=== PATIENT | male | born 1995 | race Caucasian/White ===

== ENCOUNTER 2019-09-15 15:18 | Emergency (ER) | payer OTHER ==
[~2019-09-15] VITALS: Ht 172.7 cm; Wt 94.3 kg
[~2019-09-15 15:18] MED LIST: AMPH30TA2 PO; CLN.1T PO; CLON1PAT16 TD; FLUO20CA42 PO; INDO25CA PO; MELA5TAB12 PO
[2019-09-15] MEDS ORDERED: NS IV 1000 ML 1,000 ML IV SCH (15:30)
[2019-09-15] MEDS ORDERED: KETOROLAC 30 MG/ML VIAL IVP ONE (15:30)
--- NOTE | 2019-09-15 15:32 | ED GU-Female ---
General Chief Complaint: - Urinary Stated Complaint: POSS KIDNEY STONE Nursing Triage Note: PT AMB TO TRIAGE WITH COMPLAINT OF LEFT FLANK PAIN. STATES HAS HX OF KIDNEY STONES Nursing Sepsis Screen: No Definite Risk Source: patient Exam Limitations: no limitations History of Present Illness Date Seen by Provider: Sep 15, 2019 Time Seen by Provider: 15:31 Initial Comments To ER with sudden onset left flank pain that began about an hour ago after lunch. Pain is better at this time but still present. Timing/Duration: just prior to arrival Severity/Quality: moderate Location: left flank Radiation: none Activities at Onset: none Prior Genitourinary Problems: none Associated Symptoms: denies symptoms Allergies and Home Medications Allergies Coded Allergies: No Known Drug Allergies (Unverified , 05/04/10) Home Medications Clonidine Hcl 0.1 Mg Tab, 1 EACH PO BID, (Reported) Fluoxetine Hcl 20 Mg Capsule, 1 EACH PO DAILY, (Reported) Indomethacin 25 Mg Cap, 1 EACH PO TID PRN Prescribed by: KAMRYN MAY on 01/21/122122 Patient Home Medication List Home Medication List Reviewed: Yes Review of Systems Review of Systems Constitutional: see HPI EENTM: see HPI Respiratory: no symptoms reported Cardiovascular: no symptoms reported Genitourinary: see HPI Musculoskeletal: no symptoms reported Skin: no symptoms reported Psychiatric/Neurological: No Symptoms Reported Endocrine: No Symptoms Reported Past Mzniaij-Iozutf-Gonupd Hx Patient Social History Alcohol Use: Past History Recreational Drug Use: No Smoking Status: Current Everyday Smoker Type Used: Cigarettes Recent Foreign Travel: No Contact w/Someone Who Travel: No Recent Infectious Disease Expo: No Recent Hopitalizations: No Immunizations Up To Date Tetanus Booster (TDap): Unknown PED Vaccines UTD: Yes Date of Pneumonia Vaccine: Dec 07, 2010 Date of Influenza Vaccine: Dec 25, 2011 Seasonal Allergies Seasonal Allergies: No Past Medical History Surgeries: Yes (ear tubes) Respiratory: No Cardiac: No Neurological: No Genitourinary: Yes Kidney Stones Gastrointestinal: No Musculoskeletal: No Endocrine: No HEENT: No Cancer: No Psychosocial: No Integumentary: No Blood Disorders: No Physical Exam Vital Signs Vital Signs - First Documented 09/15/19 15:23 Temp 37.2 Pulse 98 Resp 20 B/P (MAP) 140/85 (103) Pulse Ox 100 O2 Delivery Room Air Capillary Refill : Less Than 3 Seconds Height, Weight, BMI Height: '" Weight: lbs. oz. kg; 31.00 BMI Method:Stated General Appearance: WD/WN, no apparent distress HEENT: PERRL/EOMI, normal ENT inspection Neck: non-tender, full range of motion Respiratory: normal breath sounds, no respiratory distress, no accessory muscle use Gastrointestinal: normal bowel sounds, non tender, soft Neurologic/Psychiatric: alert, normal mood/affect, oriented x 3 Skin: normal color, warm/dry Progress/Results/Core Measures Suspected Sepsis Recent Fever Within 48 Hours: No Infection Criteria Present: None New/Unexplained Altered Menta: No Sepsis Screen: No Definite Risk SIRS Temperature: Pulse: 98 Respiratory Rate: 20 Laboratory Tests 09/15/19 15:35: White Blood Count 14.2H Blood Pressure 140 /85 Mean: 103 Laboratory Tests 09/15/19 15:35: Creatinine 1.10, Platelet Count 286 Results/Orders Lab Results Laboratory Tests Test 09/15/19 15:35 09/15/19 16:29 Range/Units White Blood Count 14.2 H 4.3-11.0 10^3/uL Red Blood Count 5.64 4.35-5.85 10^6/uL Hemoglobin 16.1 13.3-17.7 G/DL Hematocrit 44 40-54 % Mean Corpuscular Volume 79 L 80-99 FL Mean Corpuscular Hemoglobin 29 25-34 PG Mean Corpuscular Hemoglobin Concent 36 32-36 G/DL Red Cell Distribution Width 12.6 10.0-14.5 % Platelet Count 286 130-400 10^3/uL Mean Platelet Volume 9.7 7.4-10.4 FL Neutrophils (%) (Auto) 83 H 42-75 % Lymphocytes (%) (Auto) 12 12-44 % Monocytes (%) (Auto) 5 0-12 % Eosinophils (%) (Auto) 0 0-10 % Basophils (%) (Auto) 0 0-10 % Neutrophils # (Auto) 11.8 H 1.8-7.8 X 10^3 Lymphocytes # (Auto) 1.6 1.0-4.0 X 10^3 Monocytes # (Auto) 0.7 0.0-1.0 X 10^3 Eosinophils # (Auto) 0.0 0.0-0.3 10^3/uL Basophils # (Auto) 0.0 0.0-0.1 10^3/uL Neutrophils % (Manual) 80 % Lymphocytes % (Manual) 14 % Monocytes % (Manual) 4 % Myelocytes % 1 % Band Neutrophils 1 % Blood Morphology Comment NORMAL Sodium Level 139 135-145 MMOL/L Potassium Level 3.9 3.6-5.0 MMOL/L Chloride Level 104 98-107 MMOL/L Carbon Dioxide Level 24 21-32 MMOL/L Anion Gap 11 5-14 MMOL/L Blood Urea Nitrogen 9 7-18 MG/DL Creatinine 1.10 0.60-1.30 MG/DL Estimat Glomerular Filtration Rate > 60 BUN/Creatinine Ratio 8 Glucose Level 99 70-105 MG/DL Calcium Level 9.8 8.5-10.1 MG/DL Urine Color YELLOW Urine Clarity CLEAR Urine pH 7.0 5-9 Urine Specific [place] <=1.005 1.016-1.022 Urine Protein NEGATIVE NEGATIVE Urine Glucose (UA) NEGATIVE NEGATIVE Urine Ketones NEGATIVE NEGATIVE Urine Nitrite NEGATIVE NEGATIVE Urine Bilirubin NEGATIVE NEGATIVE Urine Urobilinogen 0.2 < = 1.0 MG/DL Urine Leukocyte Esterase NEGATIVE NEGATIVE Urine RBC (Auto) 2+ H NEGATIVE Urine RBC 2-5 H /HPF Urine WBC NONE /HPF Urine Crystals NONE /LPF Urine Bacteria NEGATIVE /HPF Urine Casts NONE /LPF Urine Mucus NEGATIVE /LPF Urine Culture Indicated NO My Orders Orders - DANIEL NAGEL APRN Ua Culture If Indicated (09/15/19 15:28) Cbc With Automated Diff (09/15/19 15:28) Basic Metabolic Panel (09/15/19 15:28) Ed Iv/Invasive Line Start (09/15/19 15:28) Ketorolac Injection (Toradol Injection) (09/15/19 15:30) Ns Iv 1000 Ml (Sodium Chloride 0.9%) (09/15/19 15:30) Manual Differential (09/15/19 15:35) Ct Abd/Pelvis Wo(Kidney Stone) (09/15/19 15:54) Medications Given in ED Current Medications Medications Dose Ordered Sig/Michelle Route Start Time Stop Time Status Last Admin Dose Admin Ketorolac Tromethamine 15 mg ONCE ONCE IVP 09/15/19 15:30 09/15/19 15:31 DC 09/15/19 15:40 15 MG Vital Signs/I&O 09/15/19 15:23 Temp 37.2 Pulse 98 Resp 20 B/P (MAP) 140/85 (103) Pulse Ox 100 O2 Delivery Room Air Capillary Refill : Less Than 3 Seconds Blood Pressure Mean: 103 Diagnostic Imaging Diagonstic Imaging: Xray, CT Comments NAME: RICHARD BOLIVAR [facility] REC#: [id number] PT STATUS: REG ER : 1995 PHYSICIAN: DANIEL NAGEL CONTENT MANAGER ADMIT DATE: 09/15/19/ER Signed Date of Exam:09/15/19 CT ABD/PELVIS WO(KIDNEY STONE) PROCEDURE: CT urinary tract, rule out kidney stone. TECHNIQUE: Multiple contiguous axial images were obtained through the abdomen and pelvis without the use of intravenous contrast. Auto Exposure Controls were utilized during the CT exam to meet ALARA standards for radiation dose reduction. INDICATION: Pain with nausea and vomiting. COMPARISON: None available. FINDINGS: The visualized lung bases are clear. The unenhanced liver, spleen, adrenal glands, and pancreas are unremarkable. The gallbladder is unremarkable. The right kidney and right ureter are unremarkable. A 5.5 mm stone is identified within the left ureteropelvic junction resulting in minimal left hydronephrosis. Additional punctate calcification within the inferior pole of the left kidney. The mid and distal left ureter is unremarkable. No aneurysmal dilatation of the abdominal aorta. The appendix is unremarkable. The urinary bladder is unremarkable. No bowel obstruction or pneumatosis. No significant adenopathy, free air, or free fluid within the abdomen or pelvis. Limbus vertebra associated with L4. No acute osseous abnormality. IMPRESSION: 5.5 mm stone within the left ureteropelvic junction resulting in mild left hydronephrosis. Additional punctate left renal calculus. Dictated by: Dictated on workstation # [id number] Dict: 09/15/19 1637 Trans: 09/15/19 1647 [facility] [id number] Interpreted by: TAMIA BEDOLLA MD Electronically signed by: TAMIA BEDOLLA MD 09/15/191646 Departure Impression Primary Impression: Kidney stone Disposition: 01 HOME, SELF-CARE Condition: Stable Departure-Patient Inst. Decision time for Depature: 16:51 Referrals: NO,LOCAL PHYSICIAN (PCP/Family) Primary Care Physician Patient Instructions: Kidney Stones (DC) Add. Discharge Instructions: 1. Return to ER for any concerns such as fevers intolerable pain or other concerns. 2. Follow-up with your doctor this week. All discharge instructions reviewed with patient and/or family. Voiced understanding. Scripts Hydrocodone/Acetaminophen (Lorcet 5-325 mg Tablet) 1 Each Tablet 1 EACH PO Q4-6HR PRN for PAIN-MODERATE MDD 10 for 7 Days, #20 TAB Prov: DANIEL NAGEL APRN 09/15/19 Cefdinir (Cefdinir) 300 Mg Capsule 300 MG PO BID, #14 CAP 0 Refills Prov: DANIEL NAGEL APRN 09/15/19 Tamsulosin HCl (Flomax) 0.4 Mg Cap 0.4 MG PO DAILY, #10 CAP Prov: DANIEL NAGEL APRN 09/15/19 Work/School Note: Work Release Form Date Seen in the Emergency Department: Sep 15, 2019 Return to Work: Sep 17, 2019 DANIEL NAGEL APRN Sep 15, 2019 15:32
[2019-09-15 15:40] LABS: BASOPHILS % (AUTO) 0 % (0-10); EOSINOPHILS % (AUTO) 0 % (0-10); HEMATOCRIT 44 % (40-54); HEMOGLOBIN 16.1 G/DL (13.3-17.7); LYMPHOCYTES # (AUTO) 1.6 X 10^3 (1.0-4.0); LYMPHOCYTES % (AUTO) 12 % (12-44); MEAN CORPUSCULAR HEMOGLOBIN 29 PG (25-34); MEAN CORPUSCULAR HGB CONC 36 G/DL (32-36); MEAN CORPUSCULAR VOLUME 79 FL (80-99); MEAN PLATELET VOLUME 9.7 FL (7.4-10.4); MONOCYTES # (AUTO) 0.7 X 10^3 (0.0-1.0); MONOCYTES % (AUTO) 5 % (0-12); NEUTROPHILS # (AUTO) 11.8 X 10^3 (1.8-7.8); NEUTROPHILS % (AUTO) 83 % (42-75); PLATELET COUNT 286 10^3/uL (130-400); RED CELL DISTRIBUTION WIDTH 12.6 % (10.0-14.5); WHITE BLOOD COUNT 14.2 10^3/uL (4.3-11.0)
[2019-09-15 15:56] LABS: CHLORIDE 104 MMOL/L (98-107); POTASSIUM 3.9 MMOL/L (3.6-5.0); SODIUM 139 MMOL/L (135-145)
[2019-09-15 15:57] LABS: CALCIUM 9.8 MG/DL (8.5-10.1); GLUCOSE 99 MG/DL (70-105)
[2019-09-15 15:59] LABS: CARBON DIOXIDE 24 MMOL/L (21-32)
[2019-09-15 16:01] LABS: GFR ESTIMATED > 60
[2019-09-15 16:02] LABS: BUN/CREATININE RATIO 8
[2019-09-15 16:12] LABS: BAND NEUTROPHILS 1 %; LYMPHOCYTES % (MANUAL) 14 %; MONOCYTES % (MANUAL) 4 %; NEUTROPHILS % (MANUAL) 80 %
[2019-09-15 16:13] LABS: MYELOCYTES % 1 %; RBC MORPH NORMAL
[2019-09-15 16:35] LABS: BILIRUBIN,URINE NEGATIVE (NEGATIVE); CLARITY,URINE CLEAR; COLOR,URINE YELLOW; GLUCOSE, URINE (UA) NEGATIVE (NEGATIVE); KETONES,URINE NEGATIVE (NEGATIVE); LEUKOCYTE ESTERASE ,URINE NEGATIVE (NEGATIVE); NITRITE,URINE NEGATIVE (NEGATIVE); PROTEIN,URINE NEGATIVE (NEGATIVE)
[2019-09-15 16:48] LABS: BACTERIA,URINE NEGATIVE /HPF
--- NOTE | 2019-09-15 16:48 | Diagnostic Imaging Report ---
PROCEDURE: CT urinary tract, rule out kidney stone. TECHNIQUE: Multiple contiguous axial images were obtained through the abdomen and pelvis without the use of intravenous contrast. Auto Exposure Controls were utilized during the CT exam to meet ALARA standards for radiation dose reduction. INDICATION: Pain with nausea and vomiting. COMPARISON: None available. FINDINGS: The visualized lung bases are clear. The unenhanced liver, spleen, adrenal glands, and pancreas are unremarkable. The gallbladder is unremarkable. The right kidney and right ureter are unremarkable. A 5.5 mm stone is identified within the left ureteropelvic junction resulting in minimal left hydronephrosis. Additional punctate calcification within the inferior pole of the left kidney. The mid and distal left ureter is unremarkable. No aneurysmal dilatation of the abdominal aorta. The appendix is unremarkable. The urinary bladder is unremarkable. No bowel obstruction or pneumatosis. No significant adenopathy, free air, or free fluid within the abdomen or pelvis. Limbus vertebra associated with L4. No acute osseous abnormality. IMPRESSION: 5.5 mm stone within the left ureteropelvic junction resulting in mild left hydronephrosis. Additional punctate left renal calculus. Dictated by: Dictated on workstation # [id number]
[2019-09-15] MEDS ORDERED: TMSL.4C PO (16:53)
[2019-09-15] MEDS ORDERED: HYDR-3870 PO (16:53)
[2019-09-15] MEDS ORDERED: CEFD300C3 PO (16:53)
[2019-09-15] MEDS ORDERED: cefTRIAXone FOR IV USE 1,000 MG in WATER (STERILE) FOR INJECTION 10 ML IV ONE (17:00)
[2019-09-15 17:09] VITALS: BP 138/79
--- OUTSIDE RECORDS SUMMARY | 2019-09-15 18:30 | XMS REPORT ---
Author Author Hussain DOMINGUEZ [address] Address [address] [place] [address] Care Team Providers [facility] Staff Pharmacist Name Role Phone AKI DOMINGUEZ Unavailable PROBLEMS Type Condition ICD9-CM Code AVT22-AP Code Onset Dates Condition S tatus SNOMED Code Problem Elevated blood pressure reading without diagnosi s of hypertension 796.2 Active 576637276 Problem Palpitations 785.1 Active 0081017 2 Problem Syncope and collapse 780.2 Active 549949251 Problem Insomnia, unspecified type G47.00 Act nhan 127193984 Problem ADHD (attention deficit hyperactivity disorder) 314.01 Active 747251582 Problem Psychophysiological insomnia F51.04 A ctive 876652586 Problem Vitiligo 709.01 Active 11700860 Problem Other acne 706.1 Active 43906918 Problem Depressive disorder, not elsewhere classified 311 Active 41376960 Problem Attention deficit hyperactiv ity disorder (ADHD), predominantly inattentive type F90.0 Active 37576545 ALLERGIES No Information ENCOUNTERS Encounter Location Date Diagnosis [place] [id number] [facility] [address] [id number] [place] [id number] Mar, Attention deficit hyperactivity disorder (ADHD), predominantly inattentive type F90.0 [facility] [address] [facility] [id number] [place] [id number] Feb, [facility] [address] [id number] [place] [id number] Feb, Attention deficit hyperactivity disorder (ADHD), predominantly inattentive type F90.0 [facility] [address] [id number] [place] [id number] Jan, Attention deficit hyperactivity disorder (ADHD), predominantly inattentive type F90.0 [facility] [address] [id number] [place] [id number] Dec, Attention deficit hyperactivity disorder (ADHD), predominantly inattentive type F90.0 and Psychophysiological insomnia F51.04 [facility] [place] [address] [id number] [place] [id number] Dec, Attention deficit hyperactivity disorder (ADHD), predominantly inattentive type F90.0 [facility] [place] [address] [id number] [place] [id number] Nov, Encounter for immunization Z23 [facility] [place] [address] [id number] [place] [id number] Nov, Attention deficit hyperactivity disorder (ADHD), predominantly inattentive type F90.0 [facility] [place] [address] [id number] [place] [id number] Oct, Attention deficit hyperactivity disorder (ADHD), predominantly inattentive type F90.0 and Adjustment insomnia F51.02 [facility] [place] [address] [id number] [place] [id number] Sep, Attention deficit hyperactivity disorder (ADHD), predominantly inattentive type F90.0 [facility] [place] [address] [id number] [place] [id number] Aug, Adjustment insomnia F51.02 [facility] [place] [address] [id number] [place] [id number] Jul, Attention deficit hyperactivity disorder (ADHD), predominantly inattentive type F90.0 [facility] [place] [address] [id number] [place] [id number] Jul, Adjustment insomnia F51.02 and Attention deficit hyperactivity disorder (ADHD), predominantly inattentive type F90.0 [facility] [place] [address] [id number] [place] [id number] June, Attention deficit hyperactivity disorder (ADHD), predominantly inattentive type F90.0 [facility] [place] [address] [id number] [place] [id number] June, Attention deficit hyperactivity disorder (ADHD), predominantly inattentive type F90.0 [facility] [place] [address] [id number] [place] [id number] May, Attention deficit hyperactivity disorder (ADHD), predominantly inattentive type F90.0 [facility] [place] [address] [id number] [place] [id number] Apr, Attention deficit hyperactivity disorder (ADHD), predominantly inattentive type F90.0 [facility] [place] [address] [id number] [place] [id number] Apr, [facility] [place] [address] [id number] [place] [id number] Apr, Attention deficit hyperactivity disorder (ADHD), predominantly inattentive type F90.0 [facility] [place] [address] [id number] [place] [id number] Mar, [facility] [place] [address] [id number] [place] [id number] Feb, [facility] [place] [address] [id number] [place] [id number] Jan, [facility] [place] [address] [id number] [place] [id number] Dec, [facility] [place] [address] [id number] [place] [id number] Nov, [facility] [place] [address] [id number] [place] [id number] Oct, Attention deficit hyperactivity disorder (ADHD), predominantly inattentive type F90.0 [facility] [place] [address] [id number] [place] [id number] Sep, [facility] [place] [address] [id number] [place] [id number] Aug, [facility] [place] [address] [id number] [place] [id number] Jul, Attention deficit hyperactivity disorder (ADHD), predominantly inattentive type F90.0 and Insomnia, unspecified type G47.00 [facility] [place] [address] [id number] [place] [id number] Jul, [facility] [address] [place] [address] AVE [id number] [place] [id number] June, [facility] [place] [address] [id number] [place] [id number] May, Attention deficit hyperactivity disorder (ADHD), predominantly inattentive type F90.0 [facility] [place] [address] [id number] [place] [id number] Apr, [facility] [place] [address] [id number] [place] [id number] Mar, [facility] [place] [address] [id number] [place] [id number] Mar, Attention deficit hyperactivity disorder (ADHD), predominantly inattentive type F90.0 [facility] [place] [address] [id number] [place] [id number] Feb, [facility] [place] [address] [id number] [place] [id number] Feb, [facility] [address] [id number] [place] [id number] Jan, [facility] [place] [address] [id number] [place] [id number] Dec, Attention deficit hyperactivity disorder (ADHD), predominantly inattentive type F90.[address] [facility] [address] [id number] [facility] [place] [id number] Nov, [facility] [place] [address] [id number] [place] [id number] Oct, [facility] [place] [address] [id number] [place] [id number] Sep, ADHD (attention deficit hyperactivity di sorder) 314.01 [facility] [place] [address] [id number] [place] [id number] Sep, [facility] [place] [address] [id number] [place] [id number] June, [facility] [place] [address] [id number] [place] [id number] June, [facility] [address] [facility] [id number] [address] [place] [address] May, [facility] [address] [facility] [id number] [address] [place] [address] May, [facility] [place] [address] [id number] [place] [id number] Apr, [facility] [place] [address] [id number] [facility] [address] Apr, [facility] [place] [address] [id number] [place] [id number] Mar, [facility] [address] [id number] [facility] [address] Mar, [facility] [place] [address] [id number] [place] [id number] Feb, [facility] [address] [id number] [address] [place] [address], [place] [address] Feb, [facility] [place] [address] [id number] [place] [id number] Feb, [facility] [address] [facility] [id number] [address] [place] [address], [place] [address] Feb, [facility] [place] [address] [id number] [place] [id number] Jan, [facility] [address] [id number] [address] [place] [address], [place] [address] Jan, [facility] [place] [address] [id number] [place] [id number] Jan, [facility] [address] [id number] [address] [place] [address], [place] [address] Jan, [facility] [place] [address] [id number] [place] [id number] Dec, [facility] [address] [id number] [address] [place] [address], [place] [address] Dec, [facility] [place] [address] [id number] [place] [id number] Nov, [facility] [address] [id number] [address] [place] [address], [place] [address] Nov, [facility] [place] [address] [id number] [place] [id number] Nov, [facility] [address] [id number] [address] [place] [address], [place] [address] Nov, [facility] [place] [address] [id number] [place] [id number] Oct, [facility] [address] [id number] [address] [place] [address], [place] [address] Oct, [facility] [place] [address] [id number] [place] [id number] Oct, [facility] [address] [id number] [address] [place] [address], [place] [address] Oct, [facility] [place] [address] [id number] [place] [id number] Sep, [facility] [address] [id number] [address] [place] [address], [place] [address] Sep, [facility] [address] [id number] [address] [place] [address], [place] [address] Sep, [facility] [place] [address] [id number] [place] [id number] Sep, [facility] [address] [id number] [address] [place] [address], [place] [address] Sep, [facility] [address] [id number] [address] [place] [address], [place] [address] Sep, [facility] [address] [id number] [address] [place] [address], [place] [address] Sep, [facility] [place] [address] [id number] [place] [id number] Aug, [facility] [address] [id number] [address] [place] [address], [place] [address] Aug, [facility] [place] [address] [id number] [place] [id number] Aug, [facility] [address] [id number] [facility] [address] Aug, [facility] [place] [address] [id number] [place] [id number] June, [facility] [place] [facility] [address] [id number] [facility] [address] June, [facility] [place] [address] [id number] [place] [id number] June, [facility] [address] [id number] [facility] [address] June, [facility] [place] [address] [id number] [place] [id number] Apr, [facility] [address] [id number] [facility] [address] Apr, [facility] [place] [address] [id number] [place] [id number] Mar, [facility] [address] [id number] [address] [place] [address], [place] [address] Mar, [facility] [place] [address] [id number] [place] [id number] Feb, [facility] [address] [id number] [address] [place] [address], [place] [address] Feb, [facility] [place] [address] [id number] [place] [id number] Jan, [facility] [address] [id number] [address] [place] [address], [place] [address] Jan, [facility] [address] [id number] [address] [place] [address], [place] [address] Jan, [facility] [address] [id number] [address] [place] [address], [place] [address] Jan, [facility] [place] [address] [id number] [place] [id number] Jan, [facility] [address] [id number] [address] [place] [address], [place] [address] Jan, [facility] [place] [address] [id number] [place] [id number] Nov, [facility] [address] [id number] [place] [address] Nov, [facility] [place] [address] [id number] [place] [id number] Oct, [facility] [place] [address] [id number] [place] [id number] Sep, [facility] [place] [address] [id number] [place] [id number] Sep, [facility] [place] [address] [id number] [place] [id number] Jul, [facility] [place] [address] [id number] [place] [id number] Jul, [facility] [place] [address] [id number] [place] [id number] June, [facility] [place] [address] [id number] [place] [id number] May, [facility] [place] [address] [id number] [place] [id number] Apr, [facility] [place] [address] [id number] [place] [id number] Mar, [facility] [place] [address] [id number] [place] [id number] Mar, [facility] [place] [address] [id number] [place] [id number] Mar, [facility] [place] [address] [id number] [place] [id number] Feb, [facility] [place] [address] [id number] [place] [id number] Feb, [facility] [place] [address] [id number] [place] [id number] Feb, [facility] [place] [address] [id number] [place] [id number] Feb, [facility] [place] [address] [id number] [place] [id number] Feb, [facility] [place] [address] [id number] [place] [id number] Jan, [facility] [address] [id number] [address] [place] [address], [place] [address] Jan, [facility] [place] [address] [id number] [place] [id number] Dec, [facility] [address] [id number] [address] [place] [address], [place] [address] Dec, [facility] [address] [id number] [address] [place] [address], [place] [address] Dec, [facility] [place] [address] [id number] [place] [id number] Dec, [facility] [address] [id number] [address] [place] [address] Dec, [facility] [address] [facility] [id number] [address] [place] [address], [place] [address] Dec, [facility] [address] [id number] [address] [place] [address] Dec, [facility] [place] [address] [id number] [place] [id number] Dec, [facility] [address] [id number] [address] [place] [address] Dec, [facility] [place] [address] [id number] [place] [id number] Nov, [facility] [place] [address] [id number] [place] [id number] Sep, [facility] [place] [address] [id number] [place] [id number] Aug, [facility] [address] [id number] [address] [place] [address], [place] [address] Aug, [facility] [place] [address] [id number] [place] [id number] Jul, [facility] [place] [address] [id number] [place] [id number] June, [facility] [address] [facility] [id number] [address] [place] [address] June, [facility] [address] [id number] [place] [id number] May, [facility] [address] [id number] [place] [id number] Apr, [facility] [address] [id number] [place] [id number] Mar, [facility] [place] [address] [id number] [place] [id number] Feb, [facility] [address] [facility] [id number] [address] [address] Jan, [facility] [address] [facility] [id number] [address] [place] [address] Dec, [facility] [address] [place] [id number] [address] [place] [address] Nov, [facility] [address] [place] [id number] [address] [place] [address] Mar, [facility] [address] [place] [id number] [address] [place] [address] Dec, IMMUNIZATIONS No Known Immunizations SOCIAL HISTORY Never Assessed REASON FOR VISIT PLAN OF CARE VITAL SIGNS Height 67.5 in 2012-10-16 Weight 138.8 lbs 2012-10-16 Temperature 99 degrees Fahrenheit 2012-10-16 Heart Rate 80 bpm 2012-10-16 Respiratory Rate 16 2012-10-16 Blood pressure systolic 128 mmHg 2012-10-16 Blood pressure diastolic 64 mmHg 2012-10-16 MEDICATIONS Unknown Medications RESULTS No Results PROCEDURES No Known procedures INSTRUCTIONS MEDICATIONS ADMINISTERED No Known Medications MEDICAL (GENERAL) HISTORY Type Description Date Medical History attention deficit hyperactivity disorder
--- OUTSIDE RECORDS SUMMARY | 2019-09-15 18:30 | XMS REPORT ---
Author Author Hussain DOMINGUEZ [address] Address [address] [place] [address] Care Team Providers Care Production Support Supervisor Name Role Phone AKI DOMINGUEZ Unavailable PROBLEMS Type Condition ICD9-CM Code FZN05-CB Code Onset Dates Condition S tatus SNOMED Code Problem Elevated blood pressure reading without diagnosi s of hypertension 796.2 Active 615745995 Problem Palpitations 785.1 Active 3393521 2 Problem Syncope and collapse 780.2 Active 816550815 Problem Insomnia, unspecified type G47.00 Act nhan 893162836 Problem ADHD (attention deficit hyperactivity disorder) 314.01 Active 605177608 Problem Psychophysiological insomnia F51.04 A ctive 598420261 Problem Vitiligo 709.01 Active 03828094 Problem Other acne 706.1 Active 98626261 Problem Depressive disorder, not elsewhere classified 311 Active 16789791 Problem Attention deficit hyperactiv ity disorder (ADHD), predominantly inattentive type F90.0 Active 80007067 ALLERGIES No Information ENCOUNTERS Encounter Location Date Diagnosis [place] [address] [address] [id number] [place] [id number] Mar, Attention deficit hyperactivity disorder (ADHD), predominantly inattentive type F90.0 [facility] [address] [facility] [id number] [place] [id number] Feb, [facility] [address] [id number] [place] [id number] Feb, Attention deficit hyperactivity disorder (ADHD), predominantly inattentive type F90.0 [facility] [address] [id number] [place] [id number] Jan, Attention deficit hyperactivity disorder (ADHD), predominantly inattentive type F90.0 [facility] [address] [id number] [place] [id number] Dec, Attention deficit hyperactivity disorder (ADHD), predominantly inattentive type F90.0 and Psychophysiological insomnia F51.04 [facility] [place] [address] [id number] [place] [id number] Dec, Attention deficit hyperactivity disorder (ADHD), predominantly inattentive type F90.0 [facility] [place] [address] [id number] [place] [id number] Nov, Encounter for immunization Z23 [facility] [place] [address] [id number] [place] [id number] Nov, Attention deficit hyperactivity disorder (ADHD), predominantly inattentive type F90.0 [facility] [place] [address] [id number] [place] [id number] Oct, Attention deficit hyperactivity disorder (ADHD), predominantly inattentive type F90.0 and Adjustment insomnia F51.02 [facility] [place] [address] [id number] [place] [id number] Sep, Attention deficit hyperactivity disorder (ADHD), predominantly inattentive type F90.0 [facility] [place] [address] [id number] [place] [id number] Aug, Adjustment insomnia F51.02 [facility] [place] [address] [id number] [place] [id number] Jul, Attention deficit hyperactivity disorder (ADHD), predominantly inattentive type F90.0 [facility] [place] [address] [id number] [place] [id number] Jul, Adjustment insomnia F51.02 and Attention deficit hyperactivity disorder (ADHD), predominantly inattentive type F90.0 [facility] [place] [address] [id number] [place] [id number] June, Attention deficit hyperactivity disorder (ADHD), predominantly inattentive type F90.0 [facility] [place] [address] [id number] [place] [id number] June, Attention deficit hyperactivity disorder (ADHD), predominantly inattentive type F90.0 [facility] [place] [address] [id number] [place] [id number] May, Attention deficit hyperactivity disorder (ADHD), predominantly inattentive type F90.0 [facility] [place] [address] [id number] [place] [id number] Apr, Attention deficit hyperactivity disorder (ADHD), predominantly inattentive type F90.0 [facility] [place] [address] [id number] [place] [id number] Apr, [facility] [place] [address] [id number] [place] [id number] Apr, Attention deficit hyperactivity disorder (ADHD), predominantly inattentive type F90.0 [facility] [place] [address] [id number] [place] [id number] Mar, [facility] [place] [address] [id number] [place] [id number] Feb, [facility] [place] [address] [id number] [place] [id number] Jan, [facility] [place] [address] [id number] [place] [id number] Dec, [facility] [place] [address] [id number] [place] [id number] Nov, [facility] [place] [address] [id number] [place] [id number] Oct, Attention deficit hyperactivity disorder (ADHD), predominantly inattentive type F90.0 [facility] [place] [address] [id number] [place] [id number] Sep, [facility] [place] [address] [id number] [place] [id number] Aug, [facility] [place] [address] [id number] [place] [id number] Jul, Attention deficit hyperactivity disorder (ADHD), predominantly inattentive type F90.0 and Insomnia, unspecified type G47.00 [facility] [place] [address] [id number] [place] [id number] Jul, [facility] [address] [place] [address] AVE [id number] [place] [id number] June, [facility] [place] [address] [id number] [place] [id number] May, Attention deficit hyperactivity disorder (ADHD), predominantly inattentive type F90.0 [facility] [place] [address] [id number] [place] [id number] Apr, [facility] [place] [address] [id number] [place] [id number] Mar, [facility] [place] [address] [id number] [place] [id number] Mar, Attention deficit hyperactivity disorder (ADHD), predominantly inattentive type F90.0 [facility] [place] [address] [id number] [place] [id number] Feb, [facility] [place] [address] [id number] [place] [id number] Feb, [facility] [address] [id number] [place] [id number] Jan, [facility] [place] [address] [id number] [place] [id number] Dec, Attention deficit hyperactivity disorder (ADHD), predominantly inattentive type F90.[address] [facility] [address] [id number] [facility] [place] [id number] Nov, [facility] [place] [address] [id number] [place] [id number] Oct, [facility] [place] [address] [id number] [place] [id number] Sep, ADHD (attention deficit hyperactivity di sorder) 314.01 [facility] [place] [address] [id number] [place] [id number] Sep, [facility] [place] [address] [id number] [place] [id number] June, [facility] [place] [address] [id number] [place] [id number] June, [facility] [address] [facility] [id number] [address] [place] [address] May, [facility] [address] [facility] [id number] [address] [place] [address] May, [facility] [place] [address] [id number] [place] [id number] Apr, [facility] [address] [id number] [facility] [place] [address] Apr, [facility] [place] [address] [id number] [place] [id number] Mar, [facility] [address] [id number] [facility] [place] [address] Mar, [facility] [place] [address] [id number] [place] [id number] Feb, [facility] [address] [id number] [address] [place] [address], [place] [address] Feb, [facility] [place] [address] [id number] [place] [id number] Feb, [facility] [address] [facility] [id number] [address] [place] [address], [place] [address] Feb, [facility] [place] [address] [id number] [place] [id number] Jan, [facility] [address] [id number] [address] [place] [address], [place] [address] Jan, [facility] [place] [address] [id number] [place] [id number] Jan, [facility] [address] [id number] [address] [place] [address], [place] [address] Jan, [facility] [place] [address] [id number] [place] [id number] Dec, [facility] [address] [id number] [address] [place] [address], [place] [address] Dec, [facility] [place] [address] [id number] [place] [id number] Nov, [facility] [address] [id number] [address] [place] [address], [place] [address] Nov, [facility] [place] [address] [id number] [place] [id number] Nov, [facility] [address] [id number] [address] [place] [address], [place] [address] Nov, [facility] [place] [address] [id number] [place] [id number] Oct, [facility] [address] [id number] [address] [place] [address], [place] [address] Oct, [facility] [place] [address] [id number] [place] [id number] Oct, [facility] [address] [id number] [address] [place] [address], [place] [address] Oct, [facility] [place] [address] [id number] [place] [id number] Sep, [facility] [address] [id number] [address] [place] [address], [place] [address] Sep, [facility] [address] [id number] [address] [place] [address], [place] [address] Sep, [facility] [place] [address] [id number] [place] [id number] Sep, [facility] [address] [id number] [address] [place] [address], [place] [address] Sep, [facility] [address] [id number] [address] [place] [address], [place] [address] Sep, [facility] [address] [id number] [address] [place] [address], [place] [address] Sep, [facility] [place] [address] [id number] [place] [id number] Aug, [facility] [address] [id number] [address] [place] [address], [place] [address] Aug, [facility] [place] [address] [id number] [place] [id number] Aug, [facility] [address] [id number] [facility] [place] [address] Aug, [facility] [place] [address] [id number] [place] [id number] June, [facility] [address] [id number] [facility] [place] [address] June, [facility] [place] [address] [id number] [place] [id number] June, [facility] [address] [id number] [facility] [place] [address] June, [facility] [place] [address] [id number] [place] [id number] Apr, [facility] [address] [id number] [facility] [place] [address] Apr, [facility] [place] [address] [id number] [place] [id number] Mar, [facility] [address] [id number] [address] [place] [address], [place] [address] Mar, [facility] [place] [address] [id number] [place] [id number] Feb, [facility] [address] [id number] [address] [place] [address], [place] [address] Feb, [facility] [place] [address] [id number] [place] [id number] Jan, [facility] [address] [id number] [address] [place] [address], [place] [address] Jan, [facility] [address] [id number] [address] [place] [address], [place] [address] Jan, [facility] [address] [id number] [address] [place] [address], [place] [address] Jan, [facility] [place] [address] [id number] [place] [id number] Jan, [facility] [address] [id number] [address] [place] [address], [place] [address] Jan, [facility] [place] [address] [id number] [place] [id number] Nov, [facility] [address] [id number] [address] [address] Nov, [facility] [place] [address] [id number] [place] [id number] Oct, [facility] [place] [address] [id number] [place] [id number] Sep, [facility] [place] [address] [id number] [place] [id number] Sep, [facility] [place] [address] [id number] [place] [id number] Jul, [facility] [place] [address] [id number] [place] [id number] Jul, [facility] [place] [address] [id number] [place] [id number] June, [facility] [place] [address] [id number] [place] [id number] May, [facility] [place] [address] [id number] [place] [id number] Apr, [facility] [place] [address] [id number] [place] [id number] Mar, [facility] [place] [address] [id number] [place] [id number] Mar, [facility] [place] [address] [id number] [place] [id number] Mar, [facility] [place] [address] [id number] [place] [id number] Feb, [facility] [place] [address] [id number] [place] [id number] Feb, [facility] [place] [address] [id number] [place] [id number] Feb, [facility] [place] [address] [id number] [place] [id number] Feb, [facility] [place] [address] [id number] [place] [id number] Feb, [facility] [place] [address] [id number] [place] [id number] Jan, [facility] [address] [id number] [address] [place] [address], [place] [address] Jan, [facility] [place] [address] [id number] [place] [id number] Dec, [facility] [address] [id number] [address] [place] [address], [place] [address] Dec, [facility] [address] [id number] [address] [place] [address], [place] [address] Dec, [facility] [place] [address] [id number] [place] [id number] Dec, [facility] [address] [id number] [address] [place] [address] Dec, [facility] [address] [facility] [id number] [address] [place] [address], [place] [address] Dec, [facility] [address] [id number] [address] [place] [address] Dec, [facility] [place] [address] [id number] [place] [id number] Dec, [facility] [address] [id number] [address] [place] [address] Dec, [facility] [address] [id number] [place] [id number] Nov, [facility] [place] [address] [id number] [place] [id number] Sep, [facility] [place] [address] [id number] [place] [id number] Aug, [facility] [address] [id number] [address] [place] [address], [place] [address] Aug, [facility] [place] [address] [id number] [place] [id number] Jul, [facility] [place] [address] [id number] [place] [id number] June, [facility] [address] [facility] [id number] [address] [place] [address] June, [facility] [address] [id number] [place] [id number] May, [facility] [address] [id number] [place] [id number] Apr, [facility] [address] [id number] [place] [id number] Mar, [facility] [address] [id number] [place] [id number] Feb, [facility] [address] [facility] [id number] [address] [place] [address] Jan, [facility] [address] [facility] [id number] [address] [place] [address] Dec, [facility] [address] [place] [id number] [address] [place] [address] Nov, [facility] [address] [place] [id number] [address] [place] [address] Mar, [facility] [address] [place] [id number] [address] [place] [address] Dec, IMMUNIZATIONS No Known Immunizations SOCIAL HISTORY Never Assessed REASON FOR VISIT PLAN OF CARE VITAL SIGNS Height 66.75 in 2011-08-09 Weight 111 lbs 2011-08-09 Temperature 98.8 degrees Fahrenheit 2011-08-09 Heart Rate 82 bpm 2011-08-09 Respiratory Rate 18 2011-08-09 Blood pressure systolic 128 mmHg 2011-08-09 Blood pressure diastolic 60 mmHg 2011-08-09 MEDICATIONS Unknown Medications RESULTS No Results PROCEDURES No Known procedures INSTRUCTIONS MEDICATIONS ADMINISTERED No Known Medications MEDICAL (GENERAL) HISTORY Type Description Date Medical History attention deficit hyperactivity disorder
--- OUTSIDE RECORDS SUMMARY | 2019-09-15 18:30 | XMS REPORT ---
Author Author Hussain Akins Organization [facility] Address [address] [place], [place] [id number] Care Team Providers Care Strip Deburrer Name Role Phone [place] Akins PCP Unavailable Allergies and Adverse Reactions Name Reaction Notes PENICILLINS Plan of Treatment Not available. Medications Active Name Start Date Estimated Completion Date SIG Co mments doxycycline hyclate 100 mg oral tablet 03/12/2018 1 tab po q 12 hours for 10 days Mucinex DM 60-1,200 mg oral tablet extended release 12 hr 019 1 tab po q 12 hours prn cough/congestion Zyrtec 10 mg oral tablet 03/12/2018 1 tab po q pm pr n sinus drainage/cough fluticasone 50 mcg/actuation nasal spray,suspension 03/12/2018 2 sprays each nostril q 12 hours for 1 week, then 1 spray each nostril q 12 hours there after Problem List Not available. Vital Signs Date Time BP-Sys(mm[Hg] BP-Milana(mm[Hg]) HR(bpm) RR(rpm) Temp WT HT HC BMI BSA BMI Percentile O2 Sat(%) 03/12/2018 6:20:00 PM 134 mmHg 98 mmHg 98 bpm 18 rpm 97.3 F 190.5 lbs 70 in 27.3336 kg/m 2.0658 m 97 % 07/23/2017 5:31:00 PM 138 mmHg 78 mmHg 97 bpm 18 rpm 99.1 F 187 lbs 70 in 26.83 kg/m2 2.05 m2 100 % Social History Name Description Comments denies alcohol use Tobacco Current every day smoker 07/23/2017 - History of Procedures Date Ordered Description Order Status 07/23/2017 12:00 AM Drug Screen Collection Reviewed Results Summary Not available. History Of Immunizations Not available. History of Past Illness Name Date of Onset Comments No significant medical history Drug testing, pre-employment Jul 23 2017 5:37PM Pre-employment examination Jul 23 2017 5:37PM Sinusitis Mar 12 2018 6:22PM Payers Insurance Name Company Name Plan Name Plan Number Policy Number Pradeep cy Group Number [facility] Date [id number] N/ A [facility] [id number] N/A History of Encounters Visit Date Visit Type Provider 03/12/2018 Office visit [place] PIRES 07/23/2017 Office visit Madeline Ohara APRN
--- OUTSIDE RECORDS SUMMARY | 2019-09-15 18:30 | XMS REPORT ---
Author Author Hussain DOMINGUEZ [address] Address [address] [place] [address] Care Team Providers Care Liquid Flavor Compounder Name Role Phone AKI DOMINGUEZ Unavailable PROBLEMS Type Condition ICD9-CM Code IGC00-SE Code Onset Dates Condition S tatus SNOMED Code Problem Elevated blood pressure reading without diagnosi s of hypertension 796.2 Active 195086774 Problem Palpitations 785.1 Active 7647487 2 Problem Syncope and collapse 780.2 Active 641180747 Problem Insomnia, unspecified type G47.00 Act nhan 435559259 Problem ADHD (attention deficit hyperactivity disorder) 314.01 Active 722377929 Problem Psychophysiological insomnia F51.04 A ctive 343297577 Problem Vitiligo 709.01 Active 29279928 Problem Other acne 706.1 Active 52362887 Problem Depressive disorder, not elsewhere classified 311 Active 34995101 Problem Attention deficit hyperactiv ity disorder (ADHD), predominantly inattentive type F90.0 Active 16475445 ALLERGIES No Information ENCOUNTERS Encounter Location Date Diagnosis [place] [id number] [facility] [address] [id number] [place] [id number] Mar, Attention deficit hyperactivity disorder (ADHD), predominantly inattentive type F90.0 [facility] [address] [facility] [id number] [place] [id number] Feb, [facility] [address] [id number] [place] [id number] Feb, Attention deficit hyperactivity disorder (ADHD), predominantly inattentive type F90.0 [facility] [address] [id number] [place] [id number] Jan, Attention deficit hyperactivity disorder (ADHD), predominantly inattentive type F90.0 [facility] [address] [id number] [place] [id number] Dec, Attention deficit hyperactivity disorder (ADHD), predominantly inattentive type F90.0 and Psychophysiological insomnia F51.04 [facility] [place] [address] [id number] [place] [id number] Dec, Attention deficit hyperactivity disorder (ADHD), predominantly inattentive type F90.0 [facility] [place] [address] [id number] [place] [id number] Nov, Encounter for immunization Z23 [facility] [place] [address] [id number] [place] [id number] Nov, Attention deficit hyperactivity disorder (ADHD), predominantly inattentive type F90.0 [facility] [place] [address] [id number] [place] [id number] Oct, Attention deficit hyperactivity disorder (ADHD), predominantly inattentive type F90.0 and Adjustment insomnia F51.02 [facility] [place] [address] [id number] [place] [id number] Sep, Attention deficit hyperactivity disorder (ADHD), predominantly inattentive type F90.0 [facility] [place] [address] [id number] [place] [id number] Aug, Adjustment insomnia F51.02 [facility] [place] [address] [id number] [place] [id number] Jul, Attention deficit hyperactivity disorder (ADHD), predominantly inattentive type F90.0 [facility] [place] [address] [id number] [place] [id number] Jul, Adjustment insomnia F51.02 and Attention deficit hyperactivity disorder (ADHD), predominantly inattentive type F90.0 [facility] [place] [address] [id number] [place] [id number] June, Attention deficit hyperactivity disorder (ADHD), predominantly inattentive type F90.0 [facility] [place] [address] [id number] [place] [id number] June, Attention deficit hyperactivity disorder (ADHD), predominantly inattentive type F90.0 [facility] [place] [address] [id number] [place] [id number] May, Attention deficit hyperactivity disorder (ADHD), predominantly inattentive type F90.0 [facility] [place] [address] [id number] [place] [id number] Apr, Attention deficit hyperactivity disorder (ADHD), predominantly inattentive type F90.0 [facility] [place] [address] [id number] [place] [id number] Apr, [facility] [place] [address] [id number] [place] [id number] Apr, Attention deficit hyperactivity disorder (ADHD), predominantly inattentive type F90.0 [facility] [place] [address] [id number] [place] [id number] Mar, [facility] [place] [address] [id number] [place] [id number] Feb, [facility] [place] [address] [id number] [place] [id number] Jan, [facility] [place] [address] [id number] [place] [id number] Dec, [facility] [place] [address] [id number] [place] [id number] Nov, [facility] [place] [address] [id number] [place] [id number] Oct, Attention deficit hyperactivity disorder (ADHD), predominantly inattentive type F90.0 [facility] [place] [address] [id number] [place] [id number] Sep, [facility] [place] [address] [id number] [place] [id number] Aug, [facility] [place] [address] [id number] [place] [id number] Jul, Attention deficit hyperactivity disorder (ADHD), predominantly inattentive type F90.0 and Insomnia, unspecified type G47.00 [facility] [place] [address] [id number] [place] [id number] Jul, [facility] [address] [place] [address] AVE [id number] [place] [id number] June, [facility] [place] [address] [id number] [place] [id number] May, Attention deficit hyperactivity disorder (ADHD), predominantly inattentive type F90.0 [facility] [place] [address] [id number] [place] [id number] Apr, [facility] [place] [address] [id number] [place] [id number] Mar, [facility] [place] [address] [id number] [place] [id number] Mar, Attention deficit hyperactivity disorder (ADHD), predominantly inattentive type F90.0 [facility] [place] [address] [id number] [place] [id number] Feb, [facility] [place] [address] [id number] [place] [id number] Feb, [facility] [address] [id number] [place] [id number] Jan, [facility] [place] [address] [id number] [place] [id number] Dec, Attention deficit hyperactivity disorder (ADHD), predominantly inattentive type F90.[address] [facility] [address] [id number] [facility] [place] [id number] Nov, [facility] [place] [address] [id number] [place] [id number] Oct, [facility] [address] [id number] [place] [id number] Sep, ADHD (attention deficit hyperactivity di sorder) 314.01 [facility] [place] [address] [id number] [place] [id number] Sep, [facility] [place] [address] [id number] [place] [id number] June, [facility] [place] [address] [id number] [place] [id number] June, [facility] [address] [facility] [id number] [address] [place] [address] May, [facility] [address] [facility] [id number] [address] [place] [address] May, [facility] [place] [address] [id number] [place] [id number] Apr, [facility] [place] [address] [id number] [facility] [place] [place] [address] Apr, [facility] [place] [address] [id number] [place] [id number] Mar, [facility] [address] [id number] [facility] [place] [place] [address] Mar, [facility] [place] [address] [id number] [place] [id number] Feb, [facility] [address] [id number] [address] [place] [address], [place] [address] Feb, [facility] [place] [address] [id number] [place] [id number] Feb, [facility] [address] [facility] [id number] [address] [place] [address], [place] [address] Feb, [facility] [place] [address] [id number] [place] [id number] Jan, [facility] [address] [id number] [address] [place] [address], [place] [address] Jan, [facility] [place] [address] [id number] [place] [id number] Jan, [facility] [address] [id number] [address] [place] [address], [place] [address] Jan, [facility] [place] [address] [id number] [place] [id number] Dec, [facility] [address] [id number] [address] [place] [address], [place] [address] Dec, [facility] [place] [address] [id number] [place] [id number] Nov, [facility] [address] [id number] [address] [place] [address], [place] [address] Nov, [facility] [place] [address] [id number] [place] [id number] Nov, [facility] [address] [id number] [address] [place] [address], [place] [address] Nov, [facility] [place] [address] [id number] [place] [id number] Oct, [facility] [address] [id number] [address] [place] [address], [place] [address] Oct, [facility] [place] [address] [id number] [place] [id number] Oct, [facility] [address] [id number] [address] [place] [address], [place] [address] Oct, [facility] [place] [address] [id number] [place] [id number] Sep, [facility] [address] [id number] [address] [place] [address], [place] [address] Sep, [facility] [address] [id number] [address] [place] [address], [place] [address] Sep, [facility] [place] [address] [id number] [place] [id number] Sep, [facility] [address] [id number] [address] [place] [address], [place] [address] Sep, [facility] [address] [id number] [address] [place] [address], [place] [address] Sep, [facility] [address] [id number] [address] [place] [address], [place] [address] Sep, [facility] [place] [address] [id number] [place] [id number] Aug, [facility] [address] [id number] [address] [place] [address], [place] [address] Aug, [facility] [place] [address] [id number] [place] [id number] Aug, [facility] [address] [id number] [facility] [place] [place] [address] Aug, [facility] [place] [address] [id number] [place] [id number] June, [facility] [place] [address] [id number] [facility] [place] [place] [address] June, [facility] [place] [address] [id number] [place] [id number] June, [facility] [address] [id number] [facility] [place] [place] [address] June, [facility] [place] [address] [id number] [place] [id number] Apr, [facility] [address] [id number] [facility] [place] [place] [address] Apr, [facility] [place] [address] [id number] [place] [id number] Mar, [facility] [address] [id number] [address] [place] [address], [place] [address] Mar, [facility] [place] [address] [id number] [place] [id number] Feb, [facility] [address] [id number] [address] [place] [address], [place] [address] Feb, [facility] [place] [address] [id number] [place] [id number] Jan, [facility] [address] [id number] [address] [place] [address], [place] [address] Jan, [facility] [address] [id number] [address] [place] [address], [place] [address] Jan, [facility] [address] [id number] [address] [place] [address], [place] [address] Jan, [facility] [place] [address] [id number] [place] [id number] Jan, [facility] [address] [id number] [address] [place] [address], [place] [address] Jan, [facility] [place] [address] [id number] [place] [id number] Nov, [facility] [address] [id number] [address] [address] Nov, [facility] [place] [address] [id number] [place] [id number] Oct, [facility] [place] [address] [id number] [place] [id number] Sep, [facility] [place] [address] [id number] [place] [id number] Sep, [facility] [place] [address] [id number] [place] [id number] Jul, [facility] [place] [address] [id number] [place] [id number] Jul, [facility] [place] [address] [id number] [place] [id number] June, [facility] [place] [address] [id number] [place] [id number] May, [facility] [place] [address] [id number] [place] [id number] Apr, [facility] [place] [address] [id number] [place] [id number] Mar, [facility] [place] [address] [id number] [place] [id number] Mar, [facility] [place] [address] [id number] [place] [id number] Mar, [facility] [place] [address] [id number] [place] [id number] Feb, [facility] [place] [address] [id number] [place] [id number] Feb, [facility] [place] [address] [id number] [place] [id number] Feb, [facility] [place] [address] [id number] [place] [id number] Feb, [facility] [place] [address] [id number] [place] [id number] Feb, [facility] [place] [address] [id number] [place] [id number] Jan, [facility] [address] [id number] [address] [place] [address], [place] [address] Jan, [facility] [place] [address] [id number] [place] [id number] Dec, [facility] [address] [id number] [address] [place] [address], [place] [address] Dec, [facility] [address] [id number] [address] [place] [address], [place] [address] Dec, [facility] [place] [address] [id number] [place] [id number] Dec, [facility] [address] [id number] [address] [place] [address] Dec, [facility] [address] [facility] [id number] [address] [place] [address], [place] [address] Dec, [facility] [address] [id number] [address] [place] [address] Dec, [facility] [place] [address] [id number] [place] [id number] Dec, [facility] [address] [id number] [address] [place] [address] Dec, [facility] [place] [address] [id number] [place] [id number] Nov, [facility] [place] [address] [id number] [place] [id number] Sep, [facility] [place] [address] [id number] [place] [id number] Aug, [facility] [address] [id number] [address] [place] [address], [place] [address] Aug, [facility] [place] [address] [id number] [place] [id number] Jul, [facility] [place] [address] [id number] [place] [id number] June, [facility] [address] [facility] [id number] [address] [place] [address] June, [facility] [address] [id number] [place] [id number] May, [facility] [address] [id number] [place] [id number] Apr, [facility] [address] [id number] [place] [id number] Mar, [facility] [place] [address] [id number] [place] [id number] Feb, [facility] [address] [facility] [id number] [address] [place] [address] Jan, [facility] [address] [facility] [id number] [address] [place] [address] Dec, [facility] [address] [place] [id number] [address] [place] [address] Nov, [facility] [address] [place] [id number] [address] [place] [address] Mar, [facility] [address] [place] [id number] [address] [place] [address] Dec, IMMUNIZATIONS No Known Immunizations SOCIAL HISTORY Never Assessed REASON FOR VISIT PLAN OF CARE VITAL SIGNS Height 67.5 in 2012-09-20 Temperature 98.8 degrees Fahrenheit 2012-09-20 Heart Rate 84 bpm 2012-09-20 Respiratory Rate 16 2012-09-20 Blood pressure systolic 124 mmHg 2012-09-20 Blood pressure diastolic 70 mmHg 2012-09-20 MEDICATIONS Unknown Medications RESULTS No Results PROCEDURES No Known procedures INSTRUCTIONS MEDICATIONS ADMINISTERED No Known Medications MEDICAL (GENERAL) HISTORY Type Description Date Medical History attention deficit hyperactivity disorder
--- OUTSIDE RECORDS SUMMARY | 2019-09-15 18:30 | XMS REPORT ---
Author Author Hussain DOMINGUEZ [address] Address [address] [place] [address] Care Team Providers Care Hide Tanner Name Role Phone AKI DOMINGUEZ Unavailable PROBLEMS Type Condition ICD9-CM Code LLT11-CG Code Onset Dates Condition S tatus SNOMED Code Problem Elevated blood pressure reading without diagnosi s of hypertension 796.2 Active 257101946 Problem Palpitations 785.1 Active 1613885 2 Problem Syncope and collapse 780.2 Active 255789191 Problem Insomnia, unspecified type G47.00 Act nhan 657923515 Problem ADHD (attention deficit hyperactivity disorder) 314.01 Active 200812830 Problem Psychophysiological insomnia F51.04 A ctive 152147118 Problem Vitiligo 709.01 Active 06554726 Problem Other acne 706.1 Active 69538419 Problem Depressive disorder, not elsewhere classified 311 Active 76370526 Problem Attention deficit hyperactiv ity disorder (ADHD), predominantly inattentive type F90.0 Active 15325914 ALLERGIES No Information ENCOUNTERS Encounter Location Date Diagnosis [place] [address] [facility] [address] [id number] [place] [id number] Mar, Attention deficit hyperactivity disorder (ADHD), predominantly inattentive type F90.0 [facility] [address] [facility] [id number] [place] [id number] Feb, [facility] [address] [id number] [place] [id number] Feb, Attention deficit hyperactivity disorder (ADHD), predominantly inattentive type F90.0 [facility] [address] [id number] [place] [id number] Jan, Attention deficit hyperactivity disorder (ADHD), predominantly inattentive type F90.0 [facility] [address] [id number] [place] [id number] Dec, Attention deficit hyperactivity disorder (ADHD), predominantly inattentive type F90.0 and Psychophysiological insomnia F51.04 [facility] [place] [address] [id number] [place] [id number] Dec, Attention deficit hyperactivity disorder (ADHD), predominantly inattentive type F90.0 [facility] [place] [address] [id number] [place] [id number] Nov, Encounter for immunization Z23 [facility] [place] [address] [id number] [place] [id number] Nov, Attention deficit hyperactivity disorder (ADHD), predominantly inattentive type F90.0 [facility] [place] [address] [id number] [place] [id number] Oct, Attention deficit hyperactivity disorder (ADHD), predominantly inattentive type F90.0 and Adjustment insomnia F51.02 [facility] [place] [address] [id number] [place] [id number] Sep, Attention deficit hyperactivity disorder (ADHD), predominantly inattentive type F90.0 [facility] [place] [address] [id number] [place] [id number] Aug, Adjustment insomnia F51.02 [facility] [place] [address] [id number] [place] [id number] Jul, Attention deficit hyperactivity disorder (ADHD), predominantly inattentive type F90.0 [facility] [place] [address] [id number] [place] [id number] Jul, Adjustment insomnia F51.02 and Attention deficit hyperactivity disorder (ADHD), predominantly inattentive type F90.0 [facility] [place] [address] [id number] [place] [id number] June, Attention deficit hyperactivity disorder (ADHD), predominantly inattentive type F90.0 [facility] [place] [address] [id number] [place] [id number] June, Attention deficit hyperactivity disorder (ADHD), predominantly inattentive type F90.0 [facility] [place] [address] [id number] [place] [id number] May, Attention deficit hyperactivity disorder (ADHD), predominantly inattentive type F90.0 [facility] [place] [address] [id number] [place] [id number] Apr, Attention deficit hyperactivity disorder (ADHD), predominantly inattentive type F90.0 [facility] [place] [address] [id number] [place] [id number] Apr, [facility] [place] [address] [id number] [place] [id number] Apr, Attention deficit hyperactivity disorder (ADHD), predominantly inattentive type F90.0 [facility] [place] [address] [id number] [place] [id number] Mar, [facility] [place] [address] [id number] [place] [id number] Feb, [facility] [place] [address] [id number] [place] [id number] Jan, [facility] [place] [address] [id number] [place] [id number] Dec, [facility] [place] [address] [id number] [place] [id number] Nov, [facility] [place] [address] [id number] [place] [id number] Oct, Attention deficit hyperactivity disorder (ADHD), predominantly inattentive type F90.0 [facility] [place] [address] [id number] [place] [id number] Sep, [facility] [place] [address] [id number] [place] [id number] Aug, [facility] [place] [address] [id number] [place] [id number] Jul, Attention deficit hyperactivity disorder (ADHD), predominantly inattentive type F90.0 and Insomnia, unspecified type G47.00 [facility] [place] [address] [id number] [place] [id number] Jul, [facility] [address] [place] [address] AVE [id number] [place] [id number] June, [facility] [place] [address] [id number] [place] [id number] May, Attention deficit hyperactivity disorder (ADHD), predominantly inattentive type F90.0 [facility] [place] [address] [id number] [place] [id number] Apr, [facility] [place] [address] [id number] [place] [id number] Mar, [facility] [place] [address] [id number] [place] [id number] Mar, Attention deficit hyperactivity disorder (ADHD), predominantly inattentive type F90.0 [facility] [place] [address] [id number] [place] [id number] Feb, [facility] [place] [address] [id number] [place] [id number] Feb, [facility] [address] [id number] [place] [id number] Jan, [facility] [place] [address] [id number] [place] [id number] Dec, Attention deficit hyperactivity disorder (ADHD), predominantly inattentive type F90.[address] [facility] [address] [id number] [facility] [place] [id number] Nov, [facility] [place] [address] [id number] [place] [id number] Oct, [facility] [place] [address] [id number] [place] [id number] Sep, ADHD (attention deficit hyperactivity di sorder) 314.01 [facility] [place] [address] [id number] [place] [id number] Sep, [facility] [place] [address] [id number] [place] [id number] June, [facility] [place] [address] [id number] [place] [id number] June, [facility] [address] [facility] [id number] [address] [place] [phone] May, [facility] [address] [facility] [id number] [address] [place] [phone] May, [facility] [place] [address] [id number] [place] [id number] Apr, [facility] [place] [facility] [address] [id number] [facility] [place] [address] Apr, [facility] [place] [address] [id number] [place] [id number] Mar, [facility] [address] [id number] [facility] [place] [address] Mar, [facility] [place] [address] [id number] [place] [id number] Feb, [facility] [address] [id number] [address] [place] [address], [place] [address] Feb, [facility] [place] [address] [id number] [place] [id number] Feb, [facility] [address] [facility] [id number] [address] [place] [address], [place] [address] Feb, [facility] [place] [address] [id number] [place] [id number] Jan, [facility] [address] [id number] [address] [place] [address], [place] [address] Jan, [facility] [place] [address] [id number] [place] [id number] Jan, [facility] [address] [id number] [address] [place] [address], [place] [address] Jan, [facility] [place] [address] [id number] [place] [id number] Dec, [facility] [address] [id number] [address] [place] [address], [place] [address] Dec, [facility] [place] [address] [id number] [place] [id number] Nov, [facility] [address] [id number] [address] [place] [address], [place] [address] Nov, [facility] [place] [address] [id number] [place] [id number] Nov, [facility] [address] [id number] [address] [place] [address], [place] [address] Nov, [facility] [place] [address] [id number] [place] [id number] Oct, [facility] [address] [id number] [address] [place] [address], [place] [address] Oct, [facility] [place] [address] [id number] [place] [id number] Oct, [facility] [address] [id number] [address] [place] [address], [place] [address] Oct, [facility] [place] [address] [id number] [place] [id number] Sep, [facility] [address] [id number] [address] [place] [address], [place] [address] Sep, [facility] [address] [id number] [address] [place] [address], [place] [address] Sep, [facility] [place] [address] [id number] [place] [id number] Sep, [facility] [address] [id number] [address] [place] [address], [place] [address] Sep, [facility] [address] [id number] [address] [place] [address], [place] [address] Sep, [facility] [address] [id number] [address] [place] [address], [place] [address] Sep, [facility] [place] [address] [id number] [place] [id number] Aug, [facility] [address] [id number] [address] [place] [address], [place] [address] Aug, [facility] [place] [address] [id number] [place] [id number] Aug, [facility] [address] [id number] [facility] [place] [address] Aug, [facility] [place] [address] [id number] [place] [id number] June, [facility] [place] [facility] [address] [id number] [facility] [place] [address] June, [facility] [place] [address] [id number] [place] [id number] June, [facility] [address] [id number] [facility] [place] [address] June, [facility] [place] [address] [id number] [place] [id number] Apr, [facility] [address] [id number] [facility] [place] [address] Apr, [facility] [place] [address] [id number] [place] [id number] Mar, [facility] [address] [id number] [address] [place] [address], [place] [address] Mar, [facility] [place] [address] [id number] [place] [id number] Feb, [facility] [address] [id number] [address] [place] [address], [place] [address] Feb, [facility] [place] [address] [id number] [place] [id number] Jan, [facility] [address] [id number] [address] [place] [address], [place] [address] Jan, [facility] [address] [id number] [address] [place] [address], [place] [address] Jan, [facility] [address] [id number] [address] [place] [address], [place] [address] Jan, [facility] [place] [address] [id number] [place] [id number] Jan, [facility] [address] [id number] [address] [place] [address], [place] [address] Jan, [facility] [place] [address] [id number] [place] [id number] Nov, [facility] [address] [id number] [address] [address] Nov, [facility] [place] [address] [id number] [place] [id number] Oct, [facility] [place] [address] [id number] [place] [id number] Sep, [facility] [place] [address] [id number] [place] [id number] Sep, [facility] [place] [address] [id number] [place] [id number] Jul, [facility] [place] [address] [id number] [place] [id number] Jul, [facility] [place] [address] [id number] [place] [id number] June, [facility] [place] [address] [id number] [place] [id number] May, [facility] [place] [address] [id number] [place] [id number] Apr, [facility] [place] [address] [id number] [place] [id number] Mar, [facility] [place] [address] [id number] [place] [id number] Mar, [facility] [place] [address] [id number] [place] [id number] Mar, [facility] [place] [address] [id number] [place] [id number] Feb, [facility] [place] [address] [id number] [place] [id number] Feb, [facility] [place] [address] [id number] [place] [id number] Feb, [facility] [place] [address] [id number] [place] [id number] Feb, [facility] [place] [address] [id number] [place] [id number] Feb, [facility] [place] [address] [id number] [place] [id number] Jan, [facility] [address] [id number] [address] [place] [address], [place] [address] Jan, [facility] [place] [address] [id number] [place] [id number] Dec, [facility] [address] [id number] [address] [place] [address], [place] [address] Dec, [facility] [address] [id number] [address] [place] [address], [place] [address] Dec, [facility] [place] [address] [id number] [place] [id number] Dec, [facility] [address] [id number] [address] [place] [address] Dec, [facility] [address] [facility] [id number] [address] [place] [address], [place] [address] Dec, [facility] [address] [id number] [address] [place] [address] Dec, [facility] [place] [address] [id number] [place] [id number] Dec, [facility] [address] [id number] [address] [place] [address] Dec, [facility] [place] [address] [id number] [place] [id number] Nov, [facility] [place] [address] [id number] [place] [id number] Sep, [facility] [place] [address] [id number] [place] [id number] Aug, [facility] [address] [id number] [address] [place] [address], [place] [address] Aug, [facility] [place] [address] [id number] [place] [id number] Jul, [facility] [place] [address] [id number] [place] [id number] June, [facility] [address] [facility] [id number] [address] [place] [address] June, [facility] [address] [id number] [place] [id number] May, [facility] [place] [address] [id number] [place] [id number] Apr, [facility] [place] [address] [id number] [place] [id number] Mar, [facility] [place] [address] [id number] [place] [id number] Feb, [facility] [address] [facility] [id number] [address] [place] [id number] Jan, [facility] [address] [facility] [id number] [address] [place] [address] Dec, [facility] [address] [place] [id number] [address] [place] [address] Nov, [facility] [address] [place] [id number] [address] [place] [address] Mar, [facility] [address] [place] [id number] [address] [place] [address] Dec, IMMUNIZATIONS No Known Immunizations SOCIAL HISTORY Never Assessed REASON FOR VISIT PLAN OF CARE VITAL SIGNS Height 67.5 in 2012-11-13 Weight 135.6 lbs 2012-11-13 Temperature 98.8 degrees Fahrenheit 2012-11-13 Heart Rate 81 bpm 2012-11-13 Respiratory Rate 16 2012-11-13 MEDICATIONS Unknown Medications RESULTS No Results PROCEDURES No Known procedures INSTRUCTIONS MEDICATIONS ADMINISTERED No Known Medications MEDICAL (GENERAL) HISTORY Type Description Date Medical History attention deficit hyperactivity disorder
--- OUTSIDE RECORDS SUMMARY | 2019-09-15 18:30 | XMS REPORT ---
Author Author Hussain DOMINGUEZ [address] Address [address] [place] [address] Care Team Providers Care Hand Therapist Name Role Phone AKI DOMINGUEZ Unavailable PROBLEMS Type Condition ICD9-CM Code TLZ09-BK Code Onset Dates Condition S tatus SNOMED Code Problem Elevated blood pressure reading without diagnosi s of hypertension 796.2 Active 670667616 Problem Palpitations 785.1 Active 1876435 2 Problem Syncope and collapse 780.2 Active 163755390 Problem Insomnia, unspecified type G47.00 Act nhan 934864741 Problem ADHD (attention deficit hyperactivity disorder) 314.01 Active 663808807 Problem Psychophysiological insomnia F51.04 A ctive 895480203 Problem Vitiligo 709.01 Active 34142447 Problem Other acne 706.1 Active 72859283 Problem Depressive disorder, not elsewhere classified 311 Active 28651605 Problem Attention deficit hyperactiv ity disorder (ADHD), predominantly inattentive type F90.0 Active 93681683 ALLERGIES No Information ENCOUNTERS Encounter Location Date Diagnosis [place] [id number] [facility] [address] [address] [id number] [place] [id number] Mar, Attention deficit hyperactivity disorder (ADHD), predominantly inattentive type F90.0 [facility] [address] [facility] [id number] [place] [id number] Feb, [facility] [address] [id number] [place] [id number] Feb, Attention deficit hyperactivity disorder (ADHD), predominantly inattentive type F90.0 [facility] [address] [id number] [place] [id number] Jan, Attention deficit hyperactivity disorder (ADHD), predominantly inattentive type F90.0 [facility] [address] [id number] [place] [id number] Dec, Attention deficit hyperactivity disorder (ADHD), predominantly inattentive type F90.0 and Psychophysiological insomnia F51.04 [facility] [place] [address] [id number] [place] [id number] Dec, Attention deficit hyperactivity disorder (ADHD), predominantly inattentive type F90.0 [facility] [place] [address] [id number] [place] [id number] Nov, Encounter for immunization Z23 [facility] [place] [address] [id number] [place] [id number] Nov, Attention deficit hyperactivity disorder (ADHD), predominantly inattentive type F90.0 [facility] [place] [address] [id number] [place] [id number] Oct, Attention deficit hyperactivity disorder (ADHD), predominantly inattentive type F90.0 and Adjustment insomnia F51.02 [facility] [place] [address] [id number] [place] [id number] Sep, Attention deficit hyperactivity disorder (ADHD), predominantly inattentive type F90.0 [facility] [place] [address] [id number] [place] [id number] Aug, Adjustment insomnia F51.02 [facility] [place] [address] [id number] [place] [id number] Jul, Attention deficit hyperactivity disorder (ADHD), predominantly inattentive type F90.0 [facility] [place] [address] [id number] [place] [id number] Jul, Adjustment insomnia F51.02 and Attention deficit hyperactivity disorder (ADHD), predominantly inattentive type F90.0 [facility] [place] [address] [id number] [place] [id number] June, Attention deficit hyperactivity disorder (ADHD), predominantly inattentive type F90.0 [facility] [place] [address] [id number] [place] [id number] June, Attention deficit hyperactivity disorder (ADHD), predominantly inattentive type F90.0 [facility] [place] [address] [id number] [place] [id number] May, Attention deficit hyperactivity disorder (ADHD), predominantly inattentive type F90.0 [facility] [place] [address] [id number] [place] [id number] Apr, Attention deficit hyperactivity disorder (ADHD), predominantly inattentive type F90.0 [facility] [place] [address] [id number] [place] [id number] Apr, [facility] [place] [address] [id number] [place] [id number] Apr, Attention deficit hyperactivity disorder (ADHD), predominantly inattentive type F90.0 [facility] [place] [address] [id number] [place] [id number] Mar, [facility] [place] [address] [id number] [place] [id number] Feb, [facility] [place] [address] [id number] [place] [id number] Jan, [facility] [place] [address] [id number] [place] [id number] Dec, [facility] [place] [address] [id number] [place] [id number] Nov, [facility] [place] [address] [id number] [place] [id number] Oct, Attention deficit hyperactivity disorder (ADHD), predominantly inattentive type F90.0 [facility] [place] [address] [id number] [place] [id number] Sep, [facility] [place] [address] [id number] [place] [id number] Aug, [facility] [place] [address] [id number] [place] [id number] Jul, Attention deficit hyperactivity disorder (ADHD), predominantly inattentive type F90.0 and Insomnia, unspecified type G47.00 [facility] [place] [address] [id number] [place] [id number] Jul, [facility] [address] [place] [address] AVE [id number] [place] [id number] June, [facility] [place] [address] [id number] [place] [id number] May, Attention deficit hyperactivity disorder (ADHD), predominantly inattentive type F90.0 [facility] [place] [address] [id number] [place] [id number] Apr, [facility] [place] [address] [id number] [place] [id number] Mar, [facility] [place] [address] [id number] [place] [id number] Mar, Attention deficit hyperactivity disorder (ADHD), predominantly inattentive type F90.0 [facility] [place] [address] [id number] [place] [id number] Feb, [facility] [place] [address] [id number] [place] [id number] Feb, [facility] [address] [id number] [place] [id number] Jan, [facility] [place] [address] [id number] [place] [id number] Dec, Attention deficit hyperactivity disorder (ADHD), predominantly inattentive type F90.[address] [facility] [id number] [facility] [place] [id number] Nov, [facility] [place] [address] [id number] [place] [id number] Oct, [facility] [place] [address] [id number] [place] [id number] Sep, ADHD (attention deficit hyperactivity di sorder) 314.01 [facility] [place] [address] [id number] [place] [id number] Sep, [facility] [place] [address] [id number] [place] [id number] June, [facility] [place] [address] [id number] [place] [id number] June, [facility] [address] [facility] [id number] [address] [place] [address] May, [facility] [address] [facility] [id number] [address] [place] [address] May, [facility] [place] [address] [id number] [place] [id number] Apr, [facility] [place] [facility] [address] [id number] [facility] [place] [address] Apr, [facility] [place] [address] [id number] [place] [id number] Mar, [facility] [address] [id number] [facility] [address] Mar, [facility] [place] [address] [id number] [place] [id number] Feb, [facility] [address] [id number] [address] [place] [address], [place] [address] Feb, [facility] [place] [address] [id number] [place] [id number] Feb, [facility] [address] [facility] [id number] [address] [place] [address], [place] [address] Feb, [facility] [place] [address] [id number] [place] [id number] Jan, [facility] [address] [id number] [address] [place] [address], [place] [address] Jan, [facility] [place] [address] [id number] [place] [id number] Jan, [facility] [address] [id number] [address] [place] [address], [place] [address] Jan, [facility] [place] [address] [id number] [place] [id number] Dec, [facility] [address] [id number] [address] [place] [address], [place] [address] Dec, [facility] [place] [address] [id number] [place] [id number] Nov, [facility] [address] [id number] [address] [place] [address], [place] [address] Nov, [facility] [place] [address] [id number] [place] [id number] Nov, [facility] [address] [id number] [address] [place] [address], [place] [address] Nov, [facility] [place] [address] [id number] [place] [id number] Oct, [facility] [address] [id number] [address] [place] [address], [place] [address] Oct, [facility] [place] [address] [id number] [place] [id number] Oct, [facility] [address] [id number] [address] [place] [address], [place] [address] Oct, [facility] [place] [address] [id number] [place] [id number] Sep, [facility] [address] [id number] [address] [place] [address], [place] [address] Sep, [facility] [address] [id number] [address] [place] [address], [place] [address] Sep, [facility] [place] [address] [id number] [place] [id number] Sep, [facility] [address] [id number] [address] [place] [address], [place] [address] Sep, [facility] [address] [id number] [address] [place] [address], [place] [address] Sep, [facility] [address] [id number] [address] [place] [address], [place] [address] Sep, [facility] [place] [address] [id number] [place] [id number] Aug, [facility] [address] [id number] [address] [place] [address], [place] [address] Aug, [facility] [place] [address] [id number] [place] [id number] Aug, [facility] [address] [id number] [facility] [place] [address] Aug, [facility] [place] [address] [id number] [place] [id number] June, [facility] [place] [facility] [address] [id number] [facility] [address] June, [facility] [place] [address] [id number] [place] [id number] June, [facility] [address] [id number] [facility] [address] June, [facility] [place] [address] [id number] [place] [id number] Apr, [facility] [address] [id number] [facility] [place] [address] Apr, [facility] [place] [address] [id number] [place] [id number] Mar, [facility] [address] [id number] [address] [place] [address], [place] [address] Mar, [facility] [place] [address] [id number] [place] [id number] Feb, [facility] [address] [id number] [address] [place] [address], [place] [address] Feb, [facility] [place] [address] [id number] [place] [id number] Jan, [facility] [address] [id number] [address] [place] [address], [place] [address] Jan, [facility] [address] [id number] [address] [place] [address], [place] [address] Jan, [facility] [address] [id number] [address] [place] [address], [place] [address] Jan, [facility] [place] [address] [id number] [place] [id number] Jan, [facility] [address] [id number] [address] [place] [address], [place] [address] Jan, [facility] [place] [address] [id number] [place] [id number] Nov, [facility] [address] [id number] [place] [address] Nov, [facility] [place] [address] [id number] [place] [id number] Oct, [facility] [place] [address] [id number] [place] [id number] Sep, [facility] [place] [address] [id number] [place] [id number] Sep, [facility] [place] [address] [id number] [place] [id number] Jul, [facility] [place] [address] [id number] [place] [id number] Jul, [facility] [place] [address] [id number] [place] [id number] June, [facility] [place] [address] [id number] [place] [id number] May, [facility] [place] [address] [id number] [place] [id number] Apr, [facility] [place] [address] [id number] [place] [id number] Mar, [facility] [place] [address] [id number] [place] [id number] Mar, [facility] [place] [address] [id number] [place] [id number] Mar, [facility] [place] [address] [id number] [place] [id number] Feb, [facility] [place] [address] [id number] [place] [id number] Feb, [facility] [place] [address] [id number] [place] [id number] Feb, [facility] [place] [address] [id number] [place] [id number] Feb, [facility] [place] [address] [id number] [place] [id number] Feb, [facility] [place] [address] [id number] [place] [id number] Jan, [facility] [address] [id number] [address] [place] [address], [place] [address] Jan, [facility] [place] [address] [id number] [place] [id number] Dec, [facility] [address] [id number] [address] [place] [address], [place] [address] Dec, [facility] [address] [id number] [address] [place] [address], [place] [address] Dec, [facility] [place] [address] [id number] [place] [id number] Dec, [facility] [address] [id number] [address] [place] [address] Dec, [facility] [address] [facility] [id number] [address] [place] [address], [place] [address] Dec, [facility] [address] [id number] [address] [place] [address] Dec, [facility] [place] [address] [id number] [place] [id number] Dec, [facility] [address] [id number] [address] [place] [address] Dec, [facility] [place] [address] [id number] [place] [id number] Nov, [facility] [place] [address] [id number] [place] [id number] Sep, [facility] [place] [address] [id number] [place] [id number] Aug, [facility] [address] [id number] [address] [place] [address], [place] [address] Aug, [facility] [place] [address] [id number] [place] [id number] Jul, [facility] [place] [address] [id number] [place] [id number] June, [facility] [address] [facility] [id number] [address] [place] [address] June, [facility] [place] [address] [id number] [place] [id number] May, [facility] [place] [address] [facility] [id number] [place] [id number] Apr, [facility] [place] [address] [facility] [id number] [place] [id number] Mar, [facility] [place] [address] [facility] [id number] [place] [id number] Feb, [facility] [address] [place] [id number] [address] [place] [address] Jan, [facility] [address] [place] [id number] [address] [place] [address] Dec, [facility] [address] [place] [id number] [address] [place] [address] Nov, [facility] [address] [place] [id number] [address] [place] [address] Mar, [facility] [id number] [place] [address] Dec, IMMUNIZATIONS No Known Immunizations SOCIAL HISTORY Never Assessed REASON FOR VISIT PLAN OF CARE VITAL SIGNS MEDICATIONS Unknown Medications RESULTS No Results PROCEDURES No Known procedures INSTRUCTIONS MEDICATIONS ADMINISTERED No Known Medications MEDICAL (GENERAL) HISTORY Type Description Date Medical History attention deficit hyperactivity disorder
--- OUTSIDE RECORDS SUMMARY | 2019-09-15 18:30 | XMS REPORT ---
Author Author Hussain Ohara Organization [facility] Address [address] [place], [place] [address] Care Team Providers Care Concrete Finisher Name Role Phone Madeline Ohara PCP Allergies and Adverse Reactions Name Reaction Notes PENICILLINS Plan of Treatment Not available. Medications Not available. Problem List Not available. Vital Signs Date Time BP-Sys(mm[Hg] BP-Milana(mm[Hg]) HR(bpm) RR(rpm) Temp WT HT HC BMI BSA BMI Percentile O2 Sat(%) 07/23/2017 5:31:00 PM 138 mmHg 78 mmHg 97 bpm 18 rpm 99.1 F 187 lbs 70 in 26.8314 kg/m 2.0468 m 100 % Social History Name Description Comments denies alcohol use Tobacco Current every day smoker 07/23/2017 - History of Procedures Not available. Results Summary Not available. History Of Immunizations Not available. 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
--- OUTSIDE RECORDS SUMMARY | 2019-09-15 18:31 | XMS REPORT ---
Author Author Hussain DOMINGUEZ [address] Address [address] [place] [address] Care Team Providers Care Filing Or Registry Clerk Name Role Phone AKI DOMINGUEZ Unavailable PROBLEMS Type Condition ICD9-CM Code IMS57-GD Code Onset Dates Condition S tatus SNOMED Code Problem Elevated blood pressure reading without diagnosi s of hypertension 796.2 Active 227116966 Problem Palpitations 785.1 Active 0657401 2 Problem Syncope and collapse 780.2 Active 137089895 Problem Insomnia, unspecified type G47.00 Act nhan 882364668 Problem ADHD (attention deficit hyperactivity disorder) 314.01 Active 477637643 Problem Psychophysiological insomnia F51.04 A ctive 533757204 Problem Vitiligo 709.01 Active 30513184 Problem Other acne 706.1 Active 41732998 Problem Depressive disorder, not elsewhere classified 311 Active 35854543 Problem Attention deficit hyperactiv ity disorder (ADHD), predominantly inattentive type F90.0 Active 47318099 ALLERGIES No Information ENCOUNTERS Encounter Location Date Diagnosis [place] [id number] [facility] [address] [id number] [id number] Mar, Attention deficit hyperactivity disorder (ADHD), predominantly inattentive type F90.[address] [id number] Feb, [address] [id number] Feb, Attention deficit hyperactivity disorder (ADHD), predominantly inattentive type F90.[address] [id number] Jan, Attention deficit hyperactivity disorder (ADHD), predominantly inattentive type F90.[address] [id number] Dec, Attention deficit hyperactivity disorder (ADHD), predominantly inattentive type F90.0 and Psychophysiological insomnia F51.04 [facility] [place] [id number] [place] [address], [place] [id number] Dec, Attention deficit hyperactivity disorder (ADHD), predominantly inattentive type F90.0 [facility] [address], [place] [id number] Nov, Encounter for immunization Z23 [facility] [place] [address], [place] [id number] Nov, Attention deficit hyperactivity disorder (ADHD), predominantly inattentive type F90.0 [facility] [address], [place] [id number] Oct, Attention deficit hyperactivity disorder (ADHD), predominantly inattentive type F90.0 and Adjustment insomnia F51.02 [facility] [address], [place] [id number] Sep, Attention deficit hyperactivity disorder (ADHD), predominantly inattentive type F90.0 [facility] [address], [place] [id number] Aug, Adjustment insomnia F51.02 [facility] [place] [address], [place] [id number] Jul, Attention deficit hyperactivity disorder (ADHD), predominantly inattentive type F90.0 [facility] [place] [address], [place] [id number] Jul, Adjustment insomnia F51.02 and Attention deficit hyperactivity disorder (ADHD), predominantly inattentive type F90.0 [facility] [address], [place] [id number] June, Attention deficit hyperactivity disorder (ADHD), predominantly inattentive type F90.0 [facility] [address], [place] [id number] June, Attention deficit hyperactivity disorder (ADHD), predominantly inattentive type F90.0 [facility] [address], [place] [id number] May, Attention deficit hyperactivity disorder (ADHD), predominantly inattentive type F90.0 [facility] [address], [place] [id number] Apr, Attention deficit hyperactivity disorder (ADHD), predominantly inattentive type F90.0 [facility] [address] [place] [id number] [place] [address], [place] [id number] Apr, [facility] [address], [place] [id number] Apr, Attention deficit hyperactivity disorder (ADHD), predominantly inattentive type F90.0 [facility] [address], [place] [id number] Mar, [facility] [address], [place] [id number] Feb, [facility] [address], [place] [id number] Jan, [facility] [address], [place] [id number] Dec, [facility] [address], [place] [id number] Nov, [facility] [address], [place] [id number] Oct, Attention deficit hyperactivity disorder (ADHD), predominantly inattentive type F90.0 [facility] [address], [place] [id number] Sep, [facility] [address], [place] [id number] Aug, [facility] [address], [place] [id number] Jul, Attention deficit hyperactivity disorder (ADHD), predominantly inattentive type F90.0 and Insomnia, unspecified type G47.00 [facility] [address] [id number] [place] [id number] Jul, [facility] [place] [address] [id number] [facility] [place] [id number] June, [facility] [address], [place] [id number] May, Attention deficit hyperactivity disorder (ADHD), predominantly inattentive type F90.0 [facility] [id number] [place] [address], [place] [id number] Apr, [facility] [address], [place] [id number] Mar, [facility] [address] [facility] [id number] Mar, Attention deficit hyperactivity disorder (ADHD), predominantly inattentive type F90.0 [facility] [place] [id number] [place] [address], [place] [id number] Feb, [facility] [place] [id number] [place] [id number] Feb, [facility] [id number] [place] [address], [place] [id number] Jan, [facility] [place] [id number] [place] [address] [id number] Dec, Attention deficit hyperactivity disorder (ADHD), predominantly inattentive type F90.0 [facility] [address] [facility] [address] [id number] [place] [id number] Nov, [facility] [place] [id number] [place] [address] [id number] Oct, [facility] [place] [address] [id number] Sep, ADHD (attention deficit hyperactivity disorder) 314.01 [facility] [place] [address] [id number] [place] [address] [id number] Sep, [facility] [place] [address] [id number] June, [facility] [place] [id number] [place] [address] [id number] June, [facility] [address] [address] May, [facility] [address] [address] May, [facility] [place] [id number] [place] [address] [id number] Apr, [facility] [address] [address] Apr, [facility] [id number] [place] [address] [id number] Mar, [facility] [address] [address] Mar, [facility] [address] [id number] [id number] Feb, [facility] [id number] [place] [address] Feb, [facility] [address] [id number] [id number] Feb, [facility] [id number] [place] [address] Feb, [facility] [address] [id number] [id number] Jan, [facility] [id number] [place] [address] Jan, [facility] [address] [id number] [id number] Jan, [facility] [id number] [place] [address] Jan, [facility] [id number] [id number] Dec, [facility] [id number] [place] [address] Dec, [facility] [id number] [id number] Nov, [facility] [id number] [place] [address] Nov, [facility] [id number] [id number] Nov, [facility] [id number] [place] [address] Nov, [facility] [id number] [address] Oct, [facility] [id number] [place] [address] Oct, [facility] [id number] [id number] Oct, [facility] [id number] [place] [address] Oct, [facility] [address] [facility]07757[facility] [id number] Sep, [facility] [address] [id number] [place] [address] Sep, [facility] [address] [id number] [place] [address] Sep, [facility] [address] [id number] [id number] Sep, [facility] [address] [id number] [place] [address] Sep, [facility] [id number] [place] [address] Sep, [facility] [address] [id number] [place] [address] Sep, [facility] [id number] [id number] Aug, [facility] [address] [id number] [place] [address] Aug, [facility] [id number] [id number] Aug, [facility] [address] [id number] [place] [address] Aug, [facility] [id number] [id number] June, [facility] [id number] [place] [address] June, [facility] [address] [facility]07757[facility] [id number] June, [facility] [id number] [place] [address] June, [facility] [address] [facility]07757[facility] [id number] Apr, [facility] [address] [id number] [place] [address] Apr, [facility] [address] [id number] [id number] Mar, [facility] [place] [facility] [id number] [place] [address] Mar, [facility] [place] [address] [id number] [id number] Feb, [facility] [place] [facility] [id number] [place] [address] Feb, [facility] [place] [id number] [place] [address], [place] [id number] Jan, [facility] [place] [facility] [id number] [place] [address] Jan, [facility] [id number] [place] [address], [place] [address] Jan, [facility] [place] [facility] [id number] [place] [address] Jan, [facility] [place] [id number] [place] [address] [id number] Jan, [facility] [place] [facility] [id number] [place] [address] Jan, [facility] [place] [id number] [place] [address] [id number] Nov, [facility] [place] [facility] [id number] [place] [address] Nov, [facility] [place] [id number] [place] [address] [id number] Oct, [facility] [place] [id number] [place] [address], [place] [id number] Sep, [facility] [place] [id number] [place] [address], [place] [id number] Sep, [facility] [place] [id number] [place] [address], [place] [id number] Jul, [facility] [place] [address] [id number] 548615820 Jul, [facility] [place] [id number] [place] [address], [place] [id number] June, [facility] [address] [facility] [place] [id number] May, [facility] [address] [facility]30[facility] 6038[address]400 Apr, [facility] [address] [id number] [place] 713[address]252 Mar, [facility] [address] [facility]03158[facility] [address] Mar, [facility] [address] IA29823LL[facility] 963281905 Mar, [facility] [address] ZN81943ULINCOLN [facility] [address]452262[address] Feb, [facility] [address] ZD20941RLINCOLN [facility] 095485102 Feb, [facility] [address] [facility]L79378Z[facility] [id number] Feb, [facility] [address] [id number] 240878490 Feb, [facility] [address] [id number] [id number] Feb, [facility] [address] [id number] [id number] Jan, [facility] [id number] [place] [address] Jan, [facility] [address] [id number] [id number] Dec, [facility] [place] [facility] [id number] [place] [address] Dec, [facility] [id number] [place] [address] Dec, [facility] [address] [id number] [id number] Dec, [facility] [id number] [place] [address] Dec, [facility] [id number] [place] [address] Dec, [facility] [place] [facility] [address] [place] [address] Dec, [facility] [address] [facility]07757[facility] [id number] Dec, [facility] [address] [id number] [place] [address] Dec, [facility] [address] [facility]07757[facility] 439311265 Nov, [facility] [id number] [place] [address], [place] [id number] Sep, [facility] [address] [id number] [id number] Aug, [facility] [id number] [place] [address] Aug, [facility] [address] [id number] [id number] Jul, [facility] [address] [id number] [id number] June, [facility] [id number] [place] [address] June, [facility] [address] [id number] [id number] May, [facility] [address] [id number] 099089438 Apr, [facility] [address] [place] [id number], [place] [id number] Mar, [facility] [id number] [place] [address], [place] [id number] Feb, [facility] [id number] [place] [address] Jan, [facility] [id number] [place] [address] Dec, [facility] [address] [id number] [place] [address] Nov, [facility] [address] [id number] [place] [address] Mar, [facility] [id number] [place] [address] Dec, IMMUNIZATIONS No Known Immunizations SOCIAL HISTORY Never Assessed REASON FOR VISIT PLAN OF CARE VITAL SIGNS MEDICATIONS Unknown Medications RESULTS No Results PROCEDURES No Known procedures INSTRUCTIONS MEDICATIONS ADMINISTERED No Known Medications MEDICAL (GENERAL) HISTORY Type Description Date Medical History attention deficit hyperactivity disorder
--- OUTSIDE RECORDS SUMMARY | 2019-09-15 18:31 | XMS REPORT ---
Author Author Hussain DOMINGUEZ [address] Address [address] [place] [address] Care Team Providers Care Paralegal Specialist Name Role Phone AKI DOMINGUEZ Unavailable PROBLEMS Type Condition ICD9-CM Code OIT04-ER Code Onset Dates Condition S tatus SNOMED Code Problem Elevated blood pressure reading without diagnosi s of hypertension 796.2 Active 063445115 Problem Palpitations 785.1 Active 7697755 2 Problem Syncope and collapse 780.2 Active 269552257 Problem Insomnia, unspecified type G47.00 Act nhan 084162910 Problem ADHD (attention deficit hyperactivity disorder) 314.01 Active 645447919 Problem Psychophysiological insomnia F51.04 A ctive 448593590 Problem Vitiligo 709.01 Active 72892190 Problem Other acne 706.1 Active 34274475 Problem Depressive disorder, not elsewhere classified 311 Active 49519688 Problem Attention deficit hyperactiv ity disorder (ADHD), predominantly inattentive type F90.0 Active 36151442 ALLERGIES No Information ENCOUNTERS Encounter Location Date Diagnosis [place] [address] [facility] [address] [id number] [place] [id number] Mar, Attention deficit hyperactivity disorder (ADHD), predominantly inattentive type F90.0 [facility] [address] [facility] [id number] [place] [id number] Feb, [facility] [address] [id number] [place] [id number] Feb, Attention deficit hyperactivity disorder (ADHD), predominantly inattentive type F90.0 [facility] [address] [id number] [place] [id number] Jan, Attention deficit hyperactivity disorder (ADHD), predominantly inattentive type F90.0 [facility] [address] [id number] [place] [id number] Dec, Attention deficit hyperactivity disorder (ADHD), predominantly inattentive type F90.0 and Psychophysiological insomnia F51.04 [facility] [place] [address] [id number] [place] [id number] Dec, Attention deficit hyperactivity disorder (ADHD), predominantly inattentive type F90.0 [facility] [place] [address] [id number] [place] [id number] Nov, Encounter for immunization Z23 [facility] [place] [address] [id number] [place] [id number] Nov, Attention deficit hyperactivity disorder (ADHD), predominantly inattentive type F90.0 [facility] [place] [address] [id number] [place] [id number] Oct, Attention deficit hyperactivity disorder (ADHD), predominantly inattentive type F90.0 and Adjustment insomnia F51.02 [facility] [place] [address] [id number] [place] [id number] Sep, Attention deficit hyperactivity disorder (ADHD), predominantly inattentive type F90.0 [facility] [place] [address] [id number] [place] [id number] Aug, Adjustment insomnia F51.02 [facility] [place] [address] [id number] [place] [id number] Jul, Attention deficit hyperactivity disorder (ADHD), predominantly inattentive type F90.0 [facility] [place] [address] [id number] [place] [id number] Jul, Adjustment insomnia F51.02 and Attention deficit hyperactivity disorder (ADHD), predominantly inattentive type F90.0 [facility] [place] [address] [id number] [place] [id number] June, Attention deficit hyperactivity disorder (ADHD), predominantly inattentive type F90.0 [facility] [place] [address] [id number] [place] [id number] June, Attention deficit hyperactivity disorder (ADHD), predominantly inattentive type F90.0 [facility] [place] [address] [id number] [place] [id number] May, Attention deficit hyperactivity disorder (ADHD), predominantly inattentive type F90.0 [facility] [place] [address] [id number] [place] [id number] Apr, Attention deficit hyperactivity disorder (ADHD), predominantly inattentive type F90.0 [facility] [place] [address] [id number] [place] [id number] Apr, [facility] [place] [address] [id number] [place] [id number] Apr, Attention deficit hyperactivity disorder (ADHD), predominantly inattentive type F90.0 [facility] [place] [address] [id number] [place] [id number] Mar, [facility] [place] [address] [id number] [place] [id number] Feb, [facility] [place] [address] [id number] [place] [id number] Jan, [facility] [place] [address] [id number] [place] [id number] Dec, [facility] [place] [address] [id number] [place] [id number] Nov, [facility] [place] [address] [id number] [place] [id number] Oct, Attention deficit hyperactivity disorder (ADHD), predominantly inattentive type F90.0 [facility] [place] [address] [id number] [place] [id number] Sep, [facility] [place] [address] [id number] [place] [id number] Aug, [facility] [place] [address] [id number] [place] [id number] Jul, Attention deficit hyperactivity disorder (ADHD), predominantly inattentive type F90.0 and Insomnia, unspecified type G47.00 [facility] [place] [address] [id number] [place] [id number] Jul, [facility] [address] [place] [address] AVE [id number] [place] [id number] June, [facility] [place] [address] [id number] [place] [id number] May, Attention deficit hyperactivity disorder (ADHD), predominantly inattentive type F90.0 [facility] [place] [address] [id number] [place] [id number] Apr, [facility] [place] [address] [id number] [place] [id number] Mar, [facility] [place] [address] [id number] [place] [id number] Mar, Attention deficit hyperactivity disorder (ADHD), predominantly inattentive type F90.0 [facility] [place] [address] [id number] [place] [id number] Feb, [facility] [place] [address] [id number] [place] [id number] Feb, [facility] [address] [id number] [place] [id number] Jan, [facility] [place] [address] [id number] [place] [id number] Dec, Attention deficit hyperactivity disorder (ADHD), predominantly inattentive type F90.[address] [facility] [address] [id number] [facility] [place] [place] [id number] Nov, [facility] [place] [address] [id number] [place] [id number] Oct, [facility] [place] [address] [id number] [place] [id number] Sep, ADHD (attention deficit hyperactivity di sorder) 314.01 [facility] [place] [address] [id number] [place] [id number] Sep, [facility] [place] [address] [id number] [place] [id number] June, [facility] [place] [address] [id number] [place] [id number] June, [facility] [address] [facility] [id number] [address] [place] [address] May, [facility] [address] [facility] [id number] [address] [place] [address] May, [facility] [place] [address] [id number] [place] [id number] Apr, [facility] [address] [id number] [facility] [place] [address] Apr, [facility] [place] [address] [id number] [place] [id number] Mar, [facility] [address] [id number] [facility] [place] [address] Mar, [facility] [place] [address] [id number] [place] [id number] Feb, [facility] [address] [id number] [address] [place] [address], [place] [address] Feb, [facility] [place] [address] [id number] [place] [id number] Feb, [facility] [address] [facility] [id number] [address] [place] [address], [place] [address] Feb, [facility] [place] [address] [id number] [place] [id number] Jan, [facility] [address] [id number] [address] [place] [address], [place] [address] Jan, [facility] [place] [address] [id number] [place] [id number] Jan, [facility] [address] [id number] [address] [place] [address], [place] [address] Jan, [facility] [place] [address] [id number] [place] [id number] Dec, [facility] [address] [id number] [address] [place] [address], [place] [address] Dec, [facility] [place] [address] [id number] [place] [id number] Nov, [facility] [address] [id number] [address] [place] [address], [place] [address] Nov, [facility] [place] [address] [id number] [place] [id number] Nov, [facility] [address] [id number] [address] [place] [address], [place] [address] Nov, [facility] [place] [address] [id number] [place] [id number] Oct, [facility] [address] [id number] [address] [place] [address], [place] [address] Oct, [facility] [place] [address] [id number] [place] [id number] Oct, [facility] [address] [id number] [address] [place] [address], [place] [address] Oct, [facility] [place] [address] [id number] [place] [id number] Sep, [facility] [address] [id number] [address] [place] [address], [place] [address] Sep, [facility] [address] [id number] [address] [place] [address], [place] [address] Sep, [facility] [place] [address] [id number] [place] [id number] Sep, [facility] [address] [id number] [address] [place] [address], [place] [address] Sep, [facility] [address] [id number] [address] [place] [address], [place] [address] Sep, [facility] [address] [id number] [address] [place] [address], [place] [address] Sep, [facility] [place] [address] [id number] [place] [id number] Aug, [facility] [address] [id number] [address] [place] [address], [place] [address] Aug, [facility] [place] [address] [id number] [place] [id number] Aug, [facility] [address] [id number] [facility] [place] [address] Aug, [facility] [place] [address] [id number] [place] [id number] June, [facility] [address] [id number] [facility] [place] [address] June, [facility] [place] [address] [id number] [place] [id number] June, [facility] [address] [id number] [facility] [place] [address] June, [facility] [place] [address] [id number] [place] [id number] Apr, [facility] [address] [id number] [facility] [place] [address] Apr, [facility] [place] [address] [id number] [place] [id number] Mar, [facility] [address] [id number] [address] [place] [address], [place] [address] Mar, [facility] [place] [address] [id number] [place] [id number] Feb, [facility] [address] [id number] [address] [place] [address], [place] [address] Feb, [facility] [place] [address] [id number] [place] [id number] Jan, [facility] [address] [id number] [address] [place] [address], [place] [address] Jan, [facility] [address] [id number] [address] [place] [address], [place] [address] Jan, [facility] [address] [id number] [address] [place] [address], [place] [address] Jan, [facility] [place] [address] [id number] [place] [id number] Jan, [facility] [address] [id number] [address] [place] [address], [place] [address] Jan, [facility] [place] [address] [id number] [place] [id number] Nov, [facility] [address] [id number] [address] [place] [address] Nov, [facility] [place] [address] [id number] [place] [id number] Oct, [facility] [place] [address] [id number] [place] [id number] Sep, [facility] [place] [address] [id number] [place] [id number] Sep, [facility] [place] [address] [id number] [place] [id number] Jul, [facility] [place] [address] [id number] [place] [id number] Jul, [facility] [place] [address] [id number] [place] [id number] June, [facility] [place] [address] [id number] [place] [id number] May, [facility] [place] [address] [id number] [place] [id number] Apr, [facility] [place] [address] [id number] [place] [id number] Mar, [facility] [place] [address] [id number] [place] [id number] Mar, [facility] [place] [address] [id number] [place] [id number] Mar, [facility] [place] [address] [id number] [place] [id number] Feb, [facility] [place] [address] [id number] [place] [id number] Feb, [facility] [place] [address] [id number] [place] [id number] Feb, [facility] [place] [address] [id number] [place] [id number] Feb, [facility] [place] [address] [id number] [place] [id number] Feb, [facility] [place] [address] [id number] [place] [id number] Jan, [facility] [address] [id number] [address] [place] [address], [place] [address] Jan, [facility] [place] [address] [id number] [place] [id number] Dec, [facility] [address] [id number] [address] [place] [address], [place] [address] Dec, [facility] [address] [id number] [address] [place] [address], [place] [address] Dec, [facility] [place] [address] [id number] [place] [id number] Dec, [facility] [address] [id number] [address] [place] [address] Dec, [facility] [address] [facility] [id number] [address] [place] [address], [place] [address] Dec, [facility] [address] [id number] [address] [place] [address] Dec, [facility] [place] [address] [id number] [place] [id number] Dec, [facility] [address] [id number] [address] [place] [address] Dec, [facility] [place] [address] [id number] [place] [id number] Nov, [facility] [place] [address] [id number] [place] [id number] Sep, [facility] [place] [address] [id number] [place] [id number] Aug, [facility] [address] [id number] [address] [place] [address], [place] [address] Aug, [facility] [place] [address] [id number] [place] [id number] Jul, [facility] [place] [address] [id number] [place] [id number] June, [facility] [address] [facility] [id number] [address] [place] [address] June, [facility] [address] [id number] [place] [id number] May, [facility] [address] [id number] [place] [id number] Apr, [facility] [address] [id number] [place] [id number] Mar, [facility] [place] [address] [id number] [place] [id number] Feb, [facility] [address] [facility] [id number] [address] [place] [address] Jan, [facility] [address] [facility] [id number] [address] [place] [address] Dec, [facility] [address] [place] [id number] [address] [place] [address] Nov, [facility] [address] [place] [id number] [address] [place] [address] Mar, [facility] [address] [facility] [id number] [address] [place] [address] Dec, IMMUNIZATIONS No Known Immunizations SOCIAL HISTORY Never Assessed REASON FOR VISIT PLAN OF CARE VITAL SIGNS Height 67.5 in 2014-02-25 Weight 138.8 lbs 2014-02-25 Temperature 98.1 degrees Fahrenheit 2014-02-25 Heart Rate 76 bpm 2014-02-25 Respiratory Rate 16 2014-02-25 Blood pressure systolic 128 mmHg 2014-02-25 Blood pressure diastolic 64 mmHg 2014-02-25 MEDICATIONS Unknown Medications RESULTS No Results PROCEDURES No Known procedures INSTRUCTIONS MEDICATIONS ADMINISTERED No Known Medications MEDICAL (GENERAL) HISTORY Type Description Date Medical History attention deficit hyperactivity disorder
--- OUTSIDE RECORDS SUMMARY | 2019-09-15 18:31 | XMS REPORT ---
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 Name Role Phone AKI DOMINGUEZ Unavailable PROBLEMS Type Condition ICD9-CM Code ZTO86-UL Code Onset Dates Condition S tatus SNOMED Code Problem Elevated blood pressure reading without diagnosi s of hypertension 796.2 Active 319660784 Problem Palpitations 785.1 Active 6898713 2 Problem Syncope and collapse 780.2 Active 511977271 Problem Insomnia, unspecified type G47.00 Act nhan 803661751 Problem ADHD (attention deficit hyperactivity disorder) 314.01 Active 397745190 Problem Psychophysiological insomnia F51.04 A ctive 110904255 Problem Vitiligo 709.01 Active 53640057 Problem Other acne 706.1 Active 76182382 Problem Depressive disorder, not elsewhere classified 311 Active 15006918 Problem Attention deficit hyperactiv ity disorder (ADHD), predominantly inattentive type F90.0 Active 81156911 ALLERGIES No Information ENCOUNTERS Encounter Location Date Diagnosis [place] [id number] [id number] [place], [place] [id number] Mar, Attention deficit hyperactivity disorder (ADHD), predominantly inattentive type F90.[address] [id number] Feb, [address] [id number] Feb, Attention deficit hyperactivity disorder (ADHD), predominantly inattentive type F90.[address] [id number] Jan, Attention deficit hyperactivity disorder (ADHD), predominantly inattentive type F90.[address] [id number] Dec, Attention deficit hyperactivity disorder (ADHD), predominantly inattentive type F90.0 and Psychophysiological insomnia F51.04 [facility] [id number] [place] [address], [place] [id number] Dec, Attention deficit hyperactivity disorder (ADHD), predominantly inattentive type F90.0 [facility] [address], [place] [id number] Nov, Encounter for immunization Z23 [facility] [place] [address], [place] [id number] Nov, Attention deficit hyperactivity disorder (ADHD), predominantly inattentive type F90.0 [facility] [address], [place] [id number] Oct, Attention deficit hyperactivity disorder (ADHD), predominantly inattentive type F90.0 and Adjustment insomnia F51.02 [facility] [address], [place] [id number] Sep, Attention deficit hyperactivity disorder (ADHD), predominantly inattentive type F90.0 [facility] [address], [place] [address] Aug, Adjustment insomnia F51.02 [facility] [place] [address], [place] [id number] Jul, Attention deficit hyperactivity disorder (ADHD), predominantly inattentive type F90.0 [facility] [place] [address], [place] [id number] Jul, Adjustment insomnia F51.02 and Attention deficit hyperactivity disorder (ADHD), predominantly inattentive type F90.0 [facility] [address], [place] [id number] June, Attention deficit hyperactivity disorder (ADHD), predominantly inattentive type F90.0 [facility] [address], [place] [id number] June, Attention deficit hyperactivity disorder (ADHD), predominantly inattentive type F90.0 [facility] [address], [place] [id number] May, Attention deficit hyperactivity disorder (ADHD), predominantly inattentive type F90.0 [facility] [address], [place] [id number] Apr, Attention deficit hyperactivity disorder (ADHD), predominantly inattentive type F90.0 [facility] [address] [place] [id number] [place] [address], [place] [address] Apr, [facility] [address], [place] [id number] Apr, Attention deficit hyperactivity disorder (ADHD), predominantly inattentive type F90.0 [facility] [address], [place] [id number] Mar, [facility] [address], [place] [id number] Feb, [facility] [address], [place] [id number] Jan, [facility] [address], [place] [id number] Dec, [facility] [address], [place] [id number] Nov, [facility] [address], [place] [id number] Oct, Attention deficit hyperactivity disorder (ADHD), predominantly inattentive type F90.0 [facility] [address], [place] [id number] Sep, [facility] [address], [place] [id number] Aug, [facility] [address], [place] [id number] Jul, Attention deficit hyperactivity disorder (ADHD), predominantly inattentive type F90.0 and Insomnia, unspecified type G47.00 [facility] [address] [id number] [id number] Jul, [facility] [place] [address] [id number] [facility] [id number] June, [facility] [address], [place] [id number] May, Attention deficit hyperactivity disorder (ADHD), predominantly inattentive type F90.0 [facility] [id number] [place] [address], [place] [id number] Apr, [facility] [address], [place] [id number] Mar, [facility] [address] [facility] [id number] Mar, Attention deficit hyperactivity disorder (ADHD), predominantly inattentive type F90.0 [facility] [place] [id number] [place] [address], [place] [id number] Feb, [facility] [place] [id number] [place] [address] [id number] Feb, [id number] [place] [address], [place] [id number] Jan, [facility] [place] [id number] [place] [address] [id number] Dec, Attention deficit hyperactivity disorder (ADHD), predominantly inattentive type F90.0 [facility] [address] [id number] [place] [id number] Nov, [facility] [place] [address] [place] [address] [id number] [place] [address] [id number] Oct, [facility] [place] [address] [id number] Sep, ADHD (attention deficit hyperactivity disorder) 314.01 [facility] [place] [address] [id number] [place] [address] [id number] Sep, [facility] [place] [address] [id number] June, [facility] [place] [id number] [place] [address] [id number] June, [facility] [address] [address] May, [facility] [address] [address] May, [facility] [place] [id number] [place] [address] [id number] Apr, [facility] [address] [address] Apr, [facility] [id number] [place] [address] [id number] Mar, [facility] [address] [address] Mar, [facility] [address] [id number] [id number] Feb, [facility] [id number] [place] [address] Feb, [facility] [address] [id number] [id number] Feb, [facility] [id number] [place] [address] Feb, [facility] [address] [id number] [id number] Jan, [facility] [id number] [place] [address] Jan, [facility] [address] [id number] [id number] Jan, [facility] [id number] [place] [address] Jan, [facility] [id number] [id number] Dec, [facility] [id number] [place] [address] Dec, [facility] [address] [id number] [address] Nov, [facility] [id number] [place] [address] Nov, [facility] [id number] [id number] Nov, [facility] [id number] [place] [address] Nov, [facility] [id number] [id number] Oct, [facility] [id number] [place] [address] Oct, [facility] [id number] [id number] Oct, [facility] [id number] [place] [address] Oct, [facility] [address] [facility]07757[facility] [id number] Sep, [facility] [address] [id number] [place] [address] Sep, [facility] [address] [facility] [place] [address] Sep, [facility] [address] [id number], [place] [id number] Sep, [facility] [address] [facility]7570 [place] [address] Sep, [facility] [id number] [place] [address] Sep, [facility] [address] [id number] [place] [address] Sep, [facility] [address] [id number] [id number] Aug, [facility] [address] [id number] [place] [address] Aug, [facility] [address] [id number] [id number] Aug, [facility] [address] [id number] [place] [address] Aug, [facility] [address] [id number] [id number] June, [facility] [address] [id number] [place] [address] June, [facility] [address] [facility]07757[facility] 389707562 June, [facility] [address] [id number] [place] [address] June, [facility] [address] [facility]07757[facility] [id number] Apr, [facility] [address] [id number] [place] [address] Apr, [facility] [address] [id number] [id number] Mar, [facility] [place] [facility] [address] [id number] [place] [address] Mar, [facility] [place] [address] [id number], [place] [id number] Feb, [facility] [place] [facility] [id number] [place] [address] Feb, [facility] [place] [id number] [place] [address], [place] [id number] Jan, [facility] [place] [facility] [id number] [place] [address] Jan, [facility] [id number] [place] [address], [place] [address] Jan, [facility] [place] [facility] [address] [id number] [place] [address] Jan, [facility] [place] [id number] [place] [address] [id number] Jan, [facility] [place] [facility] [address] [id number] [place] [address] Jan, [facility] [place] [id number] [place] [address] [id number] Nov, [facility] [place] [facility] [id number] [place] [address] Nov, [facility] [place] [id number] [place] [address] [id number] Oct, [facility] [place] [id number] [place] [address], [place] [id number] Sep, [facility] [place] [id number] [place] [address], [place] [id number] Sep, [facility] [place] [id number] [place] [address], [place] [id number] Jul, [facility] [place] [address] [place] [id number] [id number] Jul, [facility] [place] [id number] [place] [address], [place] [id number] June, [facility] [address] [id number] [place] [id number] May, [facility] [address] [facility] [id number] Apr, [facility] [address] [id number] [place] [id number] Mar, [facility] [address] [facility]407[facility] 7576[address] Mar, [facility] [address] [id number] 536631722 Mar, [facility] [address] [id number] 813962760 Feb, [facility] [address] [id number] [id number] Feb, [facility] [address] [facility]30946Z[facility] [id number] Feb, [facility] [address] [id number] [id number] Feb, [facility] [address] [id number] [id number] Feb, [facility] [address] [id number] [id number] Jan, [facility] [address] [id number] [place] [address] Jan, [facility] [address] [id number], [place] [id number] Dec, [facility] [place] [facility] [address] [id number] [place] [address] Dec, [facility] [address] [id number] [place] [address] Dec, [facility] [address] [id number] [id number] Dec, [facility] [address] [id number] [place] [address] Dec, [facility] [id number] [place] [address] Dec, [facility] [place] [facility] [id number] [place] [address] Dec, [facility] [address] [facility]07757[facility] [id number] Dec, [facility] [address] [id number] [place] [address] Dec, [facility] [address] [facility]07757[facility] [id number] Nov, [facility] [id number] [place] [address], [place] [id number] Sep, [facility] [address] [place] [id number] [id number] Aug, [facility] [address] [id number] [place] [address] Aug, [facility] [address] [id number] [id number] Jul, [facility] [address] [place] [id number], [place] [id number] June, [facility] [address] [id number] [place] [address] June, [facility] [address] [id number] 644781031 May, [facility] [address] [id number], [place] [id number] Apr, [facility] [address] [place] [id number], [place] [id number] Mar, [facility] [id number] [place] [address], [place] [id number] Feb, [facility] [address] [id number] [place] [address] Jan, [facility] [address] [id number] [place] [address] Dec, [facility] [address] [id number] [place] [address] Nov, [facility] [address] [id number] [place] [address] Mar, [facility] [address] [id number] [place] [address] Dec, IMMUNIZATIONS No Known Immunizations SOCIAL HISTORY Never Assessed REASON FOR VISIT PLAN OF CARE VITAL SIGNS Height 67.5 in 2013-03-20 Weight 126.4 lbs 2013-03-20 Temperature 97.9 degrees Fahrenheit 2013-03-20 Heart Rate 80 bpm 2013-03-20 Respiratory Rate 16 2013-03-20 Blood pressure systolic 110 mmHg 2013-03-20 Blood pressure diastolic 66 mmHg 2013-03-20 MEDICATIONS Unknown Medications RESULTS No Results PROCEDURES No Known procedures INSTRUCTIONS MEDICATIONS ADMINISTERED No Known Medications MEDICAL (GENERAL) HISTORY Type Description Date Medical History attention deficit hyperactivity disorder
--- OUTSIDE RECORDS SUMMARY | 2019-09-15 18:31 | XMS REPORT ---
Author Author Hussain DOMINGUEZ [address] Address [address] [place] [address] Care Team Providers Care Policy And Planning Manager Name Role Phone AKI DOMINGUEZ Unavailable PROBLEMS Type Condition ICD9-CM Code ACN11-HQ Code Onset Dates Condition S tatus SNOMED Code Problem Elevated blood pressure reading without diagnosi s of hypertension 796.2 Active 011174042 Problem Palpitations 785.1 Active 4029546 2 Problem Syncope and collapse 780.2 Active 505090335 Problem Insomnia, unspecified type G47.00 Act nhan 621741166 Problem ADHD (attention deficit hyperactivity disorder) 314.01 Active 242383740 Problem Psychophysiological insomnia F51.04 A ctive 117404086 Problem Vitiligo 709.01 Active 02717206 Problem Other acne 706.1 Active 37374130 Problem Depressive disorder, not elsewhere classified 311 Active 38170490 Problem Attention deficit hyperactiv ity disorder (ADHD), predominantly inattentive type F90.0 Active 20392229 ALLERGIES No Information ENCOUNTERS Encounter Location Date Diagnosis [place] [id number] [facility] [address] [id number] [place] [id number] Mar, Attention deficit hyperactivity disorder (ADHD), predominantly inattentive type F90.[address] [id number] Feb, [address] [id number] Feb, Attention deficit hyperactivity disorder (ADHD), predominantly inattentive type F90.[address] [id number] Jan, Attention deficit hyperactivity disorder (ADHD), predominantly inattentive type F90.[address] [id number] Dec, Attention deficit hyperactivity disorder (ADHD), predominantly inattentive type F90.0 and Psychophysiological insomnia F51.04 [facility] [id number] [place] [address], [place] [id number] Dec, Attention deficit hyperactivity disorder (ADHD), predominantly inattentive type F90.0 [facility] [address], [place] [id number] Nov, Encounter for immunization Z23 [facility] [place] [address], [place] [id number] Nov, Attention deficit hyperactivity disorder (ADHD), predominantly inattentive type F90.0 [facility] [address], [place] [id number] Oct, Attention deficit hyperactivity disorder (ADHD), predominantly inattentive type F90.0 and Adjustment insomnia F51.02 [facility] [address], [place] [id number] Sep, Attention deficit hyperactivity disorder (ADHD), predominantly inattentive type F90.0 [facility] [address], [place] [id number] Aug, Adjustment insomnia F51.02 [facility] [place] [address], [place] [id number] Jul, Attention deficit hyperactivity disorder (ADHD), predominantly inattentive type F90.0 [facility] [place] [address], [place] [id number] Jul, Adjustment insomnia F51.02 and Attention deficit hyperactivity disorder (ADHD), predominantly inattentive type F90.0 [facility] [address], [place] [id number] June, Attention deficit hyperactivity disorder (ADHD), predominantly inattentive type F90.0 [facility] [address], [place] [id number] June, Attention deficit hyperactivity disorder (ADHD), predominantly inattentive type F90.0 [facility] [address], [place] [id number] May, Attention deficit hyperactivity disorder (ADHD), predominantly inattentive type F90.0 [facility] [address], [place] [id number] Apr, Attention deficit hyperactivity disorder (ADHD), predominantly inattentive type F90.0 [facility] [address] [place] [id number] [place] [address], [place] [id number] Apr, [facility] [address], [place] [id number] Apr, Attention deficit hyperactivity disorder (ADHD), predominantly inattentive type F90.0 [facility] [address], [place] [id number] Mar, [facility] [address], [place] [id number] Feb, [facility] [address], [place] [id number] Jan, [facility] [address], [place] [id number] Dec, [facility] [address], [place] [id number] Nov, [facility] [address], [place] [id number] Oct, Attention deficit hyperactivity disorder (ADHD), predominantly inattentive type F90.0 [facility] [address], [place] [id number] Sep, [facility] [address], [place] [id number] Aug, [facility] [address], [place] [id number] Jul, Attention deficit hyperactivity disorder (ADHD), predominantly inattentive type F90.0 and Insomnia, unspecified type G47.00 [facility] [address] [place] [id number] [id number] Jul, [facility] [place] [address] [facility] [id number] June, [facility] [address], [place] [id number] May, Attention deficit hyperactivity disorder (ADHD), predominantly inattentive type F90.0 [facility] [id number] [place] [address], [place] [id number] Apr, [facility] [address], [place] [id number] Mar, [facility] [address] [facility]07757[place] [address] Mar, Attention deficit hyperactivity disorder (ADHD), predominantly inattentive type F90.0 [facility] [place] [id number] [place] [address], [place] [id number] Feb, [facility] [place] [id number] [place] [id number] Feb, [facility] [address] [id number] [place] [address], [place] [id number] Jan, [facility] [place] [id number] [place] [id number] Dec, Attention deficit hyperactivity disorder (ADHD), predominantly inattentive type F90.0 [facility]OWN[facility]ER [address] [facility] [address] [id number] [place] [id number] Nov, [facility] [place] [address] [place] [id number] [place] [address] [id number] Oct, [facility] [place] [address] [id number] Sep, ADHD (attention deficit hyperactivity disorder) 314.01 [facility] [place] [address] [place] [id number] [place] [id number] Sep, [facility] [place] [address] [id number] June, [facility] [place] [address] [place] [id number] [place] [address] [id number] June, [facility] [address] [address] May, [facility] [address] [address] May, [facility] [place] [id number] [place] [address] [id number] Apr, [facility] [address] [address] Apr, [facility] [id number] [place] [address] [id number] Mar, [facility] [address] [address] Mar, [facility] [address] [id number] [id number] Feb, [facility] [address] [id number] [place] [address] Feb, [facility] [address] [id number] [id number] Feb, [facility] [id number] [place] [address] Feb, [facility] [address] [id number] [id number] Jan, [facility] [address] [id number] [place] [address] Jan, [facility] [address] [id number] [id number] Jan, [facility] [id number] [place] [address] Jan, [facility] [address] [place] [id number] [id number] Dec, [facility] [id number] [place] [address] Dec, [facility] [address] [id number] 752[address] Nov, [facility] [id number] [place] [address] Nov, [facility] [address] [place] [id number] [id number] Nov, [facility] [id number] [place] [address] Nov, [facility] [address] [id number] [address] Oct, [facility] [id number] [place] [address] Oct, [facility] [address] [id number] [id number] Oct, [facility] [address] [id number] [place] [address] Oct, [facility] [address] [facility]07757[facility] [id number] Sep, [facility] [address] [facility] [place] [address] Sep, [facility] [address] [facility] [place] [address] Sep, [facility] [address] [id number] [id number] Sep, [facility] [address] [facility] [place] [address] Sep, [facility] [id number] [place] [address] Sep, [facility] [address] [facility] [place] [address] Sep, [facility] [address] [id number] [id number] Aug, [facility] [address] [facility] [place] [address] Aug, [facility] [address] [id number] [id number] Aug, [facility] [address] [facility] [place] [address] Aug, [facility] [address] [id number] 8[address] June, [facility] [id number] [place] [address] June, [facility] [address] [facility]07757[facility] [id number] June, [facility] [id number] [place] [address] June, [facility] [address] [facility]07757[facility] 095253435 Apr, [facility] [address] [id number] [place] [address] Apr, [facility] [address] [place] [id number] [id number] Mar, [facility] [place] [facility] [id number] [place] [address] Mar, [facility] [place] [address] [id number] [id number] Feb, [facility] [place] [facility] [id number] [place] [address] Feb, [facility] [place] [id number] [place] [address], [place] [id number] Jan, [facility] [place] [facility] [id number] [place] [address] Jan, [facility] [id number] [place] [address], [place] [address] Jan, [facility] [place] [facility] [id number] [place] [address] Jan, [facility] [place] [id number] [place] [address] [id number] Jan, [facility] [place] [facility] [id number] [place] [address] Jan, [facility] [place] [id number] [place] [address] [id number] Nov, [facility] [place] [facility] [id number] [place] [address] Nov, [facility] [place] [id number] [place] [address] [id number] Oct, [facility] [place] [address] [id number] [place] [address], [place] 733332549 Sep, [facility] [place] [id number] [place] [address], [place] [id number] Sep, [facility] [place] [id number] [place] [address], [place] [id number] Jul, [facility] [place] [address] [place] [id number] 713007085 Jul, [facility] [place] [id number] [place] [address], [place] [id number] June, [facility] [address] [facility] [place] [id number] May, [facility] [address] [facility]V41890N[facility] [id number] Apr, [facility] [address] [facility]95830W [place] 641[address]13[address] Mar, [facility] [address] [facility]NK32412[facility] [id number] Mar, [facility] [address] [facility]Q86419ES[facility] [id number] Mar, [facility] [address] [id number] [id number] Feb, [facility] [address] OT23625MS[facility] [id number] Feb, [facility] [address] [facility]31801F[facility] [id number] Feb, [facility] [address] [id number] [id number] Feb, [facility] [address] [id number] [id number] Feb, [facility] [address] [id number] 087849580 Jan, [facility] [id number] [place] [address] Jan, [facility] [address] [id number], [place] [id number] Dec, [facility] [place] [facility] [id number] [place] [address] Dec, [facility] [id number] [place] [address] Dec, [facility] [address] [id number] [id number] Dec, [facility] [id number] [place] [address] Dec, [facility] [id number] [place] [address] Dec, [facility] [place] [facility] [id number] [place] [address] Dec, [facility] [address] [facility]07757[facility] [id number] Dec, [facility] [address] [facility]077570 [place] [address] Dec, [facility] [address] [facility]07757[facility] [id number] Nov, [facility] [id number] [place] [address], [place] [id number] Sep, [facility] [address] [id number] [id number] Aug, [facility] [id number] [place] [address] Aug, [facility] [address] [id number] [id number] Jul, [facility] [address] [place] [id number] [id number] June, [facility] [id number] [place] [address] June, [facility] [address] [id number] [id number] May, [facility] [address] [id number] [id number] Apr, [facility] [address] [place] [id number] [id number] Mar, [facility] [id number] [place] [address], [place] [id number] Feb, [facility] [id number] [place] [address] Jan, [facility] [id number] [place] [address] Dec, [facility] [address] [id number] [place] [address] Nov, [facility] [address] [facility]70 [place] [address] Mar, [facility] [id number] [place] [address] Dec, IMMUNIZATIONS No Known Immunizations SOCIAL HISTORY Never Assessed REASON FOR VISIT PLAN OF CARE VITAL SIGNS MEDICATIONS Unknown Medications RESULTS No Results PROCEDURES No Known procedures INSTRUCTIONS MEDICATIONS ADMINISTERED No Known Medications MEDICAL (GENERAL) HISTORY Type Description Date Medical History attention deficit hyperactivity disorder
--- OUTSIDE RECORDS SUMMARY | 2019-09-15 18:31 | XMS REPORT ---
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 Name Role Phone AKI DOMINGUEZ Unavailable PROBLEMS Type Condition ICD9-CM Code DRP87-HS Code Onset Dates Condition S tatus SNOMED Code Problem Elevated blood pressure reading without diagnosi s of hypertension 796.2 Active 484889447 Problem Palpitations 785.1 Active 6934986 2 Problem Syncope and collapse 780.2 Active 584014121 Problem Insomnia, unspecified type G47.00 Act nhan 751773134 Problem ADHD (attention deficit hyperactivity disorder) 314.01 Active 350755191 Problem Psychophysiological insomnia F51.04 A ctive 372024998 Problem Vitiligo 709.01 Active 67735354 Problem Other acne 706.1 Active 40006807 Problem Depressive disorder, not elsewhere classified 311 Active 25796520 Problem Attention deficit hyperactiv ity disorder (ADHD), predominantly inattentive type F90.0 Active 97430188 ALLERGIES No Information ENCOUNTERS Encounter Location Date Diagnosis [place] [id number] [place] [id number] Mar, Attention deficit hyperactivity disorder (ADHD), predominantly inattentive type F90.[address] [id number] Feb, [address] [id number] Feb, Attention deficit hyperactivity disorder (ADHD), predominantly inattentive type F90.[address] [id number] Jan, Attention deficit hyperactivity disorder (ADHD), predominantly inattentive type F90.[address] [id number] Dec, Attention deficit hyperactivity disorder (ADHD), predominantly inattentive type F90.0 and Psychophysiological insomnia F51.04 [facility] [id number] [place] [address], [place] [id number] Dec, Attention deficit hyperactivity disorder (ADHD), predominantly inattentive type F90.0 [facility] [address], [place] [id number] Nov, Encounter for immunization Z23 [facility] [place] [address], [place] [id number] Nov, Attention deficit hyperactivity disorder (ADHD), predominantly inattentive type F90.0 [facility] [address], [place] [id number] Oct, Attention deficit hyperactivity disorder (ADHD), predominantly inattentive type F90.0 and Adjustment insomnia F51.02 [facility] [address], [place] [id number] Sep, Attention deficit hyperactivity disorder (ADHD), predominantly inattentive type F90.0 [facility] [address], [place] [id number] Aug, Adjustment insomnia F51.02 [facility] [place] [address], [place] [id number] Jul, Attention deficit hyperactivity disorder (ADHD), predominantly inattentive type F90.0 [facility] [place] [address], [place] [id number] Jul, Adjustment insomnia F51.02 and Attention deficit hyperactivity disorder (ADHD), predominantly inattentive type F90.0 [facility] [address], [place] [id number] June, Attention deficit hyperactivity disorder (ADHD), predominantly inattentive type F90.0 [facility] [address], [place] [id number] June, Attention deficit hyperactivity disorder (ADHD), predominantly inattentive type F90.0 [facility] [address], [place] [id number] May, Attention deficit hyperactivity disorder (ADHD), predominantly inattentive type F90.0 [facility] [address], [place] [id number] Apr, Attention deficit hyperactivity disorder (ADHD), predominantly inattentive type F90.0 [facility] [address] [place] [id number] [place] [address], [place] [id number] Apr, [facility] [address], [place] [id number] Apr, Attention deficit hyperactivity disorder (ADHD), predominantly inattentive type F90.0 [facility] [address], [place] [id number] Mar, [facility] [address], [place] [id number] Feb, [facility] [address], [place] [id number] Jan, [facility] [address], [place] [id number] Dec, [facility] [address], [place] [id number] Nov, [facility] [address], [place] [id number] Oct, Attention deficit hyperactivity disorder (ADHD), predominantly inattentive type F90.0 [facility] [address], [place] [id number] Sep, [facility] [address], [place] [id number] Aug, [facility] [address], [place] [id number] Jul, Attention deficit hyperactivity disorder (ADHD), predominantly inattentive type F90.0 and Insomnia, unspecified type G47.00 [facility] [address] [place] [id number] [id number] Jul, [facility] [place] [address] [facility]757H [facility] [id number] June, [facility] [address], [place] [id number] May, Attention deficit hyperactivity disorder (ADHD), predominantly inattentive type F90.0 [facility] [id number] [place] [address], [place] [id number] Apr, [facility] [address], [place] [id number] Mar, [facility] [address] [facility] [id number] Mar, Attention deficit hyperactivity disorder (ADHD), predominantly inattentive type F90.0 [facility] [place] [id number] [place] [address], [place] [id number] Feb, [facility] [place] [id number] [place] [id number] Feb, [facility] [id number] [place] [address], [place] [id number] Jan, [facility] [place] [id number] [place] [address] [id number] Dec, Attention deficit hyperactivity disorder (ADHD), predominantly inattentive type F90.0 [facility] [address] [id number] [place] [id number] Nov, [facility] [place] [id number] [place] [address] [id number] Oct, [facility] [place] [address] [id number] Sep, ADHD (attention deficit hyperactivity disorder) 314.01 [facility] [place] [id number] [place] [address] [id number] Sep, [facility] [place] [address] [id number] June, [facility] [place] [id number] [place] [address] [id number] June, [facility] [address] [address] May, [facility] [address] [address] May, [facility] [place] [id number] [place] [address] [id number] Apr, [facility] [address] [address] Apr, [facility] [id number] [place] [address] [id number] Mar, [facility] [address] [address] Mar, [facility] [address] [id number] [id number] Feb, [facility] [id number] [place] [address] Feb, [facility] [address] [id number], [place] [id number] Feb, [facility] [id number] [place] [address] Feb, [facility] [address] [id number] [id number] Jan, [facility] [id number] [place] [address] Jan, [facility] [address] [id number] [id number] Jan, [facility] [id number] [place] [address] Jan, [facility] [address] [id number] [id number] Dec, [facility] [id number] [place] [address] Dec, [facility] [id number] [id number] Nov, [facility] [id number] [place] [address] Nov, [facility] [address] [id number] [id number] Nov, [facility] [id number] [place] [address] Nov, [facility] [id number] [id number] Oct, [facility] [id number] [place] [address] Oct, [facility] [address] [id number] [id number] Oct, [facility] [id number] [facility] [address] Oct, [facility] [address] [facility] [id number] Sep, [facility] [address] [id number] [place] [address] Sep, [facility] [address] [id number] [place] [address] Sep, [facility] [address] [place] [id number], [place] [id number] Sep, [facility] [address] [id number] [place] [address] Sep, [facility] [id number] [place] [address] Sep, [facility] [address] [id number] [place] [address] Sep, [facility] [id number] [id number] Aug, [facility] [address] [id number] [place] [address] Aug, [facility] [address] [id number] [id number] Aug, [facility] [address] [id number] [place] [address] Aug, [facility] [address] [id number] [id number] June, [facility] [id number] [place] [address] June, [facility] [address] [facility]07757[facility] [id number] June, [facility] [id number] [place] [address] June, [facility] [address] [facility]07757[facility] [id number] Apr, [facility] [address] [id number] [place] [address] Apr, [facility] [address] [place] [id number] [id number] Mar, [facility] [place] [facility] [id number] [place] [address] Mar, [facility] [place] [address] [id number] [id number] Feb, [facility] [place] [facility] [id number] [place] [address] Feb, [facility] [place] [id number] [place] [address], [place] [id number] Jan, [facility] [place] [facility] [id number] [place] [address] Jan, [facility] [id number] [place] [address], [place] [address] Jan, [facility] [place] [facility] [id number] [place] [address] Jan, [facility] [place] [id number] [place] [address] [id number] Jan, [facility] [place] [facility] [id number] [place] [address] Jan, [facility] [place] [id number] [place] [address] [id number] Nov, [facility] [place] [facility] [id number] [place] [address] Nov, [facility] [place] [id number] [place] [address] [id number] Oct, [facility] [place] [id number] [place] [address], [place] [id number] Sep, [facility] [place] [id number] [place] [address], PR [id number] Sep, [facility] [place] [id number] [place] [address], [place] [id number] Jul, [facility] [place] [address] [id number] [id number] Jul, [facility] [place] [id number] [place] [address], PR [id number] June, [facility] [address] [facility] [place] [id number] May, [facility] [address] [facility] [id number] Apr, [facility] [address] [facility]78080[facility] [place] [id number] Mar, [facility] [address] [facility]70475[facility] [id number] Mar, [facility] [address] TA63450[facility] [id number] Mar, [facility] [address] [id number] [id number] Feb, [facility] [address] [id number] [id number] Feb, [facility] [address] [facility] [id number] Feb, [facility] [address] [address] [id number], [place] [id number] Feb, [facility] [address] [id number], [place] [id number] Feb, [facility] [address] [id number], [place] [id number] Jan, [facility] [id number] [place] [address] Jan, [facility] [address] [id number] [id number] Dec, [facility] [place] [facility] [id number] [place] [address] Dec, [facility] [id number] [place] [address] Dec, [facility] [address] [id number], [place] [id number] Dec, [facility] [id number] [place] [address] Dec, [facility] [id number] [place] [address] Dec, [facility] [place] [facility] [id number] [place] [address] Dec, [facility] [address] [facility]07757[facility], [place] [id number] Dec, [facility] [address] [id number] [place] [address] Dec, [facility] [address] [facility]07757[facility] [id number] Nov, [facility] [id number] [place] [address], [place] [id number] Sep, [facility] [address] [id number], [place] [id number] Aug, [facility] [id number] [place] [address] Aug, [facility] [address] [id number], [place] [id number] Jul, [facility] [address] [id number], [place] [id number] June, [facility] [id number] [place] [address] June, [facility] [address] [id number] [id number] May, [facility] [address] [id number], [place] [id number] Apr, [facility] [address] [place] [id number], [place] [id number] Mar, [facility] [id number] [place] [address], [place] [id number] Feb, [facility] [id number] [place] [address] Jan, [facility] [id number] [place] [address] Dec, [facility] [address] [id number] [place] [address] Nov, [facility] [address] [id number] [place] [address] Mar, [facility] [id number] [place] [address] Dec, IMMUNIZATIONS No Known Immunizations SOCIAL HISTORY Never Assessed REASON FOR VISIT PLAN OF CARE VITAL SIGNS Height 67.5 in 2013-06-19 Weight 131.2 lbs 2013-06-19 Temperature 98.2 degrees Fahrenheit 2013-06-19 Heart Rate 88 bpm 2013-06-19 Respiratory Rate 18 2013-06-19 Blood pressure systolic 108 mmHg 2013-06-19 Blood pressure diastolic 62 mmHg 2013-06-19 MEDICATIONS Unknown Medications RESULTS No Results PROCEDURES No Known procedures INSTRUCTIONS MEDICATIONS ADMINISTERED No Known Medications MEDICAL (GENERAL) HISTORY Type Description Date Medical History attention deficit hyperactivity disorder
--- OUTSIDE RECORDS SUMMARY | 2019-09-15 18:31 | XMS REPORT ---
Author Author Hussain Toro Doctor Organization [facility] Address Unknown Phone Unavailable Care Team Providers Care Golf Stud Riveter Name Role Phone Migration, Doctor Unavailable Unavailable PROBLEMS Type Condition ICD9-CM Code RCO96-FR Code Onset Dates Condition S tatus SNOMED Code Problem Elevated blood pressure reading without diagnosi s of hypertension 796.2 Active 425983276 Problem Palpitations 785.1 Active 2956597 2 Problem Syncope and collapse 780.2 Active 575809540 Problem Insomnia, unspecified type G47.00 Act nhan 016816465 Problem ADHD (attention deficit hyperactivity disorder) 314.01 Active 118918947 Problem Psychophysiological insomnia F51.04 A ctive 888408697 Problem Vitiligo 709.01 Active 49820347 Problem Other acne 706.1 Active 18217968 Problem Depressive disorder, not elsewhere classified 311 Active 88305527 Problem Attention deficit hyperactiv ity disorder (ADHD), predominantly inattentive type F90.0 Active 79144377 ALLERGIES No Information ENCOUNTERS Encounter Location Date Diagnosis [place] [id number] [facility] [address] [id number] [id number] Mar, Attention deficit hyperactivity disorder (ADHD), predominantly inattentive type F90.[address] [id number] Feb, [address] [id number] Feb, Attention deficit hyperactivity disorder (ADHD), predominantly inattentive type F90.[address] [id number] Jan, Attention deficit hyperactivity disorder (ADHD), predominantly inattentive type F90.[address] [id number] Dec, Attention deficit hyperactivity disorder (ADHD), predominantly inattentive type F90.0 and Psychophysiological insomnia F51.[address] [id number] Dec, Attention deficit hyperactivity disorder (ADHD), predominantly inattentive type F90.0 [facility] [address] [facility] [place] [id number] Nov, Encounter for immunization Z23 [facility] [address], [place] [id number] Nov, Attention deficit hyperactivity disorder (ADHD), predominantly inattentive type F90.0 [facility] [address], [place] [id number] Oct, Attention deficit hyperactivity disorder (ADHD), predominantly inattentive type F90.0 and Adjustment insomnia F51.02 [facility] [address], [place] [id number] Sep, Attention deficit hyperactivity disorder (ADHD), predominantly inattentive type F90.0 [facility] [address] [place] [id number] [place] [address], [place] [id number] Aug, Adjustment insomnia F51.02 [facility] [address], [place] [id number] Jul, Attention deficit hyperactivity disorder (ADHD), predominantly inattentive type F90.0 [facility] [address] [place] [id number] [place] [address], [place] [id number] Jul, Adjustment insomnia F51.02 and Attention deficit hyperactivity disorder (ADHD), predominantly inattentive type F90.0 [facility] [address] [facility] [place] [address], [place] [id number] June, Attention deficit hyperactivity disorder (ADHD), predominantly inattentive type F90.0 [facility] [address] [place] [id number] [place] [address], [place] [id number] June, Attention deficit hyperactivity disorder (ADHD), predominantly inattentive type F90.0 [facility] [address], [place] [id number] May, Attention deficit hyperactivity disorder (ADHD), predominantly inattentive type F90.0 [facility] [address], [place] [id number] Apr, Attention deficit hyperactivity disorder (ADHD), predominantly inattentive type F90.0 [facility] [address], [place] [id number] Apr, [facility] [address] [facility] [id number] Apr, Attention deficit hyperactivity disorder (ADHD), predominantly inattentive type F90.0 [facility] [address] [id number] [id number] Mar, [facility] [address] [place] [id number] [id number] Feb, [facility] [address], [place] [id number] Jan, [facility] [address] [place] [id number] [place] [address], [place] [id number] Dec, [facility] [address], [place] [id number] Nov, [facility] [address] [place] [address] [id number] [place] [address], [place] [id number] Oct, Attention deficit hyperactivity disorder (ADHD), predominantly inattentive type F90.0 [facility] [place] [address], [place] [id number] Sep, [facility] [place] [address] [place] [address] [id number] [place] [address], [place] [id number] Aug, [facility] [place] [address], [place] [id number] Jul, Attention deficit hyperactivity disorder (ADHD), predominantly inattentive type F90.0 and Insomnia, unspecified type G47.00 [facility] [place] [address] [facility]07[facility] [id number] Jul, [address] [id number] June, [facility] [place] [address] [facility]07[facility] [id number] May, Attention deficit hyperactivity disorder (ADHD), predominantly inattentive type F90.0 [facility] [place] [address] [facility]07[facility] [id number] Apr, [facility] [address] [facility]07[facility] [id number] Mar, [facility] [address], [place] [id number] Mar, Attention deficit hyperactivity disorder (ADHD), predominantly inattentive type F90.0 [facility] [place] [address] [id number] [place] [id number] Feb, [facility] [place] [address] [id number] Feb, [facility] [id number] [facility] [id number] Jan, [facility] [place] [address] [id number] Dec, Attention deficit hyperactivity disorder (ADHD), predominantly inattentive type F90.[address] [facility] [address] [id number] [facility] [id number] Nov, [facility] [place] [address] [id number] Oct, [facility] [address] [id number] Sep, ADHD (attention deficit hyperactivity disorder) 314.01 [facility] [place] [address] [id number] Sep, [facility] [place] [address] [id number] June, [facility] [address] [id number] June, [facility] [address] [address] May, [facility] [address] [address] May, [facility] [place] [address] [id number] [place] [address] [id number] Apr, [facility] [address] [address] Apr, [facility] [address] [id number] Mar, [facility] [address] [address] Mar, [facility] [address] [place] [id number] Feb, [facility] [place] [address] [id number] [place] [address] Feb, [facility] [address] [facility]07757[facility] [id number] Feb, [facility] [address] [id number] [place] [address] Feb, [facility] [address] [place] [id number] [id number] Jan, [facility] [address] [id number] [place] [address] Jan, [facility] [address] [place] [id number] [id number] Jan, [facility] [address] [id number] [place] [address] Jan, [facility] [address] [id number] [id number] Dec, [facility] [id number] [place] [address] Dec, [facility] [address] [place] [id number] [id number] Nov, [facility] [address] [id number] [place] [address] Nov, [facility] [address] [place] [id number] [address] Nov, [facility] [address] [id number] [place] [address] Nov, [facility] [address] [facility]07757[place] [id number] Oct, [facility] [address] [id number] [place] [address] Oct, [facility] [address] [facility]07757[facility] [id number] Oct, [facility] [address] [id number] [place] [address] Oct, [facility] [address] [place] [id number] [id number] Sep, [facility] [address] [id number] [place] [address] Sep, [facility] [address] [id number] [place] [address] Sep, [facility] [address] [facility]07757[facility] [id number] Sep, [facility] [id number] [place] [address] Sep, [facility] [address] [id number] [place] [address] Sep, [facility] [address] [id number] [place] [address] Sep, [facility] [address] [place] [id number] [id number] Aug, [facility] [id number] [place] [address] Aug, [facility] [address] [place] [id number] [id number] Aug, [facility] [id number] [place] [address] Aug, [facility] [id number] [id number] June, [facility] [address] [id number] [place] [address] June, [facility] [address] [place] [id number] 5[address] June, [facility] [address] [id number] [place] [address] June, [facility] [address] [place] [id number] [id number] Apr, [facility] [address] [id number] [place] [address] Apr, [facility] [address] [place] [id number] [id number] Mar, [facility] [id number] [place] [address] Mar, [facility] [place] [address] [place] [id number] [id number] Feb, [facility] [id number] [place] [address] Feb, [facility] [place] [address] [place] [id number] 7562780[address] Jan, [facility] [id number] [place] [address] Jan, [facility] [id number] [place] [address] Jan, [facility] [address] [id number] [place] [address] Jan, [facility] [place] [id number] [place] [address] [id number] Jan, [facility] [address] [id number] [place] [address] Jan, [facility] [place] [address] [place] [id number] [place] [address] [id number] Nov, [facility] [id number] [place] [address] Nov, [facility] [place] [address] [place] [id number] [id number] Oct, [facility] [place] [address] [place] [id number] [place] [address], [place] [id number] Sep, [facility] [address] [place] [id number] [id number] Sep, [facility] [address] [place] [id number] [id number] Jul, [facility] [address] [place] [id number] [place] [address], [place] [id number] Jul, [facility] [address] [place] [id number] [id number] June, [facility] [place] [address], [place] 8184941[address] May, [facility] [address] [id number] [place] [address] Apr, [facility] [address] [id number] [place] [id number] Mar, [facility] [address] [facility]70[facility] [place] [address]92646296 Mar, [facility] [address] [facility]07757[facility] 94497[address] Mar, [facility] [address] [id number] [id number] Feb, [facility] [address] [id number] [id number] Feb, [facility] [address] [facility]44523[facility] [place] [id number] Feb, [facility] [address] [facility]07757[facility] [id number] Feb, [facility] [address] [facility]07757[facility] [id number] Feb, [facility] [address] [facility]07757[facility] [id number] Jan, [facility] [id number] [place] [address] Jan, [facility] [address] [facility]07757[facility] [id number] Dec, [facility] [address] [id number] [place] [address] Dec, [facility] [address] [id number] [place] [address] Dec, [facility] [address] [facility]07757[facility] [id number] Dec, [facility] [address] [id number] [place] [address] Dec, [facility] [address] [id number] [place] [address] Dec, [facility] [address] [id number] [place] [address] Dec, [facility] [address] [place] [id number] [id number] Dec, [facility] [id number] [place] [address] Dec, [facility] [address] [facility]07757[facility] [id number] Nov, [facility] [address] [place] [id number] [id number] Sep, [facility] [address] [place] [address] [id number] [place] [address], [place] [id number] Aug, [facility] [id number] [place] [address] Aug, [facility] [address] [place] [id number] [place] [address], [place] [id number] Jul, [facility] [address] [place] [id number] [id number] June, [facility] [id number] [place] [address] June, [facility] [address] [place] [id number] [id number] May, [facility] [address] [place] [id number] [place] [address], [place] [id number] Apr, [facility] [address] [place] [id number] [place] [address], [place] [id number] Mar, [facility] [id number] [place] [address], [place] [id number] Feb, [facility] [id number] [place] [address] Jan, [facility] [id number] [place] [address] Dec, [facility] [address] [address] Nov, [facility] [address] [id number] [place] [address] Mar, [facility] [address] [id number] [place] [address] Dec, IMMUNIZATIONS No Known Immunizations SOCIAL HISTORY Never Assessed REASON FOR VISIT PLAN OF CARE VITAL SIGNS MEDICATIONS Unknown Medications RESULTS No Results PROCEDURES No Known procedures INSTRUCTIONS MEDICATIONS ADMINISTERED No Known Medications MEDICAL (GENERAL) HISTORY Type Description Date Medical History attention deficit hyperactivity disorder
--- OUTSIDE RECORDS SUMMARY | 2019-09-15 18:31 | XMS REPORT ---
Author Author Hussain Keen [facility] Address [address] [place] [address] Care Team Providers Care Chief Arson Division Name Role Phone RAQUEL Keen Unavailable PROBLEMS Type Condition ICD9-CM Code DUH55-HS Code Onset Dates Condition S tatus SNOMED Code Problem Elevated blood pressure reading without diagnosi s of hypertension 796.2 Active 168912977 Problem Palpitations 785.1 Active 6288644 2 Problem Syncope and collapse 780.2 Active 876840593 Problem Insomnia, unspecified type G47.00 Act nhan 501785645 Problem ADHD (attention deficit hyperactivity disorder) 314.01 Active 397477749 Problem Psychophysiological insomnia F51.04 A ctive 403857424 Problem Vitiligo 709.01 Active 53551447 Problem Other acne 706.1 Active 45822838 Problem Depressive disorder, not elsewhere classified 311 Active 44917425 Problem Attention deficit hyperactiv ity disorder (ADHD), predominantly inattentive type F90.0 Active 30073011 ALLERGIES No Information ENCOUNTERS Encounter Location Date Diagnosis [place] [id number] [facility] [address] [id number] [place] [id number] Mar, Attention deficit hyperactivity disorder (ADHD), predominantly inattentive type F90.0 [place] [id number] [place] [id number] Feb, [address] [id number] Feb, Attention deficit hyperactivity disorder (ADHD), predominantly inattentive type F90.[address] [id number] Jan, Attention deficit hyperactivity disorder (ADHD), predominantly inattentive type F90.[address] [id number] Dec, Attention deficit hyperactivity disorder (ADHD), predominantly inattentive type F90.0 and Psychophysiological insomnia F51.04 [facility] [address] [place] [id number] [place] [address], [place] [id number] Dec, Attention deficit hyperactivity disorder (ADHD), predominantly inattentive type F90.0 [facility] [address], [place] [id number] Nov, Encounter for immunization Z23 [facility] [address], [place] [id number] Nov, Attention deficit hyperactivity disorder (ADHD), predominantly inattentive type F90.0 [facility] [address], [place] [id number] Oct, Attention deficit hyperactivity disorder (ADHD), predominantly inattentive type F90.0 and Adjustment insomnia F51.02 [facility] [address], [place] [id number] Sep, Attention deficit hyperactivity disorder (ADHD), predominantly inattentive type F90.0 [facility] [address], [place] [id number] Aug, Adjustment insomnia F51.02 [facility] [address], [place] [id number] Jul, Attention deficit hyperactivity disorder (ADHD), predominantly inattentive type F90.0 [facility] [address], [place] [id number] Jul, Adjustment insomnia F51.02 and Attention deficit hyperactivity disorder (ADHD), predominantly inattentive type F90.0 [facility] [id number] [place] [address], [place] [id number] June, Attention deficit hyperactivity disorder (ADHD), predominantly inattentive type F90.0 [facility] [address], [place] [id number] June, Attention deficit hyperactivity disorder (ADHD), predominantly inattentive type F90.0 [facility] [address], [place] [id number] May, Attention deficit hyperactivity disorder (ADHD), predominantly inattentive type F90.0 [facility] [id number] [place] [address], [place] [id number] Apr, Attention deficit hyperactivity disorder (ADHD), predominantly inattentive type F90.0 [facility] [address], [place] [id number] Apr, [facility] [address], [place] [id number] Apr, Attention deficit hyperactivity disorder (ADHD), predominantly inattentive type F90.0 [facility] [address], [place] [id number] Mar, [facility] [address], [place] [id number] Feb, [facility] [address], [place] [id number] Jan, [facility] [address], [place] [id number] Dec, [facility] [address], [place] [id number] Nov, [facility] [address], [place] [id number] Oct, Attention deficit hyperactivity disorder (ADHD), predominantly inattentive type F90.0 [facility] [address], [place] [id number] Sep, [facility] [address], [place] [id number] Aug, [facility] [address], [place] [id number] Jul, Attention deficit hyperactivity disorder (ADHD), predominantly inattentive type F90.0 and Insomnia, unspecified type G47.00 [facility] [address], [place] [id number] Jul, [facility] [place] [address] [id number] [facility], [place] [id number] June, [facility]LEX [address], [place] [id number] May, Attention deficit hyperactivity disorder (ADHD), predominantly inattentive type F90.0 [facility] [address], [place] [id number] Apr, [facility] [address], [place] [id number] Mar, [facility] [address] [facility] [id number] Mar, Attention deficit hyperactivity disorder (ADHD), predominantly inattentive type F90.0 [facility] [address] [id number] [id number] Feb, [facility] [id number] [place] [address] [id number] Feb, [facility] [address] [facility] [address] [id number] [id number] Jan, [facility] [address] [facility] [place] [address] [id number] Dec, Attention deficit hyperactivity disorder (ADHD), predominantly inattentive type F90.0 [facility] [address] [facility] [address] [id number] [facility] [place] [id number] Nov, [facility] [address] [place] [place] [id number] [place] [address] [id number] Oct, [facility] [address] [id number] Sep, ADHD (attention deficit hyperactivity disorder) 314.01 [facility] [address] [id number] [place] [address] [id number] Sep, [facility] [address] [id number] [place] [address] [id number] June, [facility] [id number] [place] [address] [id number] June, [facility] [address] [place] [address] May, [facility] [address] [facility] [place] [address] May, [facility] [place] [id number] [place] [address] [id number] Apr, [facility] [address] [place] [address] Apr, [facility] [id number] [place] [address] [id number] Mar, [facility] [address] [place] [address] Mar, [facility] [address] [place] [id number] [id number] Feb, [facility] [address] [facility] [place] [address] Feb, [facility]ELX [address] [place] [id number] [id number] Feb, [facility] [id number] [place] [address] Feb, [facility] [address] [place] [id number] 198584501 Jan, [facility] [id number] [place] [address] Jan, [facility] [address] [place] [id number] [id number] Jan, [facility] [id number] [place] [address] Jan, [facility] [address] [place] [id number] [id number] Dec, [facility] [id number] [place] [address] Dec, [facility] [address] [place] [id number] [id number] Nov, [facility] [id number] [place] [address] Nov, [facility] [address] [place] [id number] Nov, [facility] [id number] [place] [address] Nov, [facility] A[facility] [id number] [place] [address] [id number] Oct, [facility] [id number] [place] [address] Oct, [facility] [address] [id number] [id number] Oct, [facility] [address] [facility] [place] [address] Oct, [facility] [address] [facility]757[facility] [id number] Sep, [facility] [address] [facility] [place] [address] Sep, [facility] [address] [id number] [place] [address] Sep, [facility] [address] [place] [id number] Sep, [facility] [id number] [place] [address] Sep, [facility] [id number] [place] [address] Sep, [facility] [id number] [place] [address] Sep, [facility] [address] [place], [place] [id number] Aug, [facility] [id number] [place] [address] Aug, [facility] [address] [place] 074[address]237 Aug, [facility] [address] [facility] [place] [address] Aug, [facility] [address] [id number] [id number] June, [facility] [id number] [place] [address] June, [facility] [address] [place] [id number] June, [facility] [id number] [place] [address] June, [facility] ALEX [address] [facility] [id number] Apr, [facility] [address] [id number] [place] [address] Apr, [facility] [address] [place] [address] [id number] 878303772 Mar, [facility] [place] [facility] [id number] [place] [address] Mar, [facility] [address] [place] [address] [id number] [id number] Feb, [facility] [place] [facility] [address] [place] [address] Feb, [facility] [address] [place] [address] [id number] [id number] Jan, [facility] [place] [facility] [address] [address] Jan, [facility] [place] [facility] [id number] [place] [address] Jan, [facility] [place] [facility] [id number] [place] [address] Jan, [facility] [id number] [place] [address] [id number] Jan, [facility] [place] [facility] [id number] [place] [address] Jan, [facility] [address] [place] [id number] 690977161 Nov, [facility] [place] [facility] [id number] [place] [address] Nov, [facility] [address] [id number] [place] [address] [id number] Oct, [facility] [address] [place] [id number] [id number] Sep, [facility] [address] [place] [address] [id number] 716558053 Sep, [facility] A[facility] [address] [id number] [place] [address], [place] [id number] Jul, [facility] [address] [place] [id number] [id number] Jul, [facility] [id number] [place] [address], [place] [id number] June, [facility] [address] [facility] [place] 837026690 May, [facility] [address] [facility]07757[facility] [id number] Apr, [facility] [address] [facility]757[facility] [id number] Mar, [facility] [address] [place] [address] [id number] [id number] Mar, [facility] [address] [place] [address] [id number] [id number] Mar, [facility] [address] [place] [address] [id number] [id number] Feb, [facility] [address] [place] [id number] [id number] Feb, [facility] [address] [place] [address] [id number] [id number] Feb, [facility] [address] [place] [id number] [id number] Feb, [facility] [address] [place] [id number] [id number] Feb, [facility] [address] [place] [id number] [id number] Jan, [facility] [id number] [place] [address] Jan, [facility] [address] [place] [id number] [id number] Dec, [facility] [address] [place] [address] Dec, [facility] [address] [place] [address] Dec, [facility] [address] [id number] [place] [address], [place] [id number] Dec, [facility] [address] [place] [address] Dec, [facility] [address] [address] Dec, [facility] [id number] [place] [address] Dec, [facility] [address] [place] [id number] [id number] Dec, [facility] [id number] [place] [address] Dec, [facility] [address] [place] [id number] [id number] Nov, [facility] [address], [place] [id number] Sep, [facility] [address] [place] [address] [id number] [place] [address], [place] [id number] Aug, [facility] [id number] [place] [address] Aug, [facility] [address] [place] [id number] [id number] Jul, [facility] A[facility] [address], [place] [id number] June, [facility] [id number] [place] [address] June, [facility] [id number] [place] [address], [place] [id number] May, [facility] [id number] [place] [address], [place] [id number] Apr, [facility] [address] [place] [id number] [place] [address] [id number] Mar, [facility] [address] [id number] [place] [address] [id number] Feb, [facility] [id number] [place] [address] Jan, [facility] [address] [place] [address] Dec, [facility] [id number] [place] [address] Nov, [facility] [id number] [place] [address] Mar, [facility] [address] [facility] [id number] [place] [address] Dec, IMMUNIZATIONS No Known Immunizations SOCIAL HISTORY Never Assessed REASON FOR VISIT PLAN OF CARE VITAL SIGNS MEDICATIONS Unknown Medications RESULTS No Results PROCEDURES No Known procedures INSTRUCTIONS MEDICATIONS ADMINISTERED No Known Medications MEDICAL (GENERAL) HISTORY Type Description Date Medical History attention deficit hyperactivity disorder
--- OUTSIDE RECORDS SUMMARY | 2019-09-15 18:32 | XMS REPORT ---
Author Author Hussain DOMINGUEZ [facility] Address [address] [place] [address] Care Team Providers Care Shadowgraph Operator Name Role Phone AKI DOMINGUEZ Unavailable PROBLEMS Type Condition ICD9-CM Code UKX22-RO Code Onset Dates Condition S tatus SNOMED Code Problem Elevated blood pressure reading without diagnosi s of hypertension 796.2 Active 206476842 Problem Palpitations 785.1 Active 9769397 2 Problem Syncope and collapse 780.2 Active 898274676 Problem Insomnia, unspecified type G47.00 Act nhan 505081878 Problem ADHD (attention deficit hyperactivity disorder) 314.01 Active 758002180 Problem Psychophysiological insomnia F51.04 A ctive 805614275 Problem Vitiligo 709.01 Active 35020278 Problem Other acne 706.1 Active 23541048 Problem Depressive disorder, not elsewhere classified 311 Active 08710966 Problem Attention deficit hyperactiv ity disorder (ADHD), predominantly inattentive type F90.0 Active 55809299 ALLERGIES No Information ENCOUNTERS Encounter Location Date Diagnosis [place] [id number] [facility] [address] [id number] [place] [id number] Mar, Attention deficit hyperactivity disorder (ADHD), predominantly inattentive type F90.0 [facility] [address] [id number] [place] [id number] Feb, [facility] [address] [id number] [place] [id number] Feb, Attention deficit hyperactivity disorder (ADHD), predominantly inattentive type F90.0 [facility] [address] [id number] [place] [id number] Jan, Attention deficit hyperactivity disorder (ADHD), predominantly inattentive type F90.0 [facility] [address] [id number] [place] [id number] Dec, Attention deficit hyperactivity disorder (ADHD), predominantly inattentive type F90.0 and Psychophysiological insomnia F51.04 [facility] [place] [address] [id number] [place] [id number] Dec, Attention deficit hyperactivity disorder (ADHD), predominantly inattentive type F90.0 [facility] [place] [address] [id number] [place] [id number] Nov, Encounter for immunization Z23 [facility] [place] [address] [id number] [place] [id number] Nov, Attention deficit hyperactivity disorder (ADHD), predominantly inattentive type F90.0 [facility] [place] [address] [id number] [place] [id number] Oct, Attention deficit hyperactivity disorder (ADHD), predominantly inattentive type F90.0 and Adjustment insomnia F51.02 [facility] [place] [address] [id number] [place] [id number] Sep, Attention deficit hyperactivity disorder (ADHD), predominantly inattentive type F90.0 [facility] [place] [address] [id number] [place] [id number] Aug, Adjustment insomnia F51.02 [facility] [place] [address] [id number] [place] [id number] Jul, Attention deficit hyperactivity disorder (ADHD), predominantly inattentive type F90.0 [facility] [place] [address] [id number] [place] [id number] Jul, Adjustment insomnia F51.02 and Attention deficit hyperactivity disorder (ADHD), predominantly inattentive type F90.0 [facility] [place] [address] [id number] [place] [id number] June, Attention deficit hyperactivity disorder (ADHD), predominantly inattentive type F90.0 [facility] [place] [address] [id number] [place] [id number] June, Attention deficit hyperactivity disorder (ADHD), predominantly inattentive type F90.0 [facility] [place] [address] [id number] [place] [id number] May, Attention deficit hyperactivity disorder (ADHD), predominantly inattentive type F90.0 [facility] [place] [address] [id number] [place] [id number] Apr, Attention deficit hyperactivity disorder (ADHD), predominantly inattentive type F90.0 [facility] [place] [address] [id number] [place] [id number] Apr, [facility] [place] [address] [id number] [place] [id number] Apr, Attention deficit hyperactivity disorder (ADHD), predominantly inattentive type F90.0 [facility] [place] [address] [id number] [place] [id number] Mar, [facility] [place] [address] [id number] [place] [id number] Feb, [facility] [place] [address] [id number] [place] [id number] Jan, [facility] [place] [address] [id number] [place] [id number] Dec, [facility] [place] [address] [id number] [place] [id number] Nov, [facility] [place] [address] [id number] [place] [id number] Oct, Attention deficit hyperactivity disorder (ADHD), predominantly inattentive type F90.0 [facility] [place] [address] [id number] [place] [id number] Sep, [facility] [place] [address] [id number] [place] [id number] Aug, [facility] [place] [address] [id number] [place] [id number] Jul, Attention deficit hyperactivity disorder (ADHD), predominantly inattentive type F90.0 and Insomnia, unspecified type G47.00 [facility] [place] [address] [id number] [place] [id number] Jul, [facility] [address] [id number] [place] [id number] June, [facility] [place] [address] [id number] [place] [id number] May, Attention deficit hyperactivity disorder (ADHD), predominantly inattentive type F90.0 [facility] [place] [address] [id number] [place] [id number] Apr, [facility] [place] [address] [id number] [place] [id number] Mar, [facility] [place] [address] [id number] [place] [id number] Mar, Attention deficit hyperactivity disorder (ADHD), predominantly inattentive type F90.0 [facility] [place] [address] [id number] [place] [id number] Feb, [facility] [place] [address] [id number] [place] [id number] Feb, [facility] [address] [id number] [facility] [place] [id number] Jan, [facility] [place] [address] [id number] [place] [id number] Dec, Attention deficit hyperactivity disorder (ADHD), predominantly inattentive type F90.[address] [facility] [address] [id number] [facility] [place] [id number] Nov, [facility] [place] [address] [id number] [place] [id number] Oct, [facility] [place] [address] [id number] [place] [id number] Sep, ADHD (attention deficit hyperactivity di sorder) 314.01 [facility] [place] [address] [id number] [place] [id number] Sep, [facility] [place] [address] [id number] [place] [id number] June, [facility] [place] [address] [id number] [place] [id number] June, [facility] [address] [facility] [id number] [address] [place] [address] May, [facility] [address] [facility] [id number] [address] [place] [address] May, [facility] [place] [address] [id number] [place] [id number] Apr, [facility] [place] [facility] [address] [id number] [facility] [place] [address] Apr, [facility] [place] [address] [id number] [place] [id number] Mar, [facility] [address] [id number] [facility] [place] [address] Mar, [facility] [place] [address] [id number] [place] [id number] Feb, [facility] [address] [id number] [address] [place] [address], [place] [address] Feb, [facility] [place] [address] [id number] [place] [id number] Feb, [facility] [address] [id number] [address] [place] [address], [place] [address] Feb, [facility] [place] [address] [id number] [place] [id number] Jan, [facility] [address] [id number] [address] [place] [address], [place] [address] Jan, [facility] [place] [address] [id number] [place] [id number] Jan, [facility] [address] [id number] [address] [place] [address], [place] [address] Jan, [facility] [place] [address] [id number] [place] [id number] Dec, [facility] [address] [id number] [address] [place] [address], [place] [address] Dec, [facility] [place] [address] [id number] [place] [id number] Nov, [facility] [address] [id number] [address] [place] [address], [place] [address] Nov, [facility] [place] [address] [id number] [place] [id number] Nov, [facility] [address] [id number] [address] [place] [address], [place] [address] Nov, [facility] [place] [address] [id number] [place] [id number] Oct, [facility] [address] [id number] [address] [place] [address], [place] [address] Oct, [facility] [place] [address] [id number] [place] [id number] Oct, [facility] [address] [id number] [address] [place] [address], [place] [address] Oct, [facility] [place] [address] [id number] [place] [id number] Sep, [facility] [address] [id number] [address] [place] [address], [place] [address] Sep, [facility] [address] [id number] [address] [place] [address], [place] [address] Sep, [facility] [place] [address] [id number] [place] [id number] Sep, [facility] [address] [id number] [address] [place] [address], [place] [address] Sep, [facility] [address] [id number] [address] [place] [address], [place] [address] Sep, [facility] [address] [id number] [address] [place] [address], [place] [address] Sep, [facility] [place] [address] [id number] [place] [id number] Aug, [facility] [address] [id number] [address] [place] [address], [place] [address] Aug, [facility] [place] [address] [id number] [place] [id number] Aug, [facility] [address] [id number] [facility] [place] [address] Aug, [facility] [place] [address] [id number] [place] [id number] June, [facility] [address] [id number] [facility] [place] [address] June, [facility] [place] [address] [id number] [place] [id number] June, [facility] [address] [id number] [facility] [place] [address] June, [facility] [place] [address] [id number] [place] [id number] Apr, [facility] [address] [id number] [address] [place] [address], [place] [address] Apr, [facility] [place] [address] [id number] [place] [id number] Mar, [facility] [address] [id number] [address] [place] [address], [place] [address] Mar, [facility] [place] [address] [id number] [place] [id number] Feb, [facility] [address] [id number] [address] [place] [address], [place] [address] Feb, [facility] [place] [address] [id number] [place] [id number] Jan, [facility] [address] [id number] [address] [place] [address], [place] [address] Jan, [facility] [address] [id number] [address] [place] [address], [place] [address] Jan, [facility] [address] [id number] [address] [place] [address], [place] [address] Jan, [facility] [place] [address] [id number] [place] [id number] Jan, [facility] [address] [id number] [address] [place] [address], [place] [address] Jan, [facility] [place] [address] [id number] [place] [id number] Nov, [facility] [address] [id number] [address] [address] Nov, [facility] [place] [address] [id number] [place] [id number] Oct, [facility] [place] [address] [id number] [place] [id number] Sep, [facility] [place] [address] [id number] [place] [id number] Sep, [facility] [place] [address] [id number] [place] [id number] Jul, [facility] [place] [address] [id number] [place] [id number] Jul, [facility] [place] [address] [id number] [place] [id number] June, [facility] [place] [address] [id number] [place] [id number] May, [facility] [place] [address] [id number] [place] [id number] Apr, [facility] [place] [address] [id number] [place] [id number] Mar, [facility] [place] [address] [id number] [place] [id number] Mar, [facility] [place] [address] [id number] [place] [id number] Mar, [facility] [place] [address] [id number] [place] [id number] Feb, [facility] [place] [address] [id number] [place] [id number] Feb, [facility] [place] [address] [id number] [place] [id number] Feb, [facility] [place] [address] [id number] [place] [id number] Feb, [facility] [place] [address] [id number] [place] [id number] Feb, [facility] [place] [address] [id number] [place] [id number] Jan, [facility] [address] [id number] [address] [place] [address], [place] [address] Jan, [facility] [place] [address] [id number] [place] [id number] Dec, [facility] [address] [id number] [address] [place] [address], [place] [address] Dec, [facility] [address] [id number] [address] [place] [address] Dec, [facility] [place] [address] [id number] [place] [id number] Dec, [facility] [address] [id number] [address] [place] [address] Dec, [facility] [address] [facility] [id number] [address] [place] [address], [place] [address] Dec, [facility] [address] [id number] [address] [place] [address] Dec, [facility] [place] [address] [id number] [place] [id number] Dec, [facility] [address] [id number] [address] [place] [address] Dec, [facility] [place] [address] [id number] [place] [id number] Nov, [facility] [place] [address] [id number] [place] [id number] Sep, [facility] [place] [address] [id number] [place] [id number] Aug, [facility] [address] [id number] [address] [place] [address], [place] [address] Aug, [facility] [place] [address] [id number] [place] [id number] Jul, [facility] [place] [address] [id number] [place] [id number] June, [facility] [address] [facility] [id number] [address] [place] [address] June[facility] [place] [address] [id number] [place] [id number] May, [facility] [place] [address] [facility] [id number] [place] [id number] Apr, [facility] [place] [address] [facility] [id number] [place] [id number] Mar, [facility] [place] [address] [facility] [id number] [place] [id number] Feb, [facility] [address] [id number] [address] [place] [address] Jan, [facility] [address] [id number] [address] [place] [address] Dec, [facility] [address] [id number] [address] [place] [address] Nov, [facility] [address] [id number] [address] [place] [address] Mar, [facility] [address] [id number] [address] [place] [address] Dec, IMMUNIZATIONS No Known Immunizations SOCIAL HISTORY Never Assessed REASON FOR VISIT PLAN OF CARE VITAL SIGNS MEDICATIONS Unknown Medications RESULTS No Results PROCEDURES No Known procedures INSTRUCTIONS MEDICATIONS ADMINISTERED No Known Medications MEDICAL (GENERAL) HISTORY Type Description Date Medical History attention deficit hyperactivity disorder
--- OUTSIDE RECORDS SUMMARY | 2019-09-15 18:32 | XMS REPORT ---
Author Author Hussain Keen [facility] Address [address] [place] [address] Care Team Providers Care Certified Nurse Practitioner Name Role Phone RAQUEL Keen Unavailable PROBLEMS Type Condition ICD9-CM Code [id number] Code Onset Dates Condition S tatus SNOMED Code Problem Elevated blood pressure reading without diagnosi s of hypertension 796.2 Active 434478324 Problem Palpitations 785.1 Active 0360504 2 Problem Syncope and collapse 780.2 Active 200851682 Problem Insomnia, unspecified type G47.00 Act nhan 458363759 Problem ADHD (attention deficit hyperactivity disorder) 314.01 Active 268661841 Problem Psychophysiological insomnia F51.04 A ctive 217058916 Problem Vitiligo 709.01 Active 89624854 Problem Other acne 706.1 Active 26134694 Problem Depressive disorder, not elsewhere classified 311 Active 98006469 Problem Attention deficit hyperactiv ity disorder (ADHD), predominantly inattentive type F90.0 Active 23917420 ALLERGIES No Information ENCOUNTERS Encounter Location Date Diagnosis [place] [id number] [facility] [address] [id number] [place] [id number] Mar, Attention deficit hyperactivity disorder (ADHD), predominantly inattentive type F90.0 [place] [id number] [place] [id number] Feb, [address] [id number] Feb, Attention deficit hyperactivity disorder (ADHD), predominantly inattentive type F90.[address] [id number] Jan, Attention deficit hyperactivity disorder (ADHD), predominantly inattentive type F90.[address] [id number] Dec, Attention deficit hyperactivity disorder (ADHD), predominantly inattentive type F90.0 and Psychophysiological insomnia F51.04 [facility] [id number] [place] [address], [place] [id number] Dec, Attention deficit hyperactivity disorder (ADHD), predominantly inattentive type F90.0 [facility] [address], [place] [id number] Nov, Encounter for immunization Z23 [facility] [place] [address], [place] [id number] Nov, Attention deficit hyperactivity disorder (ADHD), predominantly inattentive type F90.0 [facility] [place] [address], [place] [id number] Oct, Attention deficit hyperactivity disorder (ADHD), predominantly inattentive type F90.0 and Adjustment insomnia F51.02 [facility] [place] [address], [place] [id number] Sep, Attention deficit hyperactivity disorder (ADHD), predominantly inattentive type F90.0 [facility] [place] [address], [place] [id number] Aug, Adjustment insomnia F51.02 [facility] [place] [address], [place] [id number] Jul, Attention deficit hyperactivity disorder (ADHD), predominantly inattentive type F90.0 [facility] [address], [place] [id number] Jul, Adjustment insomnia F51.02 and Attention deficit hyperactivity disorder (ADHD), predominantly inattentive type F90.0 [facility] [id number] [place] [address], [place] [id number] June, Attention deficit hyperactivity disorder (ADHD), predominantly inattentive type F90.0 [facility] [address], [place] [id number] June, Attention deficit hyperactivity disorder (ADHD), predominantly inattentive type F90.0 [facility] [address], [place] [id number] May, Attention deficit hyperactivity disorder (ADHD), predominantly inattentive type F90.0 [facility] [id number] [place] [address], [place] [id number] Apr, Attention deficit hyperactivity disorder (ADHD), predominantly inattentive type F90.0 [facility] [address], [place] [id number] Apr, [facility] [address], [place] [id number] Apr, Attention deficit hyperactivity disorder (ADHD), predominantly inattentive type F90.0 [facility] [address], [place] [id number] Mar, [facility] [address], [place] [id number] Feb, [facility] [address], [place] [id number] Jan, [facility] [address], [place] [id number] Dec, [facility] [address], [place] [id number] Nov, [facility] [address], [place] [id number] Oct, Attention deficit hyperactivity disorder (ADHD), predominantly inattentive type F90.0 [facility] [address], [place] [id number] Sep, [facility] [address], [place] [id number] Aug, [facility] [address], [place] [id number] Jul, Attention deficit hyperactivity disorder (ADHD), predominantly inattentive type F90.0 and Insomnia, unspecified type G47.00 [facility] [address], [place] [id number] Jul, [facility] [place] [address] [facility] [facility] [id number] June, [facility] [address], [place] [id number] May, Attention deficit hyperactivity disorder (ADHD), predominantly inattentive type F90.0 [facility] [address], [place] [id number] Apr, [facility] [address], [place] [id number] Mar, [facility] [place] [address] [facility] [id number] Mar, Attention deficit hyperactivity disorder (ADHD), predominantly inattentive type F90.0 [facility] [place] [address] [id number] Feb, [facility] [place] [id number] [place] [address] [id number] Feb, [facility] [address] [facility] [address] [id number] [id number] Jan, [facility] [place] [address] [facility] [place] [address] [id number] Dec, Attention deficit hyperactivity disorder (ADHD), predominantly inattentive type F90.0 [facility] [address] [facility] [address] [id number] [facility] [place] [place] [id number] Nov, [facility] [place] [id number] [place] [address] [id number] Oct, [facility] [place] [address] [id number] Sep, ADHD (attention deficit hyperactivity disorder) 314.01 [facility] [place] [id number] [place] [address] [id number] Sep, [facility] [place] [id number] [place] [address] [id number] June, [facility] [place] [id number] [place] [address] [id number] June, [facility] [id number] [place] [address] May, [facility] [address] [facility] [place] [address] May, [facility] [place] [id number] [place] [address] [id number] Apr, [facility] [id number] [place] [address] Apr, [facility] [place] [id number] [place] [address] [id number] Mar, [facility] [address] [place] [address] Mar, [facility] [id number] [id number] Feb, [facility] [address] [facility] [place] [address] Feb, [facility] [address] [id number] [id number] Feb, [facility] [id number] [place] [address] Feb, [facility] [address] [id number] [id number] Jan, [facility] [id number] [place] [address] Jan, [facility] [address] [id number] [id number] Jan, [facility] [id number] [place] [address] Jan, [facility] [address] [id number] [id number] Dec, [facility] [id number] [place] [address] Dec, [facility] [address] [id number] [id number] Nov, [facility] [id number] [place] [address] Nov, [facility] [address] [address] [id number] Nov, [facility] [id number] [place] [address] Nov, [facility] [id number] [place] [address] [id number] Oct, [facility] [id number] [place] [address] Oct, [facility] [address] [place] [id number] Oct, [facility] [address] [id number] [place] [address] Oct, [facility] [address] [facility]757[facility], [place] [id number] Sep, [facility] [address] [id number] [place] [address] Sep, [facility] [address] [id number] [place] [address] Sep, [facility] [address] 12928[place] [id number] Sep, [facility] [id number] [place] [address] Sep, [facility] [id number] [place] [address] Sep, [facility] [id number] [place] [address] Sep, [facility] [address] 12928[place] [id number] Aug, [facility] [id number] [place] [address] Aug, [facility] [address] [id number] Aug, [facility] [address] [facility] [place] [address] Aug, [facility] [address] [id number] June, [facility] [id number] [place] [address] June, [facility] [address] [id number] June, [facility] [id number] [place] [address] June, [facility] [address] [facility] [id number] Apr, [facility] [address] [id number] [place] [address] Apr, [facility] [place] [id number] [id number] Mar, [facility] [place] [facility] [id number] [place] [address] Mar, [facility] [place] [address] [id number] [id number] Feb, [facility] [place] [facility] [id number] [place] [address] Feb, [facility] [place] [address] [id number] [id number] Jan, [facility] [place] [facility] [address] [address] Jan, [facility] [place] [facility] [id number] [place] [address] Jan, [facility] [place] [facility] [id number] [place] [address] Jan, [facility] [place] [id number] [place] [address] [id number] Jan, [facility] [place] [facility] [id number] [place] [address] Jan, [facility] [place] [id number] [id number] Nov, [facility] [place] [facility] [id number] [place] [address] Nov, [facility] [place] [id number] [place] [address] [id number] Oct, [facility] [place] [address] [id number] [id number] Sep, [facility] [place] [id number] [id number] Sep, [facility] [id number] [place] [address], [place] [id number] Jul, [facility] [address] [id number] [id number] Jul, [facility] [place] [id number] [place] [address], [place] [id number] June, [facility] [address] [facility] [place] [address] May, [facility] [address] [facility]757[facility] [id number] Apr, [facility] [address] [facility]757[facility] [id number] Mar, [facility] [id number] [id number] Mar, [facility] [id number] [id number] Mar, [facility] [id number] [id number] Feb, [facility] [id number] [id number] Feb, [facility] [address] [id number] [id number] Feb, [facility] [id number] [id number] Feb, [facility] [address] [id number] [id number] Feb, [facility] [address] [id number] [id number] Jan, [facility] [id number] [place] [address] Jan, [facility] [address] [id number] [id number] Dec, [facility] [id number] [place] [address] Dec, [facility] [id number] [place] [address] Dec, [facility] [id number] [place] [address], [place] [id number] Dec, [facility] [id number] [place] [address] Dec, [facility] [address] [address] Dec, [facility] [id number] [place] [address] Dec, [facility] [address] [id number] [id number] Dec, [facility] [id number] [place] [address] Dec, [facility] [address] [place] [id number] [id number] Nov, [facility] [address], [place] [id number] Sep, [facility] [id number] [place] [address], [place] [id number] Aug, [facility] [id number] [place] [address] Aug, [facility] [address] [id number] [id number] Jul, [facility] [address], [place] [id number] June, [facility] [id number] [place] [address] June, [facility] [id number] [place] [address], [place] [id number] May, [facility] [id number] [place] [address], [place] [id number] Apr, [facility] [address] [id number] [place] [address] [id number] Mar, [facility] [id number] [place] [address] [id number] Feb, [facility] [id number] [place] [address] Jan, [facility] [address] [place] [address] Dec, [facility] [id number] [place] [address] Nov, [facility] [id number] [place] [address] Mar, [facility] [address] [facility] [id number] [place] [address] Dec, IMMUNIZATIONS No Known Immunizations SOCIAL HISTORY Never Assessed REASON FOR VISIT PLAN OF CARE VITAL SIGNS MEDICATIONS Unknown Medications RESULTS No Results PROCEDURES No Known procedures INSTRUCTIONS MEDICATIONS ADMINISTERED No Known Medications MEDICAL (GENERAL) HISTORY Type Description Date Medical History attention deficit hyperactivity disorder
--- OUTSIDE RECORDS SUMMARY | 2019-09-15 18:32 | XMS REPORT ---
Author Author Hussain DOMINGUEZ [facility] Address [address] [place] [address] Care Team Providers Care Career Information Specialist Name Role Phone AKI DOMINGUEZ Unavailable PROBLEMS Type Condition ICD9-CM Code NTK30-LR Code Onset Dates Condition S tatus SNOMED Code Problem Elevated blood pressure reading without diagnosi s of hypertension 796.2 Active 007906316 Problem Palpitations 785.1 Active 9005642 2 Problem Syncope and collapse 780.2 Active 321624151 Problem Insomnia, unspecified type G47.00 Act nhan 586092868 Problem ADHD (attention deficit hyperactivity disorder) 314.01 Active 937355121 Problem Psychophysiological insomnia F51.04 A ctive 974487026 Problem Vitiligo 709.01 Active 78392873 Problem Other acne 706.1 Active 84504047 Problem Depressive disorder, not elsewhere classified 311 Active 77261645 Problem Attention deficit hyperactiv ity disorder (ADHD), predominantly inattentive type F90.0 Active 61138778 ALLERGIES No Information ENCOUNTERS Encounter Location Date Diagnosis [place] [id number] [id number] [place] [id number] Mar, Attention deficit hyperactivity disorder (ADHD), predominantly inattentive type F90.0 [facility] [address] [id number] [place] [id number] Feb, [facility] [address] [id number] [place] [id number] Feb, Attention deficit hyperactivity disorder (ADHD), predominantly inattentive type F90.0 [facility] [address] [id number] [place] [id number] Jan, Attention deficit hyperactivity disorder (ADHD), predominantly inattentive type F90.0 [facility] [address] [id number] [place] [id number] Dec, Attention deficit hyperactivity disorder (ADHD), predominantly inattentive type F90.0 and Psychophysiological insomnia F51.04 [facility] [place] [address] [id number] [place] [id number] Dec, Attention deficit hyperactivity disorder (ADHD), predominantly inattentive type F90.0 [facility] [place] [address] [id number] [place] [id number] Nov, Encounter for immunization Z23 [facility] [place] [address] [id number] [place] [id number] Nov, Attention deficit hyperactivity disorder (ADHD), predominantly inattentive type F90.0 [facility] [place] [address] [id number] [place] [id number] Oct, Attention deficit hyperactivity disorder (ADHD), predominantly inattentive type F90.0 and Adjustment insomnia F51.02 [facility] [place] [address] [id number] [place] [id number] Sep, Attention deficit hyperactivity disorder (ADHD), predominantly inattentive type F90.0 [facility] [place] [address] [id number] [place] [id number] Aug, Adjustment insomnia F51.02 [facility] [place] [address] [id number] [place] [id number] Jul, Attention deficit hyperactivity disorder (ADHD), predominantly inattentive type F90.0 [facility] [place] [address] [id number] [place] [id number] Jul, Adjustment insomnia F51.02 and Attention deficit hyperactivity disorder (ADHD), predominantly inattentive type F90.0 [facility] [place] [address] [id number] [place] [id number] June, Attention deficit hyperactivity disorder (ADHD), predominantly inattentive type F90.0 [facility] [place] [address] [id number] [place] [id number] June, Attention deficit hyperactivity disorder (ADHD), predominantly inattentive type F90.0 [facility] [place] [address] [id number] [place] [id number] May, Attention deficit hyperactivity disorder (ADHD), predominantly inattentive type F90.0 [facility] [place] [address] [id number] [place] [id number] Apr, Attention deficit hyperactivity disorder (ADHD), predominantly inattentive type F90.0 [facility] [place] [address] [id number] [place] [id number] Apr, [facility] [place] [address] [id number] [place] [id number] Apr, Attention deficit hyperactivity disorder (ADHD), predominantly inattentive type F90.0 [facility] [place] [address] [id number] [place] [id number] Mar, [facility] [place] [address] [id number] [place] [id number] Feb, [facility] [place] [address] [id number] [place] [id number] Jan, [facility] [place] [address] [id number] [place] [id number] Dec, [facility] [place] [address] [id number] [place] [id number] Nov, [facility] [place] [address] [id number] [place] [id number] Oct, Attention deficit hyperactivity disorder (ADHD), predominantly inattentive type F90.0 [facility] [place] [address] [id number] [place] [id number] Sep, [facility] [place] [address] [id number] [place] [id number] Aug, [facility] [place] [address] [id number] [place] [id number] Jul, Attention deficit hyperactivity disorder (ADHD), predominantly inattentive type F90.0 and Insomnia, unspecified type G47.00 [facility] [place] [address] [id number] [place] [id number] Jul, [facility] [address] [id number] [place] [id number] June, [facility] [place] [address] [id number] [place] [id number] May, Attention deficit hyperactivity disorder (ADHD), predominantly inattentive type F90.0 [facility] [place] [address] [id number] [place] [id number] Apr, [facility] [place] [address] [id number] [place] [id number] Mar, [facility] [place] [address] [id number] [place] [id number] Mar, Attention deficit hyperactivity disorder (ADHD), predominantly inattentive type F90.0 [facility] [place] [address] [id number] [place] [id number] Feb, [facility] [place] [address] [id number] [place] [id number] Feb, [facility] [address] [id number] [facility] [place] [id number] Jan, [facility] [place] [address] [id number] [place] [id number] Dec, Attention deficit hyperactivity disorder (ADHD), predominantly inattentive type F90.[address] [facility] [address] [id number] [facility] [id number] Nov, [facility] [place] [address] [id number] [place] [id number] Oct, [facility] [place] [address] [id number] [place] [id number] Sep, ADHD (attention deficit hyperactivity di sorder) 314.01 [facility] [place] [address] [id number] [place] [id number] Sep, [facility] [place] [address] [id number] [place] [id number] June, [facility] [place] [address] [id number] [place] [id number] June, [facility] [address] [facility] [id number] [address] [place] [address] May, [facility] [address] [facility] [id number] [address] [place] [address] May, [facility] [place] [address] [id number] [place] [id number] Apr, [facility] [place] [facility] [address] [id number] [facility] [place] [address] Apr, [facility] [place] [address] [id number] [place] [id number] Mar, [facility] [address] [id number] [facility] [place] [address] Mar, [facility] [place] [address] [id number] [place] [id number] Feb, [facility] [address] [id number] [address] [place] [address], [place] [address] Feb, [facility] [place] [address] [id number] [place] [id number] Feb, [facility] [address] [id number] [address] [place] [address], [place] [address] Feb, [facility] [place] [address] [id number] [place] [id number] Jan, [facility] [address] [id number] [address] [place] [address], [place] [address] Jan, [facility] [place] [address] [id number] [place] [id number] Jan, [facility] [address] [id number] [address] [place] [address], [place] [address] Jan, [facility] [place] [address] [id number] [place] [id number] Dec, [facility] [address] [id number] [address] [place] [address], [place] [address] Dec, [facility] [place] [address] [id number] [place] [id number] Nov, [facility] [address] [id number] [address] [place] [address], [place] [address] Nov, [facility] [place] [address] [id number] [place] [id number] Nov, [facility] [address] [id number] [address] [place] [address], [place] [address] Nov, [facility] [place] [address] [id number] [place] [id number] Oct, [facility] [address] [id number] [address] [place] [address], [place] [address] Oct, [facility] [place] [address] [id number] [place] [id number] Oct, [facility] [address] [id number] [address] [place] [address], [place] [address] Oct, [facility] [place] [address] [id number] [place] [id number] Sep, [facility] [address] [id number] [address] [place] [address], [place] [address] Sep, [facility] [address] [id number] [address] [place] [address], [place] [address] Sep, [facility] [place] [address] [id number] [place] [id number] Sep, [facility] [address] [id number] [address] [place] [address], [place] [address] Sep, [facility] [address] [id number] [address] [place] [address], [place] [address] Sep, [facility] [address] [id number] [address] [place] [address], [place] [address] Sep, [facility] [place] [address] [id number] [place] [id number] Aug, [facility] [address] [id number] [address] [place] [address], [place] [address] Aug, [facility] [place] [address] [id number] [place] [id number] Aug, [facility] [address] [id number] [facility] [place] [address] Aug, [facility] [place] [address] [id number] [place] [id number] June, [facility] [address] [id number] [facility] [place] [address] June, [facility] [place] [address] [id number] [place] [id number] June, [facility] [address] [id number] [facility] [place] [address] June, [facility] [place] [address] [id number] [place] [id number] Apr, [facility] [address] [id number] [address] [place] [address], [place] [address] Apr, [facility] [place] [address] [id number] [place] [id number] Mar, [facility] [address] [id number] [address] [place] [address], [place] [address] Mar, [facility] [place] [address] [id number] [place] [id number] Feb, [facility] [address] [id number] [address] [place] [address], [place] [address] Feb, [facility] [place] [address] [id number] [place] [id number] Jan, [facility] [address] [id number] [address] [place] [address], [place] [address] Jan, [facility] [address] [id number] [address] [place] [address], [place] [address] Jan, [facility] [address] [id number] [address] [place] [address], [place] [address] Jan, [facility] [place] [address] [id number] [place] [id number] Jan, [facility] [address] [id number] [address] [place] [address], [place] [address] Jan, [facility] [place] [address] [id number] [place] [id number] Nov, [facility] [address] [id number] [place] [address] Nov, [facility] [place] [address] [id number] [place] [id number] Oct, [facility] [place] [address] [id number] [place] [id number] Sep, [facility] [place] [address] [id number] [place] [id number] Sep, [facility] [place] [address] [id number] [place] [id number] Jul, [facility] [place] [address] [id number] [place] [id number] Jul, [facility] [place] [address] [id number] [place] [id number] June, [facility] [place] [address] [id number] [place] [id number] May, [facility] [place] [address] [id number] [place] [id number] Apr, [facility] [place] [address] [id number] [place] [id number] Mar, [facility] [place] [address] [id number] [place] [id number] Mar, [facility] [place] [address] [id number] [place] [id number] Mar, [facility] [place] [address] [id number] [place] [id number] Feb, [facility] [place] [address] [id number] [place] [id number] Feb, [facility] [place] [address] [id number] [place] [id number] Feb, [facility] [place] [address] [id number] [place] [id number] Feb, [facility] [place] [address] [id number] [place] [id number] Feb, [facility] [place] [address] [id number] [place] [id number] Jan, [facility] [address] [id number] [address] [place] [address], [place] [address] Jan, [facility] [place] [address] [id number] [place] [id number] Dec, [facility] [address] [id number] [address] [place] [address], [place] [address] Dec, [facility] [address] [id number] [address] [place] [address] Dec, [facility] [place] [address] [id number] [place] [id number] Dec, [facility] [address] [id number] [address] [place] [address] Dec, [facility] [address] [facility] [id number] [address] [place] [address], [place] [address] Dec, [facility] [address] [id number] [address] [place] [address] Dec, [facility] [place] [address] [id number] [place] [id number] Dec, [facility] [address] [id number] [address] [place] [address] Dec, [facility] [place] [address] [id number] [place] [id number] Nov, [facility] [place] [address] [id number] [place] [id number] Sep, [facility] [place] [address] [id number] [place] [id number] Aug, [facility] [address] [id number] [address] [place] [address], [place] [address] Aug, [facility] [place] [address] [id number] [place] [id number] Jul, [facility] [place] [address] [id number] [place] [id number] June, [facility] [address] [facility] [id number] [address] [place] [address] June, [facility] [place] [address] [id number] [place] [id number] May, [facility] [place] [address] [facility] [id number] [place] [id number] Apr, [facility] [place] [address] [facility] [id number] [place] [id number] Mar, [facility] [place] [address] [facility] [id number] [place] [id number] Feb, [facility] [address] [place] [id number] [address] [place] [address] Jan, [facility] [address] [place] [id number] [address] [place] [address] Dec, [facility] [address] [place] [id number] [address] [place] [address] Nov, [facility] [address] [place] [id number] [address] [place] [address] Mar, [facility] [address] [place] [id number] [address] [place] [address] Dec, IMMUNIZATIONS No Known Immunizations SOCIAL HISTORY Never Assessed REASON FOR VISIT PLAN OF CARE VITAL SIGNS MEDICATIONS Unknown Medications RESULTS No Results PROCEDURES No Known procedures INSTRUCTIONS MEDICATIONS ADMINISTERED No Known Medications MEDICAL (GENERAL) HISTORY Type Description Date Medical History attention deficit hyperactivity disorder
--- OUTSIDE RECORDS SUMMARY | 2019-09-15 18:32 | XMS REPORT ---
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 Name Role Phone AKI DOMINGUEZ Unavailable PROBLEMS Type Condition ICD9-CM Code GUF20-KO Code Onset Dates Condition S tatus SNOMED Code Problem Elevated blood pressure reading without diagnosi s of hypertension 796.2 Active 757347500 Problem Palpitations 785.1 Active 8433572 2 Problem Syncope and collapse 780.2 Active 995423835 Problem Insomnia, unspecified type G47.00 Act nhan 965103791 Problem ADHD (attention deficit hyperactivity disorder) 314.01 Active 871530951 Problem Psychophysiological insomnia F51.04 A ctive 435420786 Problem Vitiligo 709.01 Active 82590445 Problem Other acne 706.1 Active 82252040 Problem Depressive disorder, not elsewhere classified 311 Active 19692069 Problem Attention deficit hyperactiv ity disorder (ADHD), predominantly inattentive type F90.0 Active 61282848 ALLERGIES No Information ENCOUNTERS Encounter Location Date Diagnosis [place] [id number] [id number] [place] [id number] Mar, Attention deficit hyperactivity disorder (ADHD), predominantly inattentive type F90.0 [facility] [address] [id number] [place] [id number] Feb, [facility] [address] [id number] [place] [id number] Feb, Attention deficit hyperactivity disorder (ADHD), predominantly inattentive type F90.0 [facility] [address] [id number] [place] [id number] Jan, Attention deficit hyperactivity disorder (ADHD), predominantly inattentive type F90.0 [facility] [address] [id number] [place] [id number] Dec, Attention deficit hyperactivity disorder (ADHD), predominantly inattentive type F90.0 and Psychophysiological insomnia F51.04 [facility] [place] [address] [id number] [place] [id number] Dec, Attention deficit hyperactivity disorder (ADHD), predominantly inattentive 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 [facility] [place] [address] [id number] [place] [id number] Nov, Encounter for immunization Z23 [facility] [place] [address] [id number] [place] [id number] Nov, Attention deficit hyperactivity disorder (ADHD), predominantly inattentive type F90.0 [facility] [place] [address] [id number] [place] [id number] Oct, Attention deficit hyperactivity disorder (ADHD), predominantly inattentive type F90.0 and Adjustment insomnia F51.02 [facility] [place] [address] [id number] [place] [id number] Sep, Attention deficit hyperactivity disorder (ADHD), predominantly inattentive type F90.0 [facility] [place] [address] [id number] [place] [id number] Aug, Adjustment insomnia F51.02 [facility] [place] [address] [id number] [place] [id number] Jul, Attention deficit hyperactivity disorder (ADHD), predominantly inattentive type F90.0 [facility] [place] [address] [id number] [place] [id number] Jul, Adjustment insomnia F51.02 and Attention deficit hyperactivity disorder (ADHD), predominantly inattentive type F90.0 [facility] [place] [address] [id number] [place] [id number] June, Attention deficit hyperactivity disorder (ADHD), predominantly inattentive type F90.0 [facility] [place] [address] [id number] [place] [id number] June, Attention deficit hyperactivity disorder (ADHD), predominantly inattentive type F90.0 [facility] [place] [address] [id number] [place] [id number] May, Attention deficit hyperactivity disorder (ADHD), predominantly inattentive type F90.0 [facility] [place] [address] [id number] [place] [id number] Apr, Attention deficit hyperactivity disorder (ADHD), predominantly inattentive type F90.0 [facility] [place] [address] [id number] [place] [id number] Apr, [facility] [place] [address] [id number] [place] [id number] Apr, Attention deficit hyperactivity disorder (ADHD), predominantly inattentive type F90.0 [facility] [place] [address] [id number] [place] [id number] Mar, [facility] [place] [address] [id number] [place] [id number] Feb, [facility] [place] [address] [id number] [place] [id number] Jan, [facility] [place] [address] [id number] [place] [id number] Dec, [facility] [place] [address] [id number] [place] [id number] Nov, [facility] [place] [address] [id number] [place] [id number] Oct, Attention deficit hyperactivity disorder (ADHD), predominantly inattentive type F90.0 [facility] [place] [address] [id number] [place] [id number] Sep, [facility] [place] [address] [id number] [place] [id number] Aug, [facility] [place] [address] [id number] [place] [id number] Jul, Attention deficit hyperactivity disorder (ADHD), predominantly inattentive type F90.0 and Insomnia, unspecified type G47.00 [facility] [place] [address] [id number] [place] [id number] Jul, [facility] [address] [id number] [place] [id number] June, [facility] [place] [address] [id number] [place] [id number] May, Attention deficit hyperactivity disorder (ADHD), predominantly inattentive type F90.0 [facility] [place] [address] [id number] [place] [id number] Apr, [facility] [place] [address] [id number] [place] [id number] Mar, [facility] [place] [address] [id number] [place] [id number] Mar, Attention deficit hyperactivity disorder (ADHD), predominantly inattentive type F90.0 [facility] [place] [address] [id number] [place] [id number] Feb, [facility] [place] [address] [id number] [place] [id number] Feb, [facility] [address] [id number] [facility] [id number] Jan, [facility] [place] [address] [id number] [place] [id number] Dec, Attention deficit hyperactivity disorder (ADHD), predominantly inattentive type F90.[address] [facility] [address] [id number] [facility] [id number] Nov, [facility] [place] [address] [id number] [place] [id number] Oct, [facility] [place] [address] [id number] [place] [id number] Sep, ADHD (attention deficit hyperactivity di sorder) 314.01 [facility] [place] [address] [id number] [place] [id number] Sep, [facility] [place] [address] [id number] [place] [id number] June, [facility] [place] [address] [id number] [place] [id number] June, [facility] [address] [facility] [id number] [address] [place] [address] May, [facility] [address] [facility] [id number] [address] [place] [address] May, [facility] [place] [address] [id number] [place] [id number] Apr, [facility] [place] [facility] [address] [id number] [facility] [place] [address] Apr, [facility] [place] [address] [id number] [place] [id number] Mar, [facility] [address] [id number] [facility] [place] [address] Mar, [facility] [place] [address] [id number] [place] [id number] Feb, [facility] [address] [id number] [address] [place] [address], [place] [address] Feb, [facility] [place] [address] [id number] [place] [id number] Feb, [facility] [address] [id number] [address] [place] [address], [place] [address] Feb, [facility] [place] [address] [id number] [place] [id number] Jan, [facility] [address] [id number] [address] [place] [address], [place] [address] Jan, [facility] [place] [address] [id number] [place] [id number] Jan, [facility] [address] [id number] [address] [place] [address], [place] [address] Jan, [facility] [place] [address] [id number] [place] [id number] Dec, [facility] [address] [id number] [address] [place] [address], [place] [address] Dec, [facility] [place] [address] [id number] [place] [id number] Nov, [facility] [address] [id number] [address] [place] [address], [place] [address] Nov, [facility] [place] [address] [id number] [place] [id number] Nov, [facility] [address] [id number] [address] [place] [address], [place] [address] Nov, [facility] [place] [address] [id number] [place] [id number] Oct, [facility] [address] [id number] [address] [place] [address], [place] [address] Oct, [facility] [place] [address] [id number] [place] [id number] Oct, [facility] [address] [id number] [address] [place] [address], [place] [address] Oct, [facility] [place] [address] [id number] [place] [id number] Sep, [facility] [address] [id number] [address] [place] [address], [place] [address] Sep, [facility] [address] [id number] [address] [place] [address], [place] [address] Sep, [facility] [place] [address] [id number] [place] [id number] Sep, [facility] [address] [id number] [address] [place] [address], [place] [address] Sep, [facility] [address] [id number] [address] [place] [address], [place] [address] Sep, [facility] [address] [id number] [address] [place] [address], [place] [address] Sep, [facility] [place] [address] [id number] [place] [id number] Aug, [facility] [address] [id number] [address] [place] [address], [place] [address] Aug, [facility] [place] [address] [id number] [place] [id number] Aug, [facility] [address] [id number] [facility] [place] [address] Aug, [facility] [place] [address] [id number] [place] [id number] June, [facility] [address] [id number] [facility] [place] [address] June, [facility] [place] [address] [id number] [place] [id number] June, [facility] [address] [id number] [facility] [place] [address] June, [facility] [place] [address] [id number] [place] [id number] Apr, [facility] [address] [id number] [address] [place] [address], [place] [address] Apr, [facility] [place] [address] [id number] [place] [id number] Mar, [facility] [address] [id number] [address] [place] [address], [place] [address] Mar, [facility] [place] [address] [id number] [place] [id number] Feb, [facility] [address] [id number] [address] [place] [address], [place] [address] Feb, [facility] [place] [address] [id number] [place] [id number] Jan, [facility] [address] [id number] [address] [place] [address], [place] [address] Jan, [facility] [address] [id number] [address] [place] [address], [place] [address] Jan, [facility] [address] [id number] [address] [place] [address], [place] [address] Jan, [facility] [place] [address] [id number] [place] [id number] Jan, [facility] [address] [id number] [address] [place] [address], [place] [address] Jan, [facility] [place] [address] [id number] [place] [id number] Nov, [facility] [address] [id number] [place] [address] Nov, [facility] [place] [address] [id number] [place] [id number] Oct, [facility] [place] [address] [id number] [place] [id number] Sep, [facility] [place] [address] [id number] [place] [id number] Sep, [facility] [place] [address] [id number] [place] [id number] Jul, [facility] [place] [address] [id number] [place] [id number] Jul, [facility] [place] [address] [id number] [place] [id number] June, [facility] [place] [address] [id number] [place] [id number] May, [facility] [place] [address] [id number] [place] [id number] Apr, [facility] [place] [address] [id number] [place] [id number] Mar, [facility] [place] [address] [id number] [place] [id number] Mar, [facility] [place] [address] [id number] [place] [id number] Mar, [facility] [place] [address] [id number] [place] [id number] Feb, [facility] [place] [address] [id number] [place] [id number] Feb, [facility] [place] [address] [id number] [place] [id number] Feb, [facility] [place] [address] [id number] [place] [id number] Feb, [facility] [place] [address] [id number] [place] [id number] Feb, [facility] [place] [address] [id number] [place] [id number] Jan, [facility] [address] [id number] [address] [place] [address], [place] [address] Jan, [facility] [place] [address] [id number] [place] [id number] Dec, [facility] [address] [id number] [address] [place] [address], [place] [address] Dec, [facility] [address] [id number] [address] [place] [address] Dec, [facility] [place] [address] [id number] [place] [id number] Dec, [facility] [address] [id number] [address] [place] [address] Dec, [facility] [address] [facility] [id number] [address] [place] [address], [place] [address] Dec, [facility] [address] [id number] [address] [place] [address] Dec, [facility] [place] [address] [id number] [place] [id number] Dec, [facility] [address] [id number] [address] [place] [address] Dec, [facility] [place] [address] [id number] [place] [id number] Nov, [facility] [place] [address] [id number] [place] [id number] Sep, [facility] [place] [address] [id number] [place] [id number] Aug, [facility] [address] [id number] [address] [place] [address], [place] [address] Aug, [facility] [place] [address] [id number] [place] [id number] Jul, [facility] [place] [address] [id number] [place] [id number] June, [facility] [address] [facility] [id number] [address] [place] [address] June, [facility] [address] [id number] [place] [id number] May, [facility] [address] [id number] [place] [id number] Apr, [facility] [address] [id number] [place] [id number] Mar, [facility] [place] [address] [id number] [place] [id number] Feb, [facility] [address] [facility] [id number] [address] [place] [address] Jan, [facility] [address] [facility] [id number] [address] [place] [address] Dec, [facility] [address] [place] [id number] [address] [place] [address] Nov, [facility] [address] [place] [id number] [address] [place] [address] Mar, [facility] [address] [place] [id number] [address] [place] [address] Dec, IMMUNIZATIONS No Known Immunizations SOCIAL HISTORY Never Assessed REASON FOR VISIT PLAN OF CARE VITAL SIGNS Height 67.5 in 2014-01-22 Weight 134.4 lbs 2014-01-22 Temperature 98.5 degrees Fahrenheit 2014-01-22 Heart Rate 84 bpm 2014-01-22 Respiratory Rate 16 2014-01-22 Blood pressure systolic 118 mmHg 2014-01-22 Blood pressure diastolic 64 mmHg 2014-01-22 MEDICATIONS Unknown Medications RESULTS No Results PROCEDURES No Known procedures INSTRUCTIONS MEDICATIONS ADMINISTERED No Known Medications MEDICAL (GENERAL) HISTORY Type Description Date Medical History attention deficit hyperactivity disorder
--- OUTSIDE RECORDS SUMMARY | 2019-09-15 18:32 | XMS REPORT ---
Author Author Hussain DOMINGUEZ [facility] Address [address] [place] [address] Care Team Providers Care Agricultural Research Technologist Name Role Phone AKI DOMINGUEZ Unavailable PROBLEMS Type Condition ICD9-CM Code LNW20-BG Code Onset Dates Condition S tatus SNOMED Code Problem Elevated blood pressure reading without diagnosi s of hypertension 796.2 Active 093784477 Problem Palpitations 785.1 Active 6635478 2 Problem Syncope and collapse 780.2 Active 719874923 Problem Insomnia, unspecified type G47.00 Act nhan 557027740 Problem ADHD (attention deficit hyperactivity disorder) 314.01 Active 561919346 Problem Psychophysiological insomnia F51.04 A ctive 495977166 Problem Vitiligo 709.01 Active 54601625 Problem Other acne 706.1 Active 19894100 Problem Depressive disorder, not elsewhere classified 311 Active 74867790 Problem Attention deficit hyperactiv ity disorder (ADHD), predominantly inattentive type F90.0 Active 43051299 ALLERGIES No Information ENCOUNTERS Encounter Location Date Diagnosis [place] [address] [id number] [place] [id number] Mar, Attention deficit hyperactivity disorder (ADHD), predominantly inattentive type F90.0 [facility] [address] [id number] [place] [id number] Feb, [facility] [address] [id number] [place] [id number] Feb, Attention deficit hyperactivity disorder (ADHD), predominantly inattentive type F90.0 [facility] [address] [id number] [place] [id number] Jan, Attention deficit hyperactivity disorder (ADHD), predominantly inattentive type F90.0 [facility] [address] [id number] [place] [id number] Dec, Attention deficit hyperactivity disorder (ADHD), predominantly inattentive type F90.0 and Psychophysiological insomnia F51.04 [facility] [place] [address] [id number] [place] [id number] Dec, Attention deficit hyperactivity disorder (ADHD), predominantly inattentive type F90.0 [facility] [place] [address] [id number] [place] [id number] Nov, Encounter for immunization Z23 [facility] [place] [address] [id number] [place] [id number] Nov, Attention deficit hyperactivity disorder (ADHD), predominantly inattentive type F90.0 [facility] [place] [address] [id number] [place] [id number] Oct, Attention deficit hyperactivity disorder (ADHD), predominantly inattentive type F90.0 and Adjustment insomnia F51.02 [facility] [place] [address] [id number] [place] [id number] Sep, Attention deficit hyperactivity disorder (ADHD), predominantly inattentive type F90.0 [facility] [place] [address] [id number] [place] [id number] Aug, Adjustment insomnia F51.02 [facility] [place] [address] [id number] [place] [id number] Jul, Attention deficit hyperactivity disorder (ADHD), predominantly inattentive type F90.0 [facility] [place] [address] [id number] [place] [id number] Jul, Adjustment insomnia F51.02 and Attention deficit hyperactivity disorder (ADHD), predominantly inattentive type F90.0 [facility] [place] [address] [id number] [place] [id number] June, Attention deficit hyperactivity disorder (ADHD), predominantly inattentive type F90.0 [facility] [place] [address] [id number] [place] [id number] June, Attention deficit hyperactivity disorder (ADHD), predominantly inattentive type F90.0 [facility] [place] [address] [id number] [place] [id number] May, Attention deficit hyperactivity disorder (ADHD), predominantly inattentive type F90.0 [facility] [place] [address] [id number] [place] [id number] Apr, Attention deficit hyperactivity disorder (ADHD), predominantly inattentive type F90.0 [facility] [place] [address] [id number] [place] [id number] Apr, [facility] [place] [address] [id number] [place] [id number] Apr, Attention deficit hyperactivity disorder (ADHD), predominantly inattentive type F90.0 [facility] [place] [address] [id number] [place] [id number] Mar, [facility] [place] [address] [id number] [place] [id number] Feb, [facility] [place] [address] [id number] [place] [id number] Jan, [facility] [place] [address] [id number] [place] [id number] Dec, [facility] [place] [address] [id number] [place] [id number] Nov, [facility] [place] [address] [id number] [place] [id number] Oct, Attention deficit hyperactivity disorder (ADHD), predominantly inattentive type F90.0 [facility] [place] [address] [id number] [place] [id number] Sep, [facility] [place] [address] [id number] [place] [id number] Aug, [facility] [place] [address] [id number] [place] [id number] Jul, Attention deficit hyperactivity disorder (ADHD), predominantly inattentive type F90.0 and Insomnia, unspecified type G47.00 [facility] [place] [address] [id number] [place] [id number] Jul, [facility] [address] [id number] [place] [id number] June, [facility] [place] [address] [id number] [place] [id number] May, Attention deficit hyperactivity disorder (ADHD), predominantly inattentive type F90.0 [facility] [place] [address] [id number] [place] [id number] Apr, [facility] [place] [address] [id number] [place] [id number] Mar, [facility] [place] [address] [id number] [place] [id number] Mar, Attention deficit hyperactivity disorder (ADHD), predominantly inattentive type F90.0 [facility] [place] [address] [id number] [place] [id number] Feb, [facility] [place] [address] [id number] [place] [id number] Feb, [facility] [address] [id number] [facility] [place] [id number] Jan, [facility] [place] [address] [id number] [place] [id number] Dec, Attention deficit hyperactivity disorder (ADHD), predominantly inattentive type F90.[address] [facility] [address] [id number] [facility] [place] [id number] Nov, [facility] [place] [address] [id number] [place] [id number] Oct, [facility] [place] [address] [id number] [place] [id number] Sep, ADHD (attention deficit hyperactivity di sorder) 314.01 [facility] [place] [address] [id number] [place] [id number] Sep, [facility] [place] [address] [id number] [place] [id number] June, [facility] [place] [address] [id number] [place] [id number] June, [facility] [address] [facility] [id number] [address] [place] [address] May, [facility] [address] [facility] [id number] [address] [place] [address] May, [facility] [place] [address] [id number] [place] [id number] Apr, [facility] [place] [facility] [address] [id number] [facility] [place] [address] Apr, [facility] [place] [address] [id number] [place] [id number] Mar, [facility] [address] [id number] [facility] [place] [address] Mar, [facility] [place] [address] [id number] [place] [id number] Feb, [facility] [address] [id number] [address] [place] [address], [place] [address] Feb, [facility] [place] [address] [id number] [place] [id number] Feb, [facility] [address] [id number] [address] [place] [address], [place] [address] Feb, [facility] [place] [address] [id number] [place] [id number] Jan, [facility] [address] [id number] [address] [place] [address], [place] [address] Jan, [facility] [place] [address] [id number] [place] [id number] Jan, [facility] [address] [id number] [address] [place] [address], [place] [address] Jan, [facility] [place] [address] [id number] [place] [id number] Dec, [facility] [address] [id number] [address] [place] [address], [place] [address] Dec, [facility] [place] [address] [id number] [place] [id number] Nov, [facility] [address] [id number] [address] [place] [address], [place] [address] Nov, [facility] [place] [address] [id number] [place] [id number] Nov, [facility] [address] [id number] [address] [place] [address], [place] [address] Nov, [facility] [place] [address] [id number] [place] [id number] Oct, [facility] [address] [id number] [address] [place] [address], [place] [address] Oct, [facility] [place] [address] [id number] [place] [id number] Oct, [facility] [address] [id number] [address] [place] [address], [place] [address] Oct, [facility] [place] [address] [id number] [place] [id number] Sep, [facility] [address] [id number] [address] [place] [address], [place] [address] Sep, [facility] [address] [id number] [address] [place] [address], [place] [address] Sep, [facility] [place] [address] [id number] [place] [id number] Sep, [facility] [address] [id number] [address] [place] [address], [place] [address] Sep, [facility] [address] [id number] [address] [place] [address], [place] [address] Sep, [facility] [address] [id number] [address] [place] [address], [place] [address] Sep, [facility] [place] [address] [id number] [place] [id number] Aug, [facility] [address] [id number] [address] [place] [address], [place] [address] Aug, [facility] [place] [address] [id number] [place] [id number] Aug, [facility] [address] [id number] [facility] [place] [address] Aug, [facility] [place] [address] [id number] [place] [id number] June, [facility] [address] [id number] [facility] [place] [address] June, [facility] [place] [address] [id number] [place] [id number] June, [facility] [address] [id number] [facility] [place] [address] June, [facility] [place] [address] [id number] [place] [id number] Apr, [facility] [address] [id number] [address] [place] [address], [place] [address] Apr, [facility] [place] [address] [id number] [place] [id number] Mar, [facility] [address] [id number] [address] [place] [address], [place] [address] Mar, [facility] [place] [address] [id number] [place] [id number] Feb, [facility] [address] [id number] [address] [place] [address], [place] [address] Feb, [facility] [place] [address] [id number] [place] [id number] Jan, [facility] [address] [id number] [address] [place] [address], [place] [address] Jan, [facility] [address] [id number] [address] [place] [address], [place] [address] Jan, [facility] [address] [id number] [address] [place] [address], [place] [address] Jan, [facility] [place] [address] [id number] [place] [id number] Jan, [facility] [address] [id number] [address] [place] [address], [place] [address] Jan, [facility] [place] [address] [id number] [place] [id number] Nov, [facility] [address] [id number] [place] [address] Nov, [facility] [place] [address] [id number] [place] [id number] Oct, [facility] [place] [address] [id number] [place] [id number] Sep, [facility] [place] [address] [id number] [place] [id number] Sep, [facility] [place] [address] [id number] [place] [id number] Jul, [facility] [place] [address] [id number] [place] [id number] Jul, [facility] [place] [address] [id number] [place] [id number] June, [facility] [place] [address] [id number] [place] [id number] May, [facility] [place] [address] [id number] [place] [id number] Apr, [facility] [place] [address] [id number] [place] [id number] Mar, [facility] [place] [address] [id number] [place] [id number] Mar, [facility] [place] [address] [id number] [place] [id number] Mar, [facility] [place] [address] [id number] [place] [id number] Feb, [facility] [place] [address] [id number] [place] [id number] Feb, [facility] [place] [address] [id number] [place] [id number] Feb, [facility] [place] [address] [id number] [place] [id number] Feb, [facility] [place] [address] [id number] [place] [id number] Feb, [facility] [place] [address] [id number] [place] [id number] Jan, [facility] [address] [id number] [address] [place] [address], [place] [address] Jan, [facility] [place] [address] [id number] [place] [id number] Dec, [facility] [address] [id number] [address] [place] [address], [place] [address] Dec, [facility] [address] [id number] [address] [place] [address] Dec, [facility] [place] [address] [id number] [place] [id number] Dec, [facility] [address] [id number] [address] [place] [address] Dec, [facility] [address] [facility] [id number] [address] [place] [address], [place] [address] Dec, [facility] [address] [id number] [address] [place] [address] Dec, [facility] [place] [address] [id number] [place] [id number] Dec, [facility] [address] [id number] [address] [place] [address] Dec, [facility] [place] [address] [id number] [place] [id number] Nov, [facility] [place] [address] [id number] [place] [id number] Sep, [facility] [place] [address] [id number] [place] [id number] Aug, [facility] [address] [id number] [address] [place] [address], [place] [address] Aug, [facility] [place] [address] [id number] [place] [id number] Jul, [facility] [place] [address] [id number] [place] [id number] June, [facility] [address] [facility] [id number] [address] [place] [address] June, [facility] [place] [address] [id number] [place] [id number] May, [facility] [place] [address] [facility] [id number] [place] [id number] Apr, [facility] [place] [address] [facility] [id number] [place] [id number] Mar, [facility] [place] [address] [facility] [id number] [place] [id number] Feb, [facility] [address] [place] [id number] [address] [place] [address] Jan, [facility] [address] [place] [id number] [address] [place] [address] Dec, [facility] [address] [place] [id number] [address] [place] [address] Nov, [facility] [address] [place] [id number] [address] [place] [address] Mar, [facility] [address] [place] [id number] [address] [place] [address] Dec, IMMUNIZATIONS No Known Immunizations SOCIAL HISTORY Never Assessed REASON FOR VISIT PLAN OF CARE VITAL SIGNS MEDICATIONS Unknown Medications RESULTS No Results PROCEDURES No Known procedures INSTRUCTIONS MEDICATIONS ADMINISTERED No Known Medications MEDICAL (GENERAL) HISTORY Type Description Date Medical History attention deficit hyperactivity disorder
--- OUTSIDE RECORDS SUMMARY | 2019-09-15 18:32 | XMS REPORT ---
Author Author Hussain DOMINGUEZ [facility] Address [address] [place] [address] Care Team Providers Care Opal Miner Name Role Phone AKI DOMINGUEZ Unavailable PROBLEMS Type Condition ICD9-CM Code [id number] Code Onset Dates Condition S tatus SNOMED Code Problem Elevated blood pressure reading without diagnosi s of hypertension 796.2 Active 127702931 Problem Palpitations 785.1 Active 5273386 2 Problem Syncope and collapse 780.2 Active 734733621 Problem Insomnia, unspecified type G47.00 Act nhan 757989213 Problem ADHD (attention deficit hyperactivity disorder) 314.01 Active 332778496 Problem Psychophysiological insomnia F51.04 A ctive 366087252 Problem Vitiligo 709.01 Active 82132352 Problem Other acne 706.1 Active 52947567 Problem Depressive disorder, not elsewhere classified 311 Active 32050387 Problem Attention deficit hyperactiv ity disorder (ADHD), predominantly inattentive type F90.0 Active 88106643 ALLERGIES No Information ENCOUNTERS Encounter Location Date Diagnosis [place] [id number] [facility] [address] [id number] [place] [id number] Mar, Attention deficit hyperactivity disorder (ADHD), predominantly inattentive type F90.0 [facility] [address] [id number] [place] [id number] Feb, [facility] [address] [id number] [place] [id number] Feb, Attention deficit hyperactivity disorder (ADHD), predominantly inattentive type F90.0 [facility] [address] [id number] [place] [id number] Jan, Attention deficit hyperactivity disorder (ADHD), predominantly inattentive type F90.0 [facility] [address] [id number] [place] [id number] Dec, Attention deficit hyperactivity disorder (ADHD), predominantly inattentive type F90.0 and Psychophysiological insomnia F51.04 [facility] [place] [address] [id number] [place] [id number] Dec, Attention deficit hyperactivity disorder (ADHD), predominantly inattentive type F90.0 [facility] [place] [address] [id number] [place] [id number] Nov, Encounter for immunization Z23 [facility] [place] [address] [id number] [place] [id number] Nov, Attention deficit hyperactivity disorder (ADHD), predominantly inattentive type F90.0 [facility] [place] [address] [id number] [place] [id number] Oct, Attention deficit hyperactivity disorder (ADHD), predominantly inattentive type F90.0 and Adjustment insomnia F51.02 [facility] [place] [address] [id number] [place] [id number] Sep, Attention deficit hyperactivity disorder (ADHD), predominantly inattentive type F90.0 [facility] [place] [address] [id number] [place] [id number] Aug, Adjustment insomnia F51.02 [facility] [place] [address] [id number] [place] [id number] Jul, Attention deficit hyperactivity disorder (ADHD), predominantly inattentive type F90.0 [facility] [place] [address] [id number] [place] [id number] Jul, Adjustment insomnia F51.02 and Attention deficit hyperactivity disorder (ADHD), predominantly inattentive type F90.0 [facility] [place] [address] [id number] [place] [id number] June, Attention deficit hyperactivity disorder (ADHD), predominantly inattentive type F90.0 [facility] [place] [address] [id number] [place] [id number] June, Attention deficit hyperactivity disorder (ADHD), predominantly inattentive type F90.0 [facility] [place] [address] [id number] [place] [id number] May, Attention deficit hyperactivity disorder (ADHD), predominantly inattentive type F90.0 [facility] [place] [address] [id number] [place] [id number] Apr, Attention deficit hyperactivity disorder (ADHD), predominantly inattentive type F90.0 [facility] [place] [address] [id number] [place] [id number] Apr, [facility] [place] [address] [id number] [place] [id number] Apr, Attention deficit hyperactivity disorder (ADHD), predominantly inattentive type F90.0 [facility] [place] [address] [id number] [place] [id number] Mar, [facility] [place] [address] [id number] [place] [id number] Feb, [facility] [place] [address] [id number] [place] [id number] Jan, [facility] [place] [address] [id number] [place] [id number] Dec, [facility] [place] [address] [id number] [place] [id number] Nov, [facility] [place] [address] [id number] [place] [id number] Oct, Attention deficit hyperactivity disorder (ADHD), predominantly inattentive type F90.0 [facility] [place] [address] [id number] [place] [id number] Sep, [facility] [place] [address] [id number] [place] [id number] Aug, [facility] [place] [address] [id number] [place] [id number] Jul, Attention deficit hyperactivity disorder (ADHD), predominantly inattentive type F90.0 and Insomnia, unspecified type G47.00 [facility] [place] [address] [id number] [place] [id number] Jul, [facility] [address] [id number] [place] [id number] June, [facility] [place] [address] [id number] [place] [id number] May, Attention deficit hyperactivity disorder (ADHD), predominantly inattentive type F90.0 [facility] [place] [address] [id number] [place] [id number] Apr, [facility] [place] [address] [id number] [place] [id number] Mar, [facility] [place] [address] [id number] [place] [id number] Mar, Attention deficit hyperactivity disorder (ADHD), predominantly inattentive type F90.0 [facility] [place] [address] [id number] [place] [id number] Feb, [facility] [place] [address] [id number] [place] [id number] Feb, [facility] [address] [id number] [facility] [id number] Jan, [facility] [place] [address] [id number] [place] [id number] Dec, Attention deficit hyperactivity disorder (ADHD), predominantly inattentive type F90.[address] [facility] [address] [id number] [facility] [id number] Nov, [facility] [place] [address] [id number] [place] [id number] Oct, [facility] [place] [address] [id number] [place] [id number] Sep, ADHD (attention deficit hyperactivity di sorder) 314.01 [facility] [place] [address] [id number] [place] [id number] Sep, [facility] [place] [address] [id number] [place] [id number] June, [facility] [place] [address] [id number] [place] [id number] June, [facility] [address] [facility] [id number] [address] [place] [address] May, [facility] [address] [facility] [id number] [address] [place] [address] May, [facility] [place] [address] [id number] [place] [id number] Apr, [facility] [address] [id number] [facility] [place] [address] Apr, [facility] [place] [address] [id number] [place] [id number] Mar, [facility] [address] [id number] [facility] [place] [address] Mar, [facility] [place] [address] [id number] [place] [id number] Feb, [facility] [address] [id number] [address] [place] [address], [place] [address] Feb, [facility] [place] [address] [id number] [place] [id number] Feb, [facility] [address] [id number] [address] [place] [address], [place] [address] Feb, [facility] [place] [address] [id number] [place] [id number] Jan, [facility] [address] [id number] [address] [place] [address], [place] [address] Jan, [facility] [place] [address] [id number] [place] [id number] Jan, [facility] [address] [id number] [address] [place] [address], [place] [address] Jan, [facility] [place] [address] [id number] [place] [id number] Dec, [facility] [address] [id number] [address] [place] [address], [place] [address] Dec, [facility] [place] [address] [id number] [place] [id number] Nov, [facility] [address] [id number] [address] [place] [address], [place] [address] Nov, [facility] [place] [address] [id number] [place] [id number] Nov, [facility] [address] [id number] [address] [place] [address], [place] [address] Nov, [facility] [place] [address] [id number] [place] [id number] Oct, [facility] [address] [id number] [address] [place] [address], [place] [address] Oct, [facility] [place] [address] [id number] [place] [id number] Oct, [facility] [address] [id number] [address] [place] [address], [place] [address] Oct, [facility] [place] [address] [id number] [place] [id number] Sep, [facility] [address] [id number] [address] [place] [address], [place] [address] Sep, [facility] [address] [id number] [address] [place] [address], [place] [address] Sep, [facility] [place] [address] [id number] [place] [id number] Sep, [facility] [address] [id number] [address] [place] [address], [place] [address] Sep, [facility] [address] [id number] [address] [place] [address], [place] [address] Sep, [facility] [address] [id number] [address] [place] [address], [place] [address] Sep, [facility] [place] [address] [id number] [place] [id number] Aug, [facility] [address] [id number] [address] [place] [address], [place] [address] Aug, [facility] [place] [address] [id number] [place] [id number] Aug, [facility] [address] [id number] [facility] [place] [address] Aug, [facility] [place] [address] [id number] [place] [id number] June, [facility] [address] [id number] [facility] [place] [address] June, [facility] [place] [address] [id number] [place] [id number] June, [facility] [address] [id number] [facility] [place] [address] June, [facility] [place] [address] [id number] [place] [id number] Apr, [facility] [address] [id number] [address] [place] [address], [place] [address] Apr, [facility] [place] [address] [id number] [place] [id number] Mar, [facility] [address] [id number] [address] [place] [address], [place] [address] Mar, [facility] [place] [address] [id number] [place] [id number] Feb, [facility] [address] [id number] [address] [place] [address], [place] [address] Feb, [facility] [place] [address] [id number] [place] [id number] Jan, [facility] [address] [id number] [address] [place] [address], [place] [address] Jan, [facility] [address] [id number] [address] [place] [address], [place] [address] Jan, [facility] [address] [id number] [address] [place] [address], [place] [address] Jan, [facility] [place] [address] [id number] [place] [id number] Jan, [facility] [address] [id number] [address] [place] [address], [place] [address] Jan, [facility] [place] [address] [id number] [place] [id number] Nov, [facility] [address] [id number] [address] [address] Nov, [facility] [place] [address] [id number] [place] [id number] Oct, [facility] [place] [address] [id number] [place] [id number] Sep, [facility] [place] [address] [id number] [place] [id number] Sep, [facility] [place] [address] [id number] [place] [id number] Jul, [facility] [place] [address] [id number] [place] [id number] Jul, [facility] [place] [address] [id number] [place] [id number] June, [facility] [place] [address] [id number] [place] [id number] May, [facility] [place] [address] [id number] [place] [id number] Apr, [facility] [place] [address] [id number] [place] [id number] Mar, [facility] [place] [address] [id number] [place] [id number] Mar, [facility] [place] [address] [id number] [place] [id number] Mar, [facility] [place] [address] [id number] [place] [id number] Feb, [facility] [place] [address] [id number] [place] [id number] Feb, [facility] [place] [address] [id number] [place] [id number] Feb, [facility] [place] [address] [id number] [place] [id number] Feb, [facility] [place] [address] [id number] [place] [id number] Feb, [facility] [place] [address] [id number] [place] [id number] Jan, [facility] [address] [id number] [address] [place] [address], [place] [address] Jan, [facility] [place] [address] [id number] [place] [id number] Dec, [facility] [address] [id number] [address] [place] [address], [place] [address] Dec, [facility] [address] [id number] [address] [place] [address] Dec, [facility] [place] [address] [id number] [place] [id number] Dec, [facility] [address] [id number] [address] [place] [address] Dec, [facility] [address] [facility] [id number] [address] [place] [address], [place] [address] Dec, [facility] [address] [id number] [address] [place] [address] Dec, [facility] [place] [address] [id number] [place] [id number] Dec, [facility] [address] [id number] [address] [place] [address] Dec, [facility] [place] [address] [id number] [place] [id number] Nov, [facility] [place] [address] [id number] [place] [id number] Sep, [facility] [place] [address] [id number] [place] [id number] Aug, [facility] [address] [id number] [address] [place] [address], [place] [address] Aug, [facility] [place] [address] [id number] [place] [id number] Jul, [facility] [place] [address] [id number] [place] [id number] June, [facility] [address] [facility] [id number] [address] [place] [address] June, [facility] [address] [id number] [place] [id number] May, [facility] [address] [id number] [place] [id number] Apr, [facility] [address] [id number] [place] [id number] Mar, [facility] [place] [address] [id number] [place] [id number] Feb, [facility] [address] [facility] [id number] [address] [place] [address] Jan, [facility] [address] [facility] [id number] [address] [place] [address] Dec, [facility] [address] [place] [id number] [address] [place] [address] Nov, [facility] [address] [place] [id number] [address] [place] [address] Mar, [facility] [address] [place] [id number] [address] [place] [address] Dec, IMMUNIZATIONS No Known Immunizations SOCIAL HISTORY Never Assessed REASON FOR VISIT PLAN OF CARE VITAL SIGNS Height 67.5 in 2013-12-25 Weight 132.8 lbs 2013-12-25 Temperature 97.5 degrees Fahrenheit 2013-12-25 Heart Rate 80 bpm 2013-12-25 Respiratory Rate 20 2013-12-25 Blood pressure systolic 98 mmHg 2013-12-25 Blood pressure diastolic 60 mmHg 2013-12-25 MEDICATIONS Unknown Medications RESULTS No Results PROCEDURES No Known procedures INSTRUCTIONS MEDICATIONS ADMINISTERED No Known Medications MEDICAL (GENERAL) HISTORY Type Description Date Medical History attention deficit hyperactivity disorder
--- OUTSIDE RECORDS SUMMARY | 2019-09-15 18:32 | XMS REPORT ---
Author Author Hussain DOMINGUEZ [facility] Address [address] [place] [address] Care Team Providers Care Senior Capital [employer] Specialist Name Role Phone AKI DOMINGUEZ Unavailable PROBLEMS Type Condition ICD9-CM Code [id number] Code Onset Dates Condition S tatus SNOMED Code Problem Elevated blood pressure reading without diagnosi s of hypertension 796.2 Active 253148249 Problem Palpitations 785.1 Active 2143583 2 Problem Syncope and collapse 780.2 Active 625972367 Problem Insomnia, unspecified type G47.00 Act nhan 059797252 Problem ADHD (attention deficit hyperactivity disorder) 314.01 Active 232033719 Problem Psychophysiological insomnia F51.04 A ctive 873632758 Problem Vitiligo 709.01 Active 72385149 Problem Other acne 706.1 Active 17545698 Problem Depressive disorder, not elsewhere classified 311 Active 06178499 Problem Attention deficit hyperactiv ity disorder (ADHD), predominantly inattentive type F90.0 Active 86168714 ALLERGIES No Information ENCOUNTERS Encounter Location Date Diagnosis [place] [id number] [address] [id number] [place] [id number] Mar, Attention deficit hyperactivity disorder (ADHD), predominantly inattentive type F90.0 [facility] [address] [id number] [place] [id number] Feb, [facility] [address] [id number] [place] [id number] Feb, Attention deficit hyperactivity disorder (ADHD), predominantly inattentive type F90.0 [facility] [address] [id number] [place] [id number] Jan, Attention deficit hyperactivity disorder (ADHD), predominantly inattentive type F90.0 [facility] [address] [id number] [place] [id number] Dec, Attention deficit hyperactivity disorder (ADHD), predominantly inattentive type F90.0 and Psychophysiological insomnia F51.04 [facility] [place] [address] [id number] [place] [id number] Dec, Attention deficit hyperactivity disorder (ADHD), predominantly inattentive type F90.0 [facility] [place] [address] [id number] [place] [id number] Nov, Encounter for immunization Z23 [facility] [place] [address] [id number] [place] [id number] Nov, Attention deficit hyperactivity disorder (ADHD), predominantly inattentive type F90.0 [facility] [place] [address] [id number] [place] [id number] Oct, Attention deficit hyperactivity disorder (ADHD), predominantly inattentive type F90.0 and Adjustment insomnia F51.02 [facility] [place] [address] [id number] [place] [id number] Sep, Attention deficit hyperactivity disorder (ADHD), predominantly inattentive type F90.0 [facility] [place] [address] [id number] [place] [id number] Aug, Adjustment insomnia F51.02 [facility] [place] [address] [id number] [place] [id number] Jul, Attention deficit hyperactivity disorder (ADHD), predominantly inattentive type F90.0 [facility] [place] [address] [id number] [place] [id number] Jul, Adjustment insomnia F51.02 and Attention deficit hyperactivity disorder (ADHD), predominantly inattentive type F90.0 [facility] [place] [address] [id number] [place] [id number] June, Attention deficit hyperactivity disorder (ADHD), predominantly inattentive type F90.0 [facility] [place] [address] [id number] [place] [id number] June, Attention deficit hyperactivity disorder (ADHD), predominantly inattentive type F90.0 [facility] [place] [address] [id number] [place] [id number] May, Attention deficit hyperactivity disorder (ADHD), predominantly inattentive type F90.0 [facility] [place] [address] [id number] [place] [id number] Apr, Attention deficit hyperactivity disorder (ADHD), predominantly inattentive type F90.0 [facility] [place] [address] [id number] [place] [id number] Apr, [facility] [place] [address] [id number] [place] [id number] Apr, Attention deficit hyperactivity disorder (ADHD), predominantly inattentive type F90.0 [facility] [place] [address] [id number] [place] [id number] Mar, [facility] [place] [address] [id number] [place] [id number] Feb, [facility] [place] [address] [id number] [place] [id number] Jan, [facility] [place] [address] [id number] [place] [id number] Dec, [facility] [place] [address] [id number] [place] [id number] Nov, [facility] [place] [address] [id number] [place] [id number] Oct, Attention deficit hyperactivity disorder (ADHD), predominantly inattentive type F90.0 [facility] [place] [address] [id number] [place] [id number] Sep, [facility] [place] [address] [id number] [place] [id number] Aug, [facility] [place] [address] [id number] [place] [id number] Jul, Attention deficit hyperactivity disorder (ADHD), predominantly inattentive type F90.0 and Insomnia, unspecified type G47.00 [facility] [place] [address] [id number] [place] [id number] Jul, [facility] [address] [id number] [place] [id number] June, [facility] [place] [address] [id number] [place] [id number] May, Attention deficit hyperactivity disorder (ADHD), predominantly inattentive type F90.0 [facility] [place] [address] [id number] [place] [id number] Apr, [facility] [place] [address] [id number] [place] [id number] Mar, [facility] [place] [address] [id number] [place] [id number] Mar, Attention deficit hyperactivity disorder (ADHD), predominantly inattentive type F90.0 [facility] [place] [address] [id number] [place] [id number] Feb, [facility] [place] [address] [id number] [place] [id number] Feb, [facility] [address] [id number] [facility] [place] [id number] Jan, [facility] [place] [address] [id number] [place] [id number] Dec, Attention deficit hyperactivity disorder (ADHD), predominantly inattentive type F90.[address] [facility] [address] [id number] [facility] [place] [id number] Nov, [facility] [place] [address] [id number] [place] [id number] Oct, [facility] [place] [address] [id number] [place] [id number] Sep, ADHD (attention deficit hyperactivity di sorder) 314.01 [facility] [place] [address] [id number] [place] [id number] Sep, [facility] [place] [address] [id number] [place] [id number] June, [facility] [place] [address] [id number] [place] [id number] June, [facility] [address] [facility] [id number] [address] [place] [address] May, [facility] [address] [facility] [id number] [address] [place] [address] May, [facility] [place] [address] [id number] [place] [id number] Apr, [facility] [address] [id number] [facility] [place] [address] Apr, [facility] [place] [address] [id number] [place] [id number] Mar, [facility] [address] [id number] [facility] [place] [address] Mar, [facility] [place] [address] [id number] [place] [id number] Feb, [facility] [address] [id number] [address] [place] [address], [place] [address] Feb, [facility] [place] [address] [id number] [place] [id number] Feb, [facility] [address] [id number] [address] [place] [address], [place] [address] Feb, [facility] [place] [address] [id number] [place] [id number] Jan, [facility] [address] [id number] [address] [place] [address], [place] [address] Jan, [facility] [place] [address] [id number] [place] [id number] Jan, [facility] [address] [id number] [address] [place] [address], [place] [address] Jan, [facility] [place] [address] [id number] [place] [id number] Dec, [facility] [address] [id number] [address] [place] [address], [place] [address] Dec, [facility] [place] [address] [id number] [place] [id number] Nov, [facility] [address] [id number] [address] [place] [address], [place] [address] Nov, [facility] [place] [address] [id number] [place] [id number] Nov, [facility] [address] [id number] [address] [place] [address], [place] [address] Nov, [facility] [place] [address] [id number] [place] [id number] Oct, [facility] [address] [id number] [address] [place] [address], [place] [address] Oct, [facility] [place] [address] [id number] [place] [id number] Oct, [facility] [address] [id number] [address] [place] [address], [place] [address] Oct, [facility] [place] [address] [id number] [place] [id number] Sep, [facility] [address] [id number] [address] [place] [address], [place] [address] Sep, [facility] [address] [id number] [address] [place] [address], [place] [address] Sep, [facility] [place] [address] [id number] [place] [id number] Sep, [facility] [address] [id number] [address] [place] [address], [place] [address] Sep, [facility] [address] [id number] [address] [place] [address], [place] [address] Sep, [facility] [address] [id number] [address] [place] [address], [place] [address] Sep, [facility] [place] [address] [id number] [place] [id number] Aug, [facility] [address] [id number] [address] [place] [address], [place] [address] Aug, [facility] [place] [address] [id number] [place] [id number] Aug, [facility] [address] [id number] [facility] [place] [address] Aug, [facility] [place] [address] [id number] [place] [id number] June, [facility] [address] [id number] [facility] [place] [address] June, [facility] [place] [address] [id number] [place] [id number] June, [facility] [address] [id number] [facility] [place] [address] June, [facility] [place] [address] [id number] [place] [id number] Apr, [facility] [address] [id number] [address] [place] [address], [place] [address] Apr, [facility] [place] [address] [id number] [place] [id number] Mar, [facility] [address] [id number] [address] [place] [address], [place] [address] Mar, [facility] [place] [address] [id number] [place] [id number] Feb, [facility] [address] [id number] [address] [place] [address], [place] [address] Feb, [facility] [place] [address] [id number] [place] [id number] Jan, [facility] [address] [id number] [address] [place] [address], [place] [address] Jan, [facility] [address] [id number] [address] [place] [address], [place] [address] Jan, [facility] [address] [id number] [address] [place] [address], [place] [address] Jan, [facility] [place] [address] [id number] [place] [id number] Jan, [facility] [address] [id number] [address] [place] [address], [place] [address] Jan, [facility] [place] [address] [id number] [place] [id number] Nov, [facility] [address] [id number] [address] [address] Nov, [facility] [place] [address] [id number] [place] [id number] Oct, [facility] [place] [address] [id number] [place] [id number] Sep, [facility] [place] [address] [id number] [place] [id number] Sep, [facility] [place] [address] [id number] [place] [id number] Jul, [facility] [place] [address] [id number] [place] [id number] Jul, [facility] [place] [address] [id number] [place] [id number] June, [facility] [place] [address] [id number] [place] [id number] May, [facility] [place] [address] [id number] [place] [id number] Apr, [facility] [place] [address] [id number] [place] [id number] Mar, [facility] [place] [address] [id number] [place] [id number] Mar, [facility] [place] [address] [id number] [place] [id number] Mar, [facility] [place] [address] [id number] [place] [id number] Feb, [facility] [place] [address] [id number] [place] [id number] Feb, [facility] [place] [address] [id number] [place] [id number] Feb, [facility] [place] [address] [id number] [place] [id number] Feb, [facility] [place] [address] [id number] [place] [id number] Feb, [facility] [place] [address] [id number] [place] [id number] Jan, [facility] [address] [id number] [address] [place] [address], [place] [address] Jan, [facility] [place] [address] [id number] [place] [id number] Dec, [facility] [address] [id number] [address] [place] [address], [place] [address] Dec, [facility] [address] [id number] [address] [place] [address] Dec, [facility] [place] [address] [id number] [place] [id number] Dec, [facility] [address] [id number] [address] [place] [address] Dec, [facility] [address] [facility] [id number] [address] [place] [address], [place] [address] Dec, [facility] [address] [id number] [address] [place] [address] Dec, [facility] [place] [address] [id number] [place] [id number] Dec, [facility] [address] [id number] [address] [place] [address] Dec, [facility] [place] [address] [id number] [place] [id number] Nov, [facility] [place] [address] [id number] [place] [id number] Sep, [facility] [place] [address] [id number] [place] [id number] Aug, [facility] [address] [id number] [address] [place] [address], [place] [address] Aug, [facility] [place] [address] [id number] [place] [id number] Jul, [facility] [place] [address] [id number] [place] [id number] June, [facility] [address] [facility] [id number] [address] [place] [address] June, [facility] [place] [address] [id number] [place] [id number] May, [facility] [place] [address] [facility] [id number] [place] [id number] Apr, [facility] [place] [address] [facility] [id number] [place] [id number] Mar, [facility] [place] [address] [facility] [id number] [place] [id number] Feb, [facility] [address] [place] [id number] [address] [place] [address] Jan, [facility] [address] [place] [id number] [address] [place] [address] Dec, [facility] [address] [place] [id number] [address] [place] [address] Nov, [facility] [address] [place] [id number] [address] [place] [address] Mar, [facility] [address] [place] [id number] [address] [place] [address] Dec, IMMUNIZATIONS No Known Immunizations SOCIAL HISTORY Never Assessed REASON FOR VISIT PLAN OF CARE VITAL SIGNS MEDICATIONS Unknown Medications RESULTS No Results PROCEDURES No Known procedures INSTRUCTIONS MEDICATIONS ADMINISTERED No Known Medications MEDICAL (GENERAL) HISTORY Type Description Date Medical History attention deficit hyperactivity disorder
--- OUTSIDE RECORDS SUMMARY | 2019-09-15 18:33 | XMS REPORT ---
Author Author Hussain DOMINGUEZ [facility] Address [address] [place] [address] Care Team Providers Care Search Developer Name Role Phone AKI DOMINGUEZ Unavailable PROBLEMS Type Condition ICD9-CM Code [id number] Code Onset Dates Condition S tatus SNOMED Code Problem Elevated blood pressure reading without diagnosi s of hypertension 796.2 Active 663805900 Problem Palpitations 785.1 Active 1168413 2 Problem Syncope and collapse 780.2 Active 642134455 Problem Insomnia, unspecified type G47.00 Act nhan 429875930 Problem ADHD (attention deficit hyperactivity disorder) 314.01 Active 560358030 Problem Psychophysiological insomnia F51.04 A ctive 257932679 Problem Vitiligo 709.01 Active 91142661 Problem Other acne 706.1 Active 78040341 Problem Depressive disorder, not elsewhere classified 311 Active 63121323 Problem Attention deficit hyperactiv ity disorder (ADHD), predominantly inattentive type F90.0 Active 61246892 ALLERGIES No Information ENCOUNTERS Encounter Location Date Diagnosis [place] [id number] [facility] [address] [id number] [place] [id number] Mar, Attention deficit hyperactivity disorder (ADHD), predominantly inattentive type F90.0 [facility] [address] [id number] [place] [id number] Feb, [facility] [address] [id number] [place] [id number] Feb, Attention deficit hyperactivity disorder (ADHD), predominantly inattentive type F90.0 [facility] [address] [id number] [place] [id number] Jan, Attention deficit hyperactivity disorder (ADHD), predominantly inattentive type F90.0 [facility] [address] [id number] [place] [id number] Dec, Attention deficit hyperactivity disorder (ADHD), predominantly inattentive type F90.0 and Psychophysiological insomnia F51.04 [facility] [place] [address] [id number] [place] [id number] Dec, Attention deficit hyperactivity disorder (ADHD), predominantly inattentive type F90.0 [facility] [place] [address] [id number] [place] [id number] Nov, Encounter for immunization Z23 [facility] [place] [address] [id number] [place] [id number] Nov, Attention deficit hyperactivity disorder (ADHD), predominantly inattentive type F90.0 [facility] [place] [address] [id number] [place] [id number] Oct, Attention deficit hyperactivity disorder (ADHD), predominantly inattentive type F90.0 and Adjustment insomnia F51.02 [facility] [place] [address] [id number] [place] [id number] Sep, Attention deficit hyperactivity disorder (ADHD), predominantly inattentive type F90.0 [facility] [place] [address] [id number] [place] [id number] Aug, Adjustment insomnia F51.02 [facility] [place] [address] [id number] [place] [id number] Jul, Attention deficit hyperactivity disorder (ADHD), predominantly inattentive type F90.0 [facility] [place] [address] [id number] [place] [id number] Jul, Adjustment insomnia F51.02 and Attention deficit hyperactivity disorder (ADHD), predominantly inattentive type F90.0 [facility] [place] [address] [id number] [place] [id number] June, Attention deficit hyperactivity disorder (ADHD), predominantly inattentive type F90.0 [facility] [place] [address] [id number] [place] [id number] June, Attention deficit hyperactivity disorder (ADHD), predominantly inattentive type F90.0 [facility] [place] [address] [id number] [place] [id number] May, Attention deficit hyperactivity disorder (ADHD), predominantly inattentive type F90.0 [facility] [place] [address] [id number] [place] [id number] Apr, Attention deficit hyperactivity disorder (ADHD), predominantly inattentive type F90.0 [facility] [place] [address] [id number] [place] [id number] Apr, [facility] [place] [address] [id number] [place] [id number] Apr, Attention deficit hyperactivity disorder (ADHD), predominantly inattentive type F90.0 [facility] [place] [address] [id number] [place] [id number] Mar, [facility] [place] [address] [id number] [place] [id number] Feb, [facility] [address] [id number] [place] [id number] Jan, [facility] [place] [address] [id number] [place] [id number] Dec, [facility] [place] [address] [id number] [place] [id number] Nov, [facility] [place] [address] [id number] [place] [id number] Oct, Attention deficit hyperactivity disorder (ADHD), predominantly inattentive type F90.0 [facility] [place] [address] [id number] [place] [id number] Sep, [facility] [place] [address] [id number] [place] [id number] Aug, [facility] [place] [address] [id number] [place] [id number] Jul, Attention deficit hyperactivity disorder (ADHD), predominantly inattentive type F90.0 and Insomnia, unspecified type G47.00 [facility] [place] [address] [id number] [place] [id number] Jul, [facility] [address] [id number] [place] [id number] June, [facility] [place] [address] [id number] [place] [id number] May, Attention deficit hyperactivity disorder (ADHD), predominantly inattentive type F90.0 [facility] [place] [address] [id number] [place] [id number] Apr, [facility] [place] [address] [id number] [place] [id number] Mar, [facility] [place] [address] [id number] [place] [id number] Mar, Attention deficit hyperactivity disorder (ADHD), predominantly inattentive type F90.0 [facility] [place] [address] [id number] [place] [id number] Feb, [facility] [place] [address] [id number] [place] [id number] Feb, [facility] [address] [id number] [facility] [place] [id number] Jan, [facility] [place] [address] [id number] [place] [id number] Dec, Attention deficit hyperactivity disorder (ADHD), predominantly inattentive type F90.[address] [facility] [address] [id number] [facility] [place] [id number] Nov, [facility] [place] [address] [id number] [place] [id number] Oct, [facility] [place] [address] [id number] [place] [id number] Sep, ADHD (attention deficit hyperactivity di sorder) 314.01 [facility] [place] [address] [id number] [place] [id number] Sep, [facility] [place] [address] [id number] [place] [id number] June, [facility] [place] [address] [id number] [place] [id number] June, [facility] [address] [facility] [id number] [address] [place] [address] May, [facility] [address] [facility] [id number] [address] [place] [address] May, [facility] [place] [address] [id number] [place] [id number] Apr, [facility] [place] [address] [id number] [facility] [place] [address] Apr, [facility] [place] [address] [id number] [place] [id number] Mar, [facility] [address] [id number] [facility] [place] [address] Mar, [facility] [place] [address] [id number] [place] [id number] Feb, [facility] [address] [id number] [address] [place] [address], [place] [address] Feb, [facility] [place] [address] [id number] [place] [id number] Feb, [facility] [address] [id number] [address] [place] [address], [place] [address] Feb, [facility] [place] [address] [id number] [place] [id number] Jan, [facility] [address] [id number] [address] [place] [address], [place] [address] Jan, [facility] [place] [address] [id number] [place] [id number] Jan, [facility] [address] [id number] [address] [place] [address], [place] [address] Jan, [facility] [place] [address] [id number] [place] [id number] Dec, [facility] [address] [id number] [address] [place] [address], [place] [address] Dec, [facility] [place] [address] [id number] [place] [id number] Nov, [facility] [address] [id number] [address] [place] [address], [place] [address] Nov, [facility] [place] [address] [id number] [place] [id number] Nov, [facility] [address] [id number] [address] [place] [address], [place] [address] Nov, [facility] [place] [address] [id number] [place] [id number] Oct, [facility] [address] [id number] [address] [place] [address], [place] [address] Oct, [facility] [place] [address] [id number] [place] [id number] Oct, [facility] [address] [id number] [address] [place] [address], [place] [address] Oct, [facility] [place] [address] [id number] [place] [id number] Sep, [facility] [address] [id number] [address] [place] [address], [place] [address] Sep, [facility] [address] [id number] [address] [place] [address], [place] [address] Sep, [facility] [place] [address] [id number] [place] [id number] Sep, [facility] [address] [id number] [address] [place] [address], [place] [address] Sep, [facility] [address] [id number] [address] [place] [address], [place] [address] Sep, [facility] [address] [id number] [address] [place] [address], [place] [address] Sep, [facility] [place] [address] [id number] [place] [id number] Aug, [facility] [address] [id number] [address] [place] [address], [place] [address] Aug, [facility] [place] [address] [id number] [place] [id number] Aug, [facility] [address] [id number] [facility] [place] [address] Aug, [facility] [place] [address] [id number] [place] [id number] June, [facility] [address] [id number] [facility] [place] [address] June, [facility] [place] [address] [id number] [place] [id number] June, [facility] [address] [id number] [facility] [place] [address] June, [facility] [place] [address] [id number] [place] [id number] Apr, [facility] [address] [id number] [address] [place] [address], [place] [address] Apr, [facility] [place] [address] [id number] [place] [id number] Mar, [facility] [address] [id number] [address] [place] [address], [place] [address] Mar, [facility] [place] [address] [id number] [place] [id number] Feb, [facility] [address] [id number] [address] [place] [address], [place] [address] Feb, [facility] [place] [address] [id number] [place] [id number] Jan, [facility] [address] [id number] [address] [place] [address], [place] [address] Jan, [facility] [address] [id number] [address] [place] [address], [place] [address] Jan, [facility] [address] [id number] [address] [place] [address], [place] [address] Jan, [facility] [place] [address] [id number] [place] [id number] Jan, [facility] [address] [id number] [address] [place] [address], [place] [address] Jan, [facility] [place] [address] [id number] [place] [id number] Nov, [facility] [address] [id number] [address] [address] Nov, [facility] [place] [address] [id number] [place] [id number] Oct, [facility] [place] [address] [id number] [place] [id number] Sep, [facility] [place] [address] [id number] [place] [id number] Sep, [facility] [place] [address] [id number] [place] [id number] Jul, [facility] [place] [address] [id number] [place] [id number] Jul, [facility] [place] [address] [id number] [place] [id number] June, [facility] [place] [address] [id number] [place] [id number] May, [facility] [place] [address] [id number] [place] [id number] Apr, [facility] [place] [address] [id number] [place] [id number] Mar, [facility] [place] [address] [id number] [place] [id number] Mar, [facility] [place] [address] [id number] [place] [id number] Mar, [facility] [place] [address] [id number] [place] [id number] Feb, [facility] [place] [address] [id number] [place] [id number] Feb, [facility] [place] [address] [id number] [place] [id number] Feb, [facility] [place] [address] [id number] [place] [id number] Feb, [facility] [place] [address] [id number] [place] [id number] Feb, [facility] [place] [address] [id number] [place] [id number] Jan, [facility] [address] [id number] [address] [place] [address], [place] [address] Jan, [facility] [place] [address] [id number] [place] [id number] Dec, [facility] [address] [id number] [address] [place] [address], [place] [address] Dec, [facility] [address] [id number] [address] [place] [address] Dec, [facility] [place] [address] [id number] [place] [id number] Dec, [facility] [address] [id number] [address] [place] [address] Dec, [facility] [address] [facility] [id number] [address] [place] [address], [place] [address] Dec, [facility] [address] [id number] [address] [place] [address] Dec, [facility] [place] [address] [id number] [place] [id number] Dec, [facility] [address] [id number] [address] [place] [address] Dec, [facility] [place] [address] [id number] [place] [id number] Nov, [facility] [place] [address] [id number] [place] [id number] Sep, [facility] [place] [address] [id number] [place] [id number] Aug, [facility] [address] [id number] [address] [place] [address], [place] [address] Aug, [facility] [place] [address] [id number] [place] [id number] Jul, [facility] [place] [address] [id number] [place] [id number] June, [facility] [address] [facility] [id number] [address] [place] [address] June, [facility] [place] [address] [id number] [place] [id number] May, [facility] [place] [address] [facility] [id number] [place] [id number] Apr, [facility] [place] [address] [facility] [id number] [place] [id number] Mar, [facility] [place] [address] [facility] [id number] [place] [id number] Feb, [facility] [place] [address] [id number] [address] [place] [address] Jan, [facility] [place] [address] [id number] [address] [place] [address] Dec, [facility] [place] [address] [id number] [address] [place] [address] Nov, [facility] [place] [address] [id number] [address] [place] [address] Mar, [facility] [place] [address] [id number] [address] [place] [address] Dec, IMMUNIZATIONS No Known Immunizations SOCIAL HISTORY Never Assessed REASON FOR VISIT PLAN OF CARE VITAL SIGNS MEDICATIONS Unknown Medications RESULTS No Results PROCEDURES No Known procedures INSTRUCTIONS MEDICATIONS ADMINISTERED No Known Medications MEDICAL (GENERAL) HISTORY Type Description Date Medical History attention deficit hyperactivity disorder
--- OUTSIDE RECORDS SUMMARY | 2019-09-15 18:33 | XMS REPORT ---
Author Author Hussain DOMINGUEZ [facility] Address [address] [place] [address] Care Team Providers Care [employer] Supervisor Name Role Phone AKI DOMINGUEZ Unavailable PROBLEMS Type Condition ICD9-CM Code ZKX66-BV Code Onset Dates Condition S tatus SNOMED Code Problem Elevated blood pressure reading without diagnosi s of hypertension 796.2 Active 960624501 Problem Palpitations 785.1 Active 2585978 2 Problem Syncope and collapse 780.2 Active 627294794 Problem Insomnia, unspecified type G47.00 Act nhan 017332142 Problem ADHD (attention deficit hyperactivity disorder) 314.01 Active 412571644 Problem Psychophysiological insomnia F51.04 A ctive 164364573 Problem Vitiligo 709.01 Active 91137527 Problem Other acne 706.1 Active 57576590 Problem Depressive disorder, not elsewhere classified 311 Active 35534004 Problem Attention deficit hyperactiv ity disorder (ADHD), predominantly inattentive type F90.0 Active 52730093 ALLERGIES No Information ENCOUNTERS Encounter Location Date Diagnosis [place] [id number] [id number] [place] [id number] Mar, Attention deficit hyperactivity disorder (ADHD), predominantly inattentive type F90.0 [facility] [address] [id number] [place] [id number] Feb, [facility] [address] [id number] [place] [id number] Feb, Attention deficit hyperactivity disorder (ADHD), predominantly inattentive type F90.0 [facility] [address] [id number] [place] [id number] Jan, Attention deficit hyperactivity disorder (ADHD), predominantly inattentive type F90.0 [facility] [address] [id number] [place] [id number] Dec, Attention deficit hyperactivity disorder (ADHD), predominantly inattentive type F90.0 and Psychophysiological insomnia F51.04 [facility] [place] [address] [id number] [place] [id number] Dec, Attention deficit hyperactivity disorder (ADHD), predominantly inattentive type F90.0 [facility] [place] [address] [id number] [place] [id number] Nov, Encounter for immunization Z23 [facility] [place] [address] [id number] [place] [id number] Nov, Attention deficit hyperactivity disorder (ADHD), predominantly inattentive type F90.0 [facility] [place] [address] [id number] [place] [id number] Oct, Attention deficit hyperactivity disorder (ADHD), predominantly inattentive type F90.0 and Adjustment insomnia F51.02 [facility] [place] [address] [id number] [place] [id number] Sep, Attention deficit hyperactivity disorder (ADHD), predominantly inattentive type F90.0 [facility] [place] [address] [id number] [place] [id number] Aug, Adjustment insomnia F51.02 [facility] [place] [address] [id number] [place] [id number] Jul, Attention deficit hyperactivity disorder (ADHD), predominantly inattentive type F90.0 [facility] [address] [id number] [place] [id number] Jul, Adjustment insomnia F51.02 and Attention deficit hyperactivity disorder (ADHD), predominantly inattentive type F90.0 [facility] [place] [address] [id number] [place] [id number] June, Attention deficit hyperactivity disorder (ADHD), predominantly inattentive type F90.0 [facility] [place] [address] [id number] [place] [id number] June, Attention deficit hyperactivity disorder (ADHD), predominantly inattentive type F90.0 [facility] [place] [address] [id number] [place] [id number] May, Attention deficit hyperactivity disorder (ADHD), predominantly inattentive type F90.0 [facility] [place] [address] [id number] [place] [id number] Apr, Attention deficit hyperactivity disorder (ADHD), predominantly inattentive type F90.0 [facility] [place] [address] [id number] [place] [id number] Apr, [facility] [place] [address] [id number] [place] [id number] Apr, Attention deficit hyperactivity disorder (ADHD), predominantly inattentive type F90.0 [facility] [place] [address] [id number] [place] [id number] Mar, [facility] [place] [address] [id number] [place] [id number] Feb, [facility] [place] [address] [id number] [place] [id number] Jan, [facility] [place] [address] [id number] [place] [id number] Dec, [facility] [place] [address] [id number] [place] [id number] Nov, [facility] [place] [address] [id number] [place] [id number] Oct, Attention deficit hyperactivity disorder (ADHD), predominantly inattentive type F90.0 [facility] [place] [address] [id number] [place] [id number] Sep, [facility] [place] [address] [id number] [place] [id number] Aug, [facility] [place] [address] [id number] [place] [id number] Jul, Attention deficit hyperactivity disorder (ADHD), predominantly inattentive type F90.0 and Insomnia, unspecified type G47.00 [facility] [place] [address] [id number] [place] [id number] Jul, [facility] [address] [id number] [place] [id number] June, [facility] [place] [address] [id number] [place] [id number] May, Attention deficit hyperactivity disorder (ADHD), predominantly inattentive type F90.0 [facility] [place] [address] [id number] [place] [id number] Apr, [facility] [place] [address] [id number] [place] [id number] Mar, [facility] [place] [address] [id number] [place] [id number] Mar, Attention deficit hyperactivity disorder (ADHD), predominantly inattentive type F90.0 [facility] [place] [address] [id number] [place] [id number] Feb, [facility] [place] [address] [id number] [place] [id number] Feb, [facility] [address] [id number] [facility] [place] [id number] Jan, [facility] [place] [address] [id number] [place] [id number] Dec, Attention deficit hyperactivity disorder (ADHD), predominantly inattentive type F90.[address] [facility] [address] [id number] [facility] [place] [id number] Nov, [facility] [place] [address] [id number] [place] [id number] Oct, [facility] [place] [address] [id number] [place] [id number] Sep, ADHD (attention deficit hyperactivity di sorder) 314.01 [facility] [place] [address] [id number] [place] [id number] Sep, [facility] [place] [address] [id number] [place] [id number] June, [facility] [place] [address] [id number] [place] [id number] June, [facility] [address] [facility] [id number] [address] [place] [address] May, [facility] [address] [facility] [id number] [address] [place] [address] May, [facility] [place] [address] [id number] [place] [id number] Apr, [facility] [place] [facility] [address] [id number] [facility] [place] [address] Apr, [facility] [place] [address] [id number] [place] [id number] Mar, [facility] [address] [id number] [facility] [place] [address] Mar, [facility] [place] [address] [id number] [place] [id number] Feb, [facility] [address] [id number] [address] [place] [address], [place] [address] Feb, [facility] [place] [address] [id number] [place] [id number] Feb, [facility] [address] [id number] [address] [place] [address], [place] [address] Feb, [facility] [place] [address] [id number] [place] [id number] Jan, [facility] [address] [id number] [address] [place] [address], [place] [address] Jan, [facility] [place] [address] [id number] [place] [id number] Jan, [facility] [address] [id number] [address] [place] [address], [place] [address] Jan, [facility] [place] [address] [id number] [place] [id number] Dec, [facility] [address] [id number] [address] [place] [address], [place] [address] Dec, [facility] [place] [address] [id number] [place] [id number] Nov, [facility] [address] [id number] [address] [place] [address], [place] [address] Nov, [facility] [place] [address] [id number] [place] [id number] Nov, [facility] [address] [id number] [address] [place] [address], [place] [address] Nov, [facility] [place] [address] [id number] [place] [id number] Oct, [facility] [address] [id number] [address] [place] [address], [place] [address] Oct, [facility] [place] [address] [id number] [place] [id number] Oct, [facility] [address] [id number] [address] [place] [address], [place] [address] Oct, [facility] [place] [address] [id number] [place] [id number] Sep, [facility] [address] [id number] [address] [place] [address], [place] [address] Sep, [facility] [address] [id number] [address] [place] [address], [place] [address] Sep, [facility] [place] [address] [id number] [place] [id number] Sep, [facility] [address] [id number] [address] [place] [address], [place] [address] Sep, [facility] [address] [id number] [address] [place] [address], [place] [address] Sep, [facility] [address] [id number] [address] [place] [address], [place] [address] Sep, [facility] [place] [address] [id number] [place] [id number] Aug, [facility] [address] [id number] [address] [place] [address], [place] [address] Aug, [facility] [place] [address] [id number] [place] [id number] Aug, [facility] [address] [id number] [facility] [place] [address] Aug, [facility] [place] [address] [id number] [place] [id number] June, [facility] [address] [id number] [facility] [place] [address] June, [facility] [place] [address] [id number] [place] [id number] June, [facility] [address] [id number] [facility] [place] [address] June, [facility] [place] [address] [id number] [place] [id number] Apr, [facility] [address] [id number] [address] [place] [address], [place] [address] Apr, [facility] [place] [address] [id number] [place] [id number] Mar, [facility] [address] [id number] [address] [place] [address], [place] [address] Mar, [facility] [place] [address] [id number] [place] [id number] Feb, [facility] [address] [id number] [address] [place] [address], [place] [address] Feb, [facility] [place] [address] [id number] [place] [id number] Jan, [facility] [address] [id number] [address] [place] [address], [place] [address] Jan, [facility] [address] [id number] [address] [place] [address], [place] [address] Jan, [facility] [address] [id number] [address] [place] [address], [place] [address] Jan, [facility] [place] [address] [id number] [place] [id number] Jan, [facility] [address] [id number] [address] [place] [address], [place] [address] Jan, [facility] [place] [address] [id number] [place] [id number] Nov, [facility] [address] [id number] [place] [address] Nov, [facility] [place] [address] [id number] [place] [id number] Oct, [facility] [place] [address] [id number] [place] [id number] Sep, [facility] [place] [address] [id number] [place] [id number] Sep, [facility] [place] [address] [id number] [place] [id number] Jul, [facility] [place] [address] [id number] [place] [id number] Jul, [facility] [place] [address] [id number] [place] [id number] June, [facility] [place] [address] [id number] [place] [id number] May, [facility] [place] [address] [id number] [place] [id number] Apr, [facility] [place] [address] [id number] [place] [id number] Mar, [facility] [place] [address] [id number] [place] [id number] Mar, [facility] [place] [address] [id number] [place] [id number] Mar, [facility] [place] [address] [id number] [place] [id number] Feb, [facility] [place] [address] [id number] [place] [id number] Feb, [facility] [place] [address] [id number] [place] [id number] Feb, [facility] [place] [address] [id number] [place] [id number] Feb, [facility] [place] [address] [id number] [place] [id number] Feb, [facility] [place] [address] [id number] [place] [id number] Jan, [facility] [address] [id number] [address] [place] [address], [place] [address] Jan, [facility] [place] [address] [id number] [place] [id number] Dec, [facility] [address] [id number] [address] [place] [address], [place] [address] Dec, [facility] [address] [id number] [address] [place] [address] Dec, [facility] [place] [address] [id number] [place] [id number] Dec, [facility] [address] [id number] [address] [place] [address] Dec, [facility] [address] [facility] [id number] [address] [place] [address], [place] [address] Dec, [facility] [address] [id number] [address] [place] [address] Dec, [facility] [place] [address] [id number] [place] [id number] Dec, [facility] [address] [id number] [address] [place] [address] Dec, [facility] [place] [address] [id number] [place] [id number] Nov, [facility] [place] [address] [id number] [place] [id number] Sep, [facility] [place] [address] [id number] [place] [id number] Aug, [facility] [address] [id number] [address] [place] [address], [place] [address] Aug, [facility] [place] [address] [id number] [place] [id number] Jul, [facility] [place] [address] [id number] [place] [id number] June, [facility] [address] [facility] [id number] [address] [place] [address] June[facility] [place] [address] [id number] [place] [id number] May, [facility] [place] [address] [facility] [id number] [place] [id number] Apr, [facility] [place] [address] [facility] [id number] [place] [id number] Mar, [facility] [place] [address] [facility] [id number] [place] [id number] Feb, [facility] [address] [place] [id number] [address] [place] [address] Jan, [facility] [address] [place] [place] [id number] [address] [place] [address] Dec, [facility] [address] [place] [place] [id number] [address] [place] [address] Nov, [facility] [address] [place] [place] [id number] [address] [place] [address] Mar, [facility] [address] [place] [id number] [address] [place] [address] Dec, IMMUNIZATIONS No Known Immunizations SOCIAL HISTORY Never Assessed REASON FOR VISIT PLAN OF CARE VITAL SIGNS MEDICATIONS Unknown Medications RESULTS No Results PROCEDURES No Known procedures INSTRUCTIONS MEDICATIONS ADMINISTERED No Known Medications MEDICAL (GENERAL) HISTORY Type Description Date Medical History attention deficit hyperactivity disorder
--- OUTSIDE RECORDS SUMMARY | 2019-09-15 18:33 | XMS REPORT ---
Author Author Hussain DOMINGUEZ [facility] Address [address] [place] [address] Care Team Providers Care [place] Image Consultant Name Role Phone AKI DOMINGUEZ Unavailable PROBLEMS Type Condition ICD9-CM Code SXN55-PO Code Onset Dates Condition S tatus SNOMED Code Problem Elevated blood pressure reading without diagnosi s of hypertension 796.2 Active 105422631 Problem Palpitations 785.1 Active 3793539 2 Problem Syncope and collapse 780.2 Active 490081866 Problem Insomnia, unspecified type G47.00 Act nhan 603325942 Problem ADHD (attention deficit hyperactivity disorder) 314.01 Active 199674176 Problem Psychophysiological insomnia F51.04 A ctive 620903975 Problem Vitiligo 709.01 Active 47013754 Problem Other acne 706.1 Active 36124384 Problem Depressive disorder, not elsewhere classified 311 Active 53264658 Problem Attention deficit hyperactiv ity disorder (ADHD), predominantly inattentive type F90.0 Active 29470698 ALLERGIES No Information ENCOUNTERS Encounter Location Date Diagnosis [place] [id number] [id number] [place], [place] [id number] Mar, Attention deficit hyperactivity disorder (ADHD), predominantly inattentive type F90.0 [facility] [address] [id number] [place] [id number] Feb, [facility] [address] [id number] [place] [id number] Feb, Attention deficit hyperactivity disorder (ADHD), predominantly inattentive type F90.0 [facility] [address] [id number] [place] [id number] Jan, Attention deficit hyperactivity disorder (ADHD), predominantly inattentive type F90.0 [facility] [address] [id number] [place] [id number] Dec, Attention deficit hyperactivity disorder (ADHD), predominantly inattentive type F90.0 and Psychophysiological insomnia F51.04 [facility] [place] [address] [id number] [place] [id number] Dec, Attention deficit hyperactivity disorder (ADHD), predominantly inattentive type F90.0 [facility] [place] [address] [id number] [place] [id number] Nov, Encounter for immunization Z23 [facility] [place] [address] [id number] [place] [id number] Nov, Attention deficit hyperactivity disorder (ADHD), predominantly inattentive type F90.0 [facility] [place] [address] [id number] [place] [id number] Oct, Attention deficit hyperactivity disorder (ADHD), predominantly inattentive type F90.0 and Adjustment insomnia F51.02 [facility] [place] [address] [id number] [place] [id number] Sep, Attention deficit hyperactivity disorder (ADHD), predominantly inattentive type F90.0 [facility] [place] [address] [id number] [place] [id number] Aug, Adjustment insomnia F51.02 [facility] [place] [address] [id number] [place] [id number] Jul, Attention deficit hyperactivity disorder (ADHD), predominantly inattentive type F90.0 [facility] [place] [address] [id number] [place] [id number] Jul, Adjustment insomnia F51.02 and Attention deficit hyperactivity disorder (ADHD), predominantly inattentive type F90.0 [facility] [place] [address] [id number] [place] [id number] June, Attention deficit hyperactivity disorder (ADHD), predominantly inattentive type F90.0 [facility] [place] [address] [id number] [place] [id number] June, Attention deficit hyperactivity disorder (ADHD), predominantly inattentive type F90.0 [facility] [place] [address] [id number] [place] [id number] May, Attention deficit hyperactivity disorder (ADHD), predominantly inattentive type F90.0 [facility] [place] [address] [id number] [place] [id number] Apr, Attention deficit hyperactivity disorder (ADHD), predominantly inattentive type F90.0 [facility] [place] [address] [id number] [place] [id number] Apr, [facility] [place] [address] [id number] [place] [id number] Apr, Attention deficit hyperactivity disorder (ADHD), predominantly inattentive type F90.0 [facility] [place] [address] [id number] [place] [id number] Mar, [facility] [place] [address] [id number] [place] [id number] Feb, [facility] [place] [address] [id number] [place] [id number] Jan, [facility] [place] [address] [id number] [place] [id number] Dec, [facility] [place] [address] [id number] [place] [id number] Nov, [facility] [place] [address] [id number] [place] [id number] Oct, Attention deficit hyperactivity disorder (ADHD), predominantly inattentive type F90.0 [facility] [place] [address] [id number] [place] [id number] Sep, [facility] [place] [address] [id number] [place] [id number] Aug, [facility] [place] [address] [id number] [place] [id number] Jul, Attention deficit hyperactivity disorder (ADHD), predominantly inattentive type F90.0 and Insomnia, unspecified type G47.00 [facility] [place] [address] [id number] [place] [id number] Jul, [facility] [address] [id number] [place] [id number] June, [facility] [place] [address] [id number] [place] [id number] May, Attention deficit hyperactivity disorder (ADHD), predominantly inattentive type F90.0 [facility] [place] [address] [id number] [place] [id number] Apr, [facility] [place] [address] [id number] [place] [id number] Mar, [facility] [place] [address] [id number] [place] [id number] Mar, Attention deficit hyperactivity disorder (ADHD), predominantly inattentive type F90.0 [facility] [place] [address] [id number] [place] [id number] Feb, [facility] [place] [address] [id number] [place] [id number] Feb, [facility] [address] [id number] [facility] [place] [id number] Jan, [facility] [place] [address] [id number] [place] [id number] Dec, Attention deficit hyperactivity disorder (ADHD), predominantly inattentive type F90.[address] [facility] [address] [id number] [facility] [place] [id number] Nov, [facility] [place] [address] [id number] [place] [id number] Oct, [facility] [place] [address] [id number] [place] [id number] Sep, ADHD (attention deficit hyperactivity di sorder) 314.01 [facility] [place] [address] [id number] [place] [id number] Sep, [facility] [place] [address] [id number] [place] [id number] June, [facility] [place] [address] [id number] [place] [id number] June, [facility] [address] [facility] [id number] [address] [place] [address] May, [facility] [address] [facility] [id number] [address] [place] [address] May, [facility] [place] [address] [id number] [place] [id number] Apr, [facility] [address] [id number] [facility] [place] [address] Apr, [facility] [place] [address] [id number] [place] [id number] Mar, [facility] [address] [id number] [facility] [place] [address] Mar, [facility] [place] [address] [id number] [place] [id number] Feb, [facility] [address] [id number] [address] [place] [address], [place] [address] Feb, [facility] [place] [address] [id number] [place] [id number] Feb, [facility] [address] [id number] [address] [place] [address], [place] [address] Feb, [facility] [place] [address] [id number] [place] [id number] Jan, [facility] [address] [id number] [address] [place] [address], [place] [address] Jan, [facility] [place] [address] [id number] [place] [id number] Jan, [facility] [address] [id number] [address] [place] [address], [place] [address] Jan, [facility] [place] [address] [id number] [place] [id number] Dec, [facility] [address] [id number] [address] [place] [address], [place] [address] Dec, [facility] [place] [address] [id number] [place] [id number] Nov, [facility] [address] [id number] [address] [place] [address], [place] [address] Nov, [facility] [place] [address] [id number] [place] [id number] Nov, [facility] [address] [id number] [address] [place] [address], [place] [address] Nov, [facility] [place] [address] [id number] [place] [id number] Oct, [facility] [address] [id number] [address] [place] [address], [place] [address] Oct, [facility] [place] [address] [id number] [place] [id number] Oct, [facility] [address] [id number] [address] [place] [address], [place] [address] Oct, [facility] [place] [address] [id number] [place] [id number] Sep, [facility] [address] [id number] [address] [place] [address], [place] [address] Sep, [facility] [address] [id number] [address] [place] [address], [place] [address] Sep, [facility] [place] [address] [id number] [place] [id number] Sep, [facility] [address] [id number] [address] [place] [address], [place] [address] Sep, [facility] [address] [id number] [address] [place] [address], [place] [address] Sep, [facility] [address] [id number] [address] [place] [address], [place] [address] Sep, [facility] [place] [address] [id number] [place] [id number] Aug, [facility] [address] [id number] [address] [place] [address], [place] [address] Aug, [facility] [place] [address] [id number] [place] [id number] Aug, [facility] [address] [id number] [facility] [place] [address] Aug, [facility] [place] [address] [id number] [place] [id number] June, [facility] [address] [id number] [facility] [place] [address] June, [facility] [place] [address] [id number] [place] [id number] June, [facility] [address] [id number] [facility] [place] [address] June, [facility] [place] [address] [id number] [place] [id number] Apr, [facility] [address] [id number] [address] [place] [address], [place] [address] Apr, [facility] [place] [address] [id number] [place] [id number] Mar, [facility] [address] [id number] [address] [place] [address], [place] [address] Mar, [facility] [place] [address] [id number] [place] [id number] Feb, [facility] [address] [id number] [address] [place] [address], [place] [address] Feb, [facility] [place] [address] [id number] [place] [id number] Jan, [facility] [address] [id number] [address] [place] [address], [place] [address] Jan, [facility] [address] [id number] [address] [place] [address], [place] [address] Jan, [facility] [address] [id number] [address] [place] [address], [place] [address] Jan, [facility] [place] [address] [id number] [place] [id number] Jan, [facility] [address] [id number] [address] [place] [address], [place] [address] Jan, [facility] [place] [address] [id number] [place] [id number] Nov, [facility] [address] [id number] [address] [address] Nov, [facility] [place] [address] [id number] [place] [id number] Oct, [facility] [place] [address] [id number] [place] [id number] Sep, [facility] [place] [address] [id number] [place] [id number] Sep, [facility] [place] [address] [id number] [place] [id number] Jul, [facility] [place] [address] [id number] [place] [id number] Jul, [facility] [place] [address] [id number] [place] [id number] June, [facility] [place] [address] [id number] [place] [id number] May, [facility] [place] [address] [id number] [place] [id number] Apr, [facility] [place] [address] [id number] [place] [id number] Mar, [facility] [place] [address] [id number] [place] [id number] Mar, [facility] [place] [address] [id number] [place] [id number] Mar, [facility] [place] [address] [id number] [place] [id number] Feb, [facility] [address] [id number] [place] [id number] Feb, [facility] [place] [address] [id number] [place] [id number] Feb, [facility] [place] [address] [id number] [place] [id number] Feb, [facility] [place] [address] [id number] [place] [id number] Feb, [facility] [place] [address] [id number] [place] [id number] Jan, [facility] [address] [id number] [address] [place] [address], [place] [address] Jan, [facility] [place] [address] [id number] [place] [id number] Dec, [facility] [address] [id number] [address] [place] [address], [place] [address] Dec, [facility] [address] [id number] [address] [place] [address] Dec, [facility] [place] [address] [id number] [place] [id number] Dec, [facility] [address] [id number] [address] [place] [address] Dec, [facility] [address] [facility] [id number] [address] [place] [address], [place] [address] Dec, [facility] [address] [id number] [address] [place] [address] Dec, [facility] [place] [address] [id number] [place] [id number] Dec, [facility] [address] [id number] [address] [place] [address] Dec, [facility] [place] [address] [id number] [place] [id number] Nov, [facility] [place] [address] [id number] [place] [id number] Sep, [facility] [place] [address] [id number] [place] [id number] Aug, [facility] [address] [id number] [address] [place] [address], [place] [address] Aug, [facility] [place] [address] [id number] [place] [id number] Jul, [facility] [place] [address] [id number] [place] [id number] June, [facility] [address] [facility] [id number] [address] [place] [address] June, [facility] [place] [address] [id number] [place] [id number] May, [facility] [place] [address] [facility] [id number] [place] [id number] Apr, [facility] [place] [address] [facility] [id number] [place] [id number] Mar, [facility] [place] [address] [facility] [id number] [place] [id number] Feb, [facility] [address] [place] [id number] [address] [place] [address] Jan, [facility] [address] [place] [id number] [address] [place] [address] Dec, [facility] [address] [place] [id number] [address] [place] [address] Nov, [facility] [address] [address] [id number] [address] [place] [address] Mar, [facility] [address] [place] [id number] [address] [place] [address] Dec, IMMUNIZATIONS No Known Immunizations SOCIAL HISTORY Never Assessed REASON FOR VISIT PLAN OF CARE VITAL SIGNS MEDICATIONS Unknown Medications RESULTS No Results PROCEDURES No Known procedures INSTRUCTIONS MEDICATIONS ADMINISTERED No Known Medications MEDICAL (GENERAL) HISTORY Type Description Date Medical History attention deficit hyperactivity disorder
--- OUTSIDE RECORDS SUMMARY | 2019-09-15 18:33 | XMS REPORT ---
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 Name Role Phone AKI DOMINGUEZ Unavailable PROBLEMS Type Condition ICD9-CM Code OOC07-EA Code Onset Dates Condition S tatus SNOMED Code Problem Elevated blood pressure reading without diagnosi s of hypertension 796.2 Active 871445299 Problem Palpitations 785.1 Active 0847817 2 Problem Syncope and collapse 780.2 Active 968721430 Problem Insomnia, unspecified type G47.00 Act nhan 778510057 Problem ADHD (attention deficit hyperactivity disorder) 314.01 Active 035541847 Problem Psychophysiological insomnia F51.04 A ctive 000719658 Problem Vitiligo 709.01 Active 08333328 Problem Other acne 706.1 Active 25961414 Problem Depressive disorder, not elsewhere classified 311 Active 24510377 Problem Attention deficit hyperactiv ity disorder (ADHD), predominantly inattentive type F90.0 Active 24715237 ALLERGIES No Information ENCOUNTERS Encounter Location Date Diagnosis [place] [id number] [id number] [place] [id number] Mar, Attention deficit hyperactivity disorder (ADHD), predominantly inattentive type F90.0 [facility] [address] [id number] [place] [id number] Feb, [facility] [address] [id number] [place] [id number] Feb, Attention deficit hyperactivity disorder (ADHD), predominantly inattentive type F90.0 [facility] [address] [id number] [place] [id number] Jan, Attention deficit hyperactivity disorder (ADHD), predominantly inattentive type F90.0 [facility] [address] [id number] [place] [id number] Dec, Attention deficit hyperactivity disorder (ADHD), predominantly inattentive type F90.0 and Psychophysiological insomnia F51.04 [facility] [place] [address] [id number] [place] [id number] Dec, Attention deficit hyperactivity disorder (ADHD), predominantly inattentive type F90.0 [facility] [place] [address] [id number] [place] [id number] Nov, Encounter for immunization Z23 [facility] [place] [address] [id number] [place] [id number] Nov, Attention deficit hyperactivity disorder (ADHD), predominantly inattentive type F90.0 [facility] [place] [address] [id number] [place] [id number] Oct, Attention deficit hyperactivity disorder (ADHD), predominantly inattentive type F90.0 and Adjustment insomnia F51.02 [facility] [place] [address] [id number] [place] [id number] Sep, Attention deficit hyperactivity disorder (ADHD), predominantly inattentive type F90.0 [facility] [place] [address] [id number] [place] [id number] Aug, Adjustment insomnia F51.02 [facility] [address] [id number] [place] [id number] Jul, Attention deficit hyperactivity disorder (ADHD), predominantly inattentive type F90.0 [facility] [place] [address] [id number] [place] [id number] Jul, Adjustment insomnia F51.02 and Attention deficit hyperactivity disorder (ADHD), predominantly inattentive type F90.0 [facility] [place] [address] [id number] [place] [id number] June, Attention deficit hyperactivity disorder (ADHD), predominantly inattentive type F90.0 [facility] [place] [address] [id number] [place] [id number] June, Attention deficit hyperactivity disorder (ADHD), predominantly inattentive type F90.0 [facility] [place] [address] [id number] [place] [id number] May, Attention deficit hyperactivity disorder (ADHD), predominantly inattentive type F90.0 [facility] [place] [address] [id number] [place] [id number] Apr, Attention deficit hyperactivity disorder (ADHD), predominantly inattentive type F90.0 [facility] [place] [address] [id number] [place] [id number] Apr, [facility] [place] [address] [id number] [place] [id number] Apr, Attention deficit hyperactivity disorder (ADHD), predominantly inattentive type F90.0 [facility] [place] [address] [id number] [place] [id number] Mar, [facility] [place] [address] [id number] [place] [id number] Feb, [facility] [place] [address] [id number] [place] [id number] Jan, [facility] [place] [address] [id number] [place] [id number] Dec, [facility] [place] [address] [id number] [place] [id number] Nov, [facility] [place] [address] [id number] [place] [id number] Oct, Attention deficit hyperactivity disorder (ADHD), predominantly inattentive type F90.0 [facility] [place] [address] [id number] [place] [id number] Sep, [facility] [place] [address] [id number] [place] [id number] Aug, [facility] [place] [address] [id number] [place] [id number] Jul, Attention deficit hyperactivity disorder (ADHD), predominantly inattentive type F90.0 and Insomnia, unspecified type G47.00 [facility] [place] [address] [id number] [place] [id number] Jul, [facility] [address] [id number] [place] [id number] June, [facility] [place] [address] [id number] [place] [id number] May, Attention deficit hyperactivity disorder (ADHD), predominantly inattentive type F90.0 [facility] [place] [address] [id number] [place] [id number] Apr, [facility] [place] [address] [id number] [place] [id number] Mar, [facility] [place] [address] [id number] [place] [id number] Mar, Attention deficit hyperactivity disorder (ADHD), predominantly inattentive type F90.0 [facility] [place] [address] [id number] [place] [id number] Feb, [facility] [place] [address] [id number] [place] [id number] Feb, [facility] [address] [id number] [facility] [id number] Jan, [facility] [place] [address] [id number] [place] [id number] Dec, Attention deficit hyperactivity disorder (ADHD), predominantly inattentive type F90.[address] [facility] [address] [id number] [facility] [id number] Nov, [facility] [place] [address] [id number] [place] [id number] Oct, [facility] [place] [address] [id number] [place] [id number] Sep, ADHD (attention deficit hyperactivity di sorder) 314.01 [facility] [place] [address] [id number] [place] [id number] Sep, [facility] [place] [address] [id number] [place] [id number] June, [facility] [place] [address] [id number] [place] [id number] June, [facility] [address] [facility] [id number] [address] [place] [address] May, [facility] [address] [facility] [id number] [address] [place] [address] May, [facility] [place] [address] [id number] [place] [id number] Apr, [facility] [address] [id number] [facility] [place] [address] Apr, [facility] [place] [address] [id number] [place] [id number] Mar, [facility] [address] [id number] [facility] [place] [address] Mar, [facility] [place] [address] [id number] [place] [id number] Feb, [facility] [address] [id number] [address] [place] [address], [place] [address] Feb, [facility] [place] [address] [id number] [place] [id number] Feb, [facility] [address] [id number] [address] [place] [address], [place] [address] Feb, [facility] [place] [address] [id number] [place] [id number] Jan, [facility] [address] [id number] [address] [place] [address], [place] [address] Jan, [facility] [place] [address] [id number] [place] [id number] Jan, [facility] [address] [id number] [address] [place] [address], [place] [address] Jan, [facility] [place] [address] [id number] [place] [id number] Dec, [facility] [address] [id number] [address] [place] [address], [place] [address] Dec, [facility] [place] [address] [id number] [place] [id number] Nov, [facility] [address] [id number] [address] [place] [address], [place] [address] Nov, [facility] [place] [address] [id number] [place] [id number] Nov, [facility] [address] [id number] [address] [place] [address], [place] [address] Nov, [facility] [place] [address] [id number] [place] [id number] Oct, [facility] [address] [id number] [address] [place] [address], [place] [address] Oct, [facility] [place] [address] [id number] [place] [id number] Oct, [facility] [address] [id number] [address] [place] [address], [place] [address] Oct, [facility] [place] [address] [id number] [place] [id number] Sep, [facility] [address] [id number] [address] [place] [address], [place] [address] Sep, [facility] [address] [id number] [address] [place] [address], [place] [address] Sep, [facility] [place] [address] [id number] [place] [id number] Sep, [facility] [address] [id number] [address] [place] [address], [place] [address] Sep, [facility] [address] [id number] [address] [place] [address], [place] [address] Sep, [facility] [address] [id number] [address] [place] [address], [place] [address] Sep, [facility] [place] [address] [id number] [place] [id number] Aug, [facility] [address] [id number] [address] [place] [address], [place] [address] Aug, [facility] [place] [address] [id number] [place] [id number] Aug, [facility] [address] [id number] [facility] [place] [address] Aug, [facility] [place] [address] [id number] [place] [id number] June, [facility] [address] [id number] [facility] [place] [address] June, [facility] [place] [address] [id number] [place] [id number] June, [facility] [address] [id number] [facility] [place] [address] June, [facility] [place] [address] [id number] [place] [id number] Apr, [facility] [address] [id number] [address] [place] [address], [place] [address] Apr, [facility] [place] [address] [id number] [place] [id number] Mar, [facility] [address] [id number] [address] [place] [address], [place] [address] Mar, [facility] [place] [address] [id number] [place] [id number] Feb, [facility] [address] [id number] [address] [place] [address], [place] [address] Feb, [facility] [place] [address] [id number] [place] [id number] Jan, [facility] [address] [id number] [address] [place] [address], [place] [address] Jan, [facility] [address] [id number] [address] [place] [address], [place] [address] Jan, [facility] [address] [id number] [address] [place] [address], [place] [address] Jan, [facility] [place] [address] [id number] [place] [id number] Jan, [facility] [address] [id number] [address] [place] [address], [place] [address] Jan, [facility] [place] [address] [id number] [place] [id number] Nov, [facility] [address] [id number] [address] [address] Nov, [facility] [place] [address] [id number] [place] [id number] Oct, [facility] [place] [address] [id number] [place] [id number] Sep, [facility] [place] [address] [id number] [place] [id number] Sep, [facility] [place] [address] [id number] [place] [id number] Jul, [facility] [place] [address] [id number] [place] [id number] Jul, [facility] [place] [address] [id number] [place] [id number] June, [facility] [place] [address] [id number] [place] [id number] May, [facility] [place] [address] [id number] [place] [id number] Apr, [facility] [place] [address] [id number] [place] [id number] Mar, [facility] [place] [address] [id number] [place] [id number] Mar, [facility] [place] [address] [id number] [place] [id number] Mar, [facility] [place] [address] [id number] [place] [id number] Feb, [facility] [place] [address] [id number] [place] [id number] Feb, [facility] [place] [address] [id number] [place] [id number] Feb, [facility] [place] [address] [id number] [place] [id number] Feb, [facility] [place] [address] [id number] [place] [id number] Feb, [facility] [place] [address] [id number] [place] [id number] Jan, [facility] [address] [id number] [address] [place] [address], [place] [address] Jan, [facility] [place] [address] [id number] [place] [id number] Dec, [facility] [address] [id number] [address] [place] [address], [place] [address] Dec, [facility] [address] [id number] [address] [place] [address] Dec, [facility] [place] [address] [id number] [place] [id number] Dec, [facility] [address] [id number] [address] [place] [address] Dec, [facility] [address] [facility] [id number] [address] [place] [address], [place] [address] Dec, [facility] [address] [id number] [address] [place] [address] Dec, [facility] [place] [address] [id number] [place] [id number] Dec, [facility] [address] [id number] [address] [place] [address] Dec, [facility] [place] [address] [id number] [place] [id number] Nov, [facility] [place] [address] [id number] [place] [id number] Sep, [facility] [place] [address] [id number] [place] [id number] Aug, [facility] [address] [id number] [address] [place] [address], [place] [address] Aug, [facility] [place] [address] [id number] [place] [id number] Jul, [facility] [place] [address] [id number] [place] [id number] June, [facility] [address] [facility] [id number] [address] [place] [address] June, [facility] [address] [id number] [place] [id number] May, [facility] [address] [id number] [place] [id number] Apr, [facility] [address] [id number] [place] [id number] Mar, [facility] [place] [address] [id number] [place] [id number] Feb, [facility] [address] [facility] [id number] [address] [place] [address] Jan, [facility] [address] [facility] [id number] [address] [place] [address] Dec, [facility] [address] [place] [id number] [address] [place] [address] Nov, [facility] [address] [place] [id number] [address] [place] [address] Mar, [facility] [address] [place] [id number] [address] [place] [address] Dec, IMMUNIZATIONS No Known Immunizations SOCIAL HISTORY Never Assessed REASON FOR VISIT PLAN OF CARE VITAL SIGNS Height 67.5 in 2013-10-01 Weight 137 lbs 2013-10-01 Temperature 97.9 degrees Fahrenheit 2013-10-01 Heart Rate 88 bpm 2013-10-01 Respiratory Rate 20 2013-10-01 Blood pressure systolic 122 mmHg 2013-10-01 Blood pressure diastolic 74 mmHg 2013-10-01 MEDICATIONS Unknown Medications RESULTS No Results PROCEDURES No Known procedures INSTRUCTIONS MEDICATIONS ADMINISTERED No Known Medications MEDICAL (GENERAL) HISTORY Type Description Date Medical History attention deficit hyperactivity disorder
--- OUTSIDE RECORDS SUMMARY | 2019-09-15 18:33 | XMS REPORT ---
Author Author Hussain Toro Doctor Organization [facility] Address Unknown Phone Unavailable Care Team Providers Care [employer] Name Role Phone Migration, Doctor Unavailable Unavailable PROBLEMS Type Condition ICD9-CM Code [id number] Code Onset Dates Condition S tatus SNOMED Code Problem Elevated blood pressure reading without diagnosi s of hypertension 796.2 Active 467005497 Problem Palpitations 785.1 Active 3996983 2 Problem Syncope and collapse 780.2 Active 351330462 Problem Insomnia, unspecified type G47.00 Act nhan 951270541 Problem ADHD (attention deficit hyperactivity disorder) 314.01 Active 729493897 Problem Psychophysiological insomnia F51.04 A ctive 995331775 Problem Vitiligo 709.01 Active 73297887 Problem Other acne 706.1 Active 77816559 Problem Depressive disorder, not elsewhere classified 311 Active 87830070 Problem Attention deficit hyperactiv ity disorder (ADHD), predominantly inattentive type F90.0 Active 09356440 ALLERGIES No Information ENCOUNTERS Encounter Location Date Diagnosis [facility] [address] [id number] [id number] Mar, Attention deficit hyperactivity disorder (ADHD), predominantly inattentive type F90.0 [facility] [address] [id number] [place] [id number] Feb, [facility] [address] [id number] [place] [id number] Feb, Attention deficit hyperactivity disorder (ADHD), predominantly inattentive type F90.0 [facility] [address] [id number] [place] [id number] Jan, Attention deficit hyperactivity disorder (ADHD), predominantly inattentive type F90.0 [facility] [address] [id number] [place] [id number] Dec, Attention deficit hyperactivity disorder (ADHD), predominantly inattentive type F90.0 and Psychophysiological insomnia F51.04 [facility] [place] [address] [id number] [place] [id number] Dec, Attention deficit hyperactivity disorder (ADHD), predominantly inattentive type F90.0 [facility] [place] [address] [id number] [place] [id number] Nov, Encounter for immunization Z23 [facility] [place] [address] [id number] [place] [id number] Nov, Attention deficit hyperactivity disorder (ADHD), predominantly inattentive type F90.0 [facility] [place] [address] [id number] [place] [id number] Oct, Attention deficit hyperactivity disorder (ADHD), predominantly inattentive type F90.0 and Adjustment insomnia F51.02 [facility] [place] [address] [id number] [place] [id number] Sep, Attention deficit hyperactivity disorder (ADHD), predominantly inattentive type F90.0 [facility] [place] [address] [id number] [place] [id number] Aug, Adjustment insomnia F51.02 [facility] [place] [address] [id number] [place] [id number] Jul, Attention deficit hyperactivity disorder (ADHD), predominantly inattentive type F90.0 [facility] [place] [address] [id number] [place] [id number] Jul, Adjustment insomnia F51.02 and Attention deficit hyperactivity disorder (ADHD), predominantly inattentive type F90.0 [facility] [place] [address] [id number] [place] [id number] June, Attention deficit hyperactivity disorder (ADHD), predominantly inattentive type F90.0 [facility] [place] [address] [id number] [place] [id number] June, Attention deficit hyperactivity disorder (ADHD), predominantly inattentive type F90.0 [facility] [place] [address] [id number] [place] [id number] May, Attention deficit hyperactivity disorder (ADHD), predominantly inattentive type F90.0 [facility] [place] [address] [id number] [place] [id number] Apr, Attention deficit hyperactivity disorder (ADHD), predominantly inattentive type F90.0 [facility] [place] [address] [id number] [place] [id number] Apr, [facility] [place] [address] [id number] [place] [id number] Apr, Attention deficit hyperactivity disorder (ADHD), predominantly inattentive type F90.0 [facility] [place] [address] [id number] [place] [id number] Mar, [facility] [place] [address] [id number] [place] [id number] Feb, [facility] [place] [address] [id number] [place] [id number] Jan, [facility] [place] [address] [id number] [place] [id number] Dec, [facility] [place] [address] [id number] [place] [id number] Nov, [facility] [place] [address] [id number] [place] [id number] Oct, Attention deficit hyperactivity disorder (ADHD), predominantly inattentive type F90.0 [facility] [place] [address] [id number] [place] [id number] Sep, [facility] [place] [address] [id number] [place] [id number] Aug, [facility] [place] [address] [id number] [place] [id number] Jul, Attention deficit hyperactivity disorder (ADHD), predominantly inattentive type F90.0 and Insomnia, unspecified type G47.00 [facility] [place] [address] [id number] [place] [id number] Jul, [facility] [address] [id number] [place] [id number] June, [facility] [place] [address] [id number] [place] [id number] May, Attention deficit hyperactivity disorder (ADHD), predominantly inattentive type F90.0 [facility] [place] [address] [id number] [place] [id number] Apr, [facility] [place] [address] [id number] [place] [id number] Mar, [facility] [place] [address] [id number] [place] [id number] Mar, Attention deficit hyperactivity disorder (ADHD), predominantly inattentive type F90.0 [facility] [place] [address] [id number] [place] [id number] Feb, [facility] [place] [address] [id number] [place] [id number] Feb, [facility] [address] [id number] [id number] Jan, [facility] [place] [address] [id number] [place] [id number] Dec, Attention deficit hyperactivity disorder (ADHD), predominantly inattentive type F90.[address] [facility] [address] [id number] [id number] Nov, [facility] [place] [address] [id number] [place] [id number] Oct, [facility] [place] [address] [id number] [place] [id number] Sep, ADHD (attention deficit hyperactivity di sorder) 314.01 [facility] [place] [address] [id number] [place] [id number] Sep, [facility] [place] [address] [id number] [place] [id number] June, [facility] [place] [address] [id number] [place] [id number] June, [facility] [address] [id number] [address] [place] [address] May, [facility] [place] [facility] [address] [facility] [id number] [address] [place] [address] May, [facility] [place] [address] [id number] [place] [id number] Apr, [facility] [place] [facility] [address] [id number] [address] [place] [address], [place] [address] Apr, [facility] [place] [address] [id number] [place] [id number] Mar, [facility] [place] [facility] [address] [id number] [address] [place] [address], [place] [address] Mar, [facility] [place] [address] [id number] [place] [id number] Feb, [facility] [place] [facility] [address] [id number] [address] [place] [address], [place] [address] Feb, [facility] [place] [address] [id number] [place] [id number] Feb, [facility] [place] [facility] [address] [facility] [id number] [address] [place] [address], [place] [address] Feb, [facility] [place] [address] [id number] [place] [id number] Jan, [facility] [place] [facility] [address] [id number] [address] [place] [address] Jan, [facility] [place] [address] [id number] [place] [id number] Jan, [facility] [place] [facility] [address] [facility] [id number] [address] [place] [address] Jan, [facility] [place] [address] [id number] [place] [id number] Dec, [facility] [place] [facility] [address] [id number] [address] [place] [address] Dec, [facility] [place] [address] [id number] [place] [id number] Nov, [facility] [place] [facility] [address] [facility] [id number] [address] [place] [address], [place] [address] Nov, [facility] [place] [address] [id number] [place] [id number] Nov, [facility] [place] [facility] [address] [facility] [id number] [address] [place] [address] Nov, [facility] [place] [address] [id number] [place] [id number] Oct, [facility] [place] [facility] [address] [id number] [address] [place] [address], [place] [address] Oct, [facility] [place] [address] [id number] [place] [id number] Oct, [facility] [place] [facility] [address] [id number] [address] [place] [address], [place] [address] Oct, [facility] [place] [address] [id number] [place] [id number] Sep, [facility] [place] [facility] [address] [id number] [address] [place] [address], [place] [address] Sep, [facility] [place] [facility] [address] [id number] [address] [place] [address], [place] [address] Sep, [facility] [place] [address] [id number] [place] [id number] Sep, [facility] [place] [facility] [address] [id number] [address] [place] [address], [place] [address] Sep, [facility] [place] [facility] [address] [id number] [address] [place] [address], [place] [address] Sep, [facility] [place] [facility] [address] [id number] [address] [place] [address], [place] [address] Sep, [facility] [place] [address] [id number] [place] [id number] Aug, [facility] [place] [facility] [address] [id number] [address] [place] [address], [place] [address] Aug, [facility] [place] [address] [id number] [place] [id number] Aug, [facility] [place] [facility] [address] [id number] [address] [place] [address], [place] [address] Aug, [facility] [place] [address] [id number] [place] [id number] June, [facility] [place] [facility] [address] [id number] [address] [place] [address], [place] [address] June, [facility] [place] [address] [id number] [place] [id number] June, [facility] [place] [facility] [address] [id number] [address] [place] [address], [place] [address] June, [facility] [place] [address] [id number] [place] [id number] Apr, [facility] [place] [facility] [address] [id number] [address] [place] [address], [place] [address] Apr, [facility] [place] [address] [id number] [place] [id number] Mar, [facility] [place] [facility] [address] [id number] [address] [place] [address], [place] [address] Mar, [facility] [place] [address] [id number] [place] [id number] Feb, [facility] [place] [facility] [address] [id number] [address] [place] [address] Feb, [facility] [place] [address] [id number] [place] [id number] Jan, [facility] [place] [facility] [address] [facility] [id number] [address] [place] [address] Jan, [facility] [place] [facility] [address] [facility] [id number] [address] [place] [address] Jan, [facility] [place] [facility] [address] [id number] [address] [place] [address] Jan, [facility] [place] [address] [id number] [place] [id number] Jan, [facility] [place] [facility] [address] [facility] [id number] [address] [place] [address] Jan, [facility] [place] [address] [id number] [place] [id number] Nov, [facility] [place] [facility] [address] [id number] [address] [place] [address], [place] [address] Nov, [facility] [place] [address] [id number] [place] [id number] Oct, [facility] [place] [address] [id number] [place] [id number] Sep, [facility] [place] [address] [id number] [place] [id number] Sep, [facility] [place] [address] [id number] [place] [id number] Jul, [facility] [place] [address] [id number] [place] [id number] Jul, [facility] [place] [address] [id number] [place] [id number] June, [facility] [place] [address] [id number] [place] [id number] May, [facility] [place] [address] [id number] [place] [id number] Apr, [facility] [place] [address] [id number] [place] [id number] Mar, [facility] [place] [address] [id number] [place] [id number] Mar, [facility] [place] [address] [id number] [place] [id number] Mar, [facility] [place] [address] [id number] [place] [id number] Feb, [facility] [place] [address] [id number] [place] [id number] Feb, [facility] [place] [address] [id number] [place] [id number] Feb, [facility] [place] [address] [id number] [place] [id number] Feb, [facility] [place] [address] [id number] [place] [id number] Feb, [facility] [place] [address] [id number] [place] [id number] Jan, [facility] [address] [id number] [address] [place] [address], [place] [address] Jan, [facility] [place] [address] [id number] [place] [id number] Dec, [facility] [place] [facility] [address] [id number] [address] [place] [address], [place] [address] Dec, [facility] [place] [facility] [address] [id number] [address] [place] [address], [place] [address] Dec, [facility] [place] [address] [id number] [place] [id number] Dec, [facility] [place] [facility] [address] [id number] [address] [place] [address], [place] [address] Dec, [facility] [place] [facility] [address] [facility] [id number] [address] [place] [address], [place] [address] Dec, [facility] [place] [facility] [address] [facility] [id number] [address] [place] [address], [place] [address] Dec, [facility] [place] [address] [id number] [place] [id number] Dec, [facility] [place] [facility] [address] [id number] [address] [place] [address], [place] [address] Dec, [facility] [place] [address] [id number] [place] [id number] Nov, [facility] [place] [address] [id number] [place] [id number] Sep, [facility] [place] [address] [id number] [place] [id number] Aug, [facility] [place] [facility] [address] [id number] [address] [place] [address], [place] [address] Aug, [facility] [place] [address] [id number] [place] [id number] Jul, [facility] [place] [address] [id number] [place] [id number] June, [facility] [place] [facility] [address] [id number] [address] [place] [address], [place] [address] June, [facility] [place] [address] [id number] [place] [id number] May, [facility] [address] [id number] [place] [id number] Apr, [facility] [address] [facility] [id number] [place] [id number] Mar, [facility] [address] [facility] [id number] [place] [id number] Feb, [facility] [address] [id number] [address] [place] [address] Jan, [facility] [address] [id number] [address] [place] [address] Dec, [facility] [address] [id number] [address] [place] [address] Nov, [facility] [id number] [place] [address] Mar, [facility] [address] [id number] [address] [place] [address] Dec, IMMUNIZATIONS No Known Immunizations SOCIAL HISTORY Never Assessed REASON FOR VISIT PLAN OF CARE VITAL SIGNS MEDICATIONS Unknown Medications RESULTS No Results PROCEDURES No Known procedures INSTRUCTIONS MEDICATIONS ADMINISTERED No Known Medications MEDICAL (GENERAL) HISTORY Type Description Date Medical History attention deficit hyperactivity disorder
--- OUTSIDE RECORDS SUMMARY | 2019-09-15 18:33 | XMS REPORT ---
Author Author Hussain DOMINGUEZ [facility] Address [address] [place] [address] Care Team Providers Care Rn Mds Name Role Phone AKI DOMINGUEZ Unavailable PROBLEMS Type Condition ICD9-CM Code FIG33-KD Code Onset Dates Condition S tatus SNOMED Code Problem Elevated blood pressure reading without diagnosi s of hypertension 796.2 Active 311908273 Problem Palpitations 785.1 Active 6029420 2 Problem Syncope and collapse 780.2 Active 901600331 Problem Insomnia, unspecified type G47.00 Act nhan 519921371 Problem ADHD (attention deficit hyperactivity disorder) 314.01 Active 287028524 Problem Psychophysiological insomnia F51.04 A ctive 848060375 Problem Vitiligo 709.01 Active 65691112 Problem Other acne 706.1 Active 53558221 Problem Depressive disorder, not elsewhere classified 311 Active 99641427 Problem Attention deficit hyperactiv ity disorder (ADHD), predominantly inattentive type F90.0 Active 14001071 ALLERGIES No Information ENCOUNTERS Encounter Location Date Diagnosis [place] [id number] [id number] [place], [place] [id number] Mar, Attention deficit hyperactivity disorder (ADHD), predominantly inattentive type F90.0 [facility] [address] [id number] [place] [id number] Feb, [facility] [address] [id number] [place] [id number] Feb, Attention deficit hyperactivity disorder (ADHD), predominantly inattentive type F90.0 [facility] [address] [id number] [place] [id number] Jan, Attention deficit hyperactivity disorder (ADHD), predominantly inattentive type F90.0 [facility] [address] [id number] [place] [id number] Dec, Attention deficit hyperactivity disorder (ADHD), predominantly inattentive type F90.0 and Psychophysiological insomnia F51.04 [facility] [place] [address] [id number] [place] [id number] Dec, Attention deficit hyperactivity disorder (ADHD), predominantly inattentive type F90.0 [facility] [place] [address] [id number] [place] [id number] Nov, Encounter for immunization Z23 [facility] [place] [address] [id number] [place] [id number] Nov, Attention deficit hyperactivity disorder (ADHD), predominantly inattentive type F90.0 [facility] [place] [address] [id number] [place] [id number] Oct, Attention deficit hyperactivity disorder (ADHD), predominantly inattentive type F90.0 and Adjustment insomnia F51.02 [facility] [place] [address] [id number] [place] [id number] Sep, Attention deficit hyperactivity disorder (ADHD), predominantly inattentive type F90.0 [facility] [place] [address] [id number] [place] [id number] Aug, Adjustment insomnia F51.02 [facility] [place] [address] [id number] [place] [id number] Jul, Attention deficit hyperactivity disorder (ADHD), predominantly inattentive type F90.0 [facility] [place] [address] [id number] [place] [id number] Jul, Adjustment insomnia F51.02 and Attention deficit hyperactivity disorder (ADHD), predominantly inattentive type F90.0 [facility] [place] [address] [id number] [place] [id number] June, Attention deficit hyperactivity disorder (ADHD), predominantly inattentive type F90.0 [facility] [place] [address] [id number] [place] [id number] June, Attention deficit hyperactivity disorder (ADHD), predominantly inattentive type F90.0 [facility] [place] [address] [id number] [place] [id number] May, Attention deficit hyperactivity disorder (ADHD), predominantly inattentive type F90.0 [facility] [place] [address] [id number] [place] [id number] Apr, Attention deficit hyperactivity disorder (ADHD), predominantly inattentive type F90.0 [facility] [place] [address] [id number] [place] [id number] Apr, [facility] [place] [address] [id number] [place] [id number] Apr, Attention deficit hyperactivity disorder (ADHD), predominantly inattentive type F90.0 [facility] [place] [address] [id number] [place] [id number] Mar, [facility] [place] [address] [id number] [place] [id number] Feb, [facility] [place] [address] [id number] [place] [id number] Jan, [facility] [place] [address] [id number] [place] [id number] Dec, [facility] [place] [address] [id number] [place] [id number] Nov, [facility] [place] [address] [id number] [place] [id number] Oct, Attention deficit hyperactivity disorder (ADHD), predominantly inattentive type F90.0 [facility] [place] [address] [id number] [place] [id number] Sep, [facility] [place] [address] [id number] [place] [id number] Aug, [facility] [place] [address] [id number] [place] [id number] Jul, Attention deficit hyperactivity disorder (ADHD), predominantly inattentive type F90.0 and Insomnia, unspecified type G47.00 [facility] [place] [address] [id number] [place] [id number] Jul, [facility] [address] [id number] [place] [id number] June, [facility] [place] [address] [id number] [place] [id number] May, Attention deficit hyperactivity disorder (ADHD), predominantly inattentive type F90.0 [facility] [place] [address] [id number] [place] [id number] Apr, [facility] [place] [address] [id number] [place] [id number] Mar, [facility] [place] [address] [id number] [place] [id number] Mar, Attention deficit hyperactivity disorder (ADHD), predominantly inattentive type F90.0 [facility] [place] [address] [id number] [place] [id number] Feb, [facility] [place] [address] [id number] [place] [id number] Feb, [facility] [address] [id number] [place] [id number] Jan, [facility] [place] [address] [id number] [place] [id number] Dec, Attention deficit hyperactivity disorder (ADHD), predominantly inattentive type F90.[address] [facility] [address] [id number] [place] [id number] Nov, [facility] [place] [address] [id number] [place] [id number] Oct, [facility] [place] [address] [id number] [place] [id number] Sep, ADHD (attention deficit hyperactivity di sorder) 314.01 [facility] [place] [address] [id number] [place] [id number] Sep, [facility] [place] [address] [id number] [place] [id number] June, [facility] [place] [address] [id number] [place] [id number] June, [facility] [address] [facility] [id number] [address] [place] [address] May, [facility] [address] [facility] [id number] [address] [place] [address] May, [facility] [place] [address] [id number] [place] [id number] Apr, [facility] [place] [facility] [address] [id number] [facility] [place] [address] Apr, [facility] [place] [address] [id number] [place] [id number] Mar, [facility] [address] [id number] [facility] [place] [address] Mar, [facility] [place] [address] [id number] [place] [id number] Feb, [facility] [address] [id number] [address] [place] [address], [place] [address] Feb, [facility] [place] [address] [id number] [place] [id number] Feb, [facility] [address] [id number] [address] [place] [address], [place] [address] Feb, [facility] [place] [address] [id number] [place] [id number] Jan, [facility] [address] [id number] [address] [place] [address], [place] [address] Jan, [facility] [place] [address] [id number] [place] [id number] Jan, [facility] [address] [id number] [address] [place] [address], [place] [address] Jan, [facility] [place] [address] [id number] [place] [id number] Dec, [facility] [address] [id number] [address] [place] [address], [place] [address] Dec, [facility] [place] [address] [id number] [place] [id number] Nov, [facility] [address] [id number] [address] [place] [address], [place] [address] Nov, [facility] [place] [address] [id number] [place] [id number] Nov, [facility] [address] [id number] [address] [place] [address], [place] [address] Nov, [facility] [place] [address] [id number] [place] [id number] Oct, [facility] [address] [id number] [address] [place] [address], [place] [address] Oct, [facility] [place] [address] [id number] [place] [id number] Oct, [facility] [address] [id number] [address] [place] [address], [place] [address] Oct, [facility] [place] [address] [id number] [place] [id number] Sep, [facility] [address] [id number] [address] [place] [address], [place] [address] Sep, [facility] [address] [id number] [address] [place] [address], [place] [address] Sep, [facility] [place] [address] [id number] [place] [id number] Sep, [facility] [address] [id number] [address] [place] [address], [place] [address] Sep, [facility] [address] [id number] [address] [place] [address], [place] [address] Sep, [facility] [address] [id number] [address] [place] [address], [place] [address] Sep, [facility] [place] [address] [id number] [place] [id number] Aug, [facility] [address] [id number] [address] [place] [address], [place] [address] Aug, [facility] [place] [address] [id number] [place] [id number] Aug, [facility] [address] [id number] [facility] [place] [address] Aug, [facility] [place] [address] [id number] [place] [id number] June, [facility] [address] [id number] [facility] [place] [address] June, [facility] [place] [address] [id number] [place] [id number] June, [facility] [address] [id number] [facility] [place] [address] June, [facility] [place] [address] [id number] [place] [id number] Apr, [facility] [address] [id number] [address] [place] [address], [place] [address] Apr, [facility] [place] [address] [id number] [place] [id number] Mar, [facility] [address] [id number] [address] [place] [address], [place] [address] Mar, [facility] [place] [address] [id number] [place] [id number] Feb, [facility] [address] [id number] [address] [place] [address], [place] [address] Feb, [facility] [place] [address] [id number] [place] [id number] Jan, [facility] [address] [id number] [address] [place] [address], [place] [address] Jan, [facility] [address] [id number] [address] [place] [address], [place] [address] Jan, [facility] [address] [id number] [address] [place] [address], [place] [address] Jan, [facility] [place] [address] [id number] [place] [id number] Jan, [facility] [address] [id number] [address] [place] [address], [place] [address] Jan, [facility] [place] [address] [id number] [place] [id number] Nov, [facility] [address] [id number] [place] [address] Nov, [facility] [place] [address] [id number] [place] [id number] Oct, [facility] [place] [address] [id number] [place] [id number] Sep, [facility] [place] [address] [id number] [place] [id number] Sep, [facility] [place] [address] [id number] [place] [id number] Jul, [facility] [place] [address] [id number] [place] [id number] Jul, [facility] [place] [address] [id number] [place] [id number] June, [facility] [place] [address] [id number] [place] [id number] May, [facility] [place] [address] [id number] [place] [id number] Apr, [facility] [place] [address] [id number] [place] [id number] Mar, [facility] [place] [address] [id number] [place] [id number] Mar, [facility] [place] [address] [id number] [place] [id number] Mar, [facility] [place] [address] [id number] [place] [id number] Feb, [facility] [place] [address] [id number] [place] [id number] Feb, [facility] [place] [address] [id number] [place] [id number] Feb, [facility] [place] [address] [id number] [place] [id number] Feb, [facility] [place] [address] [id number] [place] [id number] Feb, [facility] [place] [address] [id number] [place] [id number] Jan, [facility] [address] [id number] [address] [place] [address], [place] [address] Jan, [facility] [place] [address] [id number] [place] [id number] Dec, [facility] [address] [id number] [address] [place] [address], [place] [address] Dec, [facility] [address] [id number] [address] [place] [address] Dec, [facility] [place] [address] [id number] [place] [id number] Dec, [facility] [address] [id number] [address] [place] [address] Dec, [facility] [address] [facility] [id number] [address] [place] [address], [place] [address] Dec, [facility] [address] [id number] [address] [place] [address] Dec, [facility] [place] [address] [id number] [place] [id number] Dec, [facility] [address] [id number] [address] [place] [address] Dec, [facility] [place] [address] [id number] [place] [id number] Nov, [facility] [place] [address] [id number] [place] [id number] Sep, [facility] [place] [address] [id number] [place] [id number] Aug, [facility] [address] [id number] [address] [place] [address], [place] [address] Aug, [facility] [place] [address] [id number] [place] [id number] Jul, [facility] [place] [address] [id number] [place] [id number] June, [facility] [address] [facility] [id number] [address] [place] [address] June, [facility] [address] [id number] [place] [id number] May, [facility] [address] [id number] [place] [id number] Apr, [facility] [place] [address] [id number] [place] [id number] Mar, [facility] [place] [address] [id number] [place] [id number] Feb, [facility] [address] [facility] [id number] [address] [place] [address] Jan, [facility] [address] [facility] [id number] [address] [place] [address] Dec, [facility] [address] [place] [id number] [address] [place] [address] Nov, [facility] [address] [place] [id number] [address] [place] [address] Mar, [facility] [address] [place] [id number] [address] [place] [address] Dec, IMMUNIZATIONS No Known Immunizations SOCIAL HISTORY Never Assessed REASON FOR VISIT PLAN OF CARE VITAL SIGNS Height 67.75 in 2014-04-20 Weight 145.8 lbs 2014-04-20 Temperature 99 degrees Fahrenheit 2014-04-20 Heart Rate 90 bpm 2014-04-20 Respiratory Rate 20 2014-04-20 Blood pressure systolic 136 mmHg 2014-04-20 Blood pressure diastolic 80 mmHg 2014-04-20 MEDICATIONS Unknown Medications RESULTS No Results PROCEDURES No Known procedures INSTRUCTIONS MEDICATIONS ADMINISTERED No Known Medications MEDICAL (GENERAL) HISTORY Type Description Date Medical History attention deficit hyperactivity disorder
--- OUTSIDE RECORDS SUMMARY | 2019-09-15 18:33 | XMS REPORT ---
Author Author Hussain DOMINGUEZ [facility] Address [address] [place] [address] Care Team Providers Care [facility] Supervisor Name Role Phone AKI DOMINGUEZ Unavailable PROBLEMS Type Condition ICD9-CM Code [id number] Code Onset Dates Condition S tatus SNOMED Code Problem Elevated blood pressure reading without diagnosi s of hypertension 796.2 Active 044210716 Problem Palpitations 785.1 Active 9426349 2 Problem Syncope and collapse 780.2 Active 434994560 Problem Insomnia, unspecified type G47.00 Act nhan 752402193 Problem ADHD (attention deficit hyperactivity disorder) 314.01 Active 686654201 Problem Psychophysiological insomnia F51.04 A ctive 442240045 Problem Vitiligo 709.01 Active 52724066 Problem Other acne 706.1 Active 88543402 Problem Depressive disorder, not elsewhere classified 311 Active 66962663 Problem Attention deficit hyperactiv ity disorder (ADHD), predominantly inattentive type F90.0 Active 04249274 ALLERGIES No Information ENCOUNTERS Encounter Location Date Diagnosis [place] [id number] [id number] [place] [id number] Mar, Attention deficit hyperactivity disorder (ADHD), predominantly inattentive type F90.0 [facility] [address] [id number] [place] [id number] Feb, [facility] [address] [id number] [place] [id number] Feb, Attention deficit hyperactivity disorder (ADHD), predominantly inattentive type F90.0 [facility] [address] [id number] [place] [id number] Jan, Attention deficit hyperactivity disorder (ADHD), predominantly inattentive type F90.0 [facility] [address] [id number] [place] [id number] Dec, Attention deficit hyperactivity disorder (ADHD), predominantly inattentive type F90.0 and Psychophysiological insomnia F51.04 [facility] [place] [address] [id number] [place] [id number] Dec, Attention deficit hyperactivity disorder (ADHD), predominantly inattentive type F90.0 [facility] [place] [address] [id number] [place] [id number] Nov, Encounter for immunization Z23 [facility] [place] [address] [id number] [place] [id number] Nov, Attention deficit hyperactivity disorder (ADHD), predominantly inattentive type F90.0 [facility] [place] [address] [id number] [place] [id number] Oct, Attention deficit hyperactivity disorder (ADHD), predominantly inattentive type F90.0 and Adjustment insomnia F51.02 [facility] [place] [address] [id number] [place] [id number] Sep, Attention deficit hyperactivity disorder (ADHD), predominantly inattentive type F90.0 [facility] [place] [address] [id number] [place] [id number] Aug, Adjustment insomnia F51.02 [facility] [place] [address] [id number] [place] [id number] Jul, Attention deficit hyperactivity disorder (ADHD), predominantly inattentive type F90.0 [facility] [place] [address] [id number] [place] [id number] Jul, Adjustment insomnia F51.02 and Attention deficit hyperactivity disorder (ADHD), predominantly inattentive type F90.0 [facility] [place] [address] [id number] [place] [id number] June, Attention deficit hyperactivity disorder (ADHD), predominantly inattentive type F90.0 [facility] [place] [address] [id number] [place] [id number] June, Attention deficit hyperactivity disorder (ADHD), predominantly inattentive type F90.0 [facility] [place] [address] [id number] [place] [id number] May, Attention deficit hyperactivity disorder (ADHD), predominantly inattentive type F90.0 [facility] [place] [address] [id number] [place] [id number] Apr, Attention deficit hyperactivity disorder (ADHD), predominantly inattentive type F90.0 [facility] [place] [address] [id number] [place] [id number] Apr, [facility] [place] [address] [id number] [place] [id number] Apr, Attention deficit hyperactivity disorder (ADHD), predominantly inattentive type F90.0 [facility] [place] [address] [id number] [place] [id number] Mar, [facility] [place] [address] [id number] [place] [id number] Feb, [facility] [place] [address] [id number] [place] [id number] Jan, [facility] [place] [address] [id number] [place] [id number] Dec, [facility] [place] [address] [id number] [place] [id number] Nov, [facility] [place] [address] [id number] [place] [id number] Oct, Attention deficit hyperactivity disorder (ADHD), predominantly inattentive type F90.0 [facility] [place] [address] [id number] [place] [id number] Sep, [facility] [place] [address] [id number] [place] [id number] Aug, [facility] [place] [address] [id number] [place] [id number] Jul, Attention deficit hyperactivity disorder (ADHD), predominantly inattentive type F90.0 and Insomnia, unspecified type G47.00 [facility] [place] [address] [id number] [place] [id number] Jul, [facility] [address] [id number] [place] [id number] June, [facility] [place] [address] [id number] [place] [id number] May, Attention deficit hyperactivity disorder (ADHD), predominantly inattentive type F90.0 [facility] [place] [address] [id number] [place] [id number] Apr, [facility] [place] [address] [id number] [place] [id number] Mar, [facility] [place] [address] [id number] [place] [id number] Mar, Attention deficit hyperactivity disorder (ADHD), predominantly inattentive type F90.0 [facility] [place] [address] [id number] [place] [id number] Feb, [facility] [place] [address] [id number] [place] [id number] Feb, [facility] [address] [id number] [facility] [place] [id number] Jan, [facility] [place] [address] [id number] [place] [id number] Dec, Attention deficit hyperactivity disorder (ADHD), predominantly inattentive type F90.[address] [facility] [address] [id number] [facility] [place] [id number] Nov, [facility] [place] [address] [id number] [place] [id number] Oct, [facility] [place] [address] [id number] [place] [id number] Sep, ADHD (attention deficit hyperactivity di sorder) 314.01 [facility] [place] [address] [id number] [place] [id number] Sep, [facility] [place] [address] [id number] [place] [id number] June, [facility] [place] [address] [id number] [place] [id number] June, [facility] [address] [facility] [id number] [address] [place] [address] May, [facility] [address] [facility] [id number] [address] [place] [address] May, [facility] [place] [address] [id number] [place] [id number] Apr, [facility] [place] [address] [id number] [facility] [place] [place] [address] Apr, [facility] [place] [address] [id number] [place] [id number] Mar, [facility] [address] [id number] [facility] [place] [address] Mar, [facility] [place] [address] [id number] [place] [id number] Feb, [facility] [address] [id number] [address] [place] [address], [place] [address] Feb, [facility] [place] [address] [id number] [place] [id number] Feb, [facility] [address] [id number] [address] [place] [address], [place] [address] Feb, [facility] [place] [address] [id number] [place] [id number] Jan, [facility] [address] [id number] [address] [place] [address], [place] [address] Jan, [facility] [place] [address] [id number] [place] [id number] Jan, [facility] [address] [id number] [address] [place] [address], [place] [address] Jan, [facility] [place] [address] [id number] [place] [id number] Dec, [facility] [address] [id number] [address] [place] [address], [place] [address] Dec, [facility] [place] [address] [id number] [place] [id number] Nov, [facility] [address] [id number] [address] [place] [address], [place] [address] Nov, [facility] [place] [address] [id number] [place] [id number] Nov, [facility] [address] [id number] [address] [place] [address], [place] [address] Nov, [facility] [place] [address] [id number] [place] [id number] Oct, [facility] [address] [id number] [address] [place] [address], [place] [address] Oct, [facility] [place] [address] [id number] [place] [id number] Oct, [facility] [address] [id number] [address] [place] [address], [place] [address] Oct, [facility] [place] [address] [id number] [place] [id number] Sep, [facility] [address] [id number] [address] [place] [address], [place] [address] Sep, [facility] [address] [id number] [address] [place] [address], [place] [address] Sep, [facility] [place] [address] [id number] [place] [id number] Sep, [facility] [address] [id number] [address] [place] [address], [place] [address] Sep, [facility] [address] [id number] [address] [place] [address], [place] [address] Sep, [facility] [address] [id number] [address] [place] [address], [place] [address] Sep, [facility] [place] [address] [id number] [place] [id number] Aug, [facility] [address] [id number] [address] [place] [address], [place] [address] Aug, [facility] [place] [address] [id number] [place] [id number] Aug, [facility] [address] [id number] [facility] [place] [address] Aug, [facility] [place] [address] [id number] [place] [id number] June, [facility] [address] [id number] [facility] [place] [address] June, [facility] [place] [address] [id number] [place] [id number] June, [facility] [address] [id number] [facility] [place] [address] June, [facility] [place] [address] [id number] [place] [id number] Apr, [facility] [address] [id number] [address] [place] [address], [place] [address] Apr, [facility] [place] [address] [id number] [place] [id number] Mar, [facility] [address] [id number] [address] [place] [address], [place] [address] Mar, [facility] [place] [address] [id number] [place] [id number] Feb, [facility] [address] [id number] [address] [place] [address], [place] [address] Feb, [facility] [place] [address] [id number] [place] [id number] Jan, [facility] [address] [id number] [address] [place] [address], [place] [address] Jan, [facility] [address] [id number] [address] [place] [address], [place] [address] Jan, [facility] [address] [id number] [address] [place] [address], [place] [address] Jan, [facility] [place] [address] [id number] [place] [id number] Jan, [facility] [address] [id number] [address] [place] [address], [place] [address] Jan, [facility] [place] [address] [id number] [place] [id number] Nov, [facility] [address] [id number] [address] [address] Nov, [facility] [place] [address] [id number] [place] [id number] Oct, [facility] [place] [address] [id number] [place] [id number] Sep, [facility] [place] [address] [id number] [place] [id number] Sep, [facility] [place] [address] [id number] [place] [id number] Jul, [facility] [place] [address] [id number] [place] [id number] Jul, [facility] [place] [address] [id number] [place] [id number] June, [facility] [place] [address] [id number] [place] [id number] May, [facility] [place] [address] [id number] [place] [id number] Apr, [facility] [place] [address] [id number] [place] [id number] Mar, [facility] [place] [address] [id number] [place] [id number] Mar, [facility] [place] [address] [id number] [place] [id number] Mar, [facility] [place] [address] [id number] [place] [id number] Feb, [facility] [place] [address] [id number] [place] [id number] Feb, [facility] [place] [address] [id number] [place] [id number] Feb, [facility] [place] [address] [id number] [place] [id number] Feb, [facility] [place] [address] [id number] [place] [id number] Feb, [facility] [place] [address] [id number] [place] [id number] Jan, [facility] [address] [id number] [address] [place] [address], [place] [address] Jan, [facility] [place] [address] [id number] [place] [id number] Dec, [facility] [address] [id number] [address] [place] [address], [place] [address] Dec, [facility] [address] [id number] [address] [place] [address] Dec, [facility] [place] [address] [id number] [place] [id number] Dec, [facility] [address] [id number] [address] [place] [address] Dec, [facility] [address] [facility] [id number] [address] [place] [address], [place] [address] Dec, [facility] [address] [id number] [address] [place] [address] Dec, [facility] [place] [address] [id number] [place] [id number] Dec, [facility] [address] [id number] [address] [place] [address] Dec, [facility] [place] [address] [id number] [place] [id number] Nov, [facility] [place] [address] [id number] [place] [id number] Sep, [facility] [place] [address] [id number] [place] [id number] Aug, [facility] [address] [id number] [address] [place] [address], [place] [address] Aug, [facility] [place] [address] [id number] [place] [id number] Jul, [facility] [place] [address] [id number] [place] [id number] June, [facility] [address] [facility] [id number] [address] [place] [address] June, [facility] [place] [address] [id number] [place] [id number] May, [facility] [place] [address] [facility] [id number] [place] [id number] Apr, [facility] [place] [address] [facility] [id number] [place] [id number] Mar, [facility] [place] [address] [facility] [id number] [place] [id number] Feb, [facility] [address] [place] [id number] [place] [address] Jan, [facility] [address] [place] [id number] [address] [place] [address] Dec, [facility] [address] [place] [id number] [address] [place] [address] Nov, [facility] [address] [id number] [address] [place] [address] Mar, [facility] [address] [place] [place] [id number] [address] [place] [address] Dec, IMMUNIZATIONS No Known Immunizations SOCIAL HISTORY Never Assessed REASON FOR VISIT PLAN OF CARE VITAL SIGNS MEDICATIONS Unknown Medications RESULTS No Results PROCEDURES No Known procedures INSTRUCTIONS MEDICATIONS ADMINISTERED No Known Medications MEDICAL (GENERAL) HISTORY Type Description Date Medical History attention deficit hyperactivity disorder
--- OUTSIDE RECORDS SUMMARY | 2019-09-15 18:34 | XMS REPORT ---
Author Author Hussain Toro Doctor Organization [facility] Address Unknown Phone Unavailable Care Team Providers Care Data Steward Name Role Phone Migration, Doctor Unavailable Unavailable PROBLEMS Type Condition ICD9-CM Code TNE87-HN Code Onset Dates Condition S tatus SNOMED Code Problem Elevated blood pressure reading without diagnosi s of hypertension 796.2 Active 557083607 Problem Palpitations 785.1 Active 2133190 2 Problem Syncope and collapse 780.2 Active 095425393 Problem Insomnia, unspecified type G47.00 Act nhan 949659076 Problem ADHD (attention deficit hyperactivity disorder) 314.01 Active 184012834 Problem Psychophysiological insomnia F51.04 A ctive 772727502 Problem Vitiligo 709.01 Active 32333301 Problem Other acne 706.1 Active 33708108 Problem Depressive disorder, not elsewhere classified 311 Active 57816905 Problem Attention deficit hyperactiv ity disorder (ADHD), predominantly inattentive type F90.0 Active 70911027 ALLERGIES No Information ENCOUNTERS Encounter Location Date Diagnosis [facility] [place] [id number] [id number] [id number] 07 Mar, 2017 Attention deficit hyperactivity disorder (ADHD), predominantly inattentive type F90.0 [facility] [address] [id number] [place] [id number] Feb, [facility] [address] [id number] [place] [id number] Feb, Attention deficit hyperactivity disorder (ADHD), predominantly inattentive type F90.0 [facility] [address] [id number] [place] [id number] Jan, Attention deficit hyperactivity disorder (ADHD), predominantly inattentive type F90.0 [facility] [address] [id number] [place] [id number] Dec, Attention deficit hyperactivity disorder (ADHD), predominantly inattentive type F90.0 and Psychophysiological insomnia F51.04 [facility] [place] [address] [id number] [place] [id number] Dec, Attention deficit hyperactivity disorder (ADHD), predominantly inattentive type F90.0 [facility] [place] [address] [id number] [place] [id number] Nov, Encounter for immunization Z23 [facility] [place] [address] [id number] [place] [id number] Nov, Attention deficit hyperactivity disorder (ADHD), predominantly inattentive type F90.0 [facility] [place] [address] [id number] [place] [id number] Oct, Attention deficit hyperactivity disorder (ADHD), predominantly inattentive type F90.0 and Adjustment insomnia F51.02 [facility] [place] [address] [id number] [place] [id number] Sep, Attention deficit hyperactivity disorder (ADHD), predominantly inattentive type F90.0 [facility] [place] [address] [id number] [place] [id number] Aug, Adjustment insomnia F51.02 [facility] [place] [address] [id number] [place] [id number] Jul, Attention deficit hyperactivity disorder (ADHD), predominantly inattentive type F90.0 [facility] [place] [address] [id number] [place] [id number] Jul, Adjustment insomnia F51.02 and Attention deficit hyperactivity disorder (ADHD), predominantly inattentive type F90.0 [facility] [place] [address] [id number] [place] [id number] June, Attention deficit hyperactivity disorder (ADHD), predominantly inattentive type F90.0 [facility] [place] [address] [id number] [place] [id number] June, Attention deficit hyperactivity disorder (ADHD), predominantly inattentive type F90.0 [facility] [place] [address] [id number] [place] [id number] May, Attention deficit hyperactivity disorder (ADHD), predominantly inattentive type F90.0 [facility] [place] [address] [id number] [place] [id number] Apr, Attention deficit hyperactivity disorder (ADHD), predominantly inattentive type F90.0 [facility] [place] [address] [id number] [place] [id number] Apr, [facility] [place] [address] [id number] [place] [id number] Apr, Attention deficit hyperactivity disorder (ADHD), predominantly inattentive type F90.0 [facility] [place] [address] [id number] [place] [id number] Mar, [facility] [place] [address] [id number] [place] [id number] Feb, [facility] [place] [address] [id number] [place] [id number] Jan, [facility] [place] [address] [id number] [place] [id number] Dec, [facility] [place] [address] [id number] [place] [id number] Nov, [facility] [place] [address] [id number] [place] [id number] Oct, Attention deficit hyperactivity disorder (ADHD), predominantly inattentive type F90.0 [facility] [place] [address] [id number] [place] [id number] Sep, [facility] [place] [address] [id number] [place] [id number] Aug, [facility] [place] [address] [id number] [place] [id number] Jul, Attention deficit hyperactivity disorder (ADHD), predominantly inattentive type F90.0 and Insomnia, unspecified type G47.00 [facility] [place] [address] [id number] [place] [id number] Jul, [facility] [address] [id number] [place] [id number] June, [facility] [place] [address] [id number] [place] [id number] May, Attention deficit hyperactivity disorder (ADHD), predominantly inattentive type F90.0 [facility] [place] [address] [id number] [place] [id number] Apr, [facility] [place] [address] [id number] [place] [id number] Mar, [facility] [place] [address] [id number] [place] [id number] Mar, Attention deficit hyperactivity disorder (ADHD), predominantly inattentive type F90.0 [facility] [place] [address] [id number] [place] [id number] Feb, [facility] [place] [address] [id number] [place] [id number] Feb, [facility] [address] [id number] [id number] Jan, [facility] [place] [address] [id number] [place] [id number] Dec, Attention deficit hyperactivity disorder (ADHD), predominantly inattentive type F90.[address] [facility] [address] [id number] [id number] Nov, [facility] [place] [address] [id number] [place] [id number] Oct, [facility] [place] [address] [id number] [place] [id number] Sep, ADHD (attention deficit hyperactivity di sorder) 314.01 [facility] [place] [address] [id number] [place] [id number] Sep, [facility] [place] [address] [id number] [place] [id number] June, [facility] [place] [address] [id number] [place] [id number] June, [facility] [address] [id number] [address] [place] [address] May, [facility] [place] [facility] [address] [facility] [id number] [address] [place] [address] May, [facility] [place] [address] [id number] [place] [id number] Apr, [facility] [place] [facility] [address] [id number] [address] [place] [address], [place] [address] Apr, [facility] [place] [address] [id number] [place] [id number] Mar, [facility] [place] [facility] [address] [id number] [address] [place] [address], [place] [address] Mar, [facility] [place] [address] [id number] [place] [id number] Feb, [facility] [place] [facility] [address] [id number] [address] [place] [address], [place] [address] Feb, [facility] [place] [address] [id number] [place] [id number] Feb, [facility] [place] [facility] [address] [facility] [id number] [address] [place] [address], [place] [address] Feb, [facility] [place] [address] [id number] [place] [id number] Jan, [facility] [place] [facility] [address] [id number] [address] [place] [id number] Jan, [facility] [place] [address] [id number] [place] [id number] Jan, [facility] [place] [facility] [address] [facility] [id number] [address] [place] [address] Jan, [facility] [place] [address] [id number] [place] [id number] Dec, [facility] [place] [facility] [address] [id number] [address] [place] [address] Dec, [facility] [place] [address] [id number] [place] [id number] Nov, [facility] [place] [facility] [address] [facility] [id number] [address] [place] [address], [place] [address] Nov, [facility] [place] [address] [id number] [place] [id number] Nov, [facility] [place] [facility] [address] [facility] [id number] [address] [place] [address] Nov, [facility] [place] [address] [id number] [place] [id number] Oct, [facility] [place] [facility] [address] [id number] [address] [place] [address], [place] [address] Oct, [facility] [place] [address] [id number] [place] [id number] Oct, [facility] [place] [facility] [address] [id number] [address] [place] [address], [place] [address] Oct, [facility] [place] [address] [id number] [place] [id number] Sep, [facility] [place] [facility] [address] [id number] [address] [place] [address], [place] [address] Sep, [facility] [place] [facility] [address] [id number] [address] [place] [address], [place] [address] Sep, [facility] [place] [address] [id number] [place] [id number] Sep, [facility] [place] [facility] [address] [id number] [address] [place] [address], [place] [address] Sep, [facility] [place] [facility] [address] [id number] [address] [place] [address], [place] [address] Sep, [facility] [place] [facility] [address] [id number] [address] [place] [address], [place] [address] Sep, [facility] [place] [address] [id number] [place] [id number] Aug, [facility] [place] [facility] [address] [id number] [address] [place] [address], [place] [address] Aug, [facility] [place] [address] [id number] [place] [id number] Aug, [facility] [place] [facility] [address] [id number] [address] [place] [address], [place] [address] Aug, [facility] [place] [address] [id number] [place] [id number] June, [facility] [place] [facility] [address] [id number] [address] [place] [address], [place] [address] June, [facility] [place] [address] [id number] [place] [id number] June, [facility] [place] [facility] [address] [id number] [address] [place] [address], [place] [address] June, [facility] [place] [address] [id number] [place] [id number] Apr, [facility] [place] [facility] [address] [id number] [address] [place] [address], [place] [address] Apr, [facility] [place] [address] [id number] [place] [id number] Mar, [facility] [place] [facility] [address] [id number] [address] [place] [address], [place] [address] Mar, [facility] [place] [address] [id number] [place] [id number] Feb, [facility] [place] [facility] [address] [id number] [address] [place] [address] Feb, [facility] [place] [address] [id number] [place] [id number] Jan, [facility] [place] [facility] [address] [facility] [id number] [address] [place] [id number] Jan, [facility] [place] [facility] [address] [facility] [id number] [address] [place] [address] Jan, [facility] [place] [facility] [address] [id number] [address] [place] [address] Jan, [facility] [place] [address] [id number] [place] [id number] Jan, [facility] [place] [facility] [address] [facility] [id number] [address] [place] [address] Jan, [facility] [place] [address] [id number] [place] [id number] Nov, [facility] [place] [facility] [address] [id number] [address] [place] [address], [place] [address] Nov, [facility] [place] [address] [id number] [place] [id number] Oct, [facility] [place] [address] [id number] [place] [id number] Sep, [facility] [place] [address] [id number] [place] [id number] Sep, [facility] [place] [address] [id number] [place] [id number] Jul, [facility] [place] [address] [id number] [place] [id number] Jul, [facility] [place] [address] [id number] [place] [id number] June, [facility] [place] [address] [id number] [place] [id number] May, [facility] [place] [address] [id number] [place] [id number] Apr, [facility] [place] [address] [id number] [place] [id number] Mar, [facility] [place] [address] [id number] [place] [id number] Mar, [facility] [place] [address] [id number] [place] [id number] Mar, [facility] [place] [address] [id number] [place] [id number] Feb, [facility] [place] [address] [id number] [place] [id number] Feb, [facility] [place] [address] [id number] [place] [id number] Feb, [facility] [place] [address] [id number] [place] [id number] Feb, [facility] [place] [address] [id number] [place] [id number] Feb, [facility] [place] [address] [id number] [place] [id number] Jan, [facility] [address] [id number] [address] [place] [address], [place] [address] Jan, [facility] [place] [address] [id number] [place] [id number] Dec, [facility] [place] [facility] [address] [id number] [address] [place] [address], [place] [address] Dec, [facility] [place] [facility] [address] [id number] [address] [place] [address], [place] [address] Dec, [facility] [place] [address] [id number] [place] [id number] Dec, [facility] [place] [facility] [address] [id number] [address] [place] [address], [place] [address] Dec, [facility] [place] [facility] [address] [facility] [id number] [address] [place] [address], [place] [address] Dec, [facility] [place] [facility] [address] [facility] [id number] [address] [place] [address], [place] [address] Dec, [facility] [place] [address] [id number] [place] [id number] Dec, [facility] [place] [facility] [address] [id number] [address] [place] [address], [place] [address] Dec, [facility] [place] [address] [id number] [place] [id number] Nov, [facility] [place] [address] [id number] [place] [id number] Sep, [facility] [place] [address] [id number] [place] [id number] Aug, [facility] [place] [facility] [address] [id number] [address] [place] [address], [place] [address] Aug, [facility] [place] [address] [id number] [place] [id number] Jul, [facility] [place] [address] [id number] [place] [id number] June, [facility] [place] [facility] [address] [id number] [address] [place] [address], [place] [address] June, [facility] [place] [address] [id number] [place] [id number] May, [facility] [place] [address] [id number] [place] [id number] Apr, [facility] [place] [address] [id number] [place] [id number] Mar, [facility] [address] [id number] [place] [id number] Feb, [facility] [place] [facility] [address] [facility] [id number] [address] [place] [address] Jan, [facility] [place] [facility] [address] [facility] [id number] [address] [place] [address] Dec, [facility] [place] [facility] [address] [facility] [id number] [address] [place] [address] Nov, [facility] [place] [facility] [address] [facility] [id number] [address] [place] [address] Mar, [facility] [place] [facility] [address] [facility] [id number] [address] [place] [address] Dec, IMMUNIZATIONS No Known Immunizations SOCIAL HISTORY Never Assessed REASON FOR VISIT [facility] PLAN OF CARE VITAL SIGNS MEDICATIONS Medication Instructions Dosage Frequency Start Date End Date Duration S tatus Adderall XR 30 mg take 1 capsule by Or al route in the morning 1 time per day upon awakening Apr, Active Clindamycin HCl 300 mg 1 capsule by Oral route every 1 2 hours for 10 day(s) Dec, Active minocycline 50 mg 1 tablet by Oral route 1 time per da y for 30 day(s) May, Active Doxycycline Hyclate 100 mg 1 tablet by Oral rout e 2 times per day for 10 days Jan, Active trazodone 50 mg take 1 tablet by Ora l route 1 time per day at bedtime Take at HS 14 Feb, 2014 Active Promethazine-Codeine 6.25-10 mg/5 mL 5 mL by Oral rout e every 8 hours Feb, Active Catapres 0.1 mg take 1 tablet (0.1 mg) by oral route o nce daily Jan, Active Pen-Vee K V potassium 500 mg take 1 tabl et by Oral route 2 times per day for 10 days Apr, Active Benzonatate 100 mg 1 capsule 3 times per day PRN Feb, Active Retin-A 0.025 % apply 1 Application to the affected area(s) by Topical route 1 time per day for 30 days Sep, A ctive RESULTS No Results PROCEDURES No Known procedures INSTRUCTIONS MEDICATIONS ADMINISTERED No Known Medications MEDICAL (GENERAL) HISTORY Type Description Date Medical History attention deficit hyperactivity disorder
--- OUTSIDE RECORDS SUMMARY | 2019-09-15 18:34 | XMS REPORT ---
Author Author Hussain Toro Doctor Organization [facility] Address Unknown Phone Unavailable Care Team Providers [facility] Name Role Phone Migration, Doctor Unavailable Unavailable PROBLEMS Type Condition ICD9-CM Code [id number] Code Onset Dates Condition S tatus SNOMED Code Problem Elevated blood pressure reading without diagnosi s of hypertension 796.2 Active 466536747 Problem Palpitations 785.1 Active 6246835 2 Problem Syncope and collapse 780.2 Active 668225343 Problem Insomnia, unspecified type G47.00 Act nhan 646082051 Problem ADHD (attention deficit hyperactivity disorder) 314.01 Active 807493699 Problem Psychophysiological insomnia F51.04 A ctive 837116582 Problem Vitiligo 709.01 Active 82672052 Problem Other acne 706.1 Active 73312312 Problem Depressive disorder, not elsewhere classified 311 Active 88813868 Problem Attention deficit hyperactiv ity disorder (ADHD), predominantly inattentive type F90.0 Active 40078827 ALLERGIES No Information ENCOUNTERS Encounter Location Date Diagnosis [facility] [place] [id number] [id number] [id number] 07 Mar, 2017 Attention deficit hyperactivity disorder (ADHD), predominantly inattentive type F90.0 [facility] [address] [id number] [place] [id number] Feb, [facility] [address] [id number] [place] [id number] Feb, Attention deficit hyperactivity disorder (ADHD), predominantly inattentive type F90.0 [facility] [address] [id number] [place] [id number] Jan, Attention deficit hyperactivity disorder (ADHD), predominantly inattentive type F90.0 [facility] [address] [id number] [place] [id number] Dec, Attention deficit hyperactivity disorder (ADHD), predominantly inattentive type F90.0 and Psychophysiological insomnia F51.04 [facility] [place] [address] [id number] [place] [id number] Dec, Attention deficit hyperactivity disorder (ADHD), predominantly inattentive type F90.0 [facility] [place] [address] [id number] [place] [id number] Nov, Encounter for immunization Z23 [facility] [place] [address] [id number] [place] [id number] Nov, Attention deficit hyperactivity disorder (ADHD), predominantly inattentive type F90.0 [facility] [place] [address] [id number] [place] [id number] Oct, Attention deficit hyperactivity disorder (ADHD), predominantly inattentive type F90.0 and Adjustment insomnia F51.02 [facility] [place] [address] [id number] [place] [id number] Sep, Attention deficit hyperactivity disorder (ADHD), predominantly inattentive type F90.0 [facility] [place] [address] [id number] [place] [id number] Aug, Adjustment insomnia F51.02 [facility] [place] [address] [id number] [place] [id number] Jul, Attention deficit hyperactivity disorder (ADHD), predominantly inattentive type F90.0 [facility] [place] [address] [id number] [place] [id number] Jul, Adjustment insomnia F51.02 and Attention deficit hyperactivity disorder (ADHD), predominantly inattentive type F90.0 [facility] [place] [address] [id number] [place] [id number] June, Attention deficit hyperactivity disorder (ADHD), predominantly inattentive type F90.0 [facility] [place] [address] [id number] [place] [id number] June, Attention deficit hyperactivity disorder (ADHD), predominantly inattentive type F90.0 [facility] [place] [address] [id number] [place] [id number] May, Attention deficit hyperactivity disorder (ADHD), predominantly inattentive type F90.0 [facility] [place] [address] [id number] [place] [id number] Apr, Attention deficit hyperactivity disorder (ADHD), predominantly inattentive type F90.0 [facility] [place] [address] [id number] [place] [id number] Apr, [facility] [place] [address] [id number] [place] [id number] Apr, Attention deficit hyperactivity disorder (ADHD), predominantly inattentive type F90.0 [facility] [place] [address] [id number] [place] [id number] Mar, [facility] [place] [address] [id number] [place] [id number] Feb, [facility] [place] [address] [id number] [place] [id number] Jan, [facility] [place] [address] [id number] [place] [id number] Dec, [facility] [place] [address] [id number] [place] [id number] Nov, [facility] [place] [address] [id number] [place] [id number] Oct, Attention deficit hyperactivity disorder (ADHD), predominantly inattentive type F90.0 [facility] [place] [address] [id number] [place] [id number] Sep, [facility] [address] [id number] [place] [id number] Aug, [facility] [place] [address] [id number] [place] [id number] Jul, Attention deficit hyperactivity disorder (ADHD), predominantly inattentive type F90.0 and Insomnia, unspecified type G47.00 [facility] [place] [address] [id number] [place] [id number] Jul, [facility] [address] [id number] [place] [id number] June, [facility] [place] [address] [id number] [place] [id number] May, Attention deficit hyperactivity disorder (ADHD), predominantly inattentive type F90.0 [facility] [place] [address] [id number] [place] [id number] Apr, [facility] [place] [address] [id number] [place] [id number] Mar, [facility] [place] [address] [id number] [place] [id number] Mar, Attention deficit hyperactivity disorder (ADHD), predominantly inattentive type F90.0 [facility] [place] [address] [id number] [place] [id number] Feb, [facility] [place] [address] [id number] [place] [id number] Feb, [facility] [address] [id number] [id number] Jan, [facility] [place] [address] [id number] [place] [id number] Dec, Attention deficit hyperactivity disorder (ADHD), predominantly inattentive type F90.[address] [facility] [address] [id number] [id number] Nov, [facility] [place] [address] [id number] [place] [id number] Oct, [facility] [place] [address] [id number] [place] [id number] Sep, ADHD (attention deficit hyperactivity di sorder) 314.01 [facility] [place] [address] [id number] [place] [id number] Sep, [facility] [place] [address] [id number] [place] [id number] June, [facility] [place] [address] [id number] [place] [id number] June, [facility] [id number] [address] [place] [address] May, [facility] [address] [facility] [id number] [address] [place] [address] May, [facility] [place] [address] [id number] [place] [id number] Apr, [facility] [address] [id number] [address] [place] [address], [place] [address] Apr, [facility] [place] [address] [id number] [place] [id number] Mar, [facility] [address] [id number] [address] [place] [address], [place] [id number] Mar, [facility] [place] [address] [id number] [place] [id number] Feb, [facility] [address] [id number] [address] [place] [address], [place] [id number] Feb, [facility] [place] [address] [id number] [place] [id number] Feb, [facility] [address] [facility] [id number] [address] [place] [address], [place] [id number] Feb, [facility] [place] [address] [id number] [place] [id number] Jan, [facility] [address] [id number] [address] [place] [id number] Jan, [facility] [place] [address] [id number] [place] [id number] Jan, [facility] [address] [facility] [id number] [address] [place] [id number] Jan, [facility] [place] [address] [id number] [place] [id number] Dec, [facility] [address] [id number] [address] [place] [address] Dec, [facility] [place] [address] [id number] [place] [id number] Nov, [facility] [address] [facility] [id number] [address] [place] [address], [place] [id number] Nov, [facility] [place] [address] [id number] [place] [id number] Nov, [facility] [address] [facility] [id number] [address] [place] [id number] Nov, [facility] [place] [address] [id number] [place] [id number] Oct, [facility] [address] [id number] [address] [place] [address], [place] [id number] Oct, [facility] [place] [address] [id number] [place] [id number] Oct, [facility] [address] [id number] [address] [place] [address], [place] [id number] Oct, [facility] [place] [address] [id number] [place] [id number] Sep, [facility] [address] [id number] [address] [place] [address], [place] [address] Sep, [facility] [address] [id number] [address] [place] [address], [place] [id number] Sep, [facility] [place] [address] [id number] [place] [id number] Sep, [facility] [address] [id number] [address] [place] [address], [place] [id number] Sep, [facility] [address] [id number] [address] [place] [address], [place] [id number] Sep, [facility] [address] [id number] [address] [place] [address], [place] [id number] Sep, [facility] [place] [address] [id number] [place] [id number] Aug, [facility] [address] [id number] [address] [place] [address], [place] [id number] Aug, [facility] [place] [address] [id number] [place] [id number] Aug, [facility] [address] [id number] [address] [place] [address], [place] [id number] Aug, [facility] [place] [address] [id number] [place] [id number] June, [facility] [address] [id number] [address] [place] [address], [place] [id number] June, [facility] [place] [address] [id number] [place] [id number] June, [facility] [address] [id number] [address] [place] [address], [place] [id number] June, [facility] [place] [address] [id number] [place] [id number] Apr, [facility] [address] [id number] [address] [place] [address], [place] [id number] Apr, [facility] [place] [address] [id number] [place] [id number] Mar, [facility] [address] [id number] [address] [place] [address], [place] [id number] Mar, [facility] [place] [address] [id number] [place] [id number] Feb, [facility] [address] [id number] [address] [place] [id number] Feb, [facility] [place] [address] [id number] [place] [id number] Jan, [facility] [address] [facility] [id number] [address] [place] [id number] Jan, [facility] [address] [facility] [id number] [address] [place] [id number] Jan, [facility] [address] [id number] [address] [place] [address] Jan, [facility] [place] [address] [id number] [place] [id number] Jan, [facility] [address] [facility] [id number] [address] [place] [id number] Jan, [facility] [place] [address] [id number] [place] [id number] Nov, [facility] [address] [id number] [address] [place] [address], [place] [id number] Nov, [facility] [place] [address] [id number] [place] [id number] Oct, [facility] [place] [address] [id number] [place] [id number] Sep, [facility] [place] [address] [id number] [place] [id number] Sep, [facility] [place] [address] [id number] [place] [id number] Jul, [facility] [place] [address] [id number] [place] [id number] Jul, [facility] [place] [address] [id number] [place] [id number] June, [facility] [place] [address] [id number] [place] [id number] May, [facility] [place] [address] [id number] [place] [id number] Apr, [facility] [place] [address] [id number] [place] [id number] Mar, [facility] [place] [address] [id number] [place] [id number] Mar, [facility] [place] [address] [id number] [place] [id number] Mar, [facility] [place] [address] [id number] [place] [id number] Feb, [facility] [place] [address] [id number] [place] [id number] Feb, [facility] [place] [address] [id number] [place] [id number] Feb, [facility] [place] [address] [id number] [place] [id number] Feb, [facility] [place] [address] [id number] [place] [id number] Feb, [facility] [place] [address] [id number] [place] [id number] Jan, [facility] [address] [id number] [address] [place] [address], [place] [address] Jan, [facility] [place] [address] [id number] [place] [id number] Dec, [facility] [address] [id number] [address] [place] [address], [place] [id number] Dec, [facility] [address] [id number] [address] [place] [address], [place] [id number] Dec, [facility] [place] [address] [id number] [place] [id number] Dec, [facility] [address] [id number] [address] [place] [address], [place] [id number] Dec, [facility] [address] [facility] [id number] [address] [place] [address], [place] [id number] Dec, [facility] [address] [facility] [id number] [address] [place] [address], [place] [address] Dec, [facility] [place] [address] [id number] [place] [id number] Dec, [facility] [address] [id number] [address] [place] [address], [place] [address] Dec, [facility] [place] [address] [id number] [place] [id number] Nov, [facility] [place] [address] [id number] [place] [id number] Sep, [facility] [place] [address] [id number] [place] [id number] Aug, [facility] [address] [id number] [address] [place] [address], [place] [address] Aug, [facility] [place] [address] [id number] [place] [id number] Jul, [facility] [place] [address] [id number] [place] [id number] June, [facility] [address] [id number] [address] [place] [address], [place] [address] June, [facility] [place] [address] [id number] [place] [id number] May, [facility] [address] [id number] [place] [id number] Apr, [facility] [address] [facility] [id number] [place] [id number] Mar, [facility] [address] [facility] [id number] [place] [id number] Feb, [facility] [address] [id number] [address] [place] [address] Jan, [facility] [address] [id number] [address] [place] [address] Dec, [facility] [address] [id number] [address] [place] [address] Nov, [facility] [id number] [place] [address] Mar, [facility] [address] [id number] [address] [place] [address] Dec, IMMUNIZATIONS No Known Immunizations SOCIAL HISTORY Never Assessed REASON FOR VISIT EMR-[facility] PLAN OF CARE VITAL SIGNS MEDICATIONS Unknown Medications RESULTS No Results PROCEDURES No Known procedures INSTRUCTIONS MEDICATIONS ADMINISTERED No Known Medications MEDICAL (GENERAL) HISTORY Type Description Date Medical History attention deficit hyperactivity disorder
--- OUTSIDE RECORDS SUMMARY | 2019-09-15 18:34 | XMS REPORT ---
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 Helper Name Role Phone Migration, Doctor Unavailable Unavailable PROBLEMS Type Condition ICD9-CM Code LUT77-JT Code Onset Dates Condition S tatus SNOMED Code Problem Elevated blood pressure reading without diagnosi s of hypertension 796.2 Active 777940616 Problem Palpitations 785.1 Active 7633841 2 Problem Syncope and collapse 780.2 Active 492301950 Problem Insomnia, unspecified type G47.00 Act nhan 801640421 Problem ADHD (attention deficit hyperactivity disorder) 314.01 Active 821376615 Problem Psychophysiological insomnia F51.04 A ctive 040802534 Problem Vitiligo 709.01 Active 13451312 Problem Other acne 706.1 Active 18509877 Problem Depressive disorder, not elsewhere classified 311 Active 89394314 Problem Attention deficit hyperactiv ity disorder (ADHD), predominantly inattentive type F90.0 Active 42283752 ALLERGIES No Information ENCOUNTERS Encounter Location Date Diagnosis [facility] [place] [id number] [id number] [id number] 07 Mar, 2017 Attention deficit hyperactivity disorder (ADHD), predominantly inattentive type F90.0 [facility] [address] [id number] [place] [id number] Feb, [facility] [address] [id number] [place] [id number] Feb, Attention deficit hyperactivity disorder (ADHD), predominantly inattentive type F90.0 [facility] [address] [id number] [place] [id number] Jan, Attention deficit hyperactivity disorder (ADHD), predominantly inattentive type F90.0 [facility] [address] [id number] [place] [id number] Dec, Attention deficit hyperactivity disorder (ADHD), predominantly inattentive type F90.0 and Psychophysiological insomnia F51.04 [facility] [place] [address] [id number] [place] [id number] Dec, Attention deficit hyperactivity disorder (ADHD), predominantly inattentive type F90.0 [facility] [place] [address] [id number] [place] [id number] Nov, Encounter for immunization Z23 [facility] [place] [address] [id number] [place] [id number] Nov, Attention deficit hyperactivity disorder (ADHD), predominantly inattentive type F90.0 [facility] [place] [address] [id number] [place] [id number] Oct, Attention deficit hyperactivity disorder (ADHD), predominantly inattentive type F90.0 and Adjustment insomnia F51.02 [facility] [place] [address] [id number] [place] [id number] Sep, Attention deficit hyperactivity disorder (ADHD), predominantly inattentive type F90.0 [facility] [place] [address] [id number] [place] [id number] Aug, Adjustment insomnia F51.02 [facility] [place] [address] [id number] [place] [id number] Jul, Attention deficit hyperactivity disorder (ADHD), predominantly inattentive type F90.0 [facility] [place] [address] [id number] [place] [id number] Jul, Adjustment insomnia F51.02 and Attention deficit hyperactivity disorder (ADHD), predominantly inattentive type F90.0 [facility] [place] [address] [id number] [place] [id number] June, Attention deficit hyperactivity disorder (ADHD), predominantly inattentive type F90.0 [facility] [place] [address] [id number] [place] [id number] June, Attention deficit hyperactivity disorder (ADHD), predominantly inattentive type F90.0 [facility] [place] [address] [id number] [place] [id number] May, Attention deficit hyperactivity disorder (ADHD), predominantly inattentive type F90.0 [facility] [place] [address] [id number] [place] [id number] Apr, Attention deficit hyperactivity disorder (ADHD), predominantly inattentive type F90.0 [facility] [place] [address] [id number] [place] [id number] Apr, [facility] [place] [address] [id number] [place] [id number] Apr, Attention deficit hyperactivity disorder (ADHD), predominantly inattentive type F90.0 [facility] [place] [address] [id number] [place] [id number] Mar, [facility] [place] [address] [id number] [place] [id number] Feb, [facility] [place] [address] [id number] [place] [id number] Jan, [facility] [place] [address] [id number] [place] [id number] Dec, [facility] [place] [address] [id number] [place] [id number] Nov, [facility] [place] [address] [id number] [place] [id number] Oct, Attention deficit hyperactivity disorder (ADHD), predominantly inattentive type F90.0 [facility] [place] [address] [id number] [place] [id number] Sep, [facility] [place] [address] [id number] [place] [id number] Aug, [facility] [place] [address] [id number] [place] [id number] Jul, Attention deficit hyperactivity disorder (ADHD), predominantly inattentive type F90.0 and Insomnia, unspecified type G47.00 [facility] [place] [address] [id number] [place] [id number] Jul, [facility] [address] [id number] [place] [id number] June, [facility] [place] [address] [id number] [place] [id number] May, Attention deficit hyperactivity disorder (ADHD), predominantly inattentive type F90.0 [facility] [place] [address] [id number] [place] [id number] Apr, [facility] [place] [address] [id number] [place] [id number] Mar, [facility] [place] [address] [id number] [place] [id number] Mar, Attention deficit hyperactivity disorder (ADHD), predominantly inattentive type F90.0 [facility] [place] [address] [id number] [place] [id number] Feb, [facility] [place] [address] [id number] [place] [id number] Feb, [facility] [address] [id number] [id number] Jan, [facility] [place] [address] [id number] [place] [id number] Dec, Attention deficit hyperactivity disorder (ADHD), predominantly inattentive type F90.[address] [facility] [address] [id number] [id number] Nov, [facility] [place] [address] [id number] [place] [id number] Oct, [facility] [place] [address] [id number] [place] [id number] Sep, ADHD (attention deficit hyperactivity di sorder) 314.01 [facility] [place] [address] [id number] [place] [id number] Sep, [facility] [place] [address] [id number] [place] [id number] June, [facility] [place] [address] [id number] [place] [id number] June, [facility] [address] [id number] [address] [place] [address] May, [facility] [address] [facility] [id number] [address] [place] [address] May, [facility] [place] [address] [id number] [place] [id number] Apr, [facility] [address] [id number] [address] [place] [address], [place] [address] Apr, [facility] [place] [address] [id number] [place] [id number] Mar, [facility] [address] [id number] [address] [place] [address], [place] [address] Mar, [facility] [place] [address] [id number] [place] [id number] Feb, [facility] [address] [id number] [address] [place] [address], [place] [address] Feb, [facility] [place] [address] [id number] [place] [id number] Feb, [facility] [address] [facility] [id number] [address] [place] [address], [place] [address] Feb, [facility] [place] [address] [id number] [place] [id number] Jan, [facility] [address] [id number] [address] [place] [address] Jan, [facility] [place] [address] [id number] [place] [id number] Jan, [facility] [address] [facility] [id number] [address] [place] [address] Jan, [facility] [place] [address] [id number] [place] [id number] Dec, [facility] [address] [id number] [address] [place] [address] Dec, [facility] [place] [address] [id number] [place] [id number] Nov, [facility] [address] [facility] [id number] [address] [place] [address], [place] [address] Nov, [facility] [place] [address] [id number] [place] [id number] Nov, [facility] [address] [facility] [id number] [address] [place] [address] Nov, [facility] [place] [address] [id number] [place] [id number] Oct, [facility] [address] [id number] [address] [place] [address], [place] [address] Oct, [facility] [place] [address] [id number] [place] [id number] Oct, [facility] [address] [id number] [address] [place] [address], [place] [address] Oct, [facility] [place] [address] [id number] [place] [id number] Sep, [facility] [address] [id number] [address] [place] [address], [place] [address] Sep, [facility] [address] [id number] [address] [place] [address], [place] [address] Sep, [facility] [place] [address] [id number] [place] [id number] Sep, [facility] [address] [id number] [address] [place] [address], [place] [address] Sep, [facility] [address] [id number] [address] [place] [address], [place] [address] Sep, [facility] [address] [id number] [address] [place] [address], [place] [address] Sep, [facility] [place] [address] [id number] [place] [id number] Aug, [facility] [address] [id number] [address] [place] [address], [place] [address] Aug, [facility] [place] [address] [id number] [place] [id number] Aug, [facility] [address] [id number] [address] [place] [address], [place] [address] Aug, [facility] [place] [address] [id number] [place] [id number] June, [facility] [address] [id number] [address] [place] [address], [place] [address] June, [facility] [place] [address] [id number] [place] [id number] June, [facility] [address] [id number] [address] [place] [address], [place] [address] June, [facility] [place] [address] [id number] [place] [id number] Apr, [facility] [address] [id number] [address] [place] [address], [place] [address] Apr, [facility] [place] [address] [id number] [place] [id number] Mar, [facility] [address] [id number] [address] [place] [address], [place] [address] Mar, [facility] [place] [address] [id number] [place] [id number] Feb, [facility] [address] [id number] [address] [place] [address] Feb, [facility] [place] [address] [id number] [place] [id number] Jan, [facility] [address] [facility] [id number] [address] [place] [address] Jan, [facility] [address] [facility] [id number] [address] [place] [address] Jan, [facility] [address] [id number] [address] [place] [address] Jan, [facility] [place] [address] [id number] [place] [id number] Jan, [facility] [address] [facility] [id number] [address] [place] [address] Jan, [facility] [place] [address] [id number] [place] [id number] Nov, [facility] [address] [id number] [address] [place] [address], [place] [address] Nov, [facility] [place] [address] [id number] [place] [id number] Oct, [facility] [place] [address] [id number] [place] [id number] Sep, [facility] [place] [address] [id number] [place] [id number] Sep, [facility] [place] [address] [id number] [place] [id number] Jul, [facility] [place] [address] [id number] [place] [id number] Jul, [facility] [place] [address] [id number] [place] [id number] June, [facility] [place] [address] [id number] [place] [id number] May, [facility] [place] [address] [id number] [place] [id number] Apr, [facility] [place] [address] [id number] [place] [id number] Mar, [facility] [place] [address] [id number] [place] [id number] Mar, [facility] [place] [address] [id number] [place] [id number] Mar, [facility] [place] [address] [id number] [place] [id number] Feb, [facility] [place] [address] [id number] [place] [id number] Feb, [facility] [place] [address] [id number] [place] [id number] Feb, [facility] [place] [address] [id number] [place] [id number] Feb, [facility] [place] [address] [id number] [place] [id number] Feb, [facility] [place] [address] [id number] [place] [id number] Jan, [facility] [address] [id number] [address] [place] [address], [place] [address] Jan, [facility] [place] [address] [id number] [place] [id number] Dec, [facility] [address] [id number] [address] [place] [address], [place] [address] Dec, [facility] [address] [id number] [address] [place] [address], [place] [address] Dec, [facility] [place] [address] [id number] [place] [id number] Dec, [facility] [address] [id number] [address] [place] [address], [place] [address] Dec, [facility] [address] [facility] [id number] [address] [place] [address], [place] [address] Dec, [facility] [address] [facility] [id number] [address] [place] [address], [place] [address] Dec, [facility] [place] [address] [id number] [place] [id number] Dec, [facility] [address] [id number] [address] [place] [address], [place] [address] Dec, [facility] [place] [address] [id number] [place] [id number] Nov, [facility] [place] [address] [id number] [place] [id number] Sep, [facility] [place] [address] [id number] [place] [id number] Aug, [facility] [address] [id number] [address] [place] [address], [place] [address] Aug, [facility] [place] [address] [id number] [place] [id number] Jul, [facility] [place] [address] [id number] [place] [id number] June, [facility] [address] [id number] [address] [place] [address], [place] [address] June, [facility] [place] [address] [id number] [place] [id number] May, [facility] [address] [id number] [place] [id number] Apr, [facility] [address] [facility][1] [id number] [place] [id number] Mar, [facility] [address] [facility][1] [id number] [place] [id number] Feb, [facility] [address] [id number] [address] [place] [address] Jan, [facility] [address] [id number] [address] [place] [address] Dec, [facility] [address] [id number] [address] [place] [address] Nov, [facility] [address] [place] [address] Mar, [facility] [address] [id number] [address] [place] [address] Dec, IMMUNIZATIONS No Known Immunizations SOCIAL HISTORY Never Assessed REASON FOR VISIT [place] [place] VITAL SIGNS MEDICATIONS Unknown Medications RESULTS No Results PROCEDURES No Known procedures INSTRUCTIONS MEDICATIONS ADMINISTERED No Known Medications MEDICAL (GENERAL) HISTORY Type Description Date Medical History attention deficit hyperactivity disorder
--- OUTSIDE RECORDS SUMMARY | 2019-09-15 18:34 | XMS REPORT ---
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 Name Role Phone Migration, Doctor Unavailable Unavailable PROBLEMS Type Condition ICD9-CM Code ZWH11-HH Code Onset Dates Condition S tatus SNOMED Code Problem Elevated blood pressure reading without diagnosi s of hypertension 796.2 Active 739164296 Problem Palpitations 785.1 Active 5845760 2 Problem Syncope and collapse 780.2 Active 497565004 Problem Insomnia, unspecified type G47.00 Act nhan 274932057 Problem ADHD (attention deficit hyperactivity disorder) 314.01 Active 701060983 Problem Psychophysiological insomnia F51.04 A ctive 073650344 Problem Vitiligo 709.01 Active 26213555 Problem Other acne 706.1 Active 00110214 Problem Depressive disorder, not elsewhere classified 311 Active 59709233 Problem Attention deficit hyperactiv ity disorder (ADHD), predominantly inattentive type F90.0 Active 30424663 ALLERGIES No Information ENCOUNTERS Encounter Location Date Diagnosis [facility] [id number] [id number] [id number] 07 Mar, 2017 Attention deficit hyperactivity disorder (ADHD), predominantly inattentive type F90.0 [facility] [address] [id number] [place] [id number] Feb, [facility] [address] [id number] [place] [id number] Feb, Attention deficit hyperactivity disorder (ADHD), predominantly inattentive type F90.0 [facility] [address] [id number] [place] [id number] Jan, Attention deficit hyperactivity disorder (ADHD), predominantly inattentive type F90.0 [facility] [address] [id number] [place] [id number] Dec, Attention deficit hyperactivity disorder (ADHD), predominantly inattentive type F90.0 and Psychophysiological insomnia F51.04 [facility] [place] [address] [id number] [place] [id number] Dec, Attention deficit hyperactivity disorder (ADHD), predominantly inattentive type F90.0 [facility] [place] [address] [id number] [place] [id number] Nov, Encounter for immunization Z23 [facility] [place] [address] [id number] [place] [id number] Nov, Attention deficit hyperactivity disorder (ADHD), predominantly inattentive type F90.0 [facility] [place] [address] [id number] [place] [id number] Oct, Attention deficit hyperactivity disorder (ADHD), predominantly inattentive type F90.0 and Adjustment insomnia F51.02 [facility] [place] [address] [id number] [place] [id number] Sep, Attention deficit hyperactivity disorder (ADHD), predominantly inattentive type F90.0 [facility] [place] [address] [id number] [place] [id number] Aug, Adjustment insomnia F51.02 [facility] [place] [address] [id number] [place] [id number] Jul, Attention deficit hyperactivity disorder (ADHD), predominantly inattentive type F90.0 [facility] [place] [address] [id number] [place] [id number] Jul, Adjustment insomnia F51.02 and Attention deficit hyperactivity disorder (ADHD), predominantly inattentive type F90.0 [facility] [place] [address] [id number] [place] [id number] June, Attention deficit hyperactivity disorder (ADHD), predominantly inattentive type F90.0 [facility] [place] [address] [id number] [place] [id number] June, Attention deficit hyperactivity disorder (ADHD), predominantly inattentive type F90.0 [facility] [place] [address] [id number] [place] [id number] May, Attention deficit hyperactivity disorder (ADHD), predominantly inattentive type F90.0 [facility] [place] [address] [id number] [place] [id number] Apr, Attention deficit hyperactivity disorder (ADHD), predominantly inattentive type F90.0 [facility] [place] [address] [id number] [place] [id number] Apr, [facility] [place] [address] [id number] [place] [id number] Apr, Attention deficit hyperactivity disorder (ADHD), predominantly inattentive type F90.0 [facility] [place] [address] [id number] [place] [id number] Mar, [facility] [place] [address] [id number] [place] [id number] Feb, [facility] [place] [address] [id number] [place] [id number] Jan, [facility] [place] [address] [id number] [place] [id number] Dec, [facility] [place] [address] [id number] [place] [id number] Nov, [facility] [place] [address] [id number] [place] [id number] Oct, Attention deficit hyperactivity disorder (ADHD), predominantly inattentive type F90.0 [facility] [place] [address] [id number] [place] [id number] Sep, [facility] [place] [address] [id number] [place] [id number] Aug, [facility] [place] [address] [id number] [place] [id number] Jul, Attention deficit hyperactivity disorder (ADHD), predominantly inattentive type F90.0 and Insomnia, unspecified type G47.00 [facility] [place] [address] [id number] [place] [id number] Jul, [facility] [address] [id number] [place] [id number] June, [facility] [place] [address] [id number] [place] [id number] May, Attention deficit hyperactivity disorder (ADHD), predominantly inattentive type F90.0 [facility] [place] [address] [id number] [place] [id number] Apr, [facility] [place] [address] [id number] [place] [id number] Mar, [facility] [place] [address] [id number] [place] [id number] Mar, Attention deficit hyperactivity disorder (ADHD), predominantly inattentive type F90.0 [facility] [place] [address] [id number] [place] [id number] Feb, [facility] [place] [address] [id number] [place] [id number] Feb, [facility] [address] [id number] [id number] Jan, [facility] [place] [address] [id number] [place] [id number] Dec, Attention deficit hyperactivity disorder (ADHD), predominantly inattentive type F90.[address] [facility] [address] [id number] [id number] Nov, [facility] [place] [address] [id number] [place] [id number] Oct, [facility] [place] [address] [id number] [place] [id number] Sep, ADHD (attention deficit hyperactivity di sorder) 314.01 [facility] [place] [address] [id number] [place] [id number] Sep, [facility] [place] [address] [id number] [place] [id number] June, [facility] [place] [address] [id number] [place] [id number] June, [facility] [address] [id number] [address] [place] [address] May, [facility] [address] [facility] [id number] [address] [place] [address] May, [facility] [place] [address] [id number] [place] [id number] Apr, [facility] [address] [id number] [address] [place] [address], [place] [address] Apr, [facility] [place] [address] [id number] [place] [id number] Mar, [facility] [address] [id number] [address] [place] [address], [place] [address] Mar, [facility] [place] [address] [id number] [place] [id number] Feb, [facility] [address] [id number] [address] [place] [address], [place] [address] Feb, [facility] [place] [address] [id number] [place] [id number] Feb, [facility] [address] [facility] [id number] [address] [place] [address], [place] [address] Feb, [facility] [place] [address] [id number] [place] [id number] Jan, [facility] [address] [id number] [address] [place] [address] Jan, [facility] [place] [address] [id number] [place] [id number] Jan, [facility] [address] [facility] [id number] [address] [place] [address] Jan, [facility] [place] [address] [id number] [place] [id number] Dec, [facility] [address] [id number] [address] [place] [address] Dec, [facility] [place] [address] [id number] [place] [id number] Nov, [facility] [address] [facility] [id number] [address] [place] [address], [place] [address] Nov, [facility] [place] [address] [id number] [place] [id number] Nov, [facility] [address] [facility] [id number] [address] [place] [address] Nov, [facility] [place] [address] [id number] [place] [id number] Oct, [facility] [address] [id number] [address] [place] [address], [place] [address] Oct, [facility] [place] [address] [id number] [place] [id number] Oct, [facility] [address] [id number] [address] [place] [address], [place] [address] Oct, [facility] [place] [address] [id number] [place] [id number] Sep, [facility] [address] [id number] [address] [place] [address], [place] [address] Sep, [facility] [address] [id number] [address] [place] [address], [place] [address] Sep, [facility] [place] [address] [id number] [place] [id number] Sep, [facility] [address] [id number] [address] [place] [address], [place] [address] Sep, [facility] [address] [id number] [address] [place] [address], [place] [address] Sep, [facility] [address] [id number] [address] [place] [address], [place] [address] Sep, [facility] [place] [address] [id number] [place] [id number] Aug, [facility] [address] [id number] [address] [place] [address], [place] [address] Aug, [facility] [place] [address] [id number] [place] [id number] Aug, [facility] [address] [id number] [address] [place] [address], [place] [address] Aug, [facility] [place] [address] [id number] [place] [id number] June, [facility] [address] [id number] [address] [place] [address], [place] [address] June, [facility] [place] [address] [id number] [place] [id number] June, [facility] [address] [id number] [address] [place] [address], [place] [address] June, [facility] [place] [address] [id number] [place] [id number] Apr, [facility] [address] [id number] [address] [place] [address], [place] [address] Apr, [facility] [place] [address] [id number] [place] [id number] Mar, [facility] [address] [id number] [address] [place] [address], [place] [address] Mar, [facility] [place] [address] [id number] [place] [id number] Feb, [facility] [address] [id number] [address] [place] [address] Feb, [facility] [place] [address] [id number] [place] [id number] Jan, [facility] [address] [facility] [id number] [address] [place] [address] Jan, [facility] [address] [facility] [id number] [address] [place] [address] Jan, [facility] [address] [id number] [address] [place] [address] Jan, [facility] [place] [address] [id number] [place] [id number] Jan, [facility] [address] [facility] [id number] [address] [place] [address] Jan, [facility] [place] [address] [id number] [place] [id number] Nov, [facility] [address] [id number] [address] [place] [address], [place] [address] Nov, [facility] [place] [address] [id number] [place] [id number] Oct, [facility] [place] [address] [id number] [place] [id number] Sep, [facility] [place] [address] [id number] [place] [id number] Sep, [facility] [place] [address] [id number] [place] [id number] Jul, [facility] [place] [address] [id number] [place] [id number] Jul, [facility] [place] [address] [id number] [place] [id number] June, [facility] [place] [address] [id number] [place] [id number] May, [facility] [place] [address] [id number] [place] [id number] Apr, [facility] [place] [address] [id number] [place] [id number] Mar, [facility] [place] [address] [id number] [place] [id number] Mar, [facility] [place] [address] [id number] [place] [id number] Mar, [facility] [place] [address] [id number] [place] [id number] Feb, [facility] [place] [address] [id number] [place] [id number] Feb, [facility] [place] [address] [id number] [place] [id number] Feb, [facility] [place] [address] [id number] [place] [id number] Feb, [facility] [place] [address] [id number] [place] [id number] Feb, [facility] [place] [address] [id number] [place] [id number] Jan, [facility] [address] [id number] [address] [place] [address], [place] [address] Jan, [facility] [place] [address] [id number] [place] [id number] Dec, [facility] [address] [id number] [address] [place] [address], [place] [address] Dec, [facility] [address] [id number] [address] [place] [address], [place] [address] Dec, [facility] [place] [address] [id number] [place] [id number] Dec, [facility] [address] [id number] [address] [place] [address], [place] [address] Dec, [facility] [address] [facility] [id number] [address] [place] [address], [place] [address] Dec, [facility] [address] [facility] [id number] [address] [place] [address], [place] [address] Dec, [facility] [place] [address] [id number] [place] [id number] Dec, [facility] [address] [id number] [address] [place] [address], [place] [address] Dec, [facility] [place] [address] [id number] [place] [id number] Nov, [facility] [place] [address] [id number] [place] [id number] Sep, [facility] [place] [address] [id number] [place] [id number] Aug, [facility] [address] [id number] [address] [place] [address], [place] [address] Aug, [facility] [place] [address] [id number] [place] [id number] Jul, [facility] [place] [address] [id number] [place] [id number] June, [facility] [address] [id number] [address] [place] [address], [place] [address] June, [facility] [place] [address] [id number] [place] [id number] May, [facility] [address] [id number] [place] [id number] Apr, [facility] [address] [facility] [id number] [place] [id number] Mar, [facility] [address] [facility] [id number] [place] [id number] Feb, [facility] [address] [id number] [address] [place] [address] Jan, [facility] [address] [id number] [address] [place] [address] Dec, [facility] [address] [id number] [address] [place] [address] Nov, [facility] [id number] [place] [address] Mar, [facility] [address] [id number] [address] [place] [address] Dec, IMMUNIZATIONS No Known Immunizations SOCIAL HISTORY Never Assessed REASON FOR VISIT EMR-[facility] PLAN OF CARE VITAL SIGNS MEDICATIONS Unknown Medications RESULTS No Results PROCEDURES No Known procedures INSTRUCTIONS MEDICATIONS ADMINISTERED No Known Medications MEDICAL (GENERAL) HISTORY Type Description Date Medical History attention deficit hyperactivity disorder
--- OUTSIDE RECORDS SUMMARY | 2019-09-15 18:34 | XMS REPORT ---
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 Role Phone Migration, Doctor Unavailable Unavailable PROBLEMS Type Condition ICD9-CM Code [id number] Code Onset Dates Condition S tatus SNOMED Code Problem Elevated blood pressure reading without diagnosi s of hypertension 796.2 Active 912158291 Problem Palpitations 785.1 Active 7370262 2 Problem Syncope and collapse 780.2 Active 848463561 Problem Insomnia, unspecified type G47.00 Act nhan 999374349 Problem ADHD (attention deficit hyperactivity disorder) 314.01 Active 112954813 Problem Psychophysiological insomnia F51.04 A ctive 314871389 Problem Vitiligo 709.01 Active 68245550 Problem Other acne 706.1 Active 56407433 Problem Depressive disorder, not elsewhere classified 311 Active 60378932 Problem Attention deficit hyperactiv ity disorder (ADHD), predominantly inattentive type F90.0 Active 58066387 ALLERGIES No Information ENCOUNTERS Encounter Location Date Diagnosis [facility] [id number] [facility] [id number] [id number] 07 Mar, 2017 Attention deficit hyperactivity disorder (ADHD), predominantly inattentive type F90.0 [facility] [address] [id number] [place] [id number] Feb, [facility] [address] [id number] [place] [id number] Feb, Attention deficit hyperactivity disorder (ADHD), predominantly inattentive type F90.0 [facility] [address] [id number] [place] [id number] Jan, Attention deficit hyperactivity disorder (ADHD), predominantly inattentive type F90.0 [facility] [address] [id number] [place] [id number] Dec, Attention deficit hyperactivity disorder (ADHD), predominantly inattentive type F90.0 and Psychophysiological insomnia F51.04 [facility] [place] [address] [id number] [place] [id number] Dec, Attention deficit hyperactivity disorder (ADHD), predominantly inattentive type F90.0 [facility] [place] [address] [id number] [place] [id number] Nov, Encounter for immunization Z23 [facility] [place] [address] [id number] [place] [id number] Nov, Attention deficit hyperactivity disorder (ADHD), predominantly inattentive type F90.0 [facility] [place] [address] [id number] [place] [id number] Oct, Attention deficit hyperactivity disorder (ADHD), predominantly inattentive type F90.0 and Adjustment insomnia F51.02 [facility] [place] [address] [id number] [place] [id number] Sep, Attention deficit hyperactivity disorder (ADHD), predominantly inattentive type F90.0 [facility] [place] [address] [id number] [place] [id number] Aug, Adjustment insomnia F51.02 [facility] [place] [address] [id number] [place] [id number] Jul, Attention deficit hyperactivity disorder (ADHD), predominantly inattentive type F90.0 [facility] [place] [address] [id number] [place] [id number] Jul, Adjustment insomnia F51.02 and Attention deficit hyperactivity disorder (ADHD), predominantly inattentive type F90.0 [facility] [place] [address] [id number] [place] [id number] June, Attention deficit hyperactivity disorder (ADHD), predominantly inattentive type F90.0 [facility] [place] [address] [id number] [place] [id number] June, Attention deficit hyperactivity disorder (ADHD), predominantly inattentive type F90.0 [facility] [place] [address] [id number] [place] [id number] May, Attention deficit hyperactivity disorder (ADHD), predominantly inattentive type F90.0 [facility] [place] [address] [id number] [place] [id number] Apr, Attention deficit hyperactivity disorder (ADHD), predominantly inattentive type F90.0 [facility] [place] [address] [id number] [place] [id number] Apr, [facility] [place] [address] [id number] [place] [id number] Apr, Attention deficit hyperactivity disorder (ADHD), predominantly inattentive type F90.0 [facility] [place] [address] [id number] [place] [id number] Mar, [facility] [place] [address] [id number] [place] [id number] Feb, [facility] [place] [address] [id number] [place] [id number] Jan, [facility] [place] [address] [id number] [place] [id number] Dec, [facility] [place] [address] [id number] [place] [id number] Nov, [facility] [place] [address] [id number] [place] [id number] Oct, Attention deficit hyperactivity disorder (ADHD), predominantly inattentive type F90.0 [facility] [place] [address] [id number] [place] [id number] Sep, [facility] [place] [address] [id number] [place] [id number] Aug, [facility] [place] [address] [id number] [place] [id number] Jul, Attention deficit hyperactivity disorder (ADHD), predominantly inattentive type F90.0 and Insomnia, unspecified type G47.00 [facility] [place] [address] [id number] [place] [id number] Jul, [facility] [address] [id number] [place] [id number] June, [facility] [place] [address] [id number] [place] [id number] May, Attention deficit hyperactivity disorder (ADHD), predominantly inattentive type F90.0 [facility] [place] [address] [id number] [place] [id number] Apr, [facility] [place] [address] [id number] [place] [id number] Mar, [facility] [place] [address] [id number] [place] [id number] Mar, Attention deficit hyperactivity disorder (ADHD), predominantly inattentive type F90.0 [facility] [place] [address] [id number] [place] [id number] Feb, [facility] [place] [address] [id number] [place] [id number] Feb, [facility] [address] [id number] [id number] Jan, [facility] [place] [address] [id number] [place] [id number] Dec, Attention deficit hyperactivity disorder (ADHD), predominantly inattentive type F90.[address] [facility] [address] [id number] [id number] Nov, [facility] [place] [address] [id number] [place] [id number] Oct, [facility] [place] [address] [id number] [place] [id number] Sep, ADHD (attention deficit hyperactivity di sorder) 314.01 [facility] [place] [address] [id number] [place] [id number] Sep, [facility] [place] [address] [id number] [place] [id number] June, [facility] [place] [address] [id number] [place] [id number] June, [facility] [address] [id number] [address] [place] [address] May, [facility] [address] [facility] [id number] [address] [place] [address] May, [facility] [place] [address] [id number] [place] [id number] Apr, [facility] [address] [id number] [address] [place] [address], [place] [address] Apr, [facility] [place] [address] [id number] [place] [id number] Mar, [facility] [address] [id number] [address] [place] [address], [place] [address] Mar, [facility] [place] [address] [id number] [place] [id number] Feb, [facility] [address] [id number] [address] [place] [address], [place] [address] Feb, [facility] [place] [address] [id number] [place] [id number] Feb, [facility] [address] [facility] [id number] [address] [place] [address], [place] [address] Feb, [facility] [place] [address] [id number] [place] [id number] Jan, [facility] [address] [id number] [address] [place] [address] Jan, [facility] [place] [address] [id number] [place] [id number] Jan, [facility] [address] [facility] [id number] [address] [place] [address] Jan, [facility] [place] [address] [id number] [place] [id number] Dec, [facility] [address] [id number] [address] [place] [address] Dec, [facility] [place] [address] [id number] [place] [id number] Nov, [facility] [address] [facility] [id number] [address] [place] [address], [place] [address] Nov, [facility] [place] [address] [id number] [place] [id number] Nov, [facility] [address] [facility] [id number] [address] [place] [address] Nov, [facility] [place] [address] [id number] [place] [id number] Oct, [facility] [address] [id number] [address] [place] [address], [place] [address] Oct, [facility] [place] [address] [id number] [place] [id number] Oct, [facility] [address] [id number] [address] [place] [address], [place] [address] Oct, [facility] [place] [address] [id number] [place] [id number] Sep, [facility] [address] [id number] [address] [place] [address], [place] [address] Sep, [facility] [address] [id number] [address] [place] [address], [place] [address] Sep, [facility] [place] [address] [id number] [place] [id number] Sep, [facility] [address] [id number] [address] [place] [address], [place] [address] Sep, [facility] [address] [id number] [address] [place] [address], [place] [address] Sep, [facility] [address] [id number] [address] [place] [address], [place] [address] Sep, [facility] [place] [address] [id number] [place] [id number] Aug, [facility] [address] [id number] [address] [place] [address], [place] [address] Aug, [facility] [place] [address] [id number] [place] [id number] Aug, [facility] [address] [id number] [address] [place] [address], [place] [address] Aug, [facility] [place] [address] [id number] [place] [id number] June, [facility] [address] [id number] [address] [place] [address], [place] [address] June, [facility] [place] [address] [id number] [place] [id number] June, [facility] [address] [id number] [address] [place] [address], [place] [address] June, [facility] [place] [address] [id number] [place] [id number] Apr, [facility] [address] [id number] [address] [place] [address], [place] [address] Apr, [facility] [place] [address] [id number] [place] [id number] Mar, [facility] [address] [id number] [address] [place] [address], [place] [address] Mar, [facility] [place] [address] [id number] [place] [id number] Feb, [facility] [address] [id number] [address] [place] [address] Feb, [facility] [place] [address] [id number] [place] [id number] Jan, [facility] [address] [facility] [id number] [address] [place] [address] Jan, [facility] [address] [facility] [id number] [address] [place] [address] Jan, [facility] [address] [id number] [address] [place] [address] Jan, [facility] [place] [address] [id number] [place] [id number] Jan, [facility] [address] [facility] [id number] [address] [place] [address] Jan, [facility] [place] [address] [id number] [place] [id number] Nov, [facility] [address] [id number] [address] [place] [address], [place] [address] Nov, [facility] [place] [address] [id number] [place] [id number] Oct, [facility] [place] [address] [id number] [place] [id number] Sep, [facility] [place] [address] [id number] [place] [id number] Sep, [facility] [place] [address] [id number] [place] [id number] Jul, [facility] [place] [address] [id number] [place] [id number] Jul, [facility] [place] [address] [id number] [place] [id number] June, [facility] [place] [address] [id number] [place] [id number] May, [facility] [place] [address] [id number] [place] [id number] Apr, [facility] [place] [address] [id number] [place] [id number] Mar, [facility] [place] [address] [id number] [place] [id number] Mar, [facility] [place] [address] [id number] [place] [id number] Mar, [facility] [place] [address] [id number] [place] [id number] Feb, [facility] [place] [address] [id number] [place] [id number] Feb, [facility] [place] [address] [id number] [place] [id number] Feb, [facility] [place] [address] [id number] [place] [id number] Feb, [facility] [place] [address] [id number] [place] [id number] Feb, [facility] [place] [address] [id number] [place] [id number] Jan, [facility] [address] [id number] [address] [place] [address], [place] [address] Jan, [facility] [place] [address] [id number] [place] [id number] Dec, [facility] [address] [id number] [address] [place] [address], [place] [address] Dec, [facility] [address] [id number] [address] [place] [address], [place] [address] Dec, [facility] [place] [address] [id number] [place] [id number] Dec, [facility] [address] [id number] [address] [place] [address], [place] [address] Dec, [facility] [address] [facility] [id number] [address] [place] [address], [place] [address] Dec, [facility] [address] [facility] [id number] [address] [place] [address], [place] [address] Dec, [facility] [place] [address] [id number] [place] [id number] Dec, [facility] [address] [id number] [address] [place] [address], [place] [address] Dec, [facility] [place] [address] [id number] [place] [id number] Nov, [facility] [place] [address] [id number] [place] [id number] Sep, [facility] [place] [address] [id number] [place] [id number] Aug, [facility] [address] [id number] [address] [place] [address], [place] [address] Aug, [facility] [place] [address] [id number] [place] [id number] Jul, [facility] [place] [address] [id number] [place] [id number] June, [facility] [address] [id number] [address] [place] [address], [place] [address] June, [facility] [place] [address] [id number] [place] [id number] May, [facility] [address] [id number] [place] [id number] Apr, [facility] [address] [facility] [id number] [place] [id number] Mar, [facility] [address] [facility] [id number] [place] [id number] Feb, [facility] [id number] [place] [address] Jan, [facility] [address] [id number] [address] [place] [address] Dec, [facility] [id number] [address] [place] [address] Nov, [facility] [id number] [place] [address] Mar, [facility] [address] [id number] [address] [place] [address] Dec, IMMUNIZATIONS No Known Immunizations SOCIAL HISTORY Never Assessed REASON FOR VISIT EMR-[facility] PLAN OF CARE VITAL SIGNS MEDICATIONS Unknown Medications RESULTS No Results PROCEDURES No Known procedures INSTRUCTIONS MEDICATIONS ADMINISTERED No Known Medications MEDICAL (GENERAL) HISTORY Type Description Date Medical History attention deficit hyperactivity disorder
--- OUTSIDE RECORDS SUMMARY | 2019-09-15 18:34 | XMS REPORT ---
Author Author Hussain DOMINGUEZ [facility] Address [address] [place] [address] Care Team Providers Care Managed Care Nurse Name Role Phone AKI DOMINGUEZ Unavailable PROBLEMS Type Condition ICD9-CM Code OIG29-YU Code Onset Dates Condition S tatus SNOMED Code Problem Elevated blood pressure reading without diagnosi s of hypertension 796.2 Active 385303659 Problem Syncope and collapse 780.2 Active 851064015 Problem Palpitations 785.1 Active 7367458 2 Problem ADHD (attention deficit hyperactivity disorder) 314.01 Active 382361480 Problem Psychophysiological insomnia F51.04 A ctive 339165479 Problem Insomnia, unspecified type G47.00 Act nhan 605046888 Problem Other acne 706.1 Active 40913880 Problem Vitiligo 709.01 Active 45351627 Problem Attention deficit hyperactiv ity disorder (ADHD), predominantly inattentive type F90.0 Active 45956585 Problem Depressive disorder, not elsewhere classified 311 Active 17292973 ALLERGIES No Information ENCOUNTERS Encounter Location Date Diagnosis [place] [id number] [id number] [place] [id number] Mar, Attention deficit hyperactivity disorder (ADHD), predominantly inattentive type F90.0 [facility] [address] [id number] [place] [id number] Feb, [facility] [address] [id number] [place] [id number] Feb, Attention deficit hyperactivity disorder (ADHD), predominantly inattentive type F90.0 [facility] [address] [id number] [place] [id number] Jan, Attention deficit hyperactivity disorder (ADHD), predominantly inattentive type F90.0 [facility] [address] [id number] [place] [id number] Dec, Attention deficit hyperactivity disorder (ADHD), predominantly inattentive type F90.0 and Psychophysiological insomnia F51.04 [facility] [place] [address] [id number] [place] [id number] Dec, Attention deficit hyperactivity disorder (ADHD), predominantly inattentive type F90.0 [facility] [place] [address] [id number] [place] [id number] Nov, Encounter for immunization Z23 [facility] [place] [address] [id number] [place] [id number] Nov, Attention deficit hyperactivity disorder (ADHD), predominantly inattentive type F90.0 [facility] [place] [address] [id number] [place] [id number] Oct, Attention deficit hyperactivity disorder (ADHD), predominantly inattentive type F90.0 and Adjustment insomnia F51.02 [facility] [place] [address] [id number] [place] [id number] Sep, Attention deficit hyperactivity disorder (ADHD), predominantly inattentive type F90.0 [facility] [place] [address] [id number] [place] [id number] Aug, Adjustment insomnia F51.02 [facility] [place] [address] [id number] [place] [id number] Jul, Attention deficit hyperactivity disorder (ADHD), predominantly inattentive type F90.0 [facility] [place] [address] [id number] [place] [id number] Jul, Adjustment insomnia F51.02 and Attention deficit hyperactivity disorder (ADHD), predominantly inattentive type F90.0 [facility] [place] [address] [id number] [place] [id number] June, Attention deficit hyperactivity disorder (ADHD), predominantly inattentive type F90.0 [facility] [place] [address] [id number] [place] [id number] June, Attention deficit hyperactivity disorder (ADHD), predominantly inattentive type F90.0 [facility] [place] [address] [id number] [place] [id number] May, Attention deficit hyperactivity disorder (ADHD), predominantly inattentive type F90.0 [facility] [place] [address] [id number] [place] [id number] Apr, Attention deficit hyperactivity disorder (ADHD), predominantly inattentive type F90.0 [facility] [place] [address] [id number] [place] [id number] Apr, [facility] [place] [address] [id number] [place] [id number] Apr, Attention deficit hyperactivity disorder (ADHD), predominantly inattentive type F90.0 [facility] [place] [address] [id number] [place] [id number] Mar, [facility] [place] [address] [id number] [place] [id number] Feb, [facility] [place] [address] [id number] [place] [id number] Jan, [facility] [place] [address] [id number] [place] [id number] Dec, [facility] [place] [address] [id number] [place] [id number] Nov, [facility] [place] [address] [id number] [place] [id number] Oct, Attention deficit hyperactivity disorder (ADHD), predominantly inattentive type F90.0 [facility] [place] [address] [id number] [place] [id number] Sep, [facility] [place] [address] [id number] [place] [id number] Aug, [facility] [place] [address] [id number] [place] [id number] Jul, Attention deficit hyperactivity disorder (ADHD), predominantly inattentive type F90.0 and Insomnia, unspecified type G47.00 [facility] [place] [address] [id number] [place] [id number] Jul, [facility] [id number] [place] [id number] June, [facility] [place] [address] [id number] [place] [id number] May, Attention deficit hyperactivity disorder (ADHD), predominantly inattentive type F90.0 [facility] [place] [address] [id number] [place] [id number] Apr, [facility] [place] [address] [id number] [place] [id number] Mar, [facility] [place] [address] [id number] [place] [id number] Mar, Attention deficit hyperactivity disorder (ADHD), predominantly inattentive type F90.0 [facility] [place] [address] [id number] [place] [id number] Feb, [facility] [place] [address] [id number] [place] [id number] Feb, [facility] [address] [id number] [facility] [place] [id number] Jan, [facility] [place] [address] [id number] [place] [id number] Dec, Attention deficit hyperactivity disorder (ADHD), predominantly inattentive type F90.[address] [facility] [address] [id number] [facility] [place] [id number] Nov, [facility] [place] [address] [id number] [place] [id number] Oct, [facility] [place] [address] [id number] [place] [id number] Sep, ADHD (attention deficit hyperactivity di sorder) 314.01 [facility] [place] [address] [id number] [place] [id number] Sep, [facility] [place] [address] [id number] [place] [id number] June, [facility] [place] [address] [id number] [place] [id number] June, [facility] [address] [facility] [id number] [address] [place] [phone] May, [facility] [address] [facility] [id number] [address] [place] [phone] May, [facility] [place] [address] [id number] [place] [id number] Apr, [facility] [address] [id number] [facility] [place] [address] Apr, [facility] [place] [address] [id number] [place] [id number] Mar, [facility] [address] [id number] [facility] [place] [address] Mar, [facility] [place] [address] [id number] [place] [id number] Feb, [facility] [address] [id number] [address] [place] [address], [place] [address] Feb, [facility] [place] [address] [id number] [place] [id number] Feb, [facility] [address] [id number] [address] [place] [address], [place] [address] Feb, [facility] [place] [address] [id number] [place] [id number] Jan, [facility] [address] [id number] [address] [place] [address], [place] [address] Jan, [facility] [place] [address] [id number] [place] [id number] Jan, [facility] [address] [id number] [address] [place] [address], [place] [address] Jan, [facility] [place] [address] [id number] [place] [id number] Dec, [facility] [address] [id number] [address] [place] [address], [place] [address] Dec, [facility] [place] [address] [id number] [place] [id number] Nov, [facility] [address] [id number] [address] [place] [address], [place] [address] Nov, [facility] [place] [address] [id number] [place] [id number] Nov, [facility] [address] [id number] [address] [place] [address], [place] [address] Nov, [facility] [place] [address] [id number] [place] [id number] Oct, [facility] [address] [id number] [address] [place] [address], [place] [address] Oct, [facility] [place] [address] [id number] [place] [id number] Oct, [facility] [address] [id number] [address] [place] [address], [place] [address] Oct, [facility] [place] [address] [id number] [place] [id number] Sep, [facility] [address] [id number] [address] [place] [address], [place] [address] Sep, [facility] [address] [id number] [address] [place] [address], [place] [address] Sep, [facility] [place] [address] [id number] [place] [id number] Sep, [facility] [address] [id number] [address] [place] [address], [place] [address] Sep, [facility] [address] [id number] [address] [place] [address], [place] [address] Sep, [facility] [address] [id number] [address] [place] [address], [place] [address] Sep, [facility] [place] [address] [id number] [place] [id number] Aug, [facility] [address] [id number] [address] [place] [address], [place] [address] Aug, [facility] [place] [address] [id number] [place] [id number] Aug, [facility] [address] [id number] [facility] [place] [address] Aug, [facility] [place] [address] [id number] [place] [id number] June, [facility] [address] [id number] [facility] [place] [address] June, [facility] [place] [address] [id number] [place] [id number] June, [facility] [address] [id number] [facility] [place] [address] June, [facility] [place] [address] [id number] [place] [id number] Apr, [facility] [address] [id number] [address] [place] [address], [place] [address] Apr, [facility] [place] [address] [id number] [place] [id number] Mar, [facility] [address] [id number] [address] [place] [address], [place] [address] Mar, [facility] [place] [address] [id number] [place] [id number] Feb, [facility] [address] [id number] [address] [place] [address], [place] [address] Feb, [facility] [place] [address] [id number] [place] [id number] Jan, [facility] [address] [id number] [address] [place] [address], [place] [address] Jan, [facility] [address] [id number] [address] [place] [address], [place] [address] Jan, [facility] [address] [id number] [address] [place] [address], [place] [address] Jan, [facility] [place] [address] [id number] [place] [id number] Jan, [facility] [address] [id number] [address] [place] [address], [place] [address] Jan, [facility] [place] [address] [id number] [place] [id number] Nov, [facility] [address] [id number] [address] [address] Nov, [facility] [place] [address] [id number] [place] [id number] Oct, [facility] [place] [address] [id number] [place] [id number] Sep, [facility] [place] [address] [id number] [place] [id number] Sep, [facility] [place] [address] [id number] [place] [id number] Jul, [facility] [place] [address] [id number] [place] [id number] Jul, [facility] [place] [address] [id number] [place] [id number] June, [facility] [place] [address] [id number] [place] [id number] May, [facility] [place] [address] [id number] [place] [id number] Apr, [facility] [place] [address] [id number] [place] [id number] Mar, [facility] [place] [address] [id number] [place] [id number] Mar, [facility] [place] [address] [id number] [place] [id number] Mar, [facility] [place] [address] [id number] [place] [id number] Feb, [facility] [place] [address] [id number] [place] [id number] Feb, [facility] [place] [address] [id number] [place] [id number] Feb, [facility] [place] [address] [id number] [place] [id number] Feb, [facility] [place] [address] [id number] [place] [id number] Feb, [facility] [place] [address] [id number] [place] [id number] Jan, [facility] [address] [id number] [address] [place] [address], [place] [address] Jan, [facility] [place] [address] [id number] [place] [id number] Dec, [facility] [address] [id number] [address] [place] [address], [place] [address] Dec, [facility] [address] [id number] [address] [place] [address] Dec, [facility] [place] [address] [id number] [place] [id number] Dec, [facility] [address] [id number] [address] [place] [address] Dec, [facility] [address] [facility] [id number] [address] [place] [address], [place] [address] Dec, [facility] [address] [id number] [address] [place] [address] Dec, [facility] [place] [address] [id number] [place] [id number] Dec, [facility] [address] [id number] [address] [place] [address] Dec, [facility] [place] [address] [id number] [place] [id number] Nov, [facility] [place] [address] [id number] [place] [id number] Sep, [facility] [place] [address] [id number] [place] [id number] Aug, [facility] [address] [id number] [address] [place] [address], [place] [address] Aug, [facility] [place] [address] [id number] [place] [id number] Jul, [facility] [place] [address] [id number] [place] [id number] June, [facility] [address] [facility] [id number] [address] [place] [address] June, [facility] [place] [address] [id number] [place] [id number] May, [facility] [place] [address] [id number] [place] [id number] Apr, [facility] [place] [address] [id number] [place] [id number] Mar, [facility] [place] [address] [id number] [place] [id number] Feb, [facility] [address] [facility] [id number] [address] [place] [address] Jan, [facility] [address] [facility] [id number] [address] [place] [address] Dec, [facility] [address] [place] [id number] [address] [place] [address] Nov, [facility] [address] [place] [id number] [address] [place] [address] Mar, [facility] [address] [facility] [id number] [address] [place] [address] Dec, IMMUNIZATIONS Vaccine Route Administration Date Status FLUARIX QUAD (3 AND UP) 2016 IM Intramuscular Dec 04, 2016 Ad ministered SOCIAL HISTORY Never Assessed REASON FOR VISIT Flu Shot. collins Gustafson PLAN OF CARE VITAL SIGNS MEDICATIONS Unknown Medications RESULTS No Results PROCEDURES Procedure Date Ordered Result Body Site FLUARIX QUAD (3 & UP)-GSK-2014Dec 04, 2016 SINGLE IMMUNIZATION ADMIN Dec 04, 2016 INSTRUCTIONS MEDICATIONS ADMINISTERED No Known Medications MEDICAL (GENERAL) HISTORY Type Description Date Medical History attention deficit hyperactivity disorder
--- OUTSIDE RECORDS SUMMARY | 2019-09-15 18:34 | XMS REPORT ---
Author Author Hussain Toro Doctor Organization [facility] Address Unknown Phone Unavailable Care Team Providers Care Tractor Operator Battery Name Role Phone Migration, Doctor Unavailable Unavailable PROBLEMS Type Condition ICD9-CM Code KBN13-GB Code Onset Dates Condition S tatus SNOMED Code Problem Elevated blood pressure reading without diagnosi s of hypertension 796.2 Active 070797057 Problem Palpitations 785.1 Active 2446301 2 Problem Syncope and collapse 780.2 Active 085020266 Problem Insomnia, unspecified type G47.00 Act nhan 240052067 Problem ADHD (attention deficit hyperactivity disorder) 314.01 Active 560819152 Problem Psychophysiological insomnia F51.04 A ctive 493880439 Problem Vitiligo 709.01 Active 57113995 Problem Other acne 706.1 Active 06844063 Problem Depressive disorder, not elsewhere classified 311 Active 25362187 Problem Attention deficit hyperactiv ity disorder (ADHD), predominantly inattentive type F90.0 Active 99487857 ALLERGIES No Information ENCOUNTERS Encounter Location Date Diagnosis [facility] [place] [id number] [id number] [id number] 07 Mar, 2017 Attention deficit hyperactivity disorder (ADHD), predominantly inattentive type F90.0 [facility] [address] [id number] [place] [id number] Feb, [facility] [address] [id number] [place] [id number] Feb, Attention deficit hyperactivity disorder (ADHD), predominantly inattentive type F90.0 [facility] [address] [id number] [place] [id number] Jan, Attention deficit hyperactivity disorder (ADHD), predominantly inattentive type F90.0 [facility] [address] [id number] [place] [id number] Dec, Attention deficit hyperactivity disorder (ADHD), predominantly inattentive type F90.0 and Psychophysiological insomnia F51.04 [facility] [place] [address] [id number] [place] [id number] Dec, Attention deficit hyperactivity disorder (ADHD), predominantly inattentive type F90.0 [facility] [place] [address] [id number] [place] [id number] Nov, Encounter for immunization Z23 [facility] [place] [address] [id number] [place] [id number] Nov, Attention deficit hyperactivity disorder (ADHD), predominantly inattentive type F90.0 [facility] [place] [address] [id number] [place] [id number] Oct, Attention deficit hyperactivity disorder (ADHD), predominantly inattentive type F90.0 and Adjustment insomnia F51.02 [facility] [place] [address] [id number] [place] [id number] Sep, Attention deficit hyperactivity disorder (ADHD), predominantly inattentive type F90.0 [facility] [place] [address] [id number] [place] [id number] Aug, Adjustment insomnia F51.02 [facility] [place] [address] [id number] [place] [id number] Jul, Attention deficit hyperactivity disorder (ADHD), predominantly inattentive type F90.0 [facility] [place] [address] [id number] [place] [id number] Jul, Adjustment insomnia F51.02 and Attention deficit hyperactivity disorder (ADHD), predominantly inattentive type F90.0 [facility] [place] [address] [id number] [place] [id number] June, Attention deficit hyperactivity disorder (ADHD), predominantly inattentive type F90.0 [facility] [place] [address] [id number] [place] [id number] June, Attention deficit hyperactivity disorder (ADHD), predominantly inattentive type F90.0 [facility] [place] [address] [id number] [place] [id number] May, Attention deficit hyperactivity disorder (ADHD), predominantly inattentive type F90.0 [facility] [place] [address] [id number] [place] [id number] Apr, Attention deficit hyperactivity disorder (ADHD), predominantly inattentive type F90.0 [facility] [place] [address] [id number] [place] [id number] Apr, [facility] [place] [address] [id number] [place] [id number] Apr, Attention deficit hyperactivity disorder (ADHD), predominantly inattentive type F90.0 [facility] [place] [address] [id number] [place] [id number] Mar, [facility] [place] [address] [id number] [place] [id number] Feb, [facility] [place] [address] [id number] [place] [id number] Jan, [facility] [place] [address] [id number] [place] [id number] Dec, [facility] [place] [address] [id number] [place] [id number] Nov, [facility] [place] [address] [id number] [place] [id number] Oct, Attention deficit hyperactivity disorder (ADHD), predominantly inattentive type F90.0 [facility] [place] [address] [id number] [place] [id number] Sep, [facility] [place] [address] [id number] [place] [id number] Aug, [facility] [place] [address] [id number] [place] [id number] Jul, Attention deficit hyperactivity disorder (ADHD), predominantly inattentive type F90.0 and Insomnia, unspecified type G47.00 [facility] [place] [address] [id number] [place] [id number] Jul, [facility] [address] [id number] [place] [id number] June, [facility] [place] [address] [id number] [place] [id number] May, Attention deficit hyperactivity disorder (ADHD), predominantly inattentive type F90.0 [facility] [place] [address] [id number] [place] [id number] Apr, [facility] [place] [address] [id number] [place] [id number] Mar, [facility] [place] [address] [id number] [place] [id number] Mar, Attention deficit hyperactivity disorder (ADHD), predominantly inattentive type F90.0 [facility] [place] [address] [id number] [place] [id number] Feb, [facility] [place] [address] [id number] [place] [id number] Feb, [facility] [address] [id number] [id number] Jan, [facility] [place] [address] [id number] [place] [id number] Dec, Attention deficit hyperactivity disorder (ADHD), predominantly inattentive type F90.[address] [facility] [address] [id number] [id number] Nov, [facility] [place] [address] [id number] [place] [id number] Oct, [facility] [place] [address] [id number] [place] [id number] Sep, ADHD (attention deficit hyperactivity di sorder) 314.01 [facility] [place] [address] [id number] [place] [id number] Sep, [facility] [place] [address] [id number] [place] [id number] June, [facility] [place] [address] [id number] [place] [id number] June, [facility] [address] [id number] [address] [place] [phone] May, [facility] [address] [facility] [id number] [address] [place] [address] May, [facility] [place] [address] [id number] [place] [id number] Apr, [facility] [address] [id number] [address] [place] [address], [place] [address] Apr, [facility] [place] [address] [id number] [place] [id number] Mar, [facility] [address] [id number] [address] [place] [address], [place] [address] Mar, [facility] [place] [address] [id number] [place] [id number] Feb, [facility] [address] [id number] [address] [place] [address], [place] [address] Feb, [facility] [place] [address] [id number] [place] [id number] Feb, [facility] [address] [facility] [id number] [address] [place] [address], [place] [address] Feb, [facility] [place] [address] [id number] [place] [id number] Jan, [facility] [address] [id number] [address] [place] [phone] Jan, [facility] [place] [address] [id number] [place] [id number] Jan, [facility] [address] [facility] [id number] [address] [place] [phone] Jan, [facility] [place] [address] [id number] [place] [id number] Dec, [facility] [address] [id number] [address] [place] [phone] Dec, [facility] [place] [address] [id number] [place] [id number] Nov, [facility] [address] [facility] [id number] [address] [place] [address], [place] [address] Nov, [facility] [place] [address] [id number] [place] [id number] Nov, [facility] [address] [facility] [id number] [address] [place] [phone] Nov, [facility] [place] [address] [id number] [place] [id number] Oct, [facility] [address] [id number] [address] [place] [address], [place] [address] Oct, [facility] [place] [address] [id number] [place] [id number] Oct, [facility] [address] [id number] [address] [place] [address], [place] [address] Oct, [facility] [place] [address] [id number] [place] [id number] Sep, [facility] [address] [id number] [address] [place] [address], [place] [address] Sep, [facility] [address] [id number] [address] [place] [address], [place] [address] Sep, [facility] [place] [address] [id number] [place] [id number] Sep, [facility] [address] [id number] [address] [place] [address], [place] [address] Sep, [facility] [address] [id number] [address] [place] [address], [place] [address] Sep, [facility] [address] [id number] [address] [place] [address], [place] [address] Sep, [facility] [place] [address] [id number] [place] [id number] Aug, [facility] [address] [id number] [address] [place] [address], [place] [address] Aug, [facility] [place] [address] [id number] [place] [id number] Aug, [facility] [address] [id number] [address] [place] [address], [place] [address] Aug, [facility] [place] [address] [id number] [place] [id number] June, [facility] [address] [id number] [address] [place] [address], [place] [address] June, [facility] [place] [address] [id number] [place] [id number] June, [facility] [address] [id number] [address] [place] [address], [place] [address] June, [facility] [place] [address] [id number] [place] [id number] Apr, [facility] [address] [id number] [address] [place] [address], [place] [address] Apr, [facility] [place] [address] [id number] [place] [id number] Mar, [facility] [address] [id number] [address] [place] [address], [place] [address] Mar, [facility] [place] [address] [id number] [place] [id number] Feb, [facility] [address] [id number] [address] [place] [address] Feb, [facility] [place] [address] [id number] [place] [id number] Jan, [facility] [address] [facility] [id number] [address] [place] [address] Jan, [facility] [address] [facility] [id number] [address] [place] [address] Jan, [facility] [address] [id number] [address] [place] [address] Jan, [facility] [place] [address] [id number] [place] [id number] Jan, [facility] [address] [facility] [id number] [address] [place] [phone] Jan, [facility] [place] [address] [id number] [place] [id number] Nov, [facility] [address] [id number] [address] [place] [address], [place] [address] Nov, [facility] [place] [address] [id number] [place] [id number] Oct, [facility] [place] [address] [id number] [place] [id number] Sep, [facility] [place] [address] [id number] [place] [id number] Sep, [facility] [place] [address] [id number] [place] [id number] Jul, [facility] [place] [address] [id number] [place] [id number] Jul, [facility] [place] [address] [id number] [place] [id number] June, [facility] [place] [address] [id number] [place] [id number] May, [facility] [place] [address] [id number] [place] [id number] Apr, [facility] [place] [address] [id number] [place] [id number] Mar, [facility] [place] [address] [id number] [place] [id number] Mar, [facility] [place] [address] [id number] [place] [id number] Mar, [facility] [place] [address] [id number] [place] [id number] Feb, [facility] [place] [address] [id number] [place] [id number] Feb, [facility] [place] [address] [id number] [place] [id number] Feb, [facility] [place] [address] [id number] [place] [id number] Feb, [facility] [place] [address] [id number] [place] [id number] Feb, [facility] [place] [address] [id number] [place] [id number] Jan, [facility] [address] [id number] [address] [place] [address], [place] [address] Jan, [facility] [place] [address] [id number] [place] [id number] Dec, [facility] [address] [id number] [address] [place] [address], [place] [address] Dec, [facility] [address] [id number] [address] [place] [address], [place] [address] Dec, [facility] [place] [address] [id number] [place] [id number] Dec, [facility] [address] [id number] [address] [place] [address], [place] [address] Dec, [facility] [address] [facility] [id number] [address] [place] [address], [place] [address] Dec, [facility] [address] [facility] [id number] [address] [place] [address], [place] [address] Dec, [facility] [place] [address] [id number] [place] [id number] Dec, [facility] [address] [id number] [address] [place] [address], [place] [address] Dec, [facility] [place] [address] [id number] [place] [id number] Nov, [facility] [place] [address] [id number] [place] [id number] Sep, [facility] [place] [address] [id number] [place] [id number] Aug, [facility] [address] [id number] [address] [place] [address], [place] [address] Aug, [facility] [place] [address] [id number] [place] [id number] Jul, [facility] [place] [address] [id number] [place] [id number] June, [facility] [address] [id number] [address] [place] [address], [place] [address] June, [facility] [place] [address] [id number] [place] [id number] May, [facility] [address] [id number] [place] [id number] Apr, [facility] [address] [facility] [id number] [place] [id number] Mar, [facility] [address] [facility] [id number] [place] [id number] Feb, [facility] [address] [id number] [address] [place] [address] Jan, [facility] [address] [id number] [address] [place] [address] Dec, [facility] [address] [id number] [address] [place] [address] Nov, [facility] [address] [place] [address] Mar, [facility] [address] [id number] [address] [place] [address] Dec, IMMUNIZATIONS No Known Immunizations SOCIAL HISTORY Never Assessed REASON FOR VISIT [place] [place] VITAL SIGNS MEDICATIONS Unknown Medications RESULTS No Results PROCEDURES No Known procedures INSTRUCTIONS MEDICATIONS ADMINISTERED No Known Medications MEDICAL (GENERAL) HISTORY Type Description Date Medical History attention deficit hyperactivity disorder
--- OUTSIDE RECORDS SUMMARY | 2019-09-15 18:35 | XMS REPORT ---
Author Author Hussain DOMINGUEZ Organization [employer] Address Unknown Phone Unavailable Care Team Providers Care Welt Beater Name Role Phone AKI DOMINGUEZ CP Unavailable Allergies No Known Allergies Problems Problem Type Condition Code Onset Dates Condition Statu s Problem Elevated blood pressure reading without diagnosi s of hypertension 796.2 Active Problem ADHD (attention deficit hyperactivity disorder) 314.01 Active Problem Attention deficit hyperactiv ity disorder (ADHD), predominantly inattentive type F90.0 Active Problem Syncope and collapse 780.2 Active Problem Insomnia, unspecified type G47.00 A ctive Problem Vitiligo 709.01 Active Problem Depressive disorder, not elsewhere classified 311 Active Problem Palpitations 785.1 Active Problem Other acne 706.1 Active Medications Medication Code System Code Instructions Start Date End Date Status Dosage Adderall XR [facility] [address]-71 30 MG Orally Once a day Sep 30, 2014 1 capsule in the morning Results No Known Results Summary Purpose [employer] Submission
--- OUTSIDE RECORDS SUMMARY | 2019-09-15 18:35 | XMS REPORT ---
Author Author Hussain DOMINGUEZ Organization [employer] Address Unknown Phone Unavailable Care Team Providers Care Sales Agent [employer] Insurance Name Role Phone AKI DOMINGUEZ CP Unavailable [...] Date End Date Status Dosage Adderall XR [facility] [address]-66 30 MG Orally Once a day Sep 30, 2014 1 capsule in the morning Results No Known Results Summary Purpose [employer] Submission
--- OUTSIDE RECORDS SUMMARY | 2019-09-15 18:35 | XMS REPORT ---
Author Author Hussain DOMINGUEZ Organization [employer] Address Unknown Phone Unavailable Care Team Providers Care Agriculture Engineer Name Role Phone AKI DOMINGUEZ CP Unavailable Allergies, Adverse Reactions, Alerts Substance Reaction Event Type N.K.D.A. Info Not Available Non Drug Allergy Problems Problem Type Condition Code Onset Dates Condition Statu s Assessment Attention deficit hyperactiv ity disorder (ADHD), predominantly inattentive type F90.0 Active Problem Elevated blood pressure reading without diagnosi [...] End Date Status Dosage Adderall XR [facility] [address]-89 30 MG Orally Once a day Sep 30, 2014 1 capsule in the morning Procedures Procedure Coding System Code Date Office Visit, Est Pt., Level 3 CPT-4 03735 S ept 2015 Vital Signs Date/Time: Nov 15, 2015 Cardiac Monitoring Heart Rate 89 bpm Weight 165.8 lbs Height 69 in Wt Percentile 68.91 % BMI 24.48 Index Blood Pressure Diastolic 80 mmHg Blood Pressure Systolic 140 mmHg BMIPercentile 71.98 % Results No Known Results Summary Purpose [employer] Submission
--- OUTSIDE RECORDS SUMMARY | 2019-09-15 18:35 | XMS REPORT ---
Author Author Hussain DOMINGUEZ [facility] Address [address] [place] [address] Care Team Providers Care Auto Driver Name Role Phone AKI DOMINGUEZ Unavailable PROBLEMS Type Condition ICD9-CM Code ZCN19-YB Code Onset Dates Condition S tatus SNOMED Code Problem Elevated blood pressure reading without diagnosi s of hypertension 796.2 Active 871596865 Problem Syncope and collapse 780.2 Active 679693067 Problem Palpitations 785.1 Active 3181242 2 Problem ADHD (attention deficit hyperactivity disorder) 314.01 Active 373264761 Problem Psychophysiological insomnia F51.04 A ctive 093849633 Problem Insomnia, unspecified type G47.00 Act nhan 557444258 Problem Other acne 706.1 Active 19222416 Problem Vitiligo 709.01 Active 39960268 Problem Attention deficit hyperactiv ity disorder (ADHD), predominantly inattentive type F90.0 Active 65029048 Problem Depressive disorder, not elsewhere classified 311 Active 23500240 ALLERGIES No Information ENCOUNTERS Encounter Location Date Diagnosis [place] [address] [facility] [address] [id number] [place] [id number] Mar, Attention deficit hyperactivity disorder (ADHD), predominantly inattentive type F90.0 [facility] [address] [id number] [place] [id number] Feb, [facility] [address] [id number] [place] [id number] Feb, Attention deficit hyperactivity disorder (ADHD), predominantly inattentive type F90.0 [facility] [address] [id number] [place] [id number] Jan, Attention deficit hyperactivity disorder (ADHD), predominantly inattentive type F90.0 [facility] [address] [id number] [place] [id number] Dec, Attention deficit hyperactivity disorder (ADHD), predominantly inattentive type F90.0 and Psychophysiological insomnia F51.04 [facility] [place] [address] [id number] [place] [id number] Dec, Attention deficit hyperactivity disorder (ADHD), predominantly inattentive type F90.0 [facility] [place] [address] [id number] [place] [id number] Nov, Encounter for immunization Z23 [facility] [place] [address] [id number] [place] [id number] Nov, Attention deficit hyperactivity disorder (ADHD), predominantly inattentive type F90.0 [facility] [place] [address] [id number] [place] [id number] Oct, Attention deficit hyperactivity disorder (ADHD), predominantly inattentive type F90.0 and Adjustment insomnia F51.02 [facility] [place] [address] [id number] [place] [id number] Sep, Attention deficit hyperactivity disorder (ADHD), predominantly inattentive type F90.0 [facility] [place] [address] [id number] [place] [id number] Aug, Adjustment insomnia F51.02 [facility] [place] [address] [id number] [place] [id number] Jul, Attention deficit hyperactivity disorder (ADHD), predominantly inattentive type F90.0 [facility] [place] [address] [id number] [place] [id number] Jul, Adjustment insomnia F51.02 and Attention deficit hyperactivity disorder (ADHD), predominantly inattentive type F90.0 [facility] [place] [address] [id number] [place] [id number] June, Attention deficit hyperactivity disorder (ADHD), predominantly inattentive type F90.0 [facility] [place] [address] [id number] [place] [id number] June, Attention deficit hyperactivity disorder (ADHD), predominantly inattentive type F90.0 [facility] [place] [address] [id number] [place] [id number] May, Attention deficit hyperactivity disorder (ADHD), predominantly inattentive type F90.0 [facility] [place] [address] [id number] [place] [id number] Apr, Attention deficit hyperactivity disorder (ADHD), predominantly inattentive type F90.0 [facility] [place] [address] [id number] [place] [id number] Apr, [facility] [place] [address] [id number] [place] [id number] Apr, Attention deficit hyperactivity disorder (ADHD), predominantly inattentive type F90.0 [facility] [place] [address] [id number] [place] [id number] Mar, [facility] [place] [address] [id number] [place] [id number] Feb, [facility] [place] [address] [id number] [place] [id number] Jan, [facility] [place] [address] [id number] [place] [id number] Dec, [facility] [place] [address] [id number] [place] [id number] Nov, [facility] [place] [address] [id number] [place] [id number] Oct, Attention deficit hyperactivity disorder (ADHD), predominantly inattentive type F90.0 [facility] [place] [address] [id number] [place] [id number] Sep, [facility] [place] [address] [id number] [place] [id number] Aug, [facility] [place] [address] [id number] [place] [id number] Jul, Attention deficit hyperactivity disorder (ADHD), predominantly inattentive type F90.0 and Insomnia, unspecified type G47.00 [facility] [place] [address] [id number] [place] [id number] Jul, [facility] [address] [id number] [place] [id number] June, [facility] [place] [address] [id number] [place] [id number] May, Attention deficit hyperactivity disorder (ADHD), predominantly inattentive type F90.0 [facility] [place] [address] [id number] [place] [id number] Apr, [facility] [place] [address] [id number] [place] [id number] Mar, [facility] [place] [address] [id number] [place] [id number] Mar, Attention deficit hyperactivity disorder (ADHD), predominantly inattentive type F90.0 [facility] [place] [address] [id number] [place] [id number] Feb, [facility] [place] [address] [id number] [place] [id number] Feb, [facility] [address] [id number] [facility] [place] [id number] Jan, [facility] [place] [address] [id number] [place] [id number] Dec, Attention deficit hyperactivity disorder (ADHD), predominantly inattentive type F90.[address] [facility] [address] [id number] [facility] [id number] Nov, [facility] [place] [address] [id number] [place] [id number] Oct, [facility] [place] [address] [id number] [place] [id number] Sep, ADHD (attention deficit hyperactivity di sorder) 314.01 [facility] [place] [address] [id number] [place] [id number] Sep, [facility] [place] [address] [id number] [place] [id number] June, [facility] [place] [address] [id number] [place] [id number] June, [facility] [address] [facility] [id number] [address] [place] [address] May, [facility] [address] [facility] [id number] [address] [place] [address] May, [facility] [place] [address] [id number] [place] [id number] Apr, [facility] [address] [id number] [facility] [place] [address] Apr, [facility] [place] [address] [id number] [place] [id number] Mar, [facility] [address] [id number] [facility] [place] [address] Mar, [facility] [place] [address] [id number] [place] [id number] Feb, [facility] [address] [id number] [address] [place] [address], [place] [address] Feb, [facility] [place] [address] [id number] [place] [id number] Feb, [facility] [address] [id number] [address] [place] [address], [place] [address] Feb, [facility] [place] [address] [id number] [place] [id number] Jan, [facility] [address] [id number] [address] [place] [address], [place] [address] Jan, [facility] [place] [address] [id number] [place] [id number] Jan, [facility] [address] [id number] [address] [place] [address], [place] [address] Jan, [facility] [place] [address] [id number] [place] [id number] Dec, [facility] [address] [id number] [address] [place] [address], [place] [address] Dec, [facility] [place] [address] [id number] [place] [id number] Nov, [facility] [address] [id number] [address] [place] [address], [place] [address] Nov, [facility] [place] [address] [id number] [place] [id number] Nov, [facility] [address] [id number] [address] [place] [address], [place] [address] Nov, [facility] [place] [address] [id number] [place] [id number] Oct, [facility] [address] [id number] [address] [place] [address], [place] [address] Oct, [facility] [place] [address] [id number] [place] [id number] Oct, [facility] [address] [id number] [address] [place] [address], [place] [address] Oct, [facility] [place] [address] [id number] [place] [id number] Sep, [facility] [address] [id number] [address] [place] [address], [place] [address] Sep, [facility] [address] [id number] [address] [place] [address], [place] [address] Sep, [facility] [place] [address] [id number] [place] [id number] Sep, [facility] [address] [id number] [address] [place] [address], [place] [address] Sep, [facility] [address] [id number] [address] [place] [address], [place] [address] Sep, [facility] [address] [id number] [address] [place] [address], [place] [address] Sep, [facility] [place] [address] [id number] [place] [id number] Aug, [facility] [address] [id number] [address] [place] [address], [place] [address] Aug, [facility] [place] [address] [id number] [place] [id number] Aug, [facility] [address] [id number] [facility] [place] [address] Aug, [facility] [place] [address] [id number] [place] [id number] June, [facility] [address] [id number] [facility] [place] [address] June, [facility] [place] [address] [id number] [place] [id number] June, [facility] [address] [id number] [facility] [place] [address] June, [facility] [place] [address] [id number] [place] [id number] Apr, [facility] [address] [id number] [address] [place] [address], [place] [address] Apr, [facility] [place] [address] [id number] [place] [id number] Mar, [facility] [address] [id number] [address] [place] [address], [place] [address] Mar, [facility] [place] [address] [id number] [place] [id number] Feb, [facility] [address] [id number] [address] [place] [address], [place] [address] Feb, [facility] [place] [address] [id number] [place] [id number] Jan, [facility] [address] [id number] [address] [place] [address], [place] [address] Jan, [facility] [address] [id number] [address] [place] [address], [place] [address] Jan, [facility] [address] [id number] [address] [place] [address], [place] [address] Jan, [facility] [place] [address] [id number] [place] [id number] Jan, [facility] [address] [id number] [address] [place] [address], [place] [address] Jan, [facility] [place] [address] [id number] [place] [id number] Nov, [facility] [address] [id number] [address] [place] [address] Nov, [facility] [place] [address] [id number] [place] [id number] Oct, [facility] [place] [address] [id number] [place] [id number] Sep, [facility] [place] [address] [id number] [place] [id number] Sep, [facility] [place] [address] [id number] [place] [id number] Jul, [facility] [place] [address] [id number] [place] [id number] Jul, [facility] [place] [address] [id number] [place] [id number] June, [facility] [place] [address] [id number] [place] [id number] May, [facility] [place] [address] [id number] [place] [id number] Apr, [facility] [place] [address] [id number] [place] [id number] Mar, [facility] [place] [address] [id number] [place] [id number] Mar, [facility] [place] [address] [id number] [place] [id number] Mar, [facility] [place] [address] [id number] [place] [id number] Feb, [facility] [place] [address] [id number] [place] [id number] Feb, [facility] [place] [address] [id number] [place] [id number] Feb, [facility] [place] [address] [id number] [place] [id number] Feb, [facility] [place] [address] [id number] [place] [id number] Feb, [facility] [place] [address] [id number] [place] [id number] Jan, [facility] [address] [id number] [address] [place] [address], [place] [address] Jan, [facility] [place] [address] [id number] [place] [id number] Dec, [facility] [address] [id number] [address] [place] [address], [place] [address] Dec, [facility] [address] [id number] [address] [place] [address] Dec, [facility] [place] [address] [id number] [place] [id number] Dec, [facility] [address] [id number] [address] [place] [address] Dec, [facility] [address] [facility] [id number] [address] [place] [address], [place] [address] Dec, [facility] [address] [id number] [address] [place] [address] Dec, [facility] [place] [address] [id number] [place] [id number] Dec, [facility] [address] [id number] [address] [place] [address] Dec, [facility] [place] [address] [id number] [place] [id number] Nov, [facility] [place] [address] [id number] [place] [id number] Sep, [facility] [place] [address] [id number] [place] [id number] Aug, [facility] [address] [id number] [address] [place] [address], [place] [address] Aug, [facility] [place] [address] [id number] [place] [id number] Jul, [facility] [place] [address] [id number] [place] [id number] June, [facility] [address] [facility] [id number] [address] [place] [address] June, [facility] [place] [address] [id number] [place] [id number] May, [facility] [place] [address] [id number] [place] [id number] Apr, [facility] [place] [address] [facility] [id number] [place] [id number] Mar, [facility] [place] [address] [facility] [id number] [place] [id number] Feb, [facility] [address] [facility] [id number] [address] [place] [address] Jan, [facility] [address] [place] [id number] [address] [place] [address] Dec, [facility] [address] [place] [id number] [address] [place] [address] Nov, [facility] [address] [place] [id number] [address] [place] [address] Mar, [facility] [address] [place] [address] Dec, IMMUNIZATIONS No Known Immunizations SOCIAL HISTORY Never Assessed REASON FOR VISIT phone call PLAN OF CARE VITAL SIGNS MEDICATIONS Medication Instructions Dosage Frequency Start Date End Date Duration S tatus Tamiflu 75 MG Orally Twice a day 1 capsule 12h Feb, 5 day(s) Active RESULTS No Results PROCEDURES No Known procedures INSTRUCTIONS MEDICATIONS ADMINISTERED No Known Medications MEDICAL (GENERAL) HISTORY Type Description Date Medical History attention deficit hyperactivity disorder
--- OUTSIDE RECORDS SUMMARY | 2019-09-15 18:35 | XMS REPORT ---
Author Author Hussain DOMINGUEZ [facility] Address [address] [place] [address] Care Team Providers Care Metallurgical Analyst Name Role Phone AKI DOMINGUEZ Unavailable PROBLEMS Type Condition ICD9-CM Code [id number] Code Onset Dates Condition S tatus SNOMED Code Problem ADHD (attention deficit hyperactivity disorder) 314.01 Active 475638095 Problem Palpitations 785.1 Active 2678146 2 Problem Elevated blood pressure reading without diagnosi s of hypertension 796.2 Active 552417817 Problem Insomnia, unspecified type G47.00 Act nhan 177385390 Problem Attention deficit hyperactiv ity disorder (ADHD), predominantly inattentive type F90.0 Active 90473331 Problem Vitiligo 709.01 Active 12384946 Problem Syncope and collapse 780.2 Active 117075780 Problem Depressive disorder, not elsewhere classified 311 Active 03365188 Problem Other acne 706.1 Active 89496516 ALLERGIES No Information SOCIAL HISTORY Never Assessed PLAN OF CARE VITAL SIGNS MEDICATIONS Unknown Medications RESULTS No Results PROCEDURES No Known procedures IMMUNIZATIONS No Known Immunizations MEDICAL (GENERAL) HISTORY Type Description Date Medical History attention deficit hyperactivity disorder
--- OUTSIDE RECORDS SUMMARY | 2019-09-15 18:35 | XMS REPORT ---
Author Author Hussain DOMINGUEZ Organization [employer] Address Unknown Phone Unavailable Care Team Providers Care Hand Pattern Marker Name Role Phone AKI DOMINGUEZ CP Unavailable Allergies, Adverse Reactions, Alerts Substance Reaction Event Type N.K.D.A. Info Not Available Non Drug Allergy Problems Problem Type Condition Code Onset Dates Condition Statu s Assessment Attention deficit hyperactiv ity disorder (ADHD), predominantly inattentive type F90.0 Active Problem Palpitations 785.1 Active Problem Other acne 706.1 Active Problem Syncope and collapse 780.2 Active Problem Elevated blood pressure reading without diagnosi s of hypertension 796.2 Active Problem ADHD (attention deficit hyperactivity disorder) 314.01 Active Problem Vitiligo 709.01 Active Problem Depressive disorder, not elsewhere classified 311 Active Medications Medication Code System Code Instructions Start Date End Date Status Dosage Adderall XR [facility] [address]-57 30 MG Orally Once a day Sep 30, 2014 1 capsule in the morning Procedures Procedure Coding System Code Date Office Visit, Est Pt., Level 3 CPT-4 50370 N ov 2014 Vital Signs Date/Time: Dec 30, 2014 Temperature 99.1 F Weight 154 lbs Height 67.75 in BMI 23.59 Index Blood Pressure Diastolic 70 mmHg Blood Pressure Systolic 102 mmHg Cardiac Monitoring Heart Rate 115 bpm BMIPercentile 68.68 % Wt Percentile 57.46 % Results No Known Results Summary Purpose [employer] Submission
--- OUTSIDE RECORDS SUMMARY | 2019-09-15 18:35 | XMS REPORT ---
Author Author Hussain DOMINGUEZ [facility] Address [address] [place] [address] Care Team Providers Care Unit Secretary Name Role Phone AKI DOMINGUEZ Unavailable PROBLEMS Type Condition ICD9-CM Code RDF38-KR Code Onset Dates Condition S tatus SNOMED Code Problem ADHD (attention deficit hyperactivity disorder) 314.01 Active 804061791 Problem Palpitations 785.1 Active 8608310 2 Problem Elevated blood pressure reading without diagnosi s of hypertension 796.2 Active 721174617 Problem Insomnia, unspecified type G47.00 Act nhan 188716188 Problem Attention deficit hyperactiv ity disorder (ADHD), predominantly inattentive type F90.0 Active 68180615 Problem Vitiligo 709.01 Active 63252000 Problem Syncope and collapse 780.2 Active 612795450 Problem Depressive disorder, not elsewhere classified 311 Active 66619648 Problem Other acne 706.1 Active 42464239 ALLERGIES Unknown Allergies SOCIAL HISTORY No smoking Hx information available PLAN OF CARE VITAL SIGNS MEDICATIONS Medication Instructions Dosage Frequency Start Date End Date Duration S tatus Adderall XR 30 MG Orally Once a day 1 capsule in the morning 24h Sep, Active RESULTS No Results PROCEDURES No Known procedures IMMUNIZATIONS No Known Immunizations
--- OUTSIDE RECORDS SUMMARY | 2019-09-15 18:35 | XMS REPORT ---
Author Author Hussain DOMINGUEZ [facility] Address [address] [place] [address] Care Team Providers Care Rental Car Ferry Driver Name Role Phone AKI DOMINGUEZ Unavailable PROBLEMS Type Condition ICD9-CM Code RBE03-BI Code Onset Dates Condition S tatus SNOMED Code Problem Elevated blood pressure reading without diagnosi s of hypertension 796.2 Active 037055131 Problem Syncope and collapse 780.2 Active 475067020 Problem Palpitations 785.1 Active 6928444 2 Problem ADHD (attention deficit hyperactivity disorder) 314.01 Active 110974896 Problem Psychophysiological insomnia F51.04 A ctive 011672073 Problem Insomnia, unspecified type G47.00 Act nhan 735669438 Problem Other acne 706.1 Active 30101668 Problem Vitiligo 709.01 Active 72855519 Problem Attention deficit hyperactiv ity disorder (ADHD), predominantly inattentive type F90.0 Active 65848487 Problem Depressive disorder, not elsewhere classified 311 Active 11826157 ALLERGIES No Information ENCOUNTERS Encounter Location Date Diagnosis [facility] [address] [facility] [id number] [place] [id number] May, [facility] [id number] [id number] Mar, Attention deficit hyperactivity disorder (ADHD), predominantly inattentive type F90.0 [facility] [address] [id number] [place] [id number] Feb, [facility] [address] [facility] [id number] [place] [id number] Feb, Attention deficit hyperactivity disorder (ADHD), predominantly inattentive type F90.0 [facility] [address] [id number] [place] [id number] Jan, Attention deficit hyperactivity disorder (ADHD), predominantly inattentive type F90.0 [facility] [place] [address] [id number] [place] [id number] Dec, Attention deficit hyperactivity disorder (ADHD), predominantly inattentive type F90.0 and Psychophysiological insomnia F51.04 [facility] [place] [address] [id number] [place] [id number] Dec, Attention deficit hyperactivity disorder (ADHD), predominantly inattentive type F90.0 [facility] [place] [address] [id number] [place] [id number] Nov, Encounter for immunization Z23 [facility] [place] [address] [id number] [place] [id number] Nov, Attention deficit hyperactivity disorder (ADHD), predominantly inattentive type F90.0 [facility] [place] [address] [id number] [place] [id number] Oct, Attention deficit hyperactivity disorder (ADHD), predominantly inattentive 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 and Adjustment insomnia F51.02 [facility] [place] [address] [id number] [place] [id number] Sep, Attention deficit hyperactivity disorder (ADHD), predominantly inattentive type F90.0 [facility] [place] [address] [id number] [place] [id number] Aug, Adjustment insomnia F51.02 [facility] [place] [address] [id number] [place] [id number] Jul, Attention deficit hyperactivity disorder (ADHD), predominantly inattentive type F90.0 [facility] [place] [address] [id number] [place] [id number] Jul, Adjustment insomnia F51.02 and Attention deficit hyperactivity disorder (ADHD), predominantly inattentive type F90.0 [facility] [place] [address] [id number] [place] [id number] June, Attention deficit hyperactivity disorder (ADHD), predominantly inattentive type F90.0 [facility] [place] [address] [id number] [place] [id number] June, Attention deficit hyperactivity disorder (ADHD), predominantly inattentive type F90.0 [facility] [place] [address] [id number] [place] [id number] May, Attention deficit hyperactivity disorder (ADHD), predominantly inattentive type F90.0 [facility] [place] [address] [id number] [place] [id number] Apr, Attention deficit hyperactivity disorder (ADHD), predominantly inattentive type F90.0 [facility] [place] [address] [id number] [place] [id number] Apr, [facility] [place] [address] [id number] [place] [id number] Apr, Attention deficit hyperactivity disorder (ADHD), predominantly inattentive type F90.0 [facility] [place] [address] [id number] [place] [id number] Mar, [facility] [place] [address] [id number] [place] [id number] Feb, [facility] [place] [address] [id number] [place] [id number] Jan, [facility] [place] [address] [id number] [place] [id number] Dec, [facility] [place] [address] [id number] [place] [id number] Nov, [facility] [place] [address] [id number] [place] [id number] Oct, Attention deficit hyperactivity disorder (ADHD), predominantly inattentive type F90.0 [facility] [place] [address] [id number] [place] [id number] Sep, [facility] [place] [address] [id number] [place] [id number] Aug, [facility] [place] [address] [id number] [place] [id number] Jul, Attention deficit hyperactivity disorder (ADHD), predominantly inattentive type F90.0 and Insomnia, unspecified type G47.00 [facility] [place] [address] [id number] [place] [id number] Jul, [facility] [address] [id number] [id number] June, [facility] [place] [address] [id number] [place] [id number] May, Attention deficit hyperactivity disorder (ADHD), predominantly inattentive type F90.0 [facility] [place] [address] [id number] [place] [id number] Apr, [facility] [place] [address] [id number] [place] [id number] Mar, [facility] [place] [address] [id number] [place] [id number] Mar, Attention deficit hyperactivity disorder (ADHD), predominantly inattentive type F90.0 [facility] [place] [address] [id number] [place] [id number] Feb, [facility] [place] [address] [id number] [place] [id number] Feb, [facility] [address] [id number] [id number] Jan, [facility] [place] [address] [id number] [place] [id number] Dec, Attention deficit hyperactivity disorder (ADHD), predominantly inattentive type F90.[address] [facility] [address] [id number] [id number] Nov, [facility] [place] [address] [id number] [place] [id number] Oct, [facility] [place] [address] [id number] [place] [id number] Sep, ADHD (attention deficit hyperactivity di sorder) 314.01 [facility] [place] [address] [id number] [place] [id number] Sep, [facility] [place] [address] [id number] [place] [id number] June, [facility] [place] [address] [id number] [place] [id number] June, [facility] [address] [facility] [id number] [address] [place] [address] May, [facility] [address] [facility] [id number] [address] [place] [address] May, [facility] [place] [address] [id number] [place] [id number] Apr, [facility] [address] [id number] [address] [place] [address] Apr, [facility] [place] [address] [id number] [place] [id number] Mar, [facility] [address] [id number] [address] [place] [address] Mar, [facility] [place] [address] [id number] [place] [id number] Feb, [facility] [address] [id number] [address] [place] [address] Feb, [facility] [place] [address] [id number] [place] [id number] Feb, [facility] [address] [id number] [address] [place] [address] Feb, [facility] [place] [address] [id number] [place] [id number] Jan, [facility] [address] [id number] [address] [place] [address] Jan, [facility] [place] [address] [id number] [place] [id number] Jan, [facility] [address] [id number] [address] [place] [address] Jan, [facility] [place] [address] [id number] [place] [id number] Dec, [facility] [address] [id number] [address] [place] [address], [place] [address] Dec, [facility] [place] [address] [id number] [place] [id number] Nov, [facility] [address] [id number] [address] [place] [address] Nov, [facility] [place] [address] [id number] [place] [id number] Nov, [facility] [address] [id number] [address] [place] [address], [place] [address] Nov, [facility] [place] [address] [id number] [place] [id number] Oct, [facility] [address] [id number] [address] [place] [address], [place] [address] Oct, [facility] [place] [address] [id number] [place] [id number] Oct, [facility] [address] [id number] [address] [place] [address], [place] [address] Oct, [facility] [place] [address] [id number] [place] [id number] Sep, [facility] [address] [id number] [address] [place] [address], [place] [address] Sep, [facility] [address] [id number] [address] [place] [address], [place] [address] Sep, [facility] [place] [address] [id number] [place] [id number] Sep, [facility] [address] [id number] [address] [place] [address] Sep, [facility] [address] [id number] [address] [place] [address] Sep, [facility] [address] [id number] [address] [place] [address] Sep, [facility] [place] [address] [id number] [place] [id number] Aug, [facility] [address] [id number] [address] [place] [address], [place] [address] Aug, [facility] [place] [address] [id number] [place] [id number] Aug, [facility] [address] [id number] [address] [place] [address], [place] [address] Aug, [facility] [place] [address] [id number] [place] [id number] June, [facility] [address] [id number] [facility] [place] [address] June, [facility] [place] [address] [id number] [place] [id number] June, [facility] [address] [id number] [address] [place] [address], [place] [address] June, [facility] [place] [address] [id number] [place] [id number] Apr, [facility] [address] [id number] [address] [place] [address], [place] [address] Apr, [facility] [place] [address] [id number] [place] [id number] Mar, [facility] [address] [id number] [address] [place] [address], [place] [address] Mar, [facility] [place] [address] [id number] [place] [id number] Feb, [facility] [address] [id number] [address] [place] [address], [place] [address] Feb, [facility] [place] [address] [id number] [place] [id number] Jan, [facility] [address] [id number] [address] [place] [address], [place] [address] Jan, [facility] [address] [id number] [address] [place] [address], [place] [address] Jan, [facility] [address] [id number] [address] [place] [address], [place] [address] Jan, [facility] [place] [address] [id number] [place] [id number] Jan, [facility] [address] [id number] [address] [place] [address], [place] [address] Jan, [facility] [place] [address] [id number] [place] [id number] Nov, [facility] [address] [id number] [address] [address] Nov, [facility] [place] [address] [id number] [place] [id number] Oct, [facility] [place] [address] [id number] [place] [id number] Sep, [facility] [place] [address] [id number] [place] [id number] Sep, [facility] [place] [address] [id number] [place] [id number] Jul, [facility] [place] [address] [id number] [place] [id number] Jul, [facility] [place] [address] [id number] [place] [id number] June, [facility] [place] [address] [id number] [place] [id number] May, [facility] [place] [address] [id number] [place] [id number] Apr, [facility] [place] [address] [id number] [place] [id number] Mar, [facility] [place] [address] [id number] [place] [id number] Mar, [facility] [place] [address] [id number] [place] [id number] Mar, [facility] [place] [address] [id number] [place] [id number] Feb, [facility] [place] [address] [id number] [place] [id number] Feb, [facility] [place] [address] [id number] [place] [id number] Feb, [facility] [place] [address] [id number] [place] [id number] Feb, [facility] [place] [address] [id number] [place] [id number] Feb, [facility] [place] [address] [id number] [place] [id number] Jan, [facility] [address] [id number] [address] [place] [address], [place] [address] Jan, [facility] [place] [address] [id number] [place] [id number] Dec, [facility] [address] [id number] [address] [place] [address], [place] [address] Dec, [facility] [address] [id number] [address] [place] [address], [place] [address] Dec, [facility] [place] [address] [id number] [place] [id number] Dec, [facility] [address] [facility] [id number] [address] [place] [address], [place] [address] Dec, [facility] [address] [facility] [id number] [address] [place] [address], [place] [address] Dec, [facility] [address] [facility] [id number] [address] [place] [address], [place] [address] Dec, [facility] [place] [address] [id number] [place] [id number] Dec, [facility] [address] [id number] [address] [place] [address], [place] [address] Dec, [facility] [place] [address] [id number] [place] [id number] Nov, [facility] [place] [address] [id number] [place] [id number] Sep, [facility] [place] [address] [id number] [place] [id number] Aug, [facility] [address] [id number] [address] [place] [address], [place] [address] Aug, [facility] [place] [address] [id number] [place] [id number] Jul, [facility] [place] [address] [id number] [place] [id number] June, [facility] [address] [facility] [id number] [address] [place] [address] June, [facility] [place] [address] [id number] [place] [id number] May, [facility] [address] [id number] [place] [id number] Apr, [facility] [place] [address] [id number] [place] [id number] Mar, [facility] [address] [id number] [place] [id number] Feb, [facility] [address] [facility] [id number] [address] [place] [address] Jan, [facility] [address] [facility] [id number] [address] [place] [address] Dec, [facility] [address] [facility] [id number] [address] [place] [address] Nov, [facility] [address] [facility] [id number] [address] [place] [address] Mar, [facility] [address] [place] [id number] [address] [place] [address] Dec, IMMUNIZATIONS No Known Immunizations SOCIAL HISTORY Never Assessed REASON FOR VISIT RX request PLAN OF CARE VITAL SIGNS MEDICATIONS Medication Instructions Dosage Frequency Start Date End Date Duration S abner Adderall XR 15 mg Orally Once a day 1 capsule in the morning 24h Sep, 30 days Active RESULTS No Results PROCEDURES No Known procedures INSTRUCTIONS MEDICATIONS ADMINISTERED No Known Medications MEDICAL (GENERAL) HISTORY Type Description Date Medical History attention deficit hyperactivity disorder
--- OUTSIDE RECORDS SUMMARY | 2019-09-15 18:35 | XMS REPORT ---
Author Author Hussain DOMINGUEZ [facility] Address [address] [place] [address] Care Team Providers Care Wire Stripping Machine Operator Name Role Phone AKI DOMINGUEZ Unavailable PROBLEMS Type Condition ICD9-CM Code WPS94-YG Code Onset Dates Condition S tatus SNOMED Code Problem ADHD (attention deficit hyperactivity disorder) 314.01 Active 219010896 Problem Palpitations 785.1 Active 6266972 2 Problem Elevated blood pressure reading without diagnosi s of hypertension 796.2 Active 539400142 Problem Insomnia, unspecified type G47.00 Act nhan 362567678 Problem Attention deficit hyperactiv ity disorder (ADHD), predominantly inattentive type F90.0 Active 55266362 Problem Vitiligo 709.01 Active 13663378 Problem Syncope and collapse 780.2 Active 404862072 Problem Depressive disorder, not elsewhere classified 311 Active 45755812 Problem Other acne 706.1 Active 44450641 ALLERGIES No Information SOCIAL HISTORY Never Assessed PLAN OF CARE VITAL SIGNS MEDICATIONS Medication Instructions Dosage Frequency Start Date End Date Duration S tatus Adderall XR 15 mg Orally Once a day 1 capsule in the morning 24h Sep, Active RESULTS No Results PROCEDURES No Known procedures IMMUNIZATIONS No Known Immunizations MEDICAL (GENERAL) HISTORY Type Description Date Medical History attention deficit hyperactivity disorder
--- OUTSIDE RECORDS SUMMARY | 2019-09-15 18:35 | XMS REPORT ---
Author Author Hussain DOMINGUEZ Organization [employer] Address Unknown Phone Unavailable Care Team Providers Care Plant Cytologist Name Role Phone AKI DOMINGUEZ CP Unavailable Allergies No Known Allergies Problems Problem Type Condition Code Onset Dates Condition Statu s Problem Palpitations 785.1 Active Problem Other acne 706.1 Active Problem Syncope and collapse 780.2 Active Problem Elevated blood pressure reading without diagnosi s of hypertension 796.2 Active Problem ADHD (attention deficit hyperactivity disorder) 314.01 Active Problem Vitiligo 709.01 Active Problem Depressive disorder, not elsewhere classified 311 Active Medications Medication Code System Code Instructions Start Date End Date Status Dosage Adderall XR [facility] [address]-94 30 MG Orally Once a day Sep 30, 2014 1 capsule in the morning Results No Known Results Summary Purpose [employer] Submission
--- OUTSIDE RECORDS SUMMARY | 2019-09-15 18:35 | XMS REPORT ---
Author Author Hussain DOMINGUEZ [facility] Address [address] [place] [address] Care Team Providers Care Client Liaison Name Role Phone AKI DOMINGUEZ Unavailable PROBLEMS Type Condition ICD9-CM Code PYN43-LC Code Onset Dates Condition S tatus SNOMED Code Problem Elevated blood pressure reading without diagnosi s of hypertension 796.2 Active 951179565 Problem Syncope and collapse 780.2 Active 023157150 Problem Palpitations 785.1 Active 3691746 2 Problem ADHD (attention deficit hyperactivity disorder) 314.01 Active 797714770 Problem Psychophysiological insomnia F51.04 A ctive 153632800 Problem Insomnia, unspecified type G47.00 Act nhan 523632531 Problem Other acne 706.1 Active 36553798 Problem Vitiligo 709.01 Active 76066795 Problem Attention deficit hyperactiv ity disorder (ADHD), predominantly inattentive type F90.0 Active 34286050 Problem Depressive disorder, not elsewhere classified 311 Active 04983121 ALLERGIES No Information ENCOUNTERS Encounter Location Date Diagnosis [place] [id number] [facility] [address] [id number] [place], [place] [id number] Mar, Attention deficit hyperactivity disorder (ADHD), predominantly inattentive type F90.0 [facility] [address] [id number] [place] [id number] Feb, [facility] [address] [id number] [place] [id number] Feb, Attention deficit hyperactivity disorder (ADHD), predominantly inattentive type F90.0 [facility] [address] [id number] [place] [id number] Jan, Attention deficit hyperactivity disorder (ADHD), predominantly inattentive type F90.0 [facility] [address] [id number] [place] [id number] Dec, Attention deficit hyperactivity disorder (ADHD), predominantly inattentive type F90.0 and Psychophysiological insomnia F51.04 [facility] [place] [address] [id number] [place] [id number] Dec, Attention deficit hyperactivity disorder (ADHD), predominantly inattentive type F90.0 [facility] [place] [address] [id number] [place] [id number] Nov, Encounter for immunization Z23 [facility] [place] [address] [id number] [place] [id number] Nov, Attention deficit hyperactivity disorder (ADHD), predominantly inattentive type F90.0 [facility] [place] [address] [id number] [place] [id number] Oct, Attention deficit hyperactivity disorder (ADHD), predominantly inattentive type F90.0 and Adjustment insomnia F51.02 [facility] [place] [address] [id number] [place] [id number] Sep, Attention deficit hyperactivity disorder (ADHD), predominantly inattentive type F90.0 [facility] [place] [address] [id number] [place] [id number] Aug, Adjustment insomnia F51.02 [facility] [place] [address] [id number] [place] [id number] Jul, Attention deficit hyperactivity disorder (ADHD), predominantly inattentive type F90.0 [facility] [place] [address] [id number] [place] [id number] Jul, Adjustment insomnia F51.02 and Attention deficit hyperactivity disorder (ADHD), predominantly inattentive type F90.0 [facility] [place] [address] [id number] [place] [id number] June, Attention deficit hyperactivity disorder (ADHD), predominantly inattentive type F90.0 [facility] [place] [address] [id number] [place] [id number] June, Attention deficit hyperactivity disorder (ADHD), predominantly inattentive type F90.0 [facility] [place] [address] [id number] [place] [id number] May, Attention deficit hyperactivity disorder (ADHD), predominantly inattentive type F90.0 [facility] [place] [address] [id number] [place] [id number] Apr, Attention deficit hyperactivity disorder (ADHD), predominantly inattentive type F90.0 [facility] [place] [address] [id number] [place] [id number] Apr, [facility] [place] [address] [id number] [place] [id number] Apr, Attention deficit hyperactivity disorder (ADHD), predominantly inattentive type F90.0 [facility] [place] [address] [id number] [place] [id number] Mar, [facility] [place] [address] [id number] [place] [id number] Feb, [facility] [place] [address] [id number] [place] [id number] Jan, [facility] [place] [address] [id number] [place] [id number] Dec, [facility] [place] [address] [id number] [place] [id number] Nov, [facility] [place] [address] [id number] [place] [id number] Oct, Attention deficit hyperactivity disorder (ADHD), predominantly inattentive type F90.0 [facility] [place] [address] [id number] [place] [id number] Sep, [facility] [place] [address] [id number] [place] [id number] Aug, [facility] [place] [address] [id number] [place] [id number] Jul, Attention deficit hyperactivity disorder (ADHD), predominantly inattentive type F90.0 and Insomnia, unspecified type G47.00 [facility] [place] [address] [id number] [place] [id number] Jul, [facility] [address] [id number] [place] [id number] June, [facility] [place] [address] [id number] [place] [id number] May, Attention deficit hyperactivity disorder (ADHD), predominantly inattentive type F90.0 [facility] [place] [address] [id number] [place] [id number] Apr, [facility] [place] [address] [id number] [place] [id number] Mar, [facility] [place] [address] [id number] [place] [id number] Mar, Attention deficit hyperactivity disorder (ADHD), predominantly inattentive type F90.0 [facility] [place] [address] [id number] [place] [id number] Feb, [facility] [place] [address] [id number] [place] [id number] Feb, [facility] [address] [id number] [facility] [id number] Jan, [facility] [place] [address] [id number] [place] [id number] Dec, Attention deficit hyperactivity disorder (ADHD), predominantly inattentive type F90.[address] [facility] [address] [id number] [facility] [id number] Nov, [facility] [place] [address] [id number] [place] [id number] Oct, [facility] [place] [address] [id number] [place] [id number] Sep, ADHD (attention deficit hyperactivity di sorder) 314.01 [facility] [place] [address] [id number] [place] [id number] Sep, [facility] [place] [address] [id number] [place] [id number] June, [facility] [place] [address] [id number] [place] [id number] June, [facility] [address] [facility] [id number] [address] [place] [phone] May, [facility] [address] [facility] [id number] [address] [place] [address] May, [facility] [place] [address] [id number] [place] [id number] Apr, [facility] [place] [facility] [address] [id number] [address] [address] Apr, [facility] [place] [address] [id number] [place] [id number] Mar, [facility] [address] [id number] [place] [address] Mar, [facility] [place] [address] [id number] [place] [id number] Feb, [facility] [address] [id number] [address] [place] [address], [place] [address] Feb, [facility] [place] [address] [id number] [place] [id number] Feb, [facility] [address] [id number] [address] [place] [address], [place] [address] Feb, [facility] [place] [address] [id number] [place] [id number] Jan, [facility] [address] [id number] [address] [place] [address], [place] [address] Jan, [facility] [place] [address] [id number] [place] [id number] Jan, [facility] [address] [id number] [address] [place] [address], [place] [id number] Jan, [facility] [place] [address] [id number] [place] [id number] Dec, [facility] [address] [id number] [address] [place] [address], [place] [id number] Dec, [facility] [place] [address] [id number] [place] [id number] Nov, [facility] [address] [id number] [address] [place] [address], [place] [address] Nov, [facility] [place] [address] [id number] [place] [id number] Nov, [facility] [address] [id number] [address] [place] [address], [place] [address] Nov, [facility] [place] [address] [id number] [place] [id number] Oct, [facility] [address] [id number] [address] [place] [address], [place] [address] Oct, [facility] [place] [address] [id number] [place] [id number] Oct, [facility] [address] [id number] [address] [place] [address], [place] [id number] Oct, [facility] [place] [address] [id number] [place] [id number] Sep, [facility] [address] [id number] [address] [place] [address], [place] [id number] Sep, [facility] [address] [id number] [address] [place] [address], [place] [address] Sep, [facility] [place] [address] [id number] [place] [id number] Sep, [facility] [address] [id number] [address] [place] [address], [place] [id number] Sep, [facility] [address] [id number] [address] [place] [address], [place] [address] Sep, [facility] [address] [id number] [address] [place] [address], [place] [id number] Sep, [facility] [place] [address] [id number] [place] [id number] Aug, [facility] [address] [id number] [address] [place] [address], [place] [address] Aug, [facility] [place] [address] [id number] [place] [id number] Aug, [facility] [address] [id number] [place] [address] Aug, [facility] [place] [address] [id number] [place] [id number] June, [facility] [address] [id number] [place] [address] June, [facility] [place] [address] [id number] [place] [id number] June, [facility] [address] [id number] [place] [address] June, [facility] [place] [address] [id number] [place] [id number] Apr, [facility] [address] [id number] [address] [place] [address], [place] [id number] Apr, [facility] [place] [address] [id number] [place] [id number] Mar, [facility] [address] [id number] [address] [place] [address], [place] [address] Mar, [facility] [place] [address] [id number] [place] [id number] Feb, [facility] [address] [id number] [address] [place] [address], [place] [address] Feb, [facility] [place] [address] [id number] [place] [id number] Jan, [facility] [address] [id number] [address] [place] [address], [place] [address] Jan, [facility] [address] [id number] [address] [place] [address], [place] [address] Jan, [facility] [address] [id number] [address] [place] [address], [place] [address] Jan, [facility] [place] [address] [id number] [place] [id number] Jan, [facility] [address] [id number] [address] [place] [address], [place] [address] Jan, [facility] [place] [address] [id number] [place] [id number] Nov, [facility] [address] [id number] [place] [address] Nov, [facility] [place] [address] [id number] [place] [id number] Oct, [facility] [place] [address] [id number] [place] [id number] Sep, [facility] [place] [address] [id number] [place] [id number] Sep, [facility] [place] [address] [id number] [place] [id number] Jul, [facility] [place] [address] [id number] [place] [id number] Jul, [facility] [place] [address] [id number] [place] [id number] June, [facility] [place] [address] [id number] [place] [id number] May, [facility] [place] [address] [id number] [place] [id number] Apr, [facility] [place] [address] [id number] [place] [id number] Mar, [facility] [place] [address] [id number] [place] [id number] Mar, [facility] [place] [address] [id number] [place] [id number] Mar, [facility] [place] [address] [id number] [place] [id number] Feb, [facility] [place] [address] [id number] [place] [id number] Feb, [facility] [place] [address] [id number] [place] [id number] Feb, [facility] [place] [address] [id number] [place] [id number] Feb, [facility] [place] [address] [id number] [place] [id number] Feb, [facility] [place] [address] [id number] [place] [id number] Jan, [facility] [address] [id number] [address] [place] [address], [place] [address] Jan, [facility] [place] [address] [id number] [place] [id number] Dec, [facility] [address] [id number] [address] [place] [address], [place] [id number] Dec, [facility] [address] [id number] [address] [place] [address] Dec, [facility] [place] [address] [id number] [place] [id number] Dec, [facility] [address] [id number] [address] [place] [address] Dec, [facility] [address] [facility] [id number] [address] [place] [address], [place] [address] Dec, [facility] [address] [id number] [address] [place] [address] Dec, [facility] [place] [address] [id number] [place] [id number] Dec, [facility] [address] [id number] [address] [place] [address] Dec, [facility] [place] [address] [id number] [place] [id number] Nov, [facility] [place] [address] [id number] [place] [id number] Sep, [facility] [place] [address] [id number] [place] [id number] Aug, [facility] [address] [id number] [address] [place] [address], [place] [address] Aug, [facility] [place] [address] [id number] [place] [id number] Jul, [facility] [place] [address] [id number] [place] [id number] June, [facility] [address] [facility] [id number] [address] [place] [address] June, [facility] [place] [address] [id number] [place] [id number] May, [facility] [place] [address] [id number] [place] [id number] Apr, [facility] [place] [address] [id number] [place] [id number] Mar, [facility] [place] [address] [id number] [place] [id number] Feb, [facility] [address] [facility] [id number] [address] [place] [address] Jan, [facility] [address] [place] [id number] [address] [place] [id number] Dec, [facility] [address] [place] [id number] [address] [place] [id number] Nov, [facility] [address] [place] [id number] [address] [place] [address] Mar, [facility] [id number] [place] [address] Dec, IMMUNIZATIONS No Known Immunizations SOCIAL HISTORY Never Assessed REASON FOR VISIT RX-Adderall refill PLAN OF CARE VITAL SIGNS MEDICATIONS Medication Instructions Dosage Frequency Start Date End Date Duration S abner Adderall XR 15 mg Orally Once a day 1 capsule in the morning 24h Jan, Active RESULTS No Results PROCEDURES No Known procedures INSTRUCTIONS MEDICATIONS ADMINISTERED No Known Medications MEDICAL (GENERAL) HISTORY Type Description Date Medical History attention deficit hyperactivity disorder
--- OUTSIDE RECORDS SUMMARY | 2019-09-15 18:35 | XMS REPORT ---
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 Name Role Phone AKI DOMINGUEZ Unavailable PROBLEMS Type Condition ICD9-CM Code MYS91-BF Code Onset Dates Condition S tatus SNOMED Code Problem Elevated blood pressure reading without diagnosi s of hypertension 796.2 Active 919146539 Problem Syncope and collapse 780.2 Active 702893972 Problem Palpitations 785.1 Active 7100079 2 Problem ADHD (attention deficit hyperactivity disorder) 314.01 Active 600207117 Problem Psychophysiological insomnia F51.04 A ctive 510157198 Problem Insomnia, unspecified type G47.00 Act nhan 381326349 Problem Other acne 706.1 Active 63273401 Problem Vitiligo 709.01 Active 79162369 Problem Attention deficit hyperactiv ity disorder (ADHD), predominantly inattentive type F90.0 Active 44410762 Problem Depressive disorder, not elsewhere classified 311 Active 54464418 ALLERGIES No Information ENCOUNTERS Encounter Location Date Diagnosis [place] [id number] [id number] [place] [id number] Mar, Attention deficit hyperactivity disorder (ADHD), predominantly inattentive type F90.0 [facility] [address] [id number] [place] [id number] Feb, [facility] [address] [id number] [place] [id number] Feb, Attention deficit hyperactivity disorder (ADHD), predominantly inattentive type F90.0 [facility] [address] [id number] [place] [id number] Jan, Attention deficit hyperactivity disorder (ADHD), predominantly inattentive type F90.0 [facility] [address] [id number] [place] [id number] Dec, Attention deficit hyperactivity disorder (ADHD), predominantly inattentive type F90.0 and Psychophysiological insomnia F51.04 [facility] [place] [address] [id number] [place] [id number] Dec, Attention deficit hyperactivity disorder (ADHD), predominantly inattentive type F90.0 [facility] [place] [address] [id number] [place] [id number] Nov, Encounter for immunization Z23 [facility] [place] [address] [id number] [place] [id number] Nov, Attention deficit hyperactivity disorder (ADHD), predominantly inattentive type F90.0 [facility] [place] [address] [id number] [place] [id number] Oct, Attention deficit hyperactivity disorder (ADHD), predominantly inattentive type F90.0 and Adjustment insomnia F51.02 [facility] [place] [address] [id number] [place] [id number] Sep, Attention deficit hyperactivity disorder (ADHD), predominantly inattentive type F90.0 [facility] [place] [address] [id number] [place] [id number] Aug, Adjustment insomnia F51.02 [facility] [place] [address] [id number] [place] [id number] Jul, Attention deficit hyperactivity disorder (ADHD), predominantly inattentive type F90.0 [facility] [place] [address] [id number] [place] [id number] Jul, Adjustment insomnia F51.02 and Attention deficit hyperactivity disorder (ADHD), predominantly inattentive type F90.0 [facility] [place] [address] [id number] [place] [id number] June, Attention deficit hyperactivity disorder (ADHD), predominantly inattentive type F90.0 [facility] [place] [address] [id number] [place] [id number] June, Attention deficit hyperactivity disorder (ADHD), predominantly inattentive type F90.0 [facility] [place] [address] [id number] [place] [id number] May, Attention deficit hyperactivity disorder (ADHD), predominantly inattentive type F90.0 [facility] [place] [address] [id number] [place] [id number] Apr, Attention deficit hyperactivity disorder (ADHD), predominantly inattentive type F90.0 [facility] [place] [address] [id number] [place] [id number] Apr, [facility] [place] [address] [id number] [place] [id number] Apr, Attention deficit hyperactivity disorder (ADHD), predominantly inattentive type F90.0 [facility] [place] [address] [id number] [place] [id number] Mar, [facility] [place] [address] [id number] [place] [id number] Feb, [facility] [place] [address] [id number] [place] [id number] Jan, [facility] [place] [address] [id number] [place] [id number] Dec, [facility] [place] [address] [id number] [place] [id number] Nov, [facility] [place] [address] [id number] [place] [id number] Oct, Attention deficit hyperactivity disorder (ADHD), predominantly inattentive type F90.0 [facility] [place] [address] [id number] [place] [id number] Sep, [facility] [place] [address] [id number] [place] [id number] Aug, [facility] [place] [address] [id number] [place] [id number] Jul, Attention deficit hyperactivity disorder (ADHD), predominantly inattentive type F90.0 and Insomnia, unspecified type G47.00 [facility] [place] [address] [id number] [place] [id number] Jul, [facility] [address] [id number] [place] [id number] June, [facility] [place] [address] [id number] [place] [id number] May, Attention deficit hyperactivity disorder (ADHD), predominantly inattentive type F90.0 [facility] [place] [address] [id number] [place] [id number] Apr, [facility] [place] [address] [id number] [place] [id number] Mar, [facility] [place] [address] [id number] [place] [id number] Mar, Attention deficit hyperactivity disorder (ADHD), predominantly inattentive type F90.0 [facility] [place] [address] [id number] [place] [id number] Feb, [facility] [place] [address] [id number] [place] [id number] Feb, [facility] [address] [id number] [facility] [id number] Jan, [facility] [place] [address] [id number] [place] [id number] Dec, Attention deficit hyperactivity disorder (ADHD), predominantly inattentive type F90.[address] [facility] [address] [id number] [facility] [place] [id number] Nov, [facility] [place] [address] [id number] [place] [id number] Oct, [facility] [place] [address] [id number] [place] [id number] Sep, ADHD (attention deficit hyperactivity di sorder) 314.01 [facility] [place] [address] [id number] [place] [id number] Sep, [facility] [place] [address] [id number] [place] [id number] June, [facility] [place] [address] [id number] [place] [id number] June[facility] [address] [facility] [id number] [address] [place] [address] May, [facility] [address] [facility] [id number] [address] [place] [address] May, [facility] [place] [address] [id number] [place] [id number] Apr, [facility] [address] [id number] [facility] [place] [address] Apr, [facility] [place] [address] [id number] [place] [id number] Mar, [facility] [address] [id number] [facility] [place] [address] Mar, [facility] [place] [address] [id number] [place] [id number] Feb, [facility] [address] [id number] [address] [place] [address], [place] [address] Feb, [facility] [place] [address] [id number] [place] [id number] Feb, [facility] [address] [id number] [address] [place] [address], [place] [address] Feb, [facility] [place] [address] [id number] [place] [id number] Jan, [facility] [address] [id number] [address] [place] [address], [place] [address] Jan, [facility] [place] [address] [id number] [place] [id number] Jan, [facility] [address] [id number] [address] [place] [address], [place] [address] Jan, [facility] [place] [address] [id number] [place] [id number] Dec, [facility] [address] [id number] [address] [place] [address], [place] [address] Dec, [facility] [place] [address] [id number] [place] [id number] Nov, [facility] [address] [id number] [address] [place] [address], [place] [address] Nov, [facility] [place] [address] [id number] [place] [id number] Nov, [facility] [address] [id number] [address] [place] [address], [place] [address] Nov, [facility] [place] [address] [id number] [place] [id number] Oct, [facility] [address] [id number] [address] [place] [address], [place] [address] Oct, [facility] [place] [address] [id number] [place] [id number] Oct, [facility] [address] [id number] [address] [place] [address], [place] [address] Oct, [facility] [place] [address] [id number] [place] [id number] Sep, [facility] [address] [id number] [address] [place] [address], [place] [address] Sep, [facility] [address] [id number] [address] [place] [address], [place] [address] Sep, [facility] [place] [address] [id number] [place] [id number] Sep, [facility] [address] [id number] [address] [place] [address], [place] [address] Sep, [facility] [address] [id number] [address] [place] [address], [place] [address] Sep, [facility] [address] [id number] [address] [place] [address], [place] [address] Sep, [facility] [place] [address] [id number] [place] [id number] Aug, [facility] [address] [id number] [address] [place] [address], [place] [address] Aug, [facility] [place] [address] [id number] [place] [id number] Aug, [facility] [address] [id number] [facility] [place] [address] Aug, [facility] [place] [address] [id number] [place] [id number] June, [facility] [address] [id number] [facility] [place] [address] June, [facility] [place] [address] [id number] [place] [id number] June, [facility] [address] [id number] [facility] [place] [address] June, [facility] [place] [address] [id number] [place] [id number] Apr, [facility] [address] [id number] [address] [place] [address], [place] [address] Apr, [facility] [place] [address] [id number] [place] [id number] Mar, [facility] [address] [id number] [address] [place] [address], [place] [address] Mar, [facility] [place] [address] [id number] [place] [id number] Feb, [facility] [address] [id number] [address] [place] [address], [place] [address] Feb, [facility] [place] [address] [id number] [place] [id number] Jan, [facility] [address] [id number] [address] [place] [address], [place] [address] Jan, [facility] [address] [id number] [address] [place] [address], [place] [address] Jan, [facility] [address] [id number] [address] [place] [address], [place] [address] Jan, [facility] [place] [address] [id number] [place] [id number] Jan, [facility] [address] [id number] [address] [place] [address], [place] [address] Jan, [facility] [place] [address] [id number] [place] [id number] Nov, [facility] [address] [id number] [place] [address] Nov, [facility] [place] [address] [id number] [place] [id number] Oct, [facility] [place] [address] [id number] [place] [id number] Sep, [facility] [place] [address] [id number] [place] [id number] Sep, [facility] [place] [address] [id number] [place] [id number] Jul, [facility] [place] [address] [id number] [place] [id number] Jul, [facility] [place] [address] [id number] [place] [id number] June, [facility] [place] [address] [id number] [place] [id number] May, [facility] [place] [address] [id number] [place] [id number] Apr, [facility] [place] [address] [id number] [place] [id number] Mar, [facility] [place] [address] [id number] [place] [id number] Mar, [facility] [place] [address] [id number] [place] [id number] Mar, [facility] [place] [address] [id number] [place] [id number] Feb, [facility] [place] [address] [id number] [place] [id number] Feb, [facility] [place] [address] [id number] [place] [id number] Feb, [facility] [place] [address] [id number] [place] [id number] Feb, [facility] [place] [address] [id number] [place] [id number] Feb, [facility] [place] [address] [id number] [place] [id number] Jan, [facility] [address] [id number] [address] [place] [address], [place] [address] Jan, [facility] [place] [address] [id number] [place] [id number] Dec, [facility] [address] [id number] [address] [place] [address], [place] [address] Dec, [facility] [address] [id number] [address] [place] [address] Dec, [facility] [place] [address] [id number] [place] [id number] Dec, [facility] [address] [id number] [address] [place] [address] Dec, [facility] [address] [facility] [id number] [address] [place] [address], [place] [address] Dec, [facility] [address] [id number] [address] [place] [address] Dec, [facility] [place] [address] [id number] [place] [id number] Dec, [facility] [address] [id number] [address] [place] [address] Dec, [facility] [place] [address] [id number] [place] [id number] Nov, [facility] [place] [address] [id number] [place] [id number] Sep, [facility] [place] [address] [id number] [place] [id number] Aug, [facility] [address] [id number] [address] [place] [address], [place] [address] Aug, [facility] [place] [address] [id number] [place] [id number] Jul, [facility] [place] [address] [id number] [place] [id number] June, [facility] [address] [facility] [id number] [address] [place] [address] June, [facility] [place] [address] [id number] [place] [id number] May, [facility] [place] [address] [id number] [place] [id number] Apr, [facility] [place] [address] [id number] [place] [id number] Mar, [facility] [place] [address] [facility] [id number] [place] [id number] Feb, [facility] [address] [facility] [id number] [address] [place] [address] Jan, [facility] [address] [place] [id number] [address] [place] [address] Dec, [facility] [address] [place] [id number] [address] [place] [address] Nov, [facility] [address] [place] [id number] [address] [place] [address] Mar, [facility] [address] [place] [address] Dec, IMMUNIZATIONS No Known Immunizations SOCIAL HISTORY Never Assessed REASON FOR VISIT Medication refill request PLAN OF CARE VITAL SIGNS MEDICATIONS Medication Instructions Dosage Frequency Start Date End Date Duration S abner Adderall XR 15 mg Orally Once a day 1 capsule in the morning 24h Feb, 0 days Active RESULTS No Results PROCEDURES No Known procedures INSTRUCTIONS MEDICATIONS ADMINISTERED No Known Medications MEDICAL (GENERAL) HISTORY Type Description Date Medical History attention deficit hyperactivity disorder
--- OUTSIDE RECORDS SUMMARY | 2019-09-15 18:36 | XMS REPORT ---
Author Author Hussain DOMINGUEZ [facility] Address [address] [place] [address] Care Team Providers Care Boiler Reliner Name Role Phone AKI DOMINGUEZ Unavailable PROBLEMS Type Condition ICD9-CM Code NJJ60-EG Code Onset Dates Condition S tatus SNOMED Code Problem Elevated blood pressure reading without diagnosi s of hypertension 796.2 Active 737345672 Problem Syncope and collapse 780.2 Active 741518048 Problem Palpitations 785.1 Active 8157673 2 Problem ADHD (attention deficit hyperactivity disorder) 314.01 Active 681114989 Problem Psychophysiological insomnia F51.04 A ctive 018248953 Problem Insomnia, unspecified type G47.00 Act nhan 650451506 Problem Other acne 706.1 Active 39229143 Problem Vitiligo 709.01 Active 03443706 Problem Attention deficit hyperactiv ity disorder (ADHD), predominantly inattentive type F90.0 Active 93835935 Problem Depressive disorder, not elsewhere classified 311 Active 64835332 ALLERGIES No Information ENCOUNTERS Encounter Location Date Diagnosis [facility] [address] [facility] [address] [id number] [place] [id number] May, [facility] [address] [id number] [id number] Mar, Attention deficit hyperactivity disorder (ADHD), predominantly inattentive type F90.0 [facility] [address] [id number] [place] [id number] Feb, [facility] [address] [facility] [facility] [id number] [place] [id number] Feb, Attention deficit hyperactivity disorder (ADHD), predominantly inattentive type F90.0 [facility] [address] [id number] [place] [id number] Jan, Attention deficit hyperactivity disorder (ADHD), predominantly inattentive type F90.0 [facility] [place] [address] [id number] [place] [id number] Dec, Attention deficit hyperactivity disorder (ADHD), predominantly inattentive type F90.0 and Psychophysiological insomnia F51.04 [facility] [place] [address] [id number] [place] [id number] Dec, Attention deficit hyperactivity disorder (ADHD), predominantly inattentive type F90.0 [facility] [place] [address] [id number] [place] [id number] Nov, Encounter for immunization Z23 [facility] [place] [address] [id number] [place] [id number] Nov, Attention deficit hyperactivity disorder (ADHD), predominantly inattentive type F90.0 [facility] [place] [address] [id number] [place] [id number] Oct, Attention deficit hyperactivity disorder (ADHD), predominantly inattentive type F90.0 and Adjustment insomnia F51.02 [facility] [place] [address] [id number] [place] [id number] Sep, Attention deficit hyperactivity disorder (ADHD), predominantly inattentive type F90.0 [facility] [place] [address] [id number] [place] [id number] Aug, Adjustment insomnia F51.02 [facility] [place] [address] [id number] [place] [id number] Jul, Attention deficit hyperactivity disorder (ADHD), predominantly inattentive type F90.0 [facility] [place] [address] [id number] [place] [id number] Jul, Adjustment insomnia F51.02 and Attention deficit hyperactivity disorder (ADHD), predominantly inattentive type F90.0 [facility] [place] [address] [id number] [place] [id number] June, Attention deficit hyperactivity disorder (ADHD), predominantly inattentive type F90.0 [facility] [place] [address] [id number] [place] [id number] June, Attention deficit hyperactivity disorder (ADHD), predominantly inattentive type F90.0 [facility] [place] [address] [id number] [place] [id number] May, Attention deficit hyperactivity disorder (ADHD), predominantly inattentive type F90.0 [facility] [place] [address] [id number] [place] [id number] Apr, Attention deficit hyperactivity disorder (ADHD), predominantly inattentive type F90.0 [facility] [place] [address] [id number] [place] [id number] Apr, [facility] [place] [address] [id number] [place] [id number] Apr, Attention deficit hyperactivity disorder (ADHD), predominantly inattentive type F90.0 [facility] [place] [address] [id number] [place] [id number] Mar, [facility] [place] [address] [id number] [place] [id number] Feb, [facility] [place] [address] [id number] [place] [id number] Jan, [facility] [place] [address] [id number] [place] [id number] Dec, [facility] [place] [address] [id number] [place] [id number] Nov, [facility] [place] [address] [id number] [place] [id number] Oct, Attention deficit hyperactivity disorder (ADHD), predominantly inattentive type F90.0 [facility] [place] [address] [id number] [place] [id number] Sep, [facility] [place] [address] [id number] [place] [id number] Aug, [facility] [place] [address] [id number] [place] [id number] Jul, Attention deficit hyperactivity disorder (ADHD), predominantly inattentive type F90.0 and Insomnia, unspecified type G47.00 [facility] [place] [address] [id number] [place] [id number] Jul, [facility] [address] [id number] [id number] June, [facility] [place] [address] [id number] [place] [id number] May, Attention deficit hyperactivity disorder (ADHD), predominantly inattentive type F90.0 [facility] [place] [address] [id number] [place] [id number] Apr, [facility] [place] [address] [id number] [place] [id number] Mar, [facility] [place] [address] [id number] [place] [id number] Mar, Attention deficit hyperactivity disorder (ADHD), predominantly inattentive type F90.0 [facility] [place] [address] [id number] [place] [id number] Feb, [facility] [place] [address] [id number] [place] [id number] Feb, [facility] [address] [id number] [id number] Jan, [facility] [place] [address] [id number] [place] [id number] Dec, Attention deficit hyperactivity disorder (ADHD), predominantly inattentive type F90.[address] [facility] [address] [id number] [id number] Nov, [facility] [place] [address] [id number] [place] [id number] Oct, [facility] [place] [address] [id number] [place] [id number] Sep, ADHD (attention deficit hyperactivity di sorder) 314.01 [facility] [place] [address] [id number] [place] [id number] Sep, [facility] [place] [address] [id number] [place] [id number] June, [facility] [place] [address] [id number] [place] [id number] June, [facility] [address] [facility] [id number] [address] [place] [address] May, [facility] [address] [facility] [id number] [address] [place] [address] May, [facility] [place] [address] [id number] [place] [id number] Apr, [facility] [address] [id number] [address] [place] [address] Apr, [facility] [place] [address] [id number] [place] [id number] Mar, [facility] [address] [id number] [address] [place] [id number] Mar, [facility] [place] [address] [id number] [place] [id number] Feb, [facility] [address] [id number] [address] [place] [address] Feb, [facility] [place] [address] [id number] [place] [id number] Feb, [facility] [address] [id number] [address] [place] [address] Feb, [facility] [place] [address] [id number] [place] [id number] Jan, [facility] [address] [id number] [address] [place] [address] Jan, [facility] [place] [address] [id number] [place] [id number] Jan, [facility] [address] [id number] [address] [place] [id number] Jan, [facility] [place] [address] [id number] [place] [id number] Dec, [facility] [address] [id number] [address] [place] [address], [place] [address] Dec, [facility] [place] [address] [id number] [place] [id number] Nov, [facility] [address] [id number] [address] [place] [address] Nov, [facility] [place] [address] [id number] [place] [id number] Nov, [facility] [address] [id number] [address] [place] [address], [place] [address] Nov, [facility] [place] [address] [id number] [place] [id number] Oct, [facility] [address] [id number] [address] [place] [address], [place] [address] Oct, [facility] [place] [address] [id number] [place] [id number] Oct, [facility] [address] [id number] [address] [place] [address], [place] [address] Oct, [facility] [place] [address] [id number] [place] [id number] Sep, [facility] [address] [id number] [address] [place] [address], [place] [address] Sep, [facility] [address] [id number] [address] [place] [address], [place] [address] Sep, [facility] [place] [address] [id number] [place] [id number] Sep, [facility] [address] [id number] [address] [place] [address] Sep, [facility] [address] [id number] [address] [place] [address] Sep, [facility] [address] [id number] [address] [place] [address] Sep, [facility] [place] [address] [id number] [place] [id number] Aug, [facility] [address] [id number] [address] [place] [address], [place] [address] Aug, [facility] [place] [address] [id number] [place] [id number] Aug, [facility] [address] [id number] [address] [place] [address], [place] [address] Aug, [facility] [place] [address] [id number] [place] [id number] June, [facility] [address] [id number] [facility] [place] [address] June, [facility] [place] [address] [id number] [place] [id number] June, [facility] [address] [id number] [address] [place] [address], [place] [address] June, [facility] [place] [address] [id number] [place] [id number] Apr, [facility] [address] [id number] [address] [place] [address], [place] [address] Apr, [facility] [place] [address] [id number] [place] [id number] Mar, [facility] [address] [id number] [address] [place] [address], [place] [address] Mar, [facility] [place] [address] [id number] [place] [id number] Feb, [facility] [address] [id number] [address] [place] [address], [place] [address] Feb, [facility] [place] [address] [id number] [place] [id number] Jan, [facility] [address] [id number] [address] [place] [address], [place] [address] Jan, [facility] [address] [id number] [address] [place] [address], [place] [address] Jan, [facility] [address] [id number] [address] [place] [address], [place] [address] Jan, [facility] [place] [address] [id number] [place] [id number] Jan, [facility] [address] [id number] [address] [place] [address], [place] [address] Jan, [facility] [place] [address] [id number] [place] [id number] Nov, [facility] [address] [id number] [address] [place] [address] Nov, [facility] [place] [address] [id number] [place] [id number] Oct, [facility] [place] [address] [id number] [place] [id number] Sep, [facility] [place] [address] [id number] [place] [id number] Sep, [facility] [place] [address] [id number] [place] [id number] Jul, [facility] [place] [address] [id number] [place] [id number] Jul, [facility] [place] [address] [id number] [place] [id number] June, [facility] [place] [address] [id number] [place] [id number] May, [facility] [place] [address] [id number] [place] [id number] Apr, [facility] [place] [address] [id number] [place] [id number] Mar, [facility] [place] [address] [id number] [place] [id number] Mar, [facility] [place] [address] [id number] [place] [id number] Mar, [facility] [place] [address] [id number] [place] [id number] Feb, [facility] [place] [address] [id number] [place] [id number] Feb, [facility] [place] [address] [id number] [place] [id number] Feb, [facility] [place] [address] [id number] [place] [id number] Feb, [facility] [place] [address] [id number] [place] [id number] Feb, [facility] [place] [address] [id number] [place] [id number] Jan, [facility] [address] [id number] [address] [place] [address], [place] [address] Jan, [facility] [place] [address] [id number] [place] [id number] Dec, [facility] [address] [id number] [address] [place] [address], [place] [address] Dec, [facility] [address] [id number] [address] [place] [address], [place] [address] Dec, [facility] [place] [address] [id number] [place] [id number] Dec, [facility] [address] [facility] [id number] [address] [place] [address], [place] [address] Dec, [facility] [address] [facility] [id number] [address] [place] [address], [place] [address] Dec, [facility] [address] [facility] [id number] [address] [place] [address], [place] [address] Dec, [facility] [place] [address] [id number] [place] [id number] Dec, [facility] [address] [id number] [address] [place] [address], [place] [address] Dec, [facility] [place] [address] [id number] [place] [id number] Nov, [facility] [place] [address] [id number] [place] [id number] Sep, [facility] [place] [address] [id number] [place] [id number] Aug, [facility] [address] [id number] [address] [place] [address], [place] [address] Aug, [facility] [place] [address] [id number] [place] [id number] Jul, [facility] [place] [address] [id number] [place] [id number] June, [facility] [address] [id number] [address] [place] [address] June, [facility] [place] [address] [id number] [place] [id number] May, [facility] [place] [address] [id number] [place] [id number] Apr, [facility] [place] [address] [id number] [place] [id number] Mar, [facility] [address] [id number] [place] [id number] Feb, [facility] [address] [facility] [id number] [address] [place] [address] Jan, [facility] [address] [facility] [id number] [address] [place] [address] Dec, [facility] [address] [facility] [id number] [address] [place] [address] Nov, [facility] [address] [facility] [id number] [address] [place] [address] Mar, [facility] [address] [facility] [id number] [address] [place] [address] Dec, IMMUNIZATIONS No Known Immunizations SOCIAL HISTORY Never Assessed REASON FOR VISIT RX-Seroquel refill PLAN OF CARE VITAL SIGNS MEDICATIONS Medication Instructions Dosage Frequency Start Date End Date Duration S tatus Seroquel 25 MG Orally Once a day at hs 1-2 tablet Jul, Active RESULTS No Results PROCEDURES No Known procedures INSTRUCTIONS MEDICATIONS ADMINISTERED No Known Medications MEDICAL (GENERAL) HISTORY Type Description Date Medical History attention deficit hyperactivity disorder
--- OUTSIDE RECORDS SUMMARY | 2019-09-15 18:36 | XMS REPORT ---
Author Author Hussain DOMINGUEZ Organization [employer] Address Unknown Phone Unavailable Care Team Providers Care Mangle Tender Name Role Phone AKI DOMINGUEZ CP Unavailable [...] Date End Date Status Dosage Adderall XR [facility] [address]-82 30 MG Orally Once a day Sep 30, 2014 1 capsule in the morning Results No Known Results Summary Purpose [employer] Submission
--- OUTSIDE RECORDS SUMMARY | 2019-09-15 18:36 | XMS REPORT ---
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 Name Role Phone AKI DOMINGUEZ Unavailable PROBLEMS Type Condition ICD9-CM Code YLT68-LB Code Onset Dates Condition S tatus SNOMED Code Problem ADHD (attention deficit hyperactivity disorder) 314.01 Active 304704990 Problem Palpitations 785.1 Active 3604024 2 Problem Elevated blood pressure reading without diagnosi s of hypertension 796.2 Active 480791413 Problem Insomnia, unspecified type G47.00 Act nhan 350522393 Problem Attention deficit hyperactiv ity disorder (ADHD), predominantly inattentive type F90.0 Active 52974160 Problem Vitiligo 709.01 Active 77323292 Problem Syncope and collapse 780.2 Active 293286140 Problem Depressive disorder, not elsewhere classified 311 Active 64998443 Problem Other acne 706.1 Active 89298776 ALLERGIES No Known Allergies SOCIAL HISTORY Never Assessed PLAN OF CARE Activity Details Follow Up 3 Months Reason:adhd VITAL SIGNS Height 69 in 2016-04-24 Weight 156.8 lbs 2016-04-24 Temperature 98 degrees Fahrenheit 2016-04-24 Heart Rate 82 bpm 2016-04-24 Respiratory Rate 16 2016-04-24 BMI 23.15 kg/m2 2016-04-24 Blood pressure systolic 140 mmHg 2016-04-24 Blood pressure diastolic 70 mmHg 2016-04-24 MEDICATIONS Medication Instructions Dosage Frequency Start Date End Date Duration S tatus Adderall XR 30 MG Orally Once a day 1 capsule in the morning 24h 12 Sep, 2014 Active RESULTS No Results PROCEDURES No Known procedures IMMUNIZATIONS No Known Immunizations MEDICAL (GENERAL) HISTORY Type Description Date Medical History attention deficit hyperactivity disorder
--- OUTSIDE RECORDS SUMMARY | 2019-09-15 18:36 | XMS REPORT ---
Author Author Hussain DOMINGUEZ [facility] Address [address] [place] [address] Care Team Providers Care Ratings Analyst Name Role Phone AKI DOMINGUEZ Unavailable PROBLEMS Type Condition ICD9-CM Code FLX46-GI Code Onset Dates Condition S tatus SNOMED Code Problem Elevated blood pressure reading without diagnosi s of hypertension 796.2 Active 628349718 Problem Syncope and collapse 780.2 Active 759425022 Problem Palpitations 785.1 Active 0344204 2 Problem ADHD (attention deficit hyperactivity disorder) 314.01 Active 084641581 Problem Psychophysiological insomnia F51.04 A ctive 144167568 Problem Insomnia, unspecified type G47.00 Act nahn 378087110 Problem Other acne 706.1 Active 03134304 Problem Vitiligo 709.01 Active 37902445 Problem Attention deficit hyperactiv ity disorder (ADHD), predominantly inattentive type F90.0 Active 30928588 Problem Depressive disorder, not elsewhere classified 311 Active 62506953 ALLERGIES No Information ENCOUNTERS Encounter Location Date Diagnosis [place] [address] [id number] [place], [place] [id number] Mar, Attention deficit hyperactivity disorder (ADHD), predominantly inattentive type F90.0 [facility] [address] [id number] [place] [id number] Feb, [facility] [address] [id number] [place] [id number] Feb, Attention deficit hyperactivity disorder (ADHD), predominantly inattentive type F90.0 [facility] [address] [id number] [place] [id number] Jan, Attention deficit hyperactivity disorder (ADHD), predominantly inattentive type F90.0 [facility] [address] [id number] [place] [id number] Dec, Attention deficit hyperactivity disorder (ADHD), predominantly inattentive type F90.0 and Psychophysiological insomnia F51.04 [facility] [place] [address] [id number] [place] [id number] Dec, Attention deficit hyperactivity disorder (ADHD), predominantly inattentive type F90.0 [facility] [place] [address] [id number] [place] [id number] Nov, Encounter for immunization Z23 [facility] [place] [address] [id number] [place] [id number] Nov, Attention deficit hyperactivity disorder (ADHD), predominantly inattentive type F90.0 [facility] [place] [address] [id number] [place] [id number] Oct, Attention deficit hyperactivity disorder (ADHD), predominantly inattentive type F90.0 and Adjustment insomnia F51.02 [facility] [place] [address] [id number] [place] [id number] Sep, Attention deficit hyperactivity disorder (ADHD), predominantly inattentive type F90.0 [facility] [place] [address] [id number] [place] [id number] Aug, Adjustment insomnia F51.02 [facility] [place] [address] [id number] [place] [id number] Jul, Attention deficit hyperactivity disorder (ADHD), predominantly inattentive type F90.0 [facility] [place] [address] [id number] [place] [id number] Jul, Adjustment insomnia F51.02 and Attention deficit hyperactivity disorder (ADHD), predominantly inattentive type F90.0 [facility] [place] [address] [id number] [place] [id number] June, Attention deficit hyperactivity disorder (ADHD), predominantly inattentive type F90.0 [facility] [place] [address] [id number] [place] [id number] June, Attention deficit hyperactivity disorder (ADHD), predominantly inattentive type F90.0 [facility] [place] [address] [id number] [place] [id number] May, Attention deficit hyperactivity disorder (ADHD), predominantly inattentive type F90.0 [facility] [place] [address] [id number] [place] [id number] Apr, Attention deficit hyperactivity disorder (ADHD), predominantly inattentive type F90.0 [facility] [place] [address] [id number] [place] [id number] Apr, [facility] [place] [address] [id number] [place] [id number] Apr, Attention deficit hyperactivity disorder (ADHD), predominantly inattentive type F90.0 [facility] [place] [address] [id number] [place] [id number] Mar, [facility] [place] [address] [id number] [place] [id number] Feb, [facility] [place] [address] [id number] [place] [id number] Jan, [facility] [place] [address] [id number] [place] [id number] Dec, [facility] [place] [address] [id number] [place] [id number] Nov, [facility] [place] [address] [id number] [place] [id number] Oct, Attention deficit hyperactivity disorder (ADHD), predominantly inattentive type F90.0 [facility] [place] [address] [id number] [place] [id number] Sep, [facility] [place] [address] [id number] [place] [id number] Aug, [facility] [place] [address] [id number] [place] [id number] Jul, Attention deficit hyperactivity disorder (ADHD), predominantly inattentive type F90.0 and Insomnia, unspecified type G47.00 [facility] [place] [address] [id number] [place] [id number] Jul, [facility] [address] [id number] [place] [id number] June, [facility] [place] [address] [id number] [place] [id number] May, Attention deficit hyperactivity disorder (ADHD), predominantly inattentive type F90.0 [facility] [place] [address] [id number] [place] [id number] Apr, [facility] [place] [address] [id number] [place] [id number] Mar, [facility] [place] [address] [id number] [place] [id number] Mar, Attention deficit hyperactivity disorder (ADHD), predominantly inattentive type F90.0 [facility] [place] [address] [id number] [place] [id number] Feb, [facility] [place] [address] [id number] [place] [id number] Feb, [facility] [address] [id number] [facility] [id number] Jan, [facility] [place] [address] [id number] [place] [id number] Dec, Attention deficit hyperactivity disorder (ADHD), predominantly inattentive type F90.[address] [facility] [address] [id number] [facility] [id number] Nov, [facility] [place] [address] [id number] [place] [id number] Oct, [facility] [place] [address] [id number] [place] [id number] Sep, ADHD (attention deficit hyperactivity di sorder) 314.01 [facility] [place] [address] [id number] [place] [id number] Sep, [facility] [place] [address] [id number] [place] [id number] June, [facility] [place] [address] [id number] [place] [id number] June, [facility] [address] [facility] [id number] [address] [place] [address] May, [facility] [address] [facility] [id number] [address] [place] [address] May, [facility] [place] [address] [id number] [place] [id number] Apr, [facility] [place] [address] [id number] [facility] [place] [address] Apr, [facility] [place] [address] [id number] [place] [id number] Mar, [facility] [address] [id number] [facility] [place] [address] Mar, [facility] [place] [address] [id number] [place] [id number] Feb, [facility] [address] [id number] [address] [place] [address], [place] [address] Feb, [facility] [place] [address] [id number] [place] [id number] Feb, [facility] [address] [id number] [address] [place] [address], [place] [address] Feb, [facility] [place] [address] [id number] [place] [id number] Jan, [facility] [address] [id number] [address] [place] [address], [place] [address] Jan, [facility] [place] [address] [id number] [place] [id number] Jan, [facility] [address] [id number] [address] [place] [address], [place] [address] Jan, [facility] [place] [address] [id number] [place] [id number] Dec, [facility] [address] [id number] [address] [place] [address], [place] [address] Dec, [facility] [place] [address] [id number] [place] [id number] Nov, [facility] [address] [id number] [address] [place] [address], [place] [address] Nov, [facility] [place] [address] [id number] [place] [id number] Nov, [facility] [address] [id number] [address] [place] [address], [place] [address] Nov, [facility] [place] [address] [id number] [place] [id number] Oct, [facility] [address] [id number] [address] [place] [address], [place] [address] Oct, [facility] [place] [address] [id number] [place] [id number] Oct, [facility] [address] [id number] [address] [place] [address], [place] [address] Oct, [facility] [place] [address] [id number] [place] [id number] Sep, [facility] [address] [id number] [address] [place] [address], [place] [address] Sep, [facility] [address] [id number] [address] [place] [address], [place] [address] Sep, [facility] [place] [address] [id number] [place] [id number] Sep, [facility] [address] [id number] [address] [place] [address], [place] [address] Sep, [facility] [address] [id number] [address] [place] [address], [place] [address] Sep, [facility] [address] [id number] [address] [place] [address], [place] [address] Sep, [facility] [place] [address] [id number] [place] [id number] Aug, [facility] [address] [id number] [address] [place] [address], [place] [address] Aug, [facility] [place] [address] [id number] [place] [id number] Aug, [facility] [address] [id number] [facility] [place] [address] Aug, [facility] [place] [address] [id number] [place] [id number] June, [facility] [address] [id number] [facility] [place] [address] June, [facility] [place] [address] [id number] [place] [id number] June, [facility] [address] [id number] [facility] [place] [address] June, [facility] [place] [address] [id number] [place] [id number] Apr, [facility] [address] [id number] [address] [place] [address], [place] [address] Apr, [facility] [place] [address] [id number] [place] [id number] Mar, [facility] [address] [id number] [address] [place] [address], [place] [address] Mar, [facility] [place] [address] [id number] [place] [id number] Feb, [facility] [address] [id number] [address] [place] [address], [place] [address] Feb, [facility] [place] [address] [id number] [place] [id number] Jan, [facility] [address] [id number] [address] [place] [address], [place] [address] Jan, [facility] [address] [id number] [address] [place] [address], [place] [address] Jan, [facility] [address] [id number] [address] [place] [address], [place] [address] Jan, [facility] [place] [address] [id number] [place] [id number] Jan, [facility] [address] [id number] [address] [place] [address], [place] [address] Jan, [facility] [place] [address] [id number] [place] [id number] Nov, [facility] [address] [id number] [address] [address] Nov, [facility] [place] [address] [id number] [place] [id number] Oct, [facility] [place] [address] [id number] [place] [id number] Sep, [facility] [place] [address] [id number] [place] [id number] Sep, [facility] [place] [address] [id number] [place] [id number] Jul, [facility] [place] [address] [id number] [place] [id number] Jul, [facility] [place] [address] [id number] [place] [id number] June, [facility] [place] [address] [id number] [place] [id number] May, [facility] [place] [address] [id number] [place] [id number] Apr, [facility] [place] [address] [id number] [place] [id number] Mar, [facility] [place] [address] [id number] [place] [id number] Mar, [facility] [place] [address] [id number] [place] [id number] Mar, [facility] [place] [address] [id number] [place] [id number] Feb, [facility] [place] [address] [id number] [place] [id number] Feb, [facility] [place] [address] [id number] [place] [id number] Feb, [facility] [place] [address] [id number] [place] [id number] Feb, [facility] [place] [address] [id number] [place] [id number] Feb, [facility] [place] [address] [id number] [place] [id number] Jan, [facility] [address] [id number] [address] [place] [address], [place] [address] Jan, [facility] [place] [address] [id number] [place] [id number] Dec, [facility] [address] [id number] [address] [place] [address], [place] [address] Dec, [facility] [address] [id number] [address] [place] [address] Dec, [facility] [place] [address] [id number] [place] [id number] Dec, [facility] [address] [id number] [address] [place] [address] Dec, [facility] [address] [facility] [id number] [address] [place] [address], [place] [address] Dec, [facility] [address] [id number] [address] [place] [address] Dec, [facility] [place] [address] [id number] [place] [id number] Dec, [facility] [address] [id number] [address] [place] [address] Dec, [facility] [place] [address] [id number] [place] [id number] Nov, [facility] [place] [address] [id number] [place] [id number] Sep, [facility] [place] [address] [id number] [place] [id number] Aug, [facility] [address] [id number] [address] [place] [address], [place] [address] Aug, [facility] [place] [address] [id number] [place] [id number] Jul, [facility] [place] [address] [id number] [place] [id number] June, [facility] [address] [facility] [id number] [address] [place] [address] June, [facility] [place] [address] [id number] [place] [id number] May, [facility] [place] [address] [id number] [place] [id number] Apr, [facility] [place] [address] [id number] [place] [id number] Mar, [facility] [place] [address] [facility] [id number] [place] [id number] Feb, [facility] [address] [facility] [id number] [address] [place] [address] Jan, [facility] [address] [id number] [address] [place] [address] Dec, [facility] [address] [id number] [address] [place] [address] Nov, [facility] [address] [id number] [address] [place] [address] Mar, [facility] [id number] [place] [address] Dec, IMMUNIZATIONS No Known Immunizations SOCIAL HISTORY Never Assessed REASON FOR VISIT RX-Adderall refill PLAN OF CARE VITAL SIGNS MEDICATIONS Medication Instructions Dosage Frequency Start Date End Date Duration S abenr Adderall XR 15 mg Orally Once a day 1 capsule in the morning 24h Mar, 0 days Active RESULTS No Results PROCEDURES No Known procedures INSTRUCTIONS MEDICATIONS ADMINISTERED No Known Medications MEDICAL (GENERAL) HISTORY Type Description Date Medical History attention deficit hyperactivity disorder
--- OUTSIDE RECORDS SUMMARY | 2019-09-15 18:36 | XMS REPORT ---
Author Author Hussain DOMINGUEZ [facility] Address [address] [place] [address] Care Team Providers Care Freezing Machine Operator Name Role Phone AKI DOMINGUEZ Unavailable PROBLEMS Type Condition ICD9-CM Code NDD36-YW Code Onset Dates Condition S tatus SNOMED Code Problem ADHD (attention deficit hyperactivity disorder) 314.01 Active 866243166 Problem Depressive disorder, not elsewhere classified 311 Active 29909322 Problem Elevated blood pressure reading without diagnosi s of hypertension 796.2 Active 406813049 Problem Insomnia, unspecified type G47.00 Act nhan 452497878 Problem Attention deficit hyperactiv ity disorder (ADHD), predominantly inattentive type F90.0 Active 30274286 Problem Other acne 706.1 Active 06689132 Problem Vitiligo 709.01 Active 80487736 Problem Syncope and collapse 780.2 Active 850899345 Problem Palpitations 785.1 Active 7941398 2 ALLERGIES Unknown Allergies SOCIAL HISTORY No smoking Hx information available PLAN OF CARE VITAL SIGNS MEDICATIONS Medication Instructions Dosage Frequency Start Date End Date Duration S tatus Adderall XR 30 MG Orally Once a day 1 capsule in the morning 24h Sep, Active RESULTS No Results PROCEDURES No Known procedures IMMUNIZATIONS No Known Immunizations
--- OUTSIDE RECORDS SUMMARY | 2019-09-15 18:36 | XMS REPORT ---
Author Author Hussain DOMINGUEZ Organization [employer] Address Unknown Phone Unavailable Care Team Providers Care Benefits Representative Name Role Phone AKI DOMINGUEZ CP Unavailable [...] Date End Date Status Dosage Adderall XR [facility] [address]-45 30 MG Orally Once a day Sep 30, 2014 1 capsule in the morning Results No Known Results Summary Purpose [employer] Submission
--- OUTSIDE RECORDS SUMMARY | 2019-09-15 18:36 | XMS REPORT ---
Author Author Hussain DOMINGUEZ [facility] Address [address] [place] [address] Care Team Providers Care Spirits Model Name Role Phone AKI DOMINGUEZ Unavailable PROBLEMS Type Condition ICD9-CM Code ISA94-DM Code Onset Dates Condition S tatus SNOMED Code Problem Elevated blood pressure reading without diagnosi s of hypertension 796.2 Active 680380774 Problem Syncope and collapse 780.2 Active 408341337 Problem Palpitations 785.1 Active 6484105 2 Problem ADHD (attention deficit hyperactivity disorder) 314.01 Active 940069162 Problem Psychophysiological insomnia F51.04 A ctive 009783952 Problem Insomnia, unspecified type G47.00 Act nhan 751755755 Problem Other acne 706.1 Active 43316826 Problem Vitiligo 709.01 Active 88568296 Problem Attention deficit hyperactiv ity disorder (ADHD), predominantly inattentive type F90.0 Active 58356409 Problem Depressive disorder, not elsewhere classified 311 Active 66904222 ALLERGIES No Known Allergies ENCOUNTERS Encounter Location Date Diagnosis [place] [id number] [id number] [id number] Mar, Attention deficit hyperactivity disorder (ADHD), predominantly inattentive type F90.0 [facility] [address] [id number] [place] [id number] Feb, [facility] [address] [id number] [place] [id number] Feb, Attention deficit hyperactivity disorder (ADHD), predominantly inattentive type F90.0 [facility] [address] [id number] [place] [id number] Jan, Attention deficit hyperactivity disorder (ADHD), predominantly inattentive type F90.0 [facility] [address] [id number] [place] [id number] Dec, Attention deficit hyperactivity disorder (ADHD), predominantly inattentive type F90.0 and Psychophysiological insomnia F51.04 [facility] [place] [address] [id number] [place] [id number] Dec, Attention deficit hyperactivity disorder (ADHD), predominantly inattentive type F90.0 [facility] [place] [address] [id number] [place] [id number] Nov, Encounter for immunization Z23 [facility] [place] [address] [id number] [place] [id number] Nov, Attention deficit hyperactivity disorder (ADHD), predominantly inattentive type F90.0 [facility] [place] [address] [id number] [place] [id number] Oct, Attention deficit hyperactivity disorder (ADHD), predominantly inattentive type F90.0 and Adjustment insomnia F51.02 [facility] [place] [address] [id number] [place] [id number] Sep, Attention deficit hyperactivity disorder (ADHD), predominantly inattentive type F90.0 [facility] [place] [address] [id number] [place] [id number] Aug, Adjustment insomnia F51.02 [facility] [place] [address] [id number] [place] [id number] Jul, Attention deficit hyperactivity disorder (ADHD), predominantly inattentive type F90.0 [facility] [place] [address] [id number] [place] [id number] Jul, Adjustment insomnia F51.02 and Attention deficit hyperactivity disorder (ADHD), predominantly inattentive type F90.0 [facility] [place] [address] [id number] [place] [id number] June, Attention deficit hyperactivity disorder (ADHD), predominantly inattentive type F90.0 [facility] [place] [address] [id number] [place] [id number] June, Attention deficit hyperactivity disorder (ADHD), predominantly inattentive type F90.0 [facility] [place] [address] [id number] [place] [id number] May, Attention deficit hyperactivity disorder (ADHD), predominantly inattentive type F90.0 [facility] [place] [address] [id number] [place] [id number] Apr, Attention deficit hyperactivity disorder (ADHD), predominantly inattentive type F90.0 [facility] [place] [address] [id number] [place] [id number] Apr, [facility] [place] [address] [id number] [place] [id number] Apr, Attention deficit hyperactivity disorder (ADHD), predominantly inattentive type F90.0 [facility] [place] [address] [id number] [place] [id number] Mar, [facility] [place] [address] [id number] [place] [id number] Feb, [facility] [place] [address] [id number] [place] [id number] Jan, [facility] [place] [address] [id number] [place] [id number] Dec, [facility] [place] [address] [id number] [place] [id number] Nov, [facility] [place] [address] [id number] [place] [id number] Oct, Attention deficit hyperactivity disorder (ADHD), predominantly inattentive type F90.0 [facility] [place] [address] [id number] [place] [id number] Sep, [facility] [place] [address] [id number] [place] [id number] Aug, [facility] [place] [address] [id number] [place] [id number] Jul, Attention deficit hyperactivity disorder (ADHD), predominantly inattentive type F90.0 and Insomnia, unspecified type G47.00 [facility] [place] [address] [id number] [place] [id number] Jul, [facility] [address] [place] [address] AVE [id number] [place] [id number] June, [facility] [place] [address] [id number] [place] [id number] May, Attention deficit hyperactivity disorder (ADHD), predominantly inattentive type F90.0 [facility] [place] [address] [id number] [place] [id number] Apr, [facility] [place] [address] [id number] [place] [id number] Mar, [facility] [place] [address] [id number] [place] [id number] Mar, Attention deficit hyperactivity disorder (ADHD), predominantly inattentive type F90.0 [facility] [place] [address] [id number] [place] [id number] Feb, [facility] [place] [address] [id number] [place] [id number] Feb, [facility] [address] [id number] [place] [id number] Jan, [facility] [place] [address] [id number] [place] [id number] Dec, Attention deficit hyperactivity disorder (ADHD), predominantly inattentive type F90.[address] [facility] [address] [id number] [facility] [place] [id number] Nov, [facility] [place] [address] [id number] [place] [id number] Oct, [facility] [place] [address] [id number] [place] [id number] Sep, ADHD (attention deficit hyperactivity di sorder) 314.01 [facility] [place] [address] [id number] [place] [id number] Sep, [facility] [place] [address] [id number] [place] [id number] June, [facility] [place] [address] [id number] [place] [id number] June, [facility] [address] [facility] [id number] [address] [place] [address] May, [facility] [address] [facility] [id number] [address] [place] [address] May, [facility] [place] [address] [id number] [place] [id number] Apr, [facility] [address] [id number] [facility] [place] [address] Apr, [facility] [place] [address] [id number] [place] [id number] Mar, [facility] [address] [id number] [facility] [place] [address] Mar, [facility] [place] [address] [id number] [place] [id number] Feb, [facility] [address] [id number] [address] [place] [address], [place] [address] Feb, [facility] [place] [address] [id number] [place] [id number] Feb, [facility] [address] [facility] [id number] [address] [place] [address], [place] [address] Feb, [facility] [place] [address] [id number] [place] [id number] Jan, [facility] [address] [id number] [address] [place] [address], [place] [address] Jan, [facility] [place] [address] [id number] [place] [id number] Jan, [facility] [address] [id number] [address] [place] [address], [place] [address] Jan, [facility] [place] [address] [id number] [place] [id number] Dec, [facility] [address] [id number] [address] [place] [address], [place] [address] Dec, [facility] [place] [address] [id number] [place] [id number] Nov, [facility] [address] [id number] [address] [place] [address], [place] [address] Nov, [facility] [place] [address] [id number] [place] [id number] Nov, [facility] [address] [id number] [address] [place] [address], [place] [address] Nov, [facility] [place] [address] [id number] [place] [id number] Oct, [facility] [address] [id number] [address] [place] [address], [place] [address] Oct, [facility] [place] [address] [id number] [place] [id number] Oct, [facility] [address] [id number] [address] [place] [address], [place] [address] Oct, [facility] [place] [address] [id number] [place] [id number] Sep, [facility] [address] [id number] [address] [place] [address], [place] [address] Sep, [facility] [address] [id number] [address] [place] [address], [place] [address] Sep, [facility] [place] [address] [id number] [place] [id number] Sep, [facility] [address] [id number] [address] [place] [address], [place] [address] Sep, [facility] [address] [id number] [address] [place] [address], [place] [address] Sep, [facility] [address] [id number] [address] [place] [address], [place] [address] Sep, [facility] [place] [address] [id number] [place] [id number] Aug, [facility] [address] [id number] [address] [place] [address], [place] [address] Aug, [facility] [place] [address] [id number] [place] [id number] Aug, [facility] [address] [id number] [facility] [place] [address] Aug, [facility] [place] [address] [id number] [place] [id number] June, [facility] [address] [id number] [facility] [place] [address] June, [facility] [place] [address] [id number] [place] [id number] June, [facility] [address] [id number] [facility] [place] [address] June, [facility] [place] [address] [id number] [place] [id number] Apr, [facility] [address] [id number] [facility] [place] [address] Apr, [facility] [place] [address] [id number] [place] [id number] Mar, [facility] [address] [id number] [address] [place] [address], [place] [address] Mar, [facility] [place] [address] [id number] [place] [id number] Feb, [facility] [address] [id number] [address] [place] [address], [place] [address] Feb, [facility] [place] [address] [id number] [place] [id number] Jan, [facility] [address] [id number] [address] [place] [address], [place] [address] Jan, [facility] [address] [id number] [address] [place] [address], [place] [address] Jan, [facility] [address] [id number] [address] [place] [address], [place] [address] Jan, [facility] [place] [address] [id number] [place] [id number] Jan, [facility] [address] [id number] [address] [place] [address], [place] [address] Jan, [facility] [place] [address] [id number] [place] [id number] Nov, [facility] [address] [id number] [address] [place] [address] Nov, [facility] [place] [address] [id number] [place] [id number] Oct, [facility] [place] [address] [id number] [place] [id number] Sep, [facility] [place] [address] [id number] [place] [id number] Sep, [facility] [place] [address] [id number] [place] [id number] Jul, [facility] [place] [address] [id number] [place] [id number] Jul, [facility] [place] [address] [id number] [place] [id number] June, [facility] [place] [address] [id number] [place] [id number] May, [facility] [place] [address] [id number] [place] [id number] Apr, [facility] [place] [address] [id number] [place] [id number] Mar, [facility] [place] [address] [id number] [place] [id number] Mar, [facility] [place] [address] [id number] [place] [id number] Mar, [facility] [place] [address] [id number] [place] [id number] Feb, [facility] [place] [address] [id number] [place] [id number] Feb, [facility] [place] [address] [id number] [place] [id number] Feb, [facility] [place] [address] [id number] [place] [id number] Feb, [facility] [place] [address] [id number] [place] [id number] Feb, [facility] [place] [address] [id number] [place] [id number] Jan, [facility] [address] [id number] [address] [place] [address], [place] [address] Jan, [facility] [place] [address] [id number] [place] [id number] Dec, [facility] [address] [id number] [address] [place] [address], [place] [address] Dec, [facility] [address] [id number] [address] [place] [address], [place] [address] Dec, [facility] [place] [address] [id number] [place] [id number] Dec, [facility] [address] [id number] [address] [place] [address] Dec, [facility] [address] [facility] [id number] [address] [place] [address], [place] [address] Dec, [facility] [address] [id number] [address] [place] [address] Dec, [facility] [place] [address] [id number] [place] [id number] Dec, [facility] [address] [id number] [address] [place] [address] Dec, [facility] [place] [address] [id number] [place] [id number] Nov, [facility] [place] [address] [id number] [place] [id number] Sep, [facility] [place] [address] [id number] [place] [id number] Aug, [facility] [address] [id number] [address] [place] [address], [place] [address] Aug, [facility] [place] [address] [id number] [place] [id number] Jul, [facility] [place] [address] [id number] [place] [id number] June, [facility] [address] [facility] [id number] [address] [place] [address] June, [facility] [place] [address] [id number] [place] [id number] May, [facility] [place] [address] [id number] [place] [id number] Apr, [facility] [place] [address] [facility] [id number] [place] [id number] Mar, [facility] [place] [address] [facility] [id number] [place] [id number] Feb, [facility] [address] [facility] [id number] [address] [place] [address] Jan, [facility] [address] [facility] [id number] [address] [place] [address] Dec, [facility] [address] [place] [id number] [address] [place] [address] Nov, [facility] [address] [place] [id number] [address] [place] [address] Mar, [facility] [address] [facility] [id number] [address] [place] [address] Dec, IMMUNIZATIONS No Known Immunizations SOCIAL HISTORY Never Assessed REASON FOR VISIT States he is having trouble sleeping, not taking the seroquel because he cannot find the bottle. Needing Adderall refilled. collins Gustafson PLAN OF CARE Activity Details Follow Up 3 Months Reason:adhd VITAL SIGNS Height 69 in 2017-01-15 Weight 168 lbs 2017-01-15 Temperature 98.5 degrees Fahrenheit 2017-01-15 Heart Rate 102 bpm 2017-01-15 Respiratory Rate 16 2017-01-15 BMI 24.81 kg/m2 2017-01-15 Blood pressure systolic 140 mmHg 2017-01-15 Blood pressure diastolic 80 mmHg 2017-01-15 MEDICATIONS Medication Instructions Dosage Frequency Start Date End Date Duration S tatus HydrOXYzine HCl 25 MG Orally at bedtime as needed .5-1 tablet as ne eded Dec, 30 day(s) Active Adderall XR 15 mg Orally Once a day 1 capsule in the morning 24h Dec, Active RESULTS No Results PROCEDURES No Known procedures INSTRUCTIONS MEDICATIONS ADMINISTERED No Known Medications MEDICAL (GENERAL) HISTORY Type Description Date Medical History attention deficit hyperactivity disorder
--- OUTSIDE RECORDS SUMMARY | 2019-09-15 18:36 | XMS REPORT ---
Author Author Hussain DOMINGUEZ [facility] Address [address] [place] [address] Care Team Providers Care Engine Dispatcher Name Role Phone AKI DOMINGUEZ Unavailable PROBLEMS Type Condition ICD9-CM Code OMT50-DH Code Onset Dates Condition S tatus SNOMED Code Problem Elevated blood pressure reading without diagnosi s of hypertension 796.2 Active 522127857 Problem Syncope and collapse 780.2 Active 954354645 Problem Palpitations 785.1 Active 1008004 2 Problem ADHD (attention deficit hyperactivity disorder) 314.01 Active 543227469 Problem Psychophysiological insomnia F51.04 A ctive 614660954 Problem Insomnia, unspecified type G47.00 Act nhan 493657676 Problem Other acne 706.1 Active 05179093 Problem Vitiligo 709.01 Active 53550692 Problem Attention deficit hyperactiv ity disorder (ADHD), predominantly inattentive type F90.0 Active 48604092 Problem Depressive disorder, not elsewhere classified 311 Active 41883110 ALLERGIES No Information ENCOUNTERS Encounter Location Date Diagnosis [facility] [address] [facility] [id number] [place] [id number] May, [facility] [id number] [id number] Mar, Attention deficit hyperactivity disorder (ADHD), predominantly inattentive type F90.0 [facility] [address] [id number] [place] [id number] Feb, [facility] [address] [facility] [id number] [place] [id number] Feb, Attention deficit hyperactivity disorder (ADHD), predominantly inattentive type F90.0 [facility] [address] [id number] [place] [id number] Jan, Attention deficit hyperactivity disorder (ADHD), predominantly inattentive type F90.0 [facility] [place] [address] [id number] [place] [id number] Dec, Attention deficit hyperactivity disorder (ADHD), predominantly inattentive type F90.0 and Psychophysiological insomnia F51.04 [facility] [place] [address] [id number] [place] [id number] Dec, Attention deficit hyperactivity disorder (ADHD), predominantly inattentive type F90.0 [facility] [place] [address] [id number] [place] [id number] Nov, Encounter for immunization Z23 [facility] [place] [address] [id number] [place] [id number] Nov, Attention deficit hyperactivity disorder (ADHD), predominantly inattentive type F90.0 [facility] [place] [address] [id number] [place] [id number] Oct, Attention deficit hyperactivity disorder (ADHD), predominantly inattentive 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 and Adjustment insomnia F51.02 [facility] [place] [address] [id number] [place] [id number] Sep, Attention deficit hyperactivity disorder (ADHD), predominantly inattentive type F90.0 [facility] [place] [address] [id number] [place] [id number] Aug, Adjustment insomnia F51.02 [facility] [place] [address] [id number] [place] [id number] Jul, Attention deficit hyperactivity disorder (ADHD), predominantly inattentive type F90.0 [facility] [place] [address] [id number] [place] [id number] Jul, Adjustment insomnia F51.02 and Attention deficit hyperactivity disorder (ADHD), predominantly inattentive type F90.0 [facility] [place] [address] [id number] [place] [id number] June, Attention deficit hyperactivity disorder (ADHD), predominantly inattentive type F90.0 [facility] [place] [address] [id number] [place] [id number] June, Attention deficit hyperactivity disorder (ADHD), predominantly inattentive type F90.0 [facility] [place] [address] [id number] [place] [id number] May, Attention deficit hyperactivity disorder (ADHD), predominantly inattentive type F90.0 [facility] [place] [address] [id number] [place] [id number] Apr, Attention deficit hyperactivity disorder (ADHD), predominantly inattentive type F90.0 [facility] [place] [address] [id number] [place] [id number] Apr, [facility] [place] [address] [id number] [place] [id number] Apr, Attention deficit hyperactivity disorder (ADHD), predominantly inattentive type F90.0 [facility] [place] [address] [id number] [place] [id number] Mar, [facility] [place] [address] [id number] [place] [id number] Feb, [facility] [place] [address] [id number] [place] [id number] Jan, [facility] [place] [address] [id number] [place] [id number] Dec, [facility] [place] [address] [id number] [place] [id number] Nov, [facility] [place] [address] [id number] [place] [id number] Oct, Attention deficit hyperactivity disorder (ADHD), predominantly inattentive type F90.0 [facility] [place] [address] [id number] [place] [id number] Sep, [facility] [place] [address] [id number] [place] [id number] Aug, [facility] [place] [address] [id number] [place] [id number] Jul, Attention deficit hyperactivity disorder (ADHD), predominantly inattentive type F90.0 and Insomnia, unspecified type G47.00 [facility] [place] [address] [id number] [place] [id number] Jul, [facility] [address] [id number] [id number] June, [facility] [place] [address] [id number] [place] [id number] May, Attention deficit hyperactivity disorder (ADHD), predominantly inattentive type F90.0 [facility] [place] [address] [id number] [place] [id number] Apr, [facility] [place] [address] [id number] [place] [id number] Mar, [facility] [place] [address] [id number] [place] [id number] Mar, Attention deficit hyperactivity disorder (ADHD), predominantly inattentive type F90.0 [facility] [place] [address] [id number] [place] [id number] Feb, [facility] [place] [address] [id number] [place] [id number] Feb, [facility] [address] [id number] [id number] Jan, [facility] [place] [address] [id number] [place] [id number] Dec, Attention deficit hyperactivity disorder (ADHD), predominantly inattentive type F90.[address] [facility] [address] [id number] [id number] Nov, [facility] [place] [address] [id number] [place] [id number] Oct, [facility] [place] [address] [id number] [place] [id number] Sep, ADHD (attention deficit hyperactivity di sorder) 314.01 [facility] [place] [address] [id number] [place] [id number] Sep, [facility] [place] [address] [id number] [place] [id number] June, [facility] [place] [address] [id number] [place] [id number] June, [facility] [address] [facility] [place] [id number] [address] [place] [id number] May, [facility] [address] [facility] [place] [id number] [address] [place] [phone] May, [facility] [place] [address] [id number] [place] [id number] Apr, [facility] [address] [id number] [address] [place] [phone] Apr, [facility] [place] [address] [id number] [place] [id number] Mar, [facility] [address] [id number] [address] [place] [id number] Mar, [facility] [place] [address] [id number] [place] [id number] Feb, [facility] [address] [id number] [address] [place] [phone] Feb, [facility] [place] [address] [id number] [place] [id number] Feb, [facility] [address] [id number] [address] [place] [phone] Feb, [facility] [place] [address] [id number] [place] [id number] Jan, [facility] [address] [id number] [address] [place] [phone] Jan, [facility] [place] [address] [id number] [place] [id number] Jan, [facility] [address] [id number] [address] [place] [id number] Jan, [facility] [place] [address] [id number] [place] [id number] Dec, [facility] [address] [id number] [address] [place] [address], [place] [address] Dec, [facility] [place] [address] [id number] [place] [id number] Nov, [facility] [address] [id number] [address] [place] [phone] Nov, [facility] [place] [address] [id number] [place] [id number] Nov, [facility] [address] [id number] [address] [place] [address], [place] [address] Nov, [facility] [place] [address] [id number] [place] [id number] Oct, [facility] [address] [id number] [address] [place] [address], [place] [address] Oct, [facility] [place] [address] [id number] [place] [id number] Oct, [facility] [address] [id number] [address] [place] [address], [place] [address] Oct, [facility] [place] [address] [id number] [place] [id number] Sep, [facility] [address] [id number] [address] [place] [address], [place] [address] Sep, [facility] [address] [id number] [address] [place] [address], [place] [address] Sep, [facility] [place] [address] [id number] [place] [id number] Sep, [facility] [address] [id number] [address] [place] [id number] Sep, [facility] [address] [id number] [address] [place] [id number] Sep, [facility] [address] [id number] [address] [place] [address] Sep, [facility] [place] [address] [id number] [place] [id number] Aug, [facility] [address] [id number] [address] [place] [address], [place] [address] Aug, [facility] [place] [address] [id number] [place] [id number] Aug, [facility] [address] [id number] [address] [place] [address], [place] [address] Aug, [facility] [place] [address] [id number] [place] [id number] June, [facility] [address] [id number] [facility] [place] [place] [address] June, [facility] [place] [address] [id number] [place] [id number] June, [facility] [address] [id number] [address] [place] [address], [place] [address] June, [facility] [place] [address] [id number] [place] [id number] Apr, [facility] [address] [id number] [address] [place] [address], [place] [address] Apr, [facility] [place] [address] [id number] [place] [id number] Mar, [facility] [address] [id number] [address] [place] [address], [place] [address] Mar, [facility] [place] [address] [id number] [place] [id number] Feb, [facility] [address] [id number] [address] [place] [address], [place] [address] Feb, [facility] [place] [address] [id number] [place] [id number] Jan, [facility] [address] [id number] [address] [place] [address], [place] [address] Jan, [facility] [address] [id number] [address] [place] [address], [place] [address] Jan, [facility] [address] [id number] [address] [place] [address], [place] [address] Jan, [facility] [place] [address] [id number] [place] [id number] Jan, [facility] [address] [id number] [address] [place] [address], [place] [address] Jan, [facility] [place] [address] [id number] [place] [id number] Nov, [facility] [address] [id number] [address] [place] [address] Nov, [facility] [place] [address] [id number] [place] [id number] Oct, [facility] [place] [address] [id number] [place] [id number] Sep, [facility] [place] [address] [id number] [place] [id number] Sep, [facility] [place] [address] [id number] [place] [id number] Jul, [facility] [place] [address] [id number] [place] [id number] Jul, [facility] [place] [address] [id number] [place] [id number] June, [facility] [place] [address] [id number] [place] [id number] May, [facility] [place] [address] [id number] [place] [id number] Apr, [facility] [place] [address] [id number] [place] [id number] Mar, [facility] [place] [address] [id number] [place] [id number] Mar, [facility] [place] [address] [id number] [place] [id number] Mar, [facility] [place] [address] [id number] [place] [id number] Feb, [facility] [place] [address] [id number] [place] [id number] Feb, [facility] [place] [address] [id number] [place] [id number] Feb, [facility] [place] [address] [id number] [place] [id number] Feb, [facility] [place] [address] [id number] [place] [id number] Feb, [facility] [place] [address] [id number] [place] [id number] Jan, [facility] [address] [id number] [address] [place] [address], [place] [address] Jan, [facility] [place] [address] [id number] [place] [id number] Dec, [facility] [address] [id number] [address] [place] [address], [place] [address] Dec, [facility] [address] [id number] [address] [place] [address], [place] [address] Dec, [facility] [place] [address] [id number] [place] [id number] Dec, [facility] [address] [facility] [place] [id number] [address] [place] [address], [place] [address] Dec, [facility] [address] [facility] [place] [id number] [address] [place] [address], [place] [address] Dec, [facility] [address] [facility] [place] [id number] [address] [place] [address], [place] [address] Dec, [facility] [place] [address] [id number] [place] [id number] Dec, [facility] [address] [id number] [address] [place] [address], [place] [address] Dec, [facility] [place] [address] [id number] [place] [id number] Nov, [facility] [place] [address] [id number] [place] [id number] Sep, [facility] [place] [address] [id number] [place] [id number] Aug, [facility] [address] [id number] [address] [place] [address], [place] [address] Aug, [facility] [place] [address] [id number] [place] [id number] Jul, [facility] [place] [address] [id number] [place] [id number] June, [facility] [address] [facility] [place] [id number] [address] [place] [address] June, [facility] [place] [address] [id number] [place] [id number] May, [facility] [place] [address] [id number] [place] [id number] Apr, [facility] [place] [address] [id number] [place] [id number] Mar, [facility] [place] [address] [id number] [place] [id number] Feb, [facility] [address] [facility] [place] [id number] [address] [place] [address] Jan, [facility] [address] [facility] [place] [id number] [address] [place] [phone] Dec, [facility] [address] [facility] [place] [id number] [address] [place] [id number] Nov, [facility] [address] [facility] [place] [id number] [address] [place] [address] Mar, [facility] [address] [place] [id number] [address] [place] [phone] Dec, IMMUNIZATIONS No Known Immunizations SOCIAL HISTORY Never Assessed REASON FOR VISIT Refill request PLAN OF CARE VITAL SIGNS MEDICATIONS Medication Instructions Dosage Frequency Start Date End Date Duration S abner Adderall XR 15 mg Orally Once a day 1 capsule in the morning 24h Sep, 0 days Active RESULTS No Results PROCEDURES No Known procedures INSTRUCTIONS MEDICATIONS ADMINISTERED No Known Medications MEDICAL (GENERAL) HISTORY Type Description Date Medical History attention deficit hyperactivity disorder
--- OUTSIDE RECORDS SUMMARY | 2019-09-15 18:36 | XMS REPORT ---
Author Author Hussain DOMINGUEZ [facility] Address [address] [place] [address] Care Team Providers Care Fancy Stitcher Name Role Phone AKI DOMINGUEZ Unavailable PROBLEMS Type Condition ICD9-CM Code HVA87-SU Code Onset Dates Condition S tatus SNOMED Code Problem ADHD (attention deficit hyperactivity disorder) 314.01 Active 634733554 Problem Palpitations 785.1 Active 5454404 2 Problem Elevated blood pressure reading without diagnosi s of hypertension 796.2 Active 766826835 Problem Insomnia, unspecified type G47.00 Act nhan 612823720 Problem Attention deficit hyperactiv ity disorder (ADHD), predominantly inattentive type F90.0 Active 12991848 Problem Vitiligo 709.01 Active 01534141 Problem Syncope and collapse 780.2 Active 274490834 Problem Depressive disorder, not elsewhere classified 311 Active 11847626 Problem Other acne 706.1 Active 21028472 ALLERGIES No Information SOCIAL HISTORY Never Assessed [...]
--- OUTSIDE RECORDS SUMMARY | 2019-09-15 18:36 | XMS REPORT ---
Author Author Hussain DOMINGUEZ [facility] Address [address] [place] [address] Care Team Providers Care Cena Name Role Phone AKI DOMINGUEZ Unavailable PROBLEMS Type Condition ICD9-CM Code VQI88-LP Code Onset Dates Condition S tatus SNOMED Code Problem Elevated blood pressure reading without diagnosi s of hypertension 796.2 Active 342936741 Problem Syncope and collapse 780.2 Active 072148810 Problem Palpitations 785.1 Active 4776924 2 Problem ADHD (attention deficit hyperactivity disorder) 314.01 Active 881087317 Problem Psychophysiological insomnia F51.04 A ctive 991602498 Problem Insomnia, unspecified type G47.00 Act nhan 935717345 Problem Other acne 706.1 Active 47290618 Problem Vitiligo 709.01 Active 73732516 Problem Attention deficit hyperactiv ity disorder (ADHD), predominantly inattentive type F90.0 Active 27806730 Problem Depressive disorder, not elsewhere classified 311 Active 98373709 ALLERGIES No Known Allergies ENCOUNTERS Encounter Location Date Diagnosis [facility] [address] [facility] [id number] [place] [id number], [facility] [id number] [id number] Mar, Attention deficit hyperactivity disorder (ADHD), predominantly inattentive type F90.0 [facility] [address] [id number] [place] [id number] Feb, [facility] [address] [id number] [place] [id number] Feb, Attention deficit hyperactivity disorder (ADHD), predominantly inattentive type F90.0 [facility] [address] [id number] [place] [id number] Jan, Attention deficit hyperactivity disorder (ADHD), predominantly inattentive type F90.0 [facility] [place] [address] [id number] [place] [id number] Dec, Attention deficit hyperactivity disorder (ADHD), predominantly inattentive type F90.0 and Psychophysiological insomnia F51.04 [facility] [place] [address] [id number] [place] [id number] Dec, Attention deficit hyperactivity disorder (ADHD), predominantly inattentive type F90.0 [facility] [place] [address] [id number] [place] [id number] Nov, Encounter for immunization Z23 [facility] [place] [address] [id number] [place] [id number] Nov, Attention deficit hyperactivity disorder (ADHD), predominantly inattentive type F90.0 [facility] [place] [address] [id number] [place] [id number] Oct, Attention deficit hyperactivity disorder (ADHD), predominantly inattentive type F90.0 and Adjustment insomnia F51.02 [facility] [place] [address] [id number] [place] [id number] Sep, Attention deficit hyperactivity disorder (ADHD), predominantly inattentive type F90.0 [facility] [place] [address] [id number] [place] [id number] Aug, Adjustment insomnia F51.02 [facility] [place] [address] [id number] [place] [id number] Jul, Attention deficit hyperactivity disorder (ADHD), predominantly inattentive type F90.0 [facility] [place] [address] [id number] [place] [id number] Jul, Adjustment insomnia F51.02 and Attention deficit hyperactivity disorder (ADHD), predominantly inattentive type F90.0 [facility] [place] [address] [id number] [place] [id number] June, Attention deficit hyperactivity disorder (ADHD), predominantly inattentive type F90.0 [facility] [place] [address] [id number] [place] [id number] June, Attention deficit hyperactivity disorder (ADHD), predominantly inattentive type F90.0 [facility] [place] [address] [id number] [place] [id number] May, Attention deficit hyperactivity disorder (ADHD), predominantly inattentive type F90.0 [facility] [place] [address] [id number] [place] [id number] Apr, Attention deficit hyperactivity disorder (ADHD), predominantly inattentive type F90.0 [facility] [place] [address] [id number] [place] [id number] Apr, [facility] [place] [address] [id number] [place] [id number] Apr, Attention deficit hyperactivity disorder (ADHD), predominantly inattentive type F90.0 [facility] [place] [address] [id number] [place] [id number] Mar, [facility] [place] [address] [id number] [place] [id number] Feb, [facility] [place] [address] [id number] [place] [id number] Jan, [facility] [place] [address] [id number] [place] [id number] Dec, [facility] [place] [address] [id number] [place] [id number] Nov, [facility] [place] [address] [id number] [place] [id number] Oct, Attention deficit hyperactivity disorder (ADHD), predominantly inattentive type F90.0 [facility] [place] [address] [id number] [place] [id number] Sep, [facility] [place] [address] [id number] [place] [id number] Aug, [facility] [place] [address] [id number] [place] [id number] Jul, Attention deficit hyperactivity disorder (ADHD), predominantly inattentive type F90.0 and Insomnia, unspecified type G47.00 [facility] [place] [address] [id number] [place] [id number] Jul, [facility] [address] [id number] [id number] June, [facility] [place] [address] [id number] [place] [id number] May, Attention deficit hyperactivity disorder (ADHD), predominantly inattentive type F90.0 [facility] [place] [address] [id number] [place] [id number] Apr, [facility] [place] [address] [id number] [place] [id number] Mar, [facility] [place] [address] [id number] [place] [id number] Mar, Attention deficit hyperactivity disorder (ADHD), predominantly inattentive type F90.0 [facility] [place] [address] [id number] [place] [id number] Feb, [facility] [place] [address] [id number] [place] [id number] Feb, [facility] [address] [id number] [id number] Jan, [facility] [place] [address] [id number] [place] [id number] Dec, Attention deficit hyperactivity disorder (ADHD), predominantly inattentive type F90.[address] [facility] [id number] [place] [id number] Nov, [facility] [place] [address] [id number] [place] [id number] Oct, [facility] [place] [address] [id number] [place] [id number] Sep, ADHD (attention deficit hyperactivity di sorder) 314.01 [facility] [place] [address] [id number] [place] [id number] Sep, [facility] [place] [address] [id number] [place] [id number] June, [facility] [place] [address] [id number] [place] [id number] June, [facility] [address] [facility] [id number] [address] [place] [phone] May, [facility] [address] [facility] [id number] [address] [place] [phone] May, [facility] [place] [address] [id number] [place] [id number] Apr, [facility] [address] [id number] [address] [place] [phone] Apr, [facility] [place] [address] [id number] [place] [id number] Mar, [facility] [address] [id number] [address] [place] [address] Mar, [facility] [place] [address] [id number] [place] [id number] Feb, [facility] [address] [id number] [address] [place] [phone] Feb, [facility] [place] [address] [id number] [place] [id number] Feb, [facility] [address] [id number] [address] [place] [phone] Feb, [facility] [place] [address] [id number] [place] [id number] Jan, [facility] [address] [id number] [address] [place] [phone] Jan, [facility] [place] [address] [id number] [place] [id number] Jan, [facility] [address] [id number] [address] [place] [address], [place] [address] Jan, [facility] [place] [address] [id number] [place] [id number] Dec, [facility] [address] [id number] [address] [place] [phone] Dec, [facility] [place] [address] [id number] [place] [id number] Nov, [facility] [address] [id number] [address] [place] [address] Nov, [facility] [place] [address] [id number] [place] [id number] Nov, [facility] [address] [id number] [address] [place] [address], [place] [address] Nov, [facility] [place] [address] [id number] [place] [id number] Oct, [facility] [address] [id number] [address] [place] [address], [place] [address] Oct, [facility] [place] [address] [id number] [place] [id number] Oct, [facility] [address] [id number] [address] [place] [address], [place] [address] Oct, [facility] [place] [address] [id number] [place] [id number] Sep, [facility] [address] [id number] [address] [place] [address], [place] [address] Sep, [facility] [address] [id number] [address] [place] [address], [place] [address] Sep, [facility] [place] [address] [id number] [place] [id number] Sep, [facility] [address] [id number] [address] [place] [id number] Sep, [facility] [address] [id number] [address] [place] [phone] Sep, [facility] [address] [id number] [address] [place] [address] Sep, [facility] [place] [address] [id number] [place] [id number] Aug, [facility] [address] [id number] [address] [place] [address], [place] [address] Aug, [facility] [place] [address] [id number] [place] [id number] Aug, [facility] [address] [id number] [address] [place] [address] Aug, [facility] [place] [address] [id number] [place] [id number] June, [facility] [address] [id number] [facility] [place] [address] June, [facility] [place] [address] [id number] [place] [id number] June, [facility] [address] [id number] [address] [place] [address], [place] [address] June, [facility] [place] [address] [id number] [place] [id number] Apr, [facility] [address] [id number] [address] [place] [address], [place] [address] Apr, [facility] [place] [address] [id number] [place] [id number] Mar, [facility] [address] [id number] [address] [place] [address], [place] [address] Mar, [facility] [place] [address] [id number] [place] [id number] Feb, [facility] [address] [id number] [address] [place] [address], [place] [address] Feb, [facility] [place] [address] [id number] [place] [id number] Jan, [facility] [address] [id number] [address] [place] [address], [place] [address] Jan, [facility] [address] [id number] [address] [place] [address], [place] [address] Jan, [facility] [address] [id number] [address] [place] [address], [place] [address] Jan, [facility] [place] [address] [id number] [place] [id number] Jan, [facility] [address] [id number] [address] [place] [address], [place] [address] Jan, [facility] [place] [address] [id number] [place] [id number] Nov, [facility] [address] [id number] [address] [address] Nov, [facility] [place] [address] [id number] [place] [id number] Oct, [facility] [place] [address] [id number] [place] [id number] Sep, [facility] [place] [address] [id number] [place] [id number] Sep, [facility] [place] [address] [id number] [place] [id number] Jul, [facility] [place] [address] [id number] [place] [id number] Jul, [facility] [place] [address] [id number] [place] [id number] June, [facility] [place] [address] [id number] [place] [id number] May, [facility] [place] [address] [id number] [place] [id number] Apr, [facility] [place] [address] [id number] [place] [id number] Mar, [facility] [place] [address] [id number] [place] [id number] Mar, [facility] [place] [address] [id number] [place] [id number] Mar, [facility] [place] [address] [id number] [place] [id number] Feb, [facility] [place] [address] [id number] [place] [id number] Feb, [facility] [place] [address] [id number] [place] [id number] Feb, [facility] [place] [address] [id number] [place] [id number] Feb, [facility] [place] [address] [id number] [place] [id number] Feb, [facility] [place] [address] [id number] [place] [id number] Jan, [facility] [address] [id number] [address] [place] [address], [place] [address] Jan, [facility] [place] [address] [id number] [place] [id number] Dec, [facility] [address] [id number] [address] [place] [address], [place] [address] Dec, [facility] [address] [id number] [address] [place] [address], [place] [address] Dec, [facility] [place] [address] [id number] [place] [id number] Dec, [facility] [address] [facility] [id number] [address] [place] [address], [place] [address] Dec, [facility] [address] [facility] [id number] [address] [place] [address], [place] [address] Dec, [facility] [address] [facility] [id number] [address] [place] [address], [place] [address] Dec, [facility] [place] [address] [id number] [place] [id number] Dec, [facility] [address] [id number] [address] [place] [address], [place] [address] Dec, [facility] [place] [address] [id number] [place] [id number] Nov, [facility] [place] [address] [id number] [place] [id number] Sep, [facility] [place] [address] [id number] [place] [id number] Aug, [facility] [address] [id number] [address] [place] [address], [place] [address] Aug, [facility] [place] [address] [id number] [place] [id number] Jul, [facility] [place] [address] [id number] [place] [id number] June, [facility] [address] [facility] [id number] [address] [place] [address] June, [facility] [place] [address] [id number] [place] [id number] May, [facility] [address] [id number] [place] [id number] Apr, [facility] [address] [id number] [place] [id number] Mar, [facility] [address] [id number] [place] [id number] Feb, [facility] [address] [facility] [id number] [address] [place] [address] Jan, [facility] [address] [place] [id number] [address] [place] [address] Dec, [facility] [address] [place] [id number] [address] [place] [address] Nov, [facility] [address] [place] [id number] [address] [place] [address] Mar, [facility] [address] [place] [id number] [address] [place] [phone] Dec, IMMUNIZATIONS No Known Immunizations SOCIAL HISTORY Never Assessed REASON FOR VISIT 1 month follow up on ADHD, doing good with decreased dose. Although x 1 month, m om states that he has his days and nights mixed up. He wants to stay up all nigh t and sleep all day. collins Gustafson PLAN OF CARE Activity Details Follow Up 2 Weeks Reason:insomnia VITAL SIGNS Height 69 in 2016-08-07 Weight 166.2 lbs 2016-08-07 Temperature 98.5 degrees Fahrenheit 2016-08-07 Heart Rate 104 bpm 2016-08-07 Respiratory Rate 16 2016-08-07 BMI 24.54 kg/m2 2016-08-07 Blood pressure systolic 140 mmHg 2016-08-07 Blood pressure diastolic 80 mmHg 2016-08-07 MEDICATIONS Medication Instructions Dosage Frequency Start Date End Date Duration S tatus Adderall XR 15 mg Orally Once a day 1 capsule in the morning 24h Sep, Active Seroquel 25 MG Orally Once a day at hs 1-2 tablet Jul, 30 day(s) Active RESULTS No Results PROCEDURES No Known procedures INSTRUCTIONS MEDICATIONS ADMINISTERED No Known Medications MEDICAL (GENERAL) HISTORY Type Description Date Medical History attention deficit hyperactivity disorder
--- OUTSIDE RECORDS SUMMARY | 2019-09-15 18:37 | XMS REPORT ---
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 Name Role Phone AKI DOMINGUEZ Unavailable PROBLEMS Type Condition ICD9-CM Code GET94-QC Code Onset Dates Condition S tatus SNOMED Code Problem Elevated blood pressure reading without diagnosi s of hypertension 796.2 Active 587689857 Problem Syncope and collapse 780.2 Active 658598303 Problem Palpitations 785.1 Active 1825137 2 Problem ADHD (attention deficit hyperactivity disorder) 314.01 Active 179318896 Problem Psychophysiological insomnia F51.04 A ctive 901548198 Problem Insomnia, unspecified type G47.00 Act nhan 153160404 Problem Other acne 706.1 Active 61460688 Problem Vitiligo 709.01 Active 33132139 Problem Attention deficit hyperactiv ity disorder (ADHD), predominantly inattentive type F90.0 Active 97847215 Problem Depressive disorder, not elsewhere classified 311 Active 19961924 ALLERGIES No Information ENCOUNTERS Encounter Location Date Diagnosis [facility] [address] [facility] [id number] [place] [id number] May, [place] [address] [facility] [id number] [place] [id number] May, [facility] [id number] [id number] Mar, Attention deficit hyperactivity disorder (ADHD), predominantly inattentive type F90.0 [place] [address] [facility] [id number] [place] [id number] Feb, [address] [id number] [place] [id number] Feb, Attention deficit hyperactivity disorder (ADHD), predominantly inattentive type F90.0 [place] [address] [place] [id number] [place] [id number] Jan, Attention deficit hyperactivity disorder (ADHD), predominantly inattentive type F90.0 [facility] [place] [address] [id number] [place] [id number] Dec, Attention deficit hyperactivity disorder (ADHD), predominantly inattentive type F90.0 and Psychophysiological insomnia F51.04 [facility] [place] [address] [id number] [place] [id number] Dec, Attention deficit hyperactivity disorder (ADHD), predominantly inattentive type F90.0 [facility] [place] [address] [id number] [place] [id number] Nov, Encounter for immunization Z23 [facility] [place] [address] [id number] [place] [id number] Nov, Attention deficit hyperactivity disorder (ADHD), predominantly inattentive type F90.0 [facility] [place] [address] [id number] [place] [id number] Oct, Attention deficit hyperactivity disorder (ADHD), predominantly inattentive type F90.0 and Adjustment insomnia F51.02 [facility] [place] [address] [id number] [place] [id number] Sep, Attention deficit hyperactivity disorder (ADHD), predominantly inattentive type F90.0 [facility] [place] [address] [id number] [place] [id number] Aug, Adjustment insomnia F51.02 [facility] [place] [address] [id number] [place] [id number] Jul, Attention deficit hyperactivity disorder (ADHD), predominantly inattentive type F90.0 [facility] [place] [address] [id number] [place] [id number] Jul, Adjustment insomnia F51.02 and Attention deficit hyperactivity disorder (ADHD), predominantly inattentive type F90.0 [facility] [place] [address] [id number] [place] [id number] June, Attention deficit hyperactivity disorder (ADHD), predominantly inattentive type F90.0 [facility] [place] [address] [id number] [place] [id number] June, Attention deficit hyperactivity disorder (ADHD), predominantly inattentive type F90.0 [facility] [place] [address] [id number] [place] [id number] May, Attention deficit hyperactivity disorder (ADHD), predominantly inattentive type F90.0 [facility] [place] [address] [id number] [place] [id number] Apr, Attention deficit hyperactivity disorder (ADHD), predominantly inattentive type F90.0 [facility] [place] [address] [id number] [place] [id number] Apr, [facility] [place] [address] [id number] [place] [id number] Apr, Attention deficit hyperactivity disorder (ADHD), predominantly inattentive type F90.0 [facility] [place] [address] [id number] [place] [id number] Mar, [facility] [place] [address] [id number] [place] [id number] Feb, [facility] [place] [address] [id number] [place] [id number] Jan, [facility] [place] [address] [id number] [place] [id number] Dec, [facility] [place] [address] [id number] [place] [id number] Nov, [facility] [place] [address] [id number] [place] [id number] Oct, Attention deficit hyperactivity disorder (ADHD), predominantly inattentive type F90.0 [facility] [place] [address] [id number] [place] [id number] Sep, [facility] [place] [address] [id number] [place] [id number] Aug, [facility] [place] [address] [id number] [place] [id number] Jul, Attention deficit hyperactivity disorder (ADHD), predominantly inattentive type F90.0 and Insomnia, unspecified type G47.00 [facility] [place] [address] [id number] [place] [id number] Jul, [facility] [address] [id number] [place] [id number] June, [facility] [place] [address] [id number] [place] [id number] May, Attention deficit hyperactivity disorder (ADHD), predominantly inattentive type F90.0 [facility] [place] [address] [id number] [place] [id number] Apr, [facility] [address] [id number] [place] [id number] Mar, [facility] [place] [address] [id number] [place] [id number] Mar, Attention deficit hyperactivity disorder (ADHD), predominantly inattentive type F90.0 [facility] [place] [address] [id number] [place] [id number] Feb, [facility] [place] [address] [id number] [place] [id number] Feb, [facility] [address] [id number] [id number] Jan, [facility] [place] [address] [id number] [place] [id number] Dec, Attention deficit hyperactivity disorder (ADHD), predominantly inattentive type F90.[address] [facility] [address] [id number] [id number] Nov, [facility] [place] [address] [id number] [place] [id number] Oct, [facility] [place] [address] [id number] [place] [id number] Sep, ADHD (attention deficit hyperactivity di sorder) 314.01 [facility] [place] [address] [id number] [place] [id number] Sep, [facility] [place] [address] [id number] [place] [id number] June, [facility] [place] [address] [id number] [place] [id number] June, [facility] [address] [id number] [address] [place] [address], [place] [address] May, [facility] [address] [id number] [address] [place] [address] May, [facility] [place] [address] [id number] [place] [id number] Apr, [facility] [address] [id number] [facility] [place] [address] Apr, [facility] [place] [address] [id number] [place] [id number] Mar, [facility] [address] [id number] [address] [place] [address], [place] [address] Mar, [facility] [place] [address] [id number] [place] [id number] Feb, [facility] [address] [facility] [id number] [address] [place] [address], [place] [address] Feb, [facility] [place] [address] [id number] [place] [id number] Feb, [facility] [address] [id number] [address] [place] [address], [place] [address] Feb, [facility] [place] [address] [id number] [place] [id number] Jan, [facility] [address] [facility] [id number] [address] [place] [address], [place] [address] Jan, [facility] [place] [address] [id number] [place] [id number] Jan, [facility] [address] [id number] [address] [place] [address], [place] [address] Jan, [facility] [place] [address] [id number] [place] [id number] Dec, [facility] [address] [id number] [address] [place] [address], [place] [address] Dec, [facility] [place] [address] [id number] [place] [id number] Nov, [facility] [address] [id number] [address] [place] [address], [place] [address] Nov, [facility] [place] [address] [id number] [place] [id number] Nov, [facility] [address] [id number] [facility] [place] [address] Nov, [facility] [place] [address] [id number] [place] [id number] Oct, [facility] [address] [id number] [address] [place] [address], [place] [address] Oct, [facility] [place] [address] [id number] [place] [id number] Oct, [facility] [address] [id number] [address] [place] [address], [place] [address] Oct, [facility] [place] [address] [id number] [place] [id number] Sep, [facility] [address] [id number] [address] [place] [address], [place] [address] Sep, [facility] [address] [id number] [address] [place] [address], [place] [address] Sep, [facility] [place] [address] [id number] [place] [id number] Sep, [facility] [address] [id number] [address] [place] [address], [place] [address] Sep, [facility] [address] [id number] [address] [place] [address], [place] [address] Sep, [facility] [address] [id number] [address] [place] [address], [place] [address] Sep, [facility] [place] [address] [id number] [place] [id number] Aug, [facility] [address] [id number] [facility] [place] [address] Aug, [facility] [place] [address] [id number] [place] [id number] Aug, [facility] [address] [id number] [facility] [place] [address] Aug, [facility] [place] [address] [id number] [place] [id number] June, [facility] [address] [id number] [facility] [place] [address] June, [facility] [place] [address] [id number] [place] [id number] June, [facility] [address] [id number] [address] [place] [address], [place] [address] June, [facility] [place] [address] [id number] [place] [id number] Apr, [facility] [address] [id number] [address] [place] [address], [place] [address] Apr, [facility] [place] [address] [id number] [place] [id number] Mar, [facility] [address] [id number] [address] [place] [address], [place] [address] Mar, [facility] [place] [address] [id number] [place] [id number] Feb, [facility] [address] [id number] [address] [place] [address], [place] [address] Feb, [facility] [place] [address] [id number] [place] [id number] Jan, [facility] [address] [id number] [address] [place] [address], [place] [address] Jan, [facility] [address] [id number] [address] [place] [address], [place] [address] Jan, [facility] [address] [id number] [address] [place] [address], [place] [address] Jan, [facility] [place] [address] [id number] [place] [id number] Jan, [facility] [address] [id number] [address] [address] Jan, [facility] [place] [address] [id number] [place] [id number] Nov, [facility] [address] [id number] [address] [address] Nov, [facility] [place] [address] [id number] [place] [id number] Oct, [facility] [place] [address] [id number] [place] [id number] Sep, [facility] [place] [address] [id number] [place] [id number] Sep, [facility] [place] [address] [id number] [place] [id number] Jul, [facility] [place] [address] [id number] [place] [id number] Jul, [facility] [place] [address] [id number] [place] [id number] June, [facility] [place] [address] [id number] [place] [id number] May, [facility] [place] [address] [id number] [place] [id number] Apr, [facility] [place] [address] [id number] [place] [id number] Mar, [facility] [place] [address] [id number] [place] [id number] Mar, [facility] [place] [address] [id number] [place] [id number] Mar, [facility] [place] [address] [id number] [place] [id number] Feb, [facility] [place] [address] [id number] [place] [id number] Feb, [facility] [place] [address] [id number] [place] [id number] Feb, [facility] [place] [address] [id number] [place] [id number] Feb, [facility] [place] [address] [id number] [place] [id number] Feb, [facility] [place] [address] [id number] [place] [id number] Jan, [facility] [address] [id number] [address] [place] [address], [place] [address] Jan, [facility] [place] [address] [id number] [place] [id number] Dec, [facility] [address] [id number] [address] [place] [address], [place] [address] Dec, [facility] [address] [id number] [address] [place] [address], [place] [address] Dec, [facility] [place] [address] [id number] [place] [id number] Dec, [facility] [address] [id number] [address] [place] [address], [place] [address] Dec, [facility] [address] [id number] [address] [place] [address], [place] [address] Dec, [facility] [address] [facility] [id number] [address] [place] [address], [place] [address] Dec, [facility] [place] [address] [id number] [place] [id number] Dec, [facility] [address] [id number] [address] [place] [address], [place] [address] Dec, [facility] [place] [address] [id number] [place] [id number] Nov, [facility] [place] [address] [id number] [place] [id number] Sep, [facility] [place] [address] [id number] [place] [id number] Aug, [facility] [address] [id number] [address] [place] [address], [place] [address] Aug, [facility] [place] [address] [id number] [place] [id number] Jul, [facility] [place] [address] [id number] [place] [id number] June, [facility] [place] [address] [facility] [id number] [address] [place] [address] June, [facility] [place] [address] [id number] [place] [id number] May, [facility] [place] [address] [id number] [place] [id number] Apr, [facility] [place] [address] [id number] [place] [id number] Mar, [facility] [place] [address] [id number] [place] [id number] Feb, [facility] [place] [address] [facility] [id number] [address] [place] [address] Jan, [facility] [place] [address] [facility] [id number] [address] [place] [address] Dec, [facility] [place] [address] [facility] [id number] [address] [place] [address] Nov, [facility] [place] [address] [place] [id number] [address] [place] [address] Mar, [facility] [place] [address] [place] [id number] [address] [place] [address] Dec, IMMUNIZATIONS No Known Immunizations SOCIAL HISTORY [...]
--- OUTSIDE RECORDS SUMMARY | 2019-09-15 18:37 | XMS REPORT ---
Author Author Hussain DOMINGUEZ [facility] Address [address] [place] [address] Care Team Providers Care Veterinary Virologist Name Role Phone AKI DOMINGUEZ Unavailable PROBLEMS Type Condition ICD9-CM Code MTR82-BV Code Onset Dates Condition S tatus SNOMED Code Problem Elevated blood pressure reading without diagnosi s of hypertension 796.2 Active 360876798 Problem Syncope and collapse 780.2 Active 486881692 Problem Palpitations 785.1 Active 9413274 2 Problem ADHD (attention deficit hyperactivity disorder) 314.01 Active 453887595 Problem Psychophysiological insomnia F51.04 A ctive 748725441 Problem Insomnia, unspecified type G47.00 Act nhan 090049751 Problem Other acne 706.1 Active 37171246 Problem Vitiligo 709.01 Active 92050808 Problem Attention deficit hyperactiv ity disorder (ADHD), predominantly inattentive type F90.0 Active 98969151 Problem Depressive disorder, not elsewhere classified 311 Active 18170548 ALLERGIES No Information ENCOUNTERS Encounter Location Date Diagnosis [place] [id number] [id number] [place] [id number] Mar, Attention deficit hyperactivity disorder (ADHD), predominantly inattentive type F90.0 [facility] [address] [id number] [place] [id number] Feb, [facility] [address] [id number] [place] [id number] Feb, Attention deficit hyperactivity disorder (ADHD), predominantly inattentive type F90.0 [facility] [address] [id number] [place] [id number] Jan, Attention deficit hyperactivity disorder (ADHD), predominantly inattentive type F90.0 [facility] [address] [id number] [place] [id number] Dec, Attention deficit hyperactivity disorder (ADHD), predominantly inattentive type F90.0 and Psychophysiological insomnia F51.04 [facility] [place] [address] [id number] [place] [id number] Dec, Attention deficit hyperactivity disorder (ADHD), predominantly inattentive type F90.0 [facility] [place] [address] [id number] [place] [id number] Nov, Encounter for immunization Z23 [facility] [place] [address] [id number] [place] [id number] Nov, Attention deficit hyperactivity disorder (ADHD), predominantly inattentive type F90.0 [facility] [place] [address] [id number] [place] [id number] Oct, Attention deficit hyperactivity disorder (ADHD), predominantly inattentive type F90.0 and Adjustment insomnia F51.02 [facility] [place] [address] [id number] [place] [id number] Sep, Attention deficit hyperactivity disorder (ADHD), predominantly inattentive type F90.0 [facility] [place] [address] [id number] [place] [id number] Aug, Adjustment insomnia F51.02 [facility] [place] [address] [id number] [place] [id number] Jul, Attention deficit hyperactivity disorder (ADHD), predominantly inattentive type F90.0 [facility] [place] [address] [id number] [place] [id number] Jul, Adjustment insomnia F51.02 and Attention deficit hyperactivity disorder (ADHD), predominantly inattentive type F90.0 [facility] [place] [address] [id number] [place] [id number] June, Attention deficit hyperactivity disorder (ADHD), predominantly inattentive type F90.0 [facility] [place] [address] [id number] [place] [id number] June, Attention deficit hyperactivity disorder (ADHD), predominantly inattentive type F90.0 [facility] [place] [address] [id number] [place] [id number] May, Attention deficit hyperactivity disorder (ADHD), predominantly inattentive type F90.0 [facility] [place] [address] [id number] [place] [id number] Apr, Attention deficit hyperactivity disorder (ADHD), predominantly inattentive type F90.0 [facility] [place] [address] [id number] [place] [id number] Apr, [facility] [place] [address] [id number] [place] [id number] Apr, Attention deficit hyperactivity disorder (ADHD), predominantly inattentive type F90.0 [facility] [place] [address] [id number] [place] [id number] Mar, [facility] [place] [address] [id number] [place] [id number] Feb, [facility] [place] [address] [id number] [place] [id number] Jan, [facility] [place] [address] [id number] [place] [id number] Dec, [facility] [place] [address] [id number] [place] [id number] Nov, [facility] [place] [address] [id number] [place] [id number] Oct, Attention deficit hyperactivity disorder (ADHD), predominantly inattentive type F90.0 [facility] [place] [address] [id number] [place] [id number] Sep, [facility] [place] [address] [id number] [place] [id number] Aug, [facility] [place] [address] [id number] [place] [id number] Jul, Attention deficit hyperactivity disorder (ADHD), predominantly inattentive type F90.0 and Insomnia, unspecified type G47.00 [facility] [place] [address] [id number] [place] [id number] Jul, [facility] [address] [id number] [place] [id number] June, [facility] [place] [address] [id number] [place] [id number] May, Attention deficit hyperactivity disorder (ADHD), predominantly inattentive type F90.0 [facility] [place] [address] [id number] [place] [id number] Apr, [facility] [place] [address] [id number] [place] [id number] Mar, [facility] [place] [address] [id number] [place] [id number] Mar, Attention deficit hyperactivity disorder (ADHD), predominantly inattentive type F90.0 [facility] [place] [address] [id number] [place] [id number] Feb, [facility] [place] [address] [id number] [place] [id number] Feb, [facility] [address] [id number] [facility] [place] [id number] Jan, [facility] [place] [address] [id number] [place] [id number] Dec, Attention deficit hyperactivity disorder (ADHD), predominantly inattentive type F90.[address] [facility] [address] [id number] [facility] [place] [id number] Nov, [facility] [place] [address] [id number] [place] [id number] Oct, [facility] [place] [address] [id number] [place] [id number] Sep, ADHD (attention deficit hyperactivity di sorder) 314.01 [facility] [place] [address] [id number] [place] [id number] Sep, [facility] [place] [address] [id number] [place] [id number] June, [facility] [place] [address] [id number] [place] [id number] June, [facility] [address] [facility] [id number] [address] [place] [address] May, [facility] [address] [facility] [id number] [address] [place] [address] May, [facility] [place] [address] [id number] [place] [id number] Apr, [facility] [place] [address] [id number] [facility] [place] [place] [address] Apr, [facility] [place] [address] [id number] [place] [id number] Mar, [facility] [address] [id number] [facility] [place] [place] [address] Mar, [facility] [place] [address] [id number] [place] [id number] Feb, [facility] [address] [id number] [address] [place] [address], [place] [address] Feb, [facility] [place] [address] [id number] [place] [id number] Feb, [facility] [address] [id number] [address] [place] [address], [place] [address] Feb, [facility] [place] [address] [id number] [place] [id number] Jan, [facility] [address] [id number] [address] [place] [address], [place] [address] Jan, [facility] [place] [address] [id number] [place] [id number] Jan, [facility] [address] [id number] [address] [place] [address], [place] [address] Jan, [facility] [place] [address] [id number] [place] [id number] Dec, [facility] [address] [id number] [address] [place] [address], [place] [address] Dec, [facility] [place] [address] [id number] [place] [id number] Nov, [facility] [address] [id number] [address] [place] [address], [place] [address] Nov, [facility] [place] [address] [id number] [place] [id number] Nov, [facility] [address] [id number] [address] [place] [address], [place] [address] Nov, [facility] [place] [address] [id number] [place] [id number] Oct, [facility] [address] [id number] [address] [place] [address], [place] [address] Oct, [facility] [place] [address] [id number] [place] [id number] Oct, [facility] [address] [id number] [address] [place] [address], [place] [address] Oct, [facility] [place] [address] [id number] [place] [id number] Sep, [facility] [address] [id number] [address] [place] [address], [place] [address] Sep, [facility] [address] [id number] [address] [place] [address], [place] [address] Sep, [facility] [place] [address] [id number] [place] [id number] Sep, [facility] [address] [id number] [address] [place] [address], [place] [address] Sep, [facility] [address] [id number] [address] [place] [address], [place] [address] Sep, [facility] [address] [id number] [address] [place] [address], [place] [address] Sep, [facility] [place] [address] [id number] [place] [id number] Aug, [facility] [address] [id number] [address] [place] [address], [place] [address] Aug, [facility] [place] [address] [id number] [place] [id number] Aug, [facility] [address] [id number] [facility] [place] [place] [address] Aug, [facility] [place] [address] [id number] [place] [id number] June, [facility] [address] [id number] [facility] [place] [address] June, [facility] [place] [address] [id number] [place] [id number] June, [facility] [address] [id number] [facility] [place] [place] [address] June, [facility] [place] [address] [id number] [place] [id number] Apr, [facility] [address] [id number] [address] [place] [address], [place] [address] Apr, [facility] [place] [address] [id number] [place] [id number] Mar, [facility] [address] [id number] [address] [place] [address], [place] [address] Mar, [facility] [place] [address] [id number] [place] [id number] Feb, [facility] [address] [id number] [address] [place] [address], [place] [address] Feb, [facility] [place] [address] [id number] [place] [id number] Jan, [facility] [address] [id number] [address] [place] [address], [place] [address] Jan, [facility] [address] [id number] [address] [place] [address], [place] [address] Jan, [facility] [address] [id number] [address] [place] [address], [place] [address] Jan, [facility] [place] [address] [id number] [place] [id number] Jan, [facility] [address] [id number] [address] [place] [address], [place] [address] Jan, [facility] [place] [address] [id number] [place] [id number] Nov, [facility] [address] [id number] [address] [address] Nov, [facility] [place] [address] [id number] [place] [id number] Oct, [facility] [place] [address] [id number] [place] [id number] Sep, [facility] [place] [address] [id number] [place] [id number] Sep, [facility] [place] [address] [id number] [place] [id number] Jul, [facility] [place] [address] [id number] [place] [id number] Jul, [facility] [place] [address] [id number] [place] [id number] June, [facility] [place] [address] [id number] [place] [id number] May, [facility] [place] [address] [id number] [place] [id number] Apr, [facility] [place] [address] [id number] [place] [id number] Mar, [facility] [place] [address] [id number] [place] [id number] Mar, [facility] [place] [address] [id number] [place] [id number] Mar, [facility] [place] [address] [id number] [place] [id number] Feb, [facility] [place] [address] [id number] [place] [id number] Feb, [facility] [place] [address] [id number] [place] [id number] Feb, [facility] [place] [address] [id number] [place] [id number] Feb, [facility] [place] [address] [id number] [place] [id number] Feb, [facility] [place] [address] [id number] [place] [id number] Jan, [facility] [address] [id number] [address] [place] [address], [place] [address] Jan, [facility] [place] [address] [id number] [place] [id number] Dec, [facility] [address] [id number] [address] [place] [address], [place] [address] Dec, [facility] [address] [id number] [address] [place] [address] Dec, [facility] [place] [address] [id number] [place] [id number] Dec, [facility] [address] [id number] [address] [place] [address] Dec, [facility] [address] [facility] [id number] [address] [place] [address], [place] [address] Dec, [facility] [address] [id number] [address] [place] [address] Dec, [facility] [place] [address] [id number] [place] [id number] Dec, [facility] [address] [id number] [address] [place] [address] Dec, [facility] [place] [address] [id number] [place] [id number] Nov, [facility] [place] [address] [id number] [place] [id number] Sep, [facility] [place] [address] [id number] [place] [id number] Aug, [facility] [address] [id number] [address] [place] [address], [place] [address] Aug, [facility] [place] [address] [id number] [place] [id number] Jul, [facility] [place] [address] [id number] [place] [id number] June, [facility] [address] [facility] [id number] [address] [place] [address] June, [facility] [place] [address] [id number] [place] [id number] May, [facility] [place] [address] [id number] [place] [id number] Apr, [facility] [place] [address] [id number] [place] [id number] Mar, [facility] [place] [address] [facility] [id number] [place] [id number] Feb, [facility] [address] [facility] [id number] [address] [place] [address] Jan, [facility] [address] [id number] [address] [place] [address] Dec, [facility] [address] [id number] [address] [place] [address] Nov, [facility] [address] [id number] [address] [place] [address] Mar, [facility] [id number] [place] [address] Dec, IMMUNIZATIONS No Known Immunizations SOCIAL HISTORY Never Assessed REASON FOR VISIT Refill request PLAN OF CARE VITAL SIGNS MEDICATIONS Medication Instructions Dosage Frequency Start Date End Date Duration S ricardous Adderall XR 15 mg Orally Once a day 1 capsule in the morning 24h Dec, 0 days Active RESULTS No Results PROCEDURES No Known procedures INSTRUCTIONS MEDICATIONS ADMINISTERED No Known Medications MEDICAL (GENERAL) HISTORY Type Description Date Medical History attention deficit hyperactivity disorder
--- OUTSIDE RECORDS SUMMARY | 2019-09-15 18:37 | XMS REPORT ---
Author Author Hussain DOMINGUEZ Organization [employer] Address Unknown Phone Unavailable Care Team Providers Care Cake Stripper Name Role Phone AKI DOMINGUEZ CP Unavailable Allergies, Adverse Reactions, Alerts Substance Reaction Event Type N.K.D.A. Info Not Available Non Drug Allergy Problems Problem Type Condition Code Onset Dates Condition Statu s Problem ADHD (attention deficit hyperactivity disorder) 314.01 Active Assessment Attention deficit hyperactiv ity disorder (ADHD), predominantly inattentive type F90.0 Active Problem Syncope and collapse 780.2 Active Problem Palpitations 785.1 Active Problem Attention deficit hyperactiv ity disorder (ADHD), predominantly inattentive type F90.0 Active Problem Depressive disorder, not elsewhere classified 311 Active Problem Elevated blood pressure reading without diagnosi s of hypertension 796.2 Active Problem Other acne 706.1 Active Problem Vitiligo 709.01 Active Medications Medication Code System Code Instructions Start Date End Date Status Dosage Adderall XR [facility] [address]-74 30 MG Orally Once a day Sep 30, 2014 1 capsule in the morning Procedures Procedure Coding System Code Date Office Visit, Est Pt., Level 3 CPT-4 45341 A pril 2015 Vital Signs Date/Time: June 14, 2015 Temperature 97.9 F Weight 161.4 lbs Height 69 in BMI 23.83 Index Blood Pressure Diastolic 70 mmHg Blood Pressure Systolic 122 mmHg Cardiac Monitoring Heart Rate 97 bpm BMIPercentile 68.36 % Wt Percentile 65.43 % Results No Known Results Summary Purpose [employer] Submission
--- OUTSIDE RECORDS SUMMARY | 2019-09-15 18:37 | XMS REPORT | Continuity of Care Document ---
Author Author [facility] Organization [facility] Address [address] [place] [address] Phone Unavailable Care Team Providers Care Metallurgical Lab Technician Name Role Phone ARACELI MOSS MD PCP Insurance Providers Payer Name Policy Number Subscriber Name Relationship Farm [employer] [place] [id number] Hussain Bolivar 18 Self / Eliud e As [facility] [id number] Hussain Bolivar 18 Self / Same As Patient Advance Directives Directive Response Recorded Date/Time Advance Directives No 10/02/14 5:57pm Durable POA for HC No 10/02/14 5:57pm Power of Repatcher No 10/02/14 5:57pm Organ Donor Yes 10/02/14 5:57pm Living Will No 10/02/14 5:57pm Chief Complaint and Reason for Visit Chief Complaint Head Injury Reason for Visit Open wound of scalp without complication Concussion Problems Active Problems Medical Problem Onset Date Status Concussion Unknown Acute Open wound of scalp without complication Unknown Acute Medications No medication information available. Social History Social History Problem Response Recorded Date/Joesph e Smoking Status Current every day smoker 10/02/2014 5:55 pm Smoked in the last 12 months? Yes 10/02/2014 5:55pm Do you dip or chew tobacco? Yes 10/02/2014 5 :55pm Approx how many cigs per day? 10 10/02/2014 5:55pm Level of Dependence Moderate 10/02/2014 5:55pm Former smoker, last day smoked? TODAY 10/03/19 5:55pm Query Response Start Date Stop Date Smoking Status Current every day smoker Hospital Discharge Instructions No hospital discharge instructions. Plan of Care Discharge Date 10/02/14 6:45pm Disposition 01 D/C HOME Condition at Discharge Stable Instructions/Education Provided How to Stop Smoking (E D) Minor Head Injury (ED) Prescriptions See Medication Section Referrals ARACELI MOSS MD - Additional Instructions/Education Keep wounds clean, a nd covered with ointment, for the next 3-4 days. You may wash your hair in 36 hrs, but gently. You have a mild concussion. You may have some nausea on and off for 2 weeks. If you have persistant vomiting, confusion, or vision problems, you need to be checked again. Reference Links Reference Text What is a concussion? A co ncussion is a mild brain injury that commonly causes confusion, memory loss, and headache. Sometimes people pass out (lose consciousness) when they have a concussion, but not always. A concussion can happen after a person is hit on the head, face, or neck, or their head or upper body is shaken too hard. Sports injuries, car accidents, and falls are common causes of concussions. What are the symptoms of a concussion? Symptoms that can happen minutes to hours after a concussion include: ?Memory loss People sometimes forget what caused their injury, as well as what happened right before and after the injury. ?Confusion ?Headache ?Dizziness or trouble with balance ?Nausea or vomiting ?Feeling sleepy ?Acting cranky, strangely, or out of sorts Symptoms that can happen hours to days after a concussion include: ?Trouble walking or talking ?Memory problems or problems paying attention ?Trouble sleeping ?Mood or behavior changes ?Vision changes ?Being bothered by noise or light Will I need tests? It depends on your injury and symptoms. To check if you have a concussion, your doctor will ask about your symptoms and do an exam. He or she will also ask you questions to check that you are thinking clearly. If your doctor suspects a serious injury, he or she might order an imaging test of the brain, such as a CT or MRI scan. These tests create pictures of the skull and inside of the brain. How is a concussion treated? A concussion does not usually need treatment. Most concussions get better on their own, but it can take time. Some people's symptoms go away within minutes to hours. Other people have symptoms for weeks to months. When symptoms last a long time, doctors call it "postconcussion syndrome." After your concussion, your doctor might recommend that someone watch you for 12 to 24 hours. This person should watch for symptoms. To help your brain heal after a concussion, you can: ?Rest your body Make sure to get plenty of sleep. When you are awake, you should avoid heavy exercise or too much physical activity. ?Rest your brain Avoid doing activities that need concentration or a lot of attention. ?Not drink alcohol while you are still having symptoms of concussion ?Take a pain-relieving medicine, if you have a headache You can choose one with acetaminophen (sample brand name: Tylenol) or ibuprofen (sample brand names: Advil, Motrin). When can I play sports or do my usual activities again? Ask your doctor when you can play sports or do your usual activities again. It will depend on your injury and symptoms, as well as the type of sport you play. It's important to let your brain heal completely after a concussion. Getting another concussion before your brain has healed may lead to serious brain problems. When should I call the doctor or nurse? Call the doctor or nurse if any of the following happen after a concussion: ?You vomit more than 3 times ?You have a severe headache, or a headache that gets worse ?You have a seizure ?You have trouble walking or talking ?Your vision changes ?You feel weak or numb in part of your body ?You lose control over your bladder or bowel If your doctor suggested that someone watch you after your concussion, this person should call the doctor or nurse if he or she: ?Can't wake you up ?Sees any of the symptoms listed above How can I prevent another concussion? To help prevent another concussion, you can: ?Wear a helmet when you ride a bike or motorcycle, or play certain sports ?Wear a seat belt when you drive or ride in a car If you have one concussion, it's very important to try to prevent future concussions. Having many concussions might cause long-term brain damage and affect your thinking. Functional Status Query Response Date Recorded Activities of Daily Living Performs w/o Assistance October 02, 2014 5:56pm Cognitive Function Intact October 02, 2014 5:56pm Allergies, Adverse Reactions, Alerts No allergy information available. Immunizations No immunization records. Vital Signs Acute Vital Signs Vital Response Date/Time Temperature (Fahrenheit) 98 degrees F (97.6 - 99.5) 10/03/19 15 5:53pm Temperature (Calculated Celsius) 36.6696 degrees C (36.4 - 3 7.5) 10/02/2014 5:53pm Temperature Source Temporal Artery Scan 10/02/2014 5:53pm Pulse Pulse Ox Pulse Rate (adult) 82 beats per minute (60 - 90) 10/03/19 6:38pm Pulse Location Modifier Left 10/02/2014 6: 38pm Oxygen Saturation Respiratory Rate 20 breaths per minute (12 - 24) 10/03/19 6:38pm O2 Sat by Pulse Oximetry 99 % (90 - 100) 10/02/2014 6 :38pm Blood Pressure 148/80 mm Hg 10/02/2014 6:38pm Blood Pressure Mean 102 mm Hg 10/02/2014 6:38pm Height 5 ft 10 in Weight 150 lb Body Mass Index 21.5 kg/m^2 Results No known relevant diagnostic tests, laboratory data and/or discharge summary. Procedures No known history of procedures. Encounters Encounter Location Arrival/Admit Date Discharge/Depart Date Attending Provider Departed Emergency Room [facility] 10/02/14 5:53pm 10/02 6:45pm ARACELI MOSS MD Recent Diagnosis
--- OUTSIDE RECORDS SUMMARY | 2019-09-15 18:37 | XMS REPORT ---
Author Author Hussain DOMINGUEZ Organization [employer] Address Unknown Phone Unavailable Care Team Providers Care Clinical Research Spec Name Role Phone AKI DOMINGUEZ CP Unavailable [...] disorder, not elsewhere classified 311 Active Medications No Known Medications Results No Known Results Summary Purpose [employer] Submission
--- OUTSIDE RECORDS SUMMARY | 2019-09-15 18:37 | XMS REPORT ---
Author Author Hussain DOMINGUEZ Organization [employer] Address Unknown Phone Unavailable Care Team Providers Care Oncology Research Rn Name Role Phone AKI DOMINGUEZ CP Unavailable Allergies No Known Allergies Problems Problem Type Condition ICD-9 Code Onset Dates Condition Statu s Problem [...] Date End Date Status Dosage Adderall XR [facility] [id number] 30 MG Orally Once a day Sep 30, 2014 1 capsule in the morning Results No Known Results Summary Purpose [employer] Submission
--- OUTSIDE RECORDS SUMMARY | 2019-09-15 18:37 | XMS REPORT ---
Author Author Hussain DOMINGUEZ [facility] Address [address] [place] [address] Care Team Providers Care Civil Engineer Helper Name Role Phone AKI DOMINGUEZ Unavailable PROBLEMS Type Condition ICD9-CM Code IAA78-CJ Code Onset Dates Condition S tatus SNOMED Code Problem Elevated blood pressure reading without diagnosi s of hypertension 796.2 Active 248362336 Problem Syncope and collapse 780.2 Active 106841953 Problem Palpitations 785.1 Active 8169368 2 Problem ADHD (attention deficit hyperactivity disorder) 314.01 Active 969286963 Problem Psychophysiological insomnia F51.04 A ctive 596620552 Problem Insomnia, unspecified type G47.00 Act nhan 791590277 Problem Other acne 706.1 Active 29566205 Problem Vitiligo 709.01 Active 27621953 Problem Attention deficit hyperactiv ity disorder (ADHD), predominantly inattentive type F90.0 Active 27927694 Problem Depressive disorder, not elsewhere classified 311 Active 85958387 ALLERGIES No Information ENCOUNTERS Encounter Location Date Diagnosis [place] [address] [id number] [place] [id number] Mar, Attention deficit hyperactivity disorder (ADHD), predominantly inattentive type F90.0 [facility] [address] [id number] [place] [id number] Feb, [facility] [address] [id number] [place] [id number] Feb, Attention deficit hyperactivity disorder (ADHD), predominantly inattentive type F90.0 [facility] [address] [id number] [place] [id number] Jan, Attention deficit hyperactivity disorder (ADHD), predominantly inattentive type F90.0 [facility] [address] [id number] [place] [id number] Dec, Attention deficit hyperactivity disorder (ADHD), predominantly inattentive type F90.0 and Psychophysiological insomnia F51.04 [facility] [place] [address] [id number] [place] [id number] Dec, Attention deficit hyperactivity disorder (ADHD), predominantly inattentive type F90.0 [facility] [place] [address] [id number] [place] [id number] Nov, Encounter for immunization Z23 [facility] [place] [address] [id number] [place] [id number] Nov, Attention deficit hyperactivity disorder (ADHD), predominantly inattentive type F90.0 [facility] [place] [address] [id number] [place] [id number] Oct, Attention deficit hyperactivity disorder (ADHD), predominantly inattentive type F90.0 and Adjustment insomnia F51.02 [facility] [place] [address] [id number] [place] [id number] Sep, Attention deficit hyperactivity disorder (ADHD), predominantly inattentive type F90.0 [facility] [place] [address] [id number] [place] [id number] Aug, Adjustment insomnia F51.02 [facility] [place] [address] [id number] [place] [id number] Jul, Attention deficit hyperactivity disorder (ADHD), predominantly inattentive type F90.0 [facility] [place] [address] [id number] [place] [id number] Jul, Adjustment insomnia F51.02 and Attention deficit hyperactivity disorder (ADHD), predominantly inattentive type F90.0 [facility] [place] [address] [id number] [place] [id number] June, Attention deficit hyperactivity disorder (ADHD), predominantly inattentive type F90.0 [facility] [place] [address] [id number] [place] [id number] June, Attention deficit hyperactivity disorder (ADHD), predominantly inattentive type F90.0 [facility] [place] [address] [id number] [place] [id number] May, Attention deficit hyperactivity disorder (ADHD), predominantly inattentive type F90.0 [facility] [place] [address] [id number] [place] [id number] Apr, Attention deficit hyperactivity disorder (ADHD), predominantly inattentive type F90.0 [facility] [place] [address] [id number] [place] [id number] Apr, [facility] [place] [address] [id number] [place] [id number] Apr, Attention deficit hyperactivity disorder (ADHD), predominantly inattentive type F90.0 [facility] [place] [address] [id number] [place] [id number] Mar, [facility] [place] [address] [id number] [place] [id number] Feb, [facility] [place] [address] [id number] [place] [id number] Jan, [facility] [place] [address] [id number] [place] [id number] Dec, [facility] [place] [address] [id number] [place] [id number] Nov, [facility] [place] [address] [id number] [place] [id number] Oct, Attention deficit hyperactivity disorder (ADHD), predominantly inattentive type F90.0 [facility] [place] [address] [id number] [place] [id number] Sep, [facility] [place] [address] [id number] [place] [id number] Aug, [facility] [place] [address] [id number] [place] [id number] Jul, Attention deficit hyperactivity disorder (ADHD), predominantly inattentive type F90.0 and Insomnia, unspecified type G47.00 [facility] [place] [address] [id number] [place] [id number] Jul, [facility] [address] [id number] [place] [id number] June, [facility] [place] [address] [id number] [place] [id number] May, Attention deficit hyperactivity disorder (ADHD), predominantly inattentive type F90.0 [facility] [place] [address] [id number] [place] [id number] Apr, [facility] [place] [address] [id number] [place] [id number] Mar, [facility] [place] [address] [id number] [place] [id number] Mar, Attention deficit hyperactivity disorder (ADHD), predominantly inattentive type F90.0 [facility] [place] [address] [id number] [place] [id number] Feb, [facility] [place] [address] [id number] [place] [id number] Feb, [facility] [address] [id number] [facility] [place] [id number] Jan, [facility] [place] [address] [id number] [place] [id number] Dec, Attention deficit hyperactivity disorder (ADHD), predominantly inattentive type F90.[address] [facility] [address] [id number] [facility] [id number] Nov, [facility] [place] [address] [id number] [place] [id number] Oct, [facility] [place] [address] [id number] [place] [id number] Sep, ADHD (attention deficit hyperactivity di sorder) 314.01 [facility] [place] [address] [id number] [place] [id number] Sep, [facility] [place] [address] [id number] [place] [id number] June, [facility] [place] [address] [id number] [place] [id number] June, [facility] [address] [facility] [id number] [address] [place] [address] May, [facility] [address] [facility] [id number] [address] [place] [address] May, [facility] [place] [address] [id number] [place] [id number] Apr, [facility] [address] [id number] [facility] [place] [address] Apr, [facility] [place] [address] [id number] [place] [id number] Mar, [facility] [address] [id number] [facility] [place] [address] Mar, [facility] [place] [address] [id number] [place] [id number] Feb, [facility] [address] [id number] [address] [place] [address], [place] [address] Feb, [facility] [place] [address] [id number] [place] [id number] Feb, [facility] [address] [id number] [address] [place] [address], [place] [address] Feb, [facility] [place] [address] [id number] [place] [id number] Jan, [facility] [address] [id number] [address] [place] [address], [place] [address] Jan, [facility] [place] [address] [id number] [place] [id number] Jan, [facility] [address] [id number] [address] [place] [address], [place] [address] Jan, [facility] [place] [address] [id number] [place] [id number] Dec, [facility] [address] [id number] [address] [place] [address], [place] [address] Dec, [facility] [place] [address] [id number] [place] [id number] Nov, [facility] [address] [id number] [address] [place] [address], [place] [address] Nov, [facility] [place] [address] [id number] [place] [id number] Nov, [facility] [address] [id number] [address] [place] [address], [place] [address] Nov, [facility] [place] [address] [id number] [place] [id number] Oct, [facility] [address] [id number] [address] [place] [address], [place] [address] Oct, [facility] [place] [address] [id number] [place] [id number] Oct, [facility] [address] [id number] [address] [place] [address], [place] [address] Oct, [facility] [place] [address] [id number] [place] [id number] Sep, [facility] [address] [id number] [address] [place] [address], [place] [address] Sep, [facility] [address] [id number] [address] [place] [address], [place] [address] Sep, [facility] [place] [address] [id number] [place] [id number] Sep, [facility] [address] [id number] [address] [place] [address], [place] [address] Sep, [facility] [address] [id number] [address] [place] [address], [place] [address] Sep, [facility] [address] [id number] [address] [place] [address], [place] [address] Sep, [facility] [place] [address] [id number] [place] [id number] Aug, [facility] [address] [id number] [address] [place] [address], [place] [address] Aug, [facility] [place] [address] [id number] [place] [id number] Aug, [facility] [address] [id number] [facility] [place] [address] Aug, [facility] [place] [address] [id number] [place] [id number] June, [facility] [address] [id number] [facility] [place] [address] June, [facility] [place] [address] [id number] [place] [id number] June, [facility] [address] [id number] [facility] [place] [address] June, [facility] [place] [address] [id number] [place] [id number] Apr, [facility] [address] [id number] [address] [place] [address], [place] [address] Apr, [facility] [place] [address] [id number] [place] [id number] Mar, [facility] [address] [id number] [address] [place] [address], [place] [address] Mar, [facility] [place] [address] [id number] [place] [id number] Feb, [facility] [address] [id number] [address] [place] [address], [place] [address] Feb, [facility] [place] [address] [id number] [place] [id number] Jan, [facility] [address] [id number] [address] [place] [address], [place] [address] Jan, [facility] [address] [id number] [address] [place] [address], [place] [address] Jan, [facility] [address] [id number] [address] [place] [address], [place] [address] Jan, [facility] [place] [address] [id number] [place] [id number] Jan, [facility] [address] [id number] [address] [place] [address], [place] [address] Jan, [facility] [place] [address] [id number] [place] [id number] Nov, [facility] [address] [id number] [address] [place] [address] Nov, [facility] [place] [address] [id number] [place] [id number] Oct, [facility] [place] [address] [id number] [place] [id number] Sep, [facility] [place] [address] [id number] [place] [id number] Sep, [facility] [place] [address] [id number] [place] [id number] Jul, [facility] [place] [address] [id number] [place] [id number] Jul, [facility] [place] [address] [id number] [place] [id number] June, [facility] [place] [address] [id number] [place] [id number] May, [facility] [place] [address] [id number] [place] [id number] Apr, [facility] [place] [address] [id number] [place] [id number] Mar, [facility] [place] [address] [id number] [place] [id number] Mar, [facility] [place] [address] [id number] [place] [id number] Mar, [facility] [place] [address] [id number] [place] [id number] Feb, [facility] [place] [address] [id number] [place] [id number] Feb, [facility] [place] [address] [id number] [place] [id number] Feb, [facility] [place] [address] [id number] [place] [id number] Feb, [facility] [place] [address] [id number] [place] [id number] Feb, [facility] [place] [address] [id number] [place] [id number] Jan, [facility] [address] [id number] [address] [place] [address], [place] [address] Jan, [facility] [place] [address] [id number] [place] [id number] Dec, [facility] [address] [id number] [address] [place] [address], [place] [address] Dec, [facility] [address] [id number] [address] [place] [address] Dec, [facility] [place] [address] [id number] [place] [id number] Dec, [facility] [address] [id number] [address] [place] [address] Dec, [facility] [address] [facility] [id number] [address] [place] [address], [place] [address] Dec, [facility] [address] [id number] [address] [place] [address] Dec, [facility] [place] [address] [id number] [place] [id number] Dec, [facility] [address] [id number] [address] [place] [address] Dec, [facility] [place] [address] [id number] [place] [id number] Nov, [facility] [place] [address] [id number] [place] [id number] Sep, [facility] [place] [address] [id number] [place] [id number] Aug, [facility] [address] [id number] [address] [place] [address], [place] [address] Aug, [facility] [place] [address] [id number] [place] [id number] Jul, [facility] [place] [address] [id number] [place] [id number] June, [facility] [address] [facility] [id number] [address] [place] [address] June, [facility] [place] [address] [id number] [place] [id number] May, [facility] [place] [address] [id number] [place] [id number] Apr, [facility] [place] [address] [id number] [place] [id number] Mar, [facility] [place] [address] [id number] [place] [id number] Feb, [facility] [address] [facility] [id number] [address] [place] [address] Jan, [facility] [address] [place] [id number] [address] [place] [address] Dec, [facility] [address] [place] [id number] [address] [place] [address] Nov, [facility] [address] [place] [id number] [address] [place] [id number] Mar, [facility] [id number] [place] [address] Dec, IMMUNIZATIONS No Known Immunizations SOCIAL HISTORY Never Assessed REASON FOR VISIT RX-Adderall refill PLAN OF CARE VITAL SIGNS MEDICATIONS Medication Instructions Dosage Frequency Start Date End Date Duration S abner Adderall XR 15 mg Orally Once a day 1 capsule in the morning 24h Nov, 0 days Active RESULTS No Results PROCEDURES No Known procedures INSTRUCTIONS MEDICATIONS ADMINISTERED No Known Medications MEDICAL (GENERAL) HISTORY Type Description Date Medical History attention deficit hyperactivity disorder
== END 2019-09-15 17:09 | disposition home or self-care (01) ==
LOC: EDUNIT# 15:18 → ER 15:20
DX: N13.2 Hydronephrosis with renal and ureteral calculous obstruction (principal); F17.210 Nicotine dependence, cigarettes, uncomplicated
CPT/HCPCS: 36415; 74176; 80048; 81000; 85007; 85027